=== PATIENT | male | born 1955 | race Caucasian/White ===

== ENCOUNTER 2021-11-03 19:48 | Inpatient (IN) | payer MEDICARE, BC, SELFPAY ==
--- NOTE | ~2021-11-03 | CT_ITS ---
EXAMINATION: CT CHEST WITH CONTRAST CLINICAL INFORMATION: Evaluate for mass COMPARISON: Chest radiograph from 11/03/2019 TECHNIQUE: Multidetector volumetric CT imaging of the chest was obtained after the administration of 65 mL of Omnipaque 350 intravenous contrast without immediate adverse reactions. Axial MIP volume rendering provided. Sagittal and coronal reformatted images were obtained. This CT examination was performed using dose optimization techniques as appropriate, variously including the following: *Automated exposure control *Adjustment of mA and/or kV according to patient size (this includes techniques or standardized protocols for targeted exams where dose is matched to indication/reason for exam; i.e. 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 LUNGS: There are diffuse groundglass opacities seen bilaterally without nodules or masses or consolidation. Limited evaluation of central airways reveals no obstruction. MEDIASTINUM: There is cardiomegaly. There is no pericardial effusion. PLEURA: There is small pleural effusion on the right. AXILLA: No lymphadenopathy. UPPER ABDOMEN: Unremarkable OSSEOUS STRUCTURES: There is moderate gynecomastia seen on the left. The right breast is not visualized. There is subcutaneous opacity along the left lower chest most likely bruising measured 4.[address]/CT chest w con IMPRESSION: Examination is limited due to patients large body habitus right-sided pleural effusion. Cardiomegaly. Diffuse groundglass opacities most likely due to underperfusion. Unclear origin opacity in the subcutaneous tissues along the lower chest on the left most likely bruising Fleischner guidelines were followed.
--- NOTE | ~2021-11-03 | XR_ITS ---
EXAMINATION: XR CHEST CLINICAL INFORMATION: Hypoxia COMPARISON: Previous chest x-ray most recent 11/03/[address] October 2020 2 TECHNIQUE: Frontal view of the chest was obtained. FINDINGS: The cardiac silhouette is enlarged but stable. There is volume loss to the right hemithorax with shift of the central mediastinal structures to the right. There is increasing airspace disease in the right mid and lower lung. There is a small right pleural effusion. Left lung is clear. There is no left pleural effusion. There is no pneumothorax. No acute bone abnormality is seen. XR/XR chest 1V IMPRESSION: Stable enlargement of the cardiac silhouette. Increasing volume loss to the right hemithorax. Increasing airspace disease at the right lung base and right pleural effusion.
--- NOTE | ~2021-11-03 | NM_ITS ---
EXAMINATION: NM LUNG IMAGE PERFUSION CLINICAL INFORMATION: Elevated d-dimer COMPARISON: None TECHNIQUE: Following intravenous administration of 4 mCi of 90 9M technetium MAA, imaging of both lungs were obtained in multiple projections. FINDINGS: There is a large nonsegmental defect in the right hilum likely enlarged pulmonary artery or underlying hilar mass. No additional nonsegmental or subsegmental defects seen. Ventilation study was not performed. NM/NM pul perfusion IMPRESSION: Large nonsegmental defect right hilum. No segmental or subsegmental defect. Findings are most suspicion for PE. Right hilar muscle defect may represent enlarged right hilum or hilar mass aneurysm. Correlate with CT chest exam with or without contrast.
--- NOTE | ~2021-11-03 | XR_ITS ---
EXAMINATION: XR CHEST CLINICAL INFORMATION: Shortness of breath COMPARISON: 12/14/2021 TECHNIQUE: Frontal view of the chest was obtained. FINDINGS: Limited evaluation due to patient rotation and body habitus. Lung volumes are symmetric. There is prominence of the central vasculature suggesting a degree of congestion. Possibility of patchy right basilar opacity and small right pleural effusion cannot be excluded. No appreciable pneumothorax. Cardiac silhouette remains enlarged. No acute osseous findings are seen. XR/XR chest 1V IMPRESSION: Limited assessment due to patient rotation and body habitus. Prominent central vasculature suggesting a degree of congestion. Patchy right basilar opacity and small pleural effusion cannot be excluded.
--- NOTE | ~2021-11-03 | US_ITS ---
EXAMINATION: US VENOUS ULTRASOUND WITH DOPPLER LOWER EXTREMITY, BILATERAL CLINICAL INFORMATION: Bilateral leg swelling COMPARISON: None TECHNIQUE: Ultrasound of the deep veins is performed from the hip to the calf with compression sonography and color and pulse Doppler assessment. Spectral analysis with color-flow imaging is performed. Exam is limited due to patient body habitus. FINDINGS: RIGHT: There is normal venous compression and respiratory variation and augmented flow. The visualized common femoral vein, superficial femoral vein, profunda femoral vein, popliteal vein, and the trifurcation region shows no evidence of deep venous thrombosis. There is a 6.6 x 1.3 x 4.6 LEFT: There is normal venous compression and respiratory variation and augmented flow. The visualized common femoral vein, superficial femoral vein, profunda femoral vein, popliteal vein, and the trifurcation region shows no evidence of deep venous thrombosis. There is no significant popliteal fossa cyst. US/US venous duplex LE BI IMPRESSION: Very limited exam. No DVT seen.
--- NOTE | ~2021-11-03 | XR_ITS ---
EXAMINATION: XR CHEST CLINICAL INFORMATION: Chest pain COMPARISON: 11/09/2021 TECHNIQUE: Frontal view of the chest was obtained. FINDINGS: Again seen is marked cardiomegaly, unchanged from prior. There may be some mild pulmonary vascular congestion present with dilatation of central vasculature. At the time of the prior study, a small right effusion was present which appears to have cleared in the interim. No gross consolidation is seen. XR/XR chest 1V IMPRESSION: Cardiomegaly. Clearing of previously seen right pleural effusion. Central pulmonary vascular congestion without edema.
--- NOTE | ~2021-11-03 | XR_ITS ---
EXAMINATION: XR CHEST CLINICAL INFORMATION: Cough and SOB. COMPARISON: None TECHNIQUE: Frontal view of the chest was obtained. FINDINGS: Patient is rotated to the right. Hypoexpanded lungs with diffuse opacity seen throughout the right lung. Cannot exclude underlying infiltrate or atelectasis. No gross bony abnormality seen. XR/XR chest 1V IMPRESSION: Patient is very right with diffuse opacity right lung question congestion versus underlying effusion. Similar findings were seen on previous study 12/24/2021.
--- NOTE | ~2021-11-03 | CT_ITS ---
EXAMINATION: CT HEAD WITHOUT CONTRAST CLINICAL INFORMATION: Headache COMPARISON: None TECHNIQUE: Contiguous axial imaging was performed from the skull base to vertex without intravenous administration of contrast. This CT examination was performed using dose optimization techniques as appropriate, variously including the following: *Automated exposure control *Adjustment of mA and/or kV according to patient size (this includes techniques or standardized protocols for targeted exams where dose is matched to indication/reason for exam; i.e. extremities or head) *Use of iterative reconstruction technique DLP: 1856 mGy-cm FINDINGS: Partially limited assessment due to motion artifact. There is no evidence of acute intracranial hemorrhage or territorial infarction. No abnormal mass effect or midline shift is seen. Villanueva to white matter differentiation is well preserved. No extra-axial fluid collections are identified. The ventricles are normal in size. There is no abnormal attenuation within the brain parenchyma. The osseous structures and soft tissues are normal. The mastoid air cells and visualized portions of the paranasal sinuses are well aerated. CT/CT head/brain wo con IMPRESSION: No acute intracranial pathology identified.
--- NOTE | ~2021-11-03 | XR_ITS ---
EXAMINATION: XR CHEST CLINICAL INFORMATION: shortness of breath and leg swelling COMPARISON: None TECHNIQUE: Frontal view of the chest was obtained. FINDINGS: Patient is rotated to the right. Lung volumes are low. There is prominence of the central pulmonary vasculature, most consistent with pulmonary venous congestion. Mild interstitial edema is also suspected. Probable small right pleural effusion with associated bibasilar atelectasis. No pneumothorax. Silhouette appears enlarged, though the rightward rotation of the chest somewhat limits the assessment. No acute osseous findings are identified. XR/XR chest 1V IMPRESSION: Cardiomegaly with pulmonary venous congestion, mild interstitial edema, and a small right pleural effusion, most consistent with CHF
--- NOTE | ~2021-11-03 | XR_ITS ---
EXAMINATION: XR CHEST CLINICAL INFORMATION: Follow-up Right-sided chest abnormality. COMPARISON: 11/08/2021 TECHNIQUE: 2 views of the chest were obtained. FINDINGS: Examination limited due to patient body habitus and portable technique. Cardiomediastinal silhouette remains the same, enlarged. Partially visualized lungs are clear but there are prominent interstitial markings. There is blunting right costophrenic angle most likely due to small effusion. XR/XR chest 2V IMPRESSION: Technically limited study revealed cardiomegaly and small right-sided pleural effusion.
[2021-11-03 19:51] VITALS: BP 152/100; PULSE 84; O2SAT 84
[2021-11-03 20:02] VITALS: BP 176/87; PULSE 92; RESP 24; TEMP 36.8; O2SAT 88; BMI 62.6
--- NOTE | 2021-11-03 20:08 | ECG_ITS ---
Test Reason : Dyspnea Blood Pressure : / mmHG Vent. Rate : 078 BPM Atrial Rate : 000 BPM P-R Int : 000 ms QRS Dur : 074 ms QT Int : 362 ms P-R-T Axes : 000 025 061 degrees QTc Int : 412 ms Atrial fibrillation with a competing junctional pacemaker Nonspecific T wave abnormality Abnormal ECG When compared with ECG of 03-MAY-2015 16:09, Atrial fibrillation has replaced Sinus rhythm Nonspecific T wave abnormality, worse in Anterolateral leads Referred By: Esther Bryson Electronically Signed By:Tyrell Corey
--- NOTE | 2021-11-03 20:19 | ED_ITS ---
HPI - SOB/Dyspnea General Chief Complaint: Dyspnea Stated Complaint: sob Time Seen by Provider: 11/03/21 20:02 Source: patient and EMS Mode of arrival: EMS Limitations: no limitations History of Present Illness HPI Narrative: 66-year-old male who reports he has a past medical history of atrial fibrillation although decided to stop taking his medication over a year ago for atrial fibrillation is not sure what actual medication he was on and has not seen a PCP in over a year presenting to the ED via EMS with complaints of shortness of breath/ dyspnea on exertion / orthopnea with lower extremity edema and abdominal fullness for the past 4 days worse today. he also reports decreased urination. patient reports he possibly gain weight over the past few days due to the swelling in his abdomen and his lower extremities. Reports that he is normally not on oxygen at home. Reports he is fully vaccinated to the C OVID vaccine. He is not boosted to the COVID vaccine. He denies any recent travel or sick contacts. Reports that he lives in his [place] and he is never around anyone. He denies any fevers, dizziness, headaches, neck pain/ stiffness, trouble swallowing, cough, sore throat, chest pain, palpitations, paresthesias, abdominal pain, back pain, Dysuria, hematuria, abnormal penile discharge, diarrhea, constipation, black or bloody stools, rashes or any other symptoms complaints or concerns at this time. MD elicited complaint: shortness of breath Pertinent past history: other ( Atrial fibrillation untreated not being followed by primary care provider for over a year) Onset (ago): day(s) (4) Context: occurred during exertion Timing: constant and progressively worsening Severity: moderate Exacerbating factors: lying flat, exertion, movement, inspiration and talking Relieving factors: nothing Known history of: other (atrial fibrillation ) Associated symptoms: orthopnea and other ( abdominal fullness, decreased urine and lower extremity edema and possible weight gain) Treatment prior to arrival: oxygen (2) Related Data Home oxygen amount: none Allergies Allergy/AdvReac Type Severity Reaction Status Date / Time No Known Allergies Allergy Verified 11/03/21 20:05 [No Known Allergies*] Review of Systems Review of Systems: Constitutional : positive weight gain, No Fever, No Chills, No Night Sweats, No Fatigue, No Malaise ENT/Mouth : No Hearing loss, No Ear Pain, No Nasal Congestion, No Sinus Pain, No Hoarseness, No sore throat, No Rhinorrhea, No Swallowing Difficulty Eyes: No Eye Pain, No Swelling, No Redness, No Foreign Body, No Discharge, No Vision Changes Cardiovascular : Positive shortness of breath /dyspnea on exertion / orthopnea/ lower extremity edema, No Chest Pain, No Palpitations Respiratory : No Cough, No Sputum, No Wheezing, No Smoke Exposure, No Dyspnea Gastrointestinal : No Nausea, No Vomiting, No Diarrhea, No Constipation, No abdominal Pain, No Hematochezia, No Melena Genitourinary : positive urinary flow changes, no irregular bleeding, No Dysuria, No Urinary Frequency, No Hematuria, No Urinary Incontinence, No Urgency, No Flank Pain, No Hesitancy Musculoskeletal : No joint pain, No Myalgias, No Joint Swelling Skin : No Skin Lesions, No rash Neuro : No Weakness, No Numbness, No Paresthesias, No Loss of Consciousness, No Dizziness, No Headache Psych : No Anxiety/Panic, No Depression, No SI/HI/AH/VH, No Social Issues, Heme/Lymph: No Bruising, No Bleeding,No Lymphadenopathy Endocrine : No Polyuria, No Polydipsia, No Temperature Intolerance Yes all other systems are reviewed and are negative [facility] Past Medical History Attestation statement: The following information was validated with the patient. Medical History (Updated 11/04/21 @ 01:03 by Donny Velarde MD) Atrial fibrillation Obesity Social History Social History Advance Directives: No Physical Exam Vital Signs: Vital Signs: Last Vital Signs Temp 98.2 F 11/03/21 20:02 Pulse 84 11/03/21 23:16 Resp 24 H 11/03/21 23:16 BP 148/85 H 11/03/21 23:16 Pulse Ox 92 11/03/21 23:16 BMI result Body Mass Index 71.8 vital signs have been reviewed as normal and appeared to be correct. Blood pressure 176/87. Heart rate normal. Respiration rate 24. Temperature normal. Oxygen saturation at88% at RA on 2L of NC oxygen at 98%. Appearance: Alert. Oriented X3. No acute distress. Head: Normal external exam. Normocephalic. Atraumatic. Eyes: PERRLA. EOMI. Conjunctiva and sclera normal. Eyelids normal. ENT: EAC normal. TM's Normal. Pharynx normal. Uvula midline. Moist mucous membranes. No trismus noted. No drooling noted. No muffled voice noted. Neck: Normal inspection. Neck supple. FROM. No adenopathy. Thyroid Normal. No meningeal signs. No neck mass noted. CVS: Normal heart rate and rhythm. Heart sound normal. Pulses normal throughout. No murmurs/rales/gallops. Respiratory: No respiratory distress. Painless inspiration. Breath sounds normal. No wheezes/rales/rhonchi noted. Chest nontender. No accessory muscle usage noted or decreased air movement noted. Abdomen: Soft and nontender. Bowel sounds normal in all 4 quadrants. positive distention. No organomegaly noted. No visible injury noted. Back: No CVA tenderness. Full range of motion noted. No rashes/lesio n/induration/fluctuance or signs of infection noted. Skin: Skin warm and dry. Normal skin color. Normal skin turgor. No rashes/lesions/lacerations noted. Extremities: Positive lower extremity edema. No calf tenderness is noted. Extremities exhibit normal range of motion. Extremities nontender. Neuro: Oriented X 3. No motor deficit. No sensory deficit. Reflexes normal. Normal steady gait. No focal neuro deficits noted. Vascular: + radial pulses/+ 2 distal pedal pulses/+2 dorsalis pedis b/l. Normal cap refill. No cyanosis noted to upper extremity nails and lower extremity toes nails. Course Course Course Narrative: 20pm - 66-year-old male With a past medical history of atrial fibrillation who is non med compliant for over a year not being followed by primary care provider presenting to the ED with complaints of shortness of breath/ dyspnea on exertion/ orthopnea with lower extremity edema and weight gain for the past 4 days and abdominal fullness. Also reports decreased urination. Vaccinated to COVID. No other symptoms. On arrival patient needed to be placed on 2 L of nasal cannula oxygen due to his oxygen saturations 88% on room air now he is satting at 90 8% on the 2 L of nasal cannula oxygen. Otherwise all other vitals are within normal limits. No signs of other acute distress at this time. Plan: Labs, EKG, chest x-ray, COVID swab Then re-evaluate. Reevaluation(s) Reevaluation #1: - labs reviewed patient has an elevated D-dimer of 623. BUN 21. Troponin 43.3. BNP 233. Otherwise all other labs are within normal limits. - Chest x-ray revealed cardiomegaly with pulmonary venous congestion, mild interstitial edema and right small pleural effusion most consistent with CHF. - Therefore at this time will obtain a CTA of chest for possible PE and venous duplex ultrasound of bilateral lower extremity for possible DVTs - patient chest x-ray reveals CHF although the patient's BNP is only 233. Therefore will give 20 mg of IV Lasix for LE edema, Repeat the patient's troponin and then re-evaluate. Time: 22:57 Reevaluation #2: - patient is above the weight limit for CTA in the main ED department therefore patient will need to have a V/Q scan tomorrow morning. the cath lab radiology technician also reported that the patient will not have accurate venous duplex ultrasound studies due to his weight. - Repeat troponin negative delta went from 43.3-44.2. - We will to admit to Dr. Velarde for cardiomegaly with CHF, pleural effusion requiring 2 L of nasal cannula oxygen. Will start on Eliquis 10 mg b.i.d. for 1 week for prophylactic this for PE/DVT. I confirmed this with the on-call pharmacy they reported that either Lovenox or Eliquis would be acceptable due to patient having history of atrial fibrillation will start on Eliquis. Dr. Velarde to admit at this time. Time: 23:33 MDM - SOB/Dyspnea Medical Records Attestation: I reviewed the patient's medical records. Lab Data Attestation: I reviewed the patient's lab results. Result diagrams: 11/03/21 21:27 11/03/21 21:27 Labs: Lab Results 11/03/21 11/03/21 11/03/21 Range/Units 21:27 21:27 21:27 WBC 8.2 (4.8-10.8) X10*3/uL RBC 5.00 (4.60-5.80) X10*6/uL Hgb 15.2 (14.0-18.0) g/dl Hct 49.8 (42.0-52.0) % MCV 99.6 H (80.0-98.0) fL MCH 30.4 (27.0-33.0) pg MCHC 30.5 L (31.0-36.0) g/dl RDW 15.3 (11.0-16.0) % Plt Count 210 (160-400) X10*3/uL MPV 9.7 (9.4-12.4) fL Immature Gran % (Auto) 0.5 H (0.0-0.4) % Neut % (Auto) 70.5 (45-73) % Lymph % (Auto) 19.3 L (20-40) % [place] % (Auto) 8.0 (2-11) % Eos % (Auto) 1.0 (0-4) % Baso % (Auto) 0.7 (0-2) % Lymph # (Auto) 1.6 (1.2-4.9) X10*3/uL [place] # (Auto) 0.7 (0.1-1.2) X10*3/uL Eos # (Auto) 0.1 (0.0-0.4) X10*3/uL Baso # (Auto) 0.1 (0.0-0.2) X10*3/uL Abs Immat Gran (auto) 0.04 H (0.00-0.03) X10*3/uL Absolute Neuts (auto) 5.8 (2.0-8.3) x10*3/uL Absolute Nucleated RBC 0.000 (0.0-0.012) X10*3/uL Nucleated RBC % (auto) 0.0 (0.0-0.2) /100WBC PT 17.8 H (9.9-13.0) SEC INR 1.6 H (0.9-1.1) D-Dimer High Sensitivty 623 NG/ML Sodium 144 (135-145) mmol/L Potassium 4.7 (3.3-5.1) mmol/L Chloride 108 (96-108) mmol/L Carbon Dioxide 29 (22-29) mmol/L Anion Gap 12 (12-20) BUN 21 H (9-16) mg/dL Creatinine 1.16 (0.5-1.4) mg/dL Estim Creat Clear Calc 102.1 Estimated GFR > 60 Random Glucose 93 (60-115) mg/dL Lactic Acid (0.5-2.0) mmol/L Calcium 8.9 (8.4-10.2) mg/dL Magnesium 2.0 (1.6-2.6) mg/dL Total Bilirubin 0.8 (0.0-1.0) mg/dL AST 14 (5-37) U/L ALT 10 (0-40) U/L Alkaline Phosphatase 58 (39-117) U/L Troponin I High Sens (<3.5-35.0) ng/L B-Natriuretic Peptide (<100) pg/mL Total Protein 5.9 L (6.5-8.0) g/dL Albumin 3.2 L (3.5-5.0) g/dL Urine Color Urine Appearance Urine pH (5.0-8.0) Ur Specific [place] (1.005-1.025) Urine Protein (NEG-TRACE) MG/DL Urine Glucose (UA) (NEG) MG/DL Urine Ketones (NEG) MG/DL Urine Blood (NEG) Urine Nitrite (NEG) Ur Leukocyte Esterase (NEG) Urine RBC (0) /HPF Urine WBC (0-4) /HPF Ur Squamous Epith Cells /LPF Urine Bacteria /LPF Urine Mucus /LPF COVID-19 ([facility]) (Negative) COVID-19 Clin Com 11/03/21 11/03/21 11/03/21 Range/Units 21:27 21:27 21:27 WBC (4.8-10.8) X10*3/uL RBC (4.60-5.80) X10*6/uL Hgb (14.0-18.0) g/dl Hct (42.0-52.0) % MCV (80.0-98.0) fL MCH (27.0-33.0) pg MCHC (31.0-36.0) g/dl RDW (11.0-16.0) % Plt Count (160-400) X10*3/uL MPV (9.4-12.4) fL Immature Gran % (Auto) (0.0-0.4) % Neut % (Auto) (45-73) % Lymph % (Auto) (20-40) % [place] % (Auto) (2-11) % Eos % (Auto) (0-4) % Baso % (Auto) (0-2) % Lymph # (Auto) (1.2-4.9) X10*3/uL [place] # (Auto) (0.1-1.2) X10*3/uL Eos # (Auto) (0.0-0.4) X10*3/uL Baso # (Auto) (0.0-0.2) X10*3/uL Abs Immat Gran (auto) (0.00-0.03) X10*3/uL Absolute Neuts (auto) (2.0-8.3) x10*3/uL Absolute Nucleated RBC (0.0-0.012) X10*3/uL Nucleated RBC % (auto) (0.0-0.2) /100WBC PT (9.9-13.0) SEC INR (0.9-1.1) D-Dimer High Sensitivty NG/ML Sodium (135-145) mmol/L Potassium (3.3-5.1) mmol/L Chloride (96-108) mmol/L Carbon Dioxide (22-29) mmol/L Anion Gap (12-20) BUN (9-16) mg/dL Creatinine (0.5-1.4) mg/dL Estim Creat Clear Calc Estimated GFR Random Glucose (60-115) mg/dL Lactic Acid 1.4 (0.5-2.0) mmol/L Calcium (8.4-10.2) mg/dL Magnesium (1.6-2.6) mg/dL Total Bilirubin (0.0-1.0) mg/dL AST (5-37) U/L ALT (0-40) U/L Alkaline Phosphatase (39-117) U/L Troponin I High Sens 43.3 H (<3.5-35.0) ng/L B-Natriuretic Peptide 233 H (<100) pg/mL Total Protein (6.5-8.0) g/dL Albumin (3.5-5.0) g/dL Urine Color Urine Appearance Urine pH (5.0-8.0) Ur Specific [place] (1.005-1.025) Urine Protein (NEG-TRACE) MG/DL Urine Glucose (UA) (NEG) MG/DL Urine Ketones (NEG) MG/DL Urine Blood (NEG) Urine Nitrite (NEG) Ur Leukocyte Esterase (NEG) Urine RBC (0) /HPF Urine WBC (0-4) /HPF Ur Squamous Epith Cells /LPF Urine Bacteria /LPF Urine Mucus /LPF COVID-19 ([facility]) Negative (Negative) COVID-19 Clin Com See Note 11/04/21 11/04/21 Range/Units 00:26 00:26 WBC (4.8-10.8) X10*3/uL RBC (4.60-5.80) X10*6/uL Hgb (14.0-18.0) g/dl Hct (42.0-52.0) % MCV (80.0-98.0) fL MCH (27.0-33.0) pg MCHC (31.0-36.0) g/dl RDW (11.0-16.0) % Plt Count (160-400) X10*3/uL MPV (9.4-12.4) fL Immature Gran % (Auto) (0.0-0.4) % Neut % (Auto) (45-73) % Lymph % (Auto) (20-40) % [place] % (Auto) (2-11) % Eos % (Auto) (0-4) % Baso % (Auto) (0-2) % Lymph # (Auto) (1.2-4.9) X10*3/uL [place] # (Auto) (0.1-1.2) X10*3/uL Eos # (Auto) (0.0-0.4) X10*3/uL Baso # (Auto) (0.0-0.2) X10*3/uL Abs Immat Gran (auto) (0.00-0.03) X10*3/uL Absolute Neuts (auto) (2.0-8.3) x10*3/uL Absolute Nucleated RBC (0.0-0.012) X10*3/uL Nucleated RBC % (auto) (0.0-0.2) /100WBC PT (9.9-13.0) SEC INR (0.9-1.1) D-Dimer High Sensitivty NG/ML Sodium (135-145) mmol/L Potassium (3.3-5.1) mmol/L Chloride (96-108) mmol/L Carbon Dioxide (22-29) mmol/L Anion Gap (12-20) BUN (9-16) mg/dL Creatinine (0.5-1.4) mg/dL Estim Creat Clear Calc Estimated GFR Random Glucose (60-115) mg/dL Lactic Acid (0.5-2.0) mmol/L Calcium (8.4-10.2) mg/dL Magnesium (1.6-2.6) mg/dL Total Bilirubin (0.0-1.0) mg/dL AST (5-37) U/L ALT (0-40) U/L Alkaline Phosphatase (39-117) U/L Troponin I High Sens 44.2 H (<3.5-35.0) ng/L B-Natriuretic Peptide (<100) pg/mL Total Protein (6.5-8.0) g/dL Albumin (3.5-5.0) g/dL Urine Color STRAW Urine Appearance CLEAR Urine pH 5.5 (5.0-8.0) Ur Specific [place] 1.015 (1.005-1.025) Urine Protein NEG (NEG-TRACE) MG/DL Urine Glucose (UA) NEG (NEG) MG/DL Urine Ketones NEG (NEG) MG/DL Urine Blood 2+ H (NEG) Urine Nitrite NEG (NEG) Ur Leukocyte Esterase NEG (NEG) Urine RBC 5-9 H (0) /HPF Urine WBC 0-2 (0-4) /HPF Ur Squamous Epith Cells 1+ /LPF Urine Bacteria TRACE /LPF Urine Mucus TRACE /LPF COVID-19 ([facility]) (Negative) COVID-19 Clin Com Imaging Data Chest x-ray: Attestation: I personally reviewed and interpreted this imaging study as follows: Radiologist's impression: FINDINGS: Patient is rotated to the right. Lung volumes are low. There is prominence of the central pulmonary vasculature, most consistent with pulmonary venous congestion. Mild interstitial edema is also suspected. Probable small right pleural effusion with associated bibasilar atelectasis. No pneumothorax. Silhouette appears enlarged, though the rightward rotation of the chest somewhat limits the assessment. No acute osseous findings are identified. XR/XR chest 1V IMPRESSION: Cardiomegaly with pulmonary venous congestion, mild interstitial edema, and a small right pleural effusion, most consistent with CHF ECG Data Attestation: I personally reviewed and interpreted this ECG as follows: ECG interpretation date: 11/03/21 ECG interpretation time: 09:29 Prior ECG tracings: available for review Interpretation: atrial fibrillation with a ventricular rate of [address] abnormalities no acute ischemic changes are noted. Similar compared to prior EKG May 03, 2015. Critical Care Time Critical Care Time Critical Care Time: Yes Total Critical Care Time: 60 Attestation: I personally attest to this time spent taking care of the patient Discharge Plan Discharge Clinical Impression: Congestive heart failure, Atrial fibrillation, Pleural effusion on right, Hypoxia, Cardiomegaly Patient Disposition: Still a Patient
[2021-11-03 21:35] LABS: MANUAL DIFF FLAG NO
[2021-11-03 21:37] LABS: Basophils Absolute Auto 0.1 X10*3/uL (0.0-0.2); Basophils Percent Auto 0.7 % (0-2); Eosinophils Absolute Auto 0.1 X10*3/uL (0.0-0.4); Hematocrit 49.8 % (42.0-52.0); Hemoglobin 15.2 g/dl (14.0-18.0); Imm Gran Abs Auto 0.04 X10*3/uL (0.00-0.03); Imm Gran Pct Auto 0.5 % (0.0-0.4); Lymphocytes Absolute Auto 1.6 X10*3/uL (1.2-4.9); Lymphocytes Percent Auto 19.3 % (20-40); Mean Corpuscular HGB Conc 30.5 g/dl (31.0-36.0); Mean Corpuscular Hemoglobin 30.4 pg (27.0-33.0); Mean Corpuscular Volume 99.6 fL (80.0-98.0); Mean Platelet Volume 9.7 fL (9.4-12.4); Monocytes Absolute Auto 0.7 X10*3/uL (0.1-1.2); Neutrophils Absolute Auto 5.8 x10*3/uL (2.0-8.3); Neutrophils Percent Auto 70.5 % (45-73); Platelet Count 210 X10*3/uL (160-400); Red Cell Distribution Width 15.3 % (11.0-16.0); White Blood Count 8.2 X10*3/uL (4.8-10.8)
[2021-11-03 21:47] LABS: INTERNATIONAL NORM RATIO 1.6 (0.9-1.1); Prothrombin Time 17.8 SEC (9.9-13.0)
[2021-11-03 21:49] LABS: D Dimer High Sensitivity 623 NG/ML
[2021-11-03 21:51] LABS: COVID-19 Test Negative (Negative)
[2021-11-03 21:59] LABS: Alanine Aminotransferase 10 U/L (0-40); Albumin Level 3.2 g/dL (3.5-5.0); Alkaline Phosphatase 58 U/L (39-117); Anion Gap 12 (12-20); Aspartate Amino Transferase 14 U/L (5-37); Bilirubin Total 0.8 mg/dL (0.0-1.0); Blood Urea Nitrogen 21 mg/dL (9-16); Calcium 8.9 mg/dL (8.4-10.2); Carbon Dioxide 29 mmol/L (22-29); Chloride 108 mmol/L (96-108); Creatinine Clr Calc Pharmacy 102.1; Estimated Glomerular Filt Rate > 60; Glucose Random 93 mg/dL (60-115); Potassium 4.7 mmol/L (3.3-5.1); Sodium 144 mmol/L (135-145); Total Protein 5.9 g/dL (6.5-8.0)
[2021-11-03 22:05] LABS: B Type Natriuretic Peptide 233 pg/mL (<100); Troponin-I High Sensitivity 43.3 ng/L (<3.5-35.0)
[2021-11-03 22:25] LABS: Lactic Acid 1.4 mmol/L (0.5-2.0)
[2021-11-03 23:16] VITALS: BP 148/85; PULSE 84; RESP 24; O2SAT 92
[2021-11-03] MEDS: Furosemide 20 MG/2 ML VIAL IVPUSH (23:19)
[2021-11-04 00:34] LABS: Appearance Urine CLEAR; Color Urine STRAW; Glucose Urine UA NEG (NEG); Leukocyte Esterase Urine NEG (NEG); Nitrite Urine NEG (NEG); PH 5.5 (5.0-8.0); Specific Gravity - Urine 1.015 (1.005-1.025); UACC Culture Trigger NO; Urine Blood 2+ (NEG); Urine Ketones NEG (NEG); Urine Protein NEG (NEG-TRACE)
[2021-11-04 00:46] VITALS: BMI 71.8
[2021-11-04 00:48] LABS: Bacteria Urine TRACE /LPF; Mucus Urine TRACE /LPF; Squamous Epithelial Cell Urine 1+ /LPF; WBC Urine 0-2 /HPF (0-4)
[2021-11-04 00:51] LABS: Troponin-I High Sensitivity 44.2 ng/L (<3.5-35.0)
--- NOTE | 2021-11-04 01:03 | PM.IMHP ---
History of Present Illness Date of Service: 11/04/21 Chief Complaint: shortness of breath 66-year-old male with a past medical history of obesity, atrial fibrillation -not on any medications; presented to the hospital with a chief complaint of shortness of breath. Patient reports that over the past 3 days she has been having shortness of breath which has been gradually worsening also complains of dyspnea on exertion. Denies any chest pain. Patient reports that he also feels like weight gain, leg swelling. denies any fall or trauma. Denies any fever chills cough. Denies any GI symptoms. Patient does complain of orthopnea. Review of all other systems is negative except mentioned above ER course: Per ER team patient noted to be obese; noted to have pitting edema; chest x-ray showed congestion/ cardiomegaly/small pleural effusion; consult in CHF. Given Lasix. Patient's proBNP was elevated. Unable to do CT scan given overweight. Given empiric anticoagulation. V/Q scan ordered. Admitted to the hospital for further management. EKG was nonischemic -atrial fibrillation -rate controlled. [facility] Medical History (Updated 11/04/21 @ 01:03 by Donny Velarde MD) Atrial fibrillation Obesity Pertinent family history: reviewed Social History Advance Directives: No Meds Allergies Allergy/AdvReac Type Severity Reaction Status Date / Time No Known Allergies Allergy Verified 11/03/21 20:05 [No Known Allergies*] Active Medications: Current Medications Acetaminophen (Acetaminophen 325 Mg Tablet) 650 mg PO Q6H PRN PRN Reason: Pain, Mild (Pain Scale 1-3) Furosemide (Furosemide 40 Mg/4 Ml Vial) 40 mg IVPUSH BIDWM [facility]; Protocol Melatonin (Melatonin 3 Mg Tablet) 6 mg PO BEDTIME PRN PRN Reason: Insomnia Senna (Sennosides 8.6 Mg Tablet) 17.2 mg PO BEDTIME PRN PRN Reason: Constipation Sodium Chloride (0.9 % Sodium Chloride Flush 3 Ml Syringe) 3 ml IVFLUSH QSHIFT [facility] Physical Exam Vital Signs and Narrative: Vital Signs: Last Vital Signs Temp 98.2 F 11/03/21 20:02 Pulse 84 11/03/21 23:16 Resp 24 H 11/03/21 23:16 BP 148/85 H 11/03/21 23:16 Pulse Ox 92 11/03/21 23:16 BMI result Body Mass Index 71.8 Gen: Appears be in no acute distress. Obese. Speaks in full sentences. On supplemental oxygen. HEENT: NCAT, Moist mucosa. Pulmonary: crackles present bilaterally CVS: Normal S1-S2 Abdomen: BS+, Soft, Nontender Extremities: Warm well perfused . 2+ pitting edema Neuro: Alert and awake.. Grossly nonfocal Results Labs CBC and Chem 7: 11/03/21 21:27 11/03/21 21:27 Labs: Laboratory Results - last 24 hr 11/03/21 11/03/21 11/03/21 21:27 21:27 21:27 MCV 99.6 H MCH 30.4 MCHC 30.5 L RDW 15.3 Plt Count 210 MPV 9.7 Immature Gran % (Auto) 0.5 H Neut % (Auto) 70.5 Lymph % (Auto) 19.3 L [place] % (Auto) 8.0 Eos % (Auto) 1.0 Baso % (Auto) 0.7 Lymph # (Auto) 1.6 [place] # (Auto) 0.7 Eos # (Auto) 0.1 Baso # (Auto) 0.1 Abs Immat Gran (auto) 0.04 H Absolute Neuts (auto) 5.8 Absolute Nucleated RBC 0.000 Nucleated RBC % (auto) 0.0 PT 17.8 H INR 1.6 H D-Dimer High Sensitivty 623 Anion Gap 12 Estim Creat Clear Calc 102.1 Estimated GFR > 60 Random Glucose 93 Lactic Acid Calcium 8.9 Magnesium 2.0 Total Bilirubin 0.8 AST 14 ALT 10 Alkaline Phosphatase 58 Troponin I High Sens B-Natriuretic Peptide Total Protein 5.9 L Albumin 3.2 L Urine Color Urine Appearance Urine pH Ur Specific [place] Urine Protein Urine Glucose (UA) Urine Ketones Urine Blood Urine Nitrite Ur Leukocyte Esterase Urine RBC Urine WBC Ur Squamous Epith Cells Urine Bacteria Urine Mucus COVID-19 (AISHA) COVID-19 Clin Com 11/03/21 11/03/21 11/03/21 21:27 21:27 21:27 MCV MCH MCHC RDW Plt Count MPV Immature Gran % (Auto) Neut % (Auto) Lymph % (Auto) [place] % (Auto) Eos % (Auto) Baso % (Auto) Lymph # (Auto) [place] # (Auto) Eos # (Auto) Baso # (Auto) Abs Immat Gran (auto) Absolute Neuts (auto) Absolute Nucleated RBC Nucleated RBC % (auto) PT INR D-Dimer High Sensitivty Anion Gap Estim Creat Clear Calc Estimated GFR Random Glucose Lactic Acid 1.4 Calcium Magnesium Total Bilirubin AST ALT Alkaline Phosphatase Troponin I High Sens 43.3 H B-Natriuretic Peptide 233 H Total Protein Albumin Urine Color Urine Appearance Urine pH Ur Specific [place] Urine Protein Urine Glucose (UA) Urine Ketones Urine Blood Urine Nitrite Ur Leukocyte Esterase Urine RBC Urine WBC Ur Squamous Epith Cells Urine Bacteria Urine Mucus COVID-19 (AISHA) Negative COVID-19 Clin Com See Note 11/04/21 11/04/21 00:26 00:26 MCV MCH MCHC RDW Plt Count MPV Immature Gran % (Auto) Neut % (Auto) Lymph % (Auto) [place] % (Auto) Eos % (Auto) Baso % (Auto) Lymph # (Auto) [place] # (Auto) Eos # (Auto) Baso # (Auto) Abs Immat Gran (auto) Absolute Neuts (auto) Absolute Nucleated RBC Nucleated RBC % (auto) PT INR D-Dimer High Sensitivty Anion Gap Estim Creat Clear Calc Estimated GFR Random Glucose Lactic Acid Calcium Magnesium Total Bilirubin AST ALT Alkaline Phosphatase Troponin I High Sens 44.2 H B-Natriuretic Peptide Total Protein Albumin Urine Color STRAW Urine Appearance CLEAR Urine pH 5.5 Ur Specific [place] 1.015 Urine Protein NEG Urine Glucose (UA) NEG Urine Ketones NEG Urine Blood 2+ H Urine Nitrite NEG Ur Leukocyte Esterase NEG Urine RBC 5-9 H Urine WBC 0-2 Ur Squamous Epith Cells 1+ Urine Bacteria TRACE Urine Mucus TRACE COVID-19 (AISHA) COVID-19 Clin Com Imaging Radiologist's Impressions: Impressions Chest X-Ray 11/03/21 20:25 IMPRESSION: Cardiomegaly with pulmonary venous congestion, mild interstitial edema, and a small right pleural effusion, most consistent with CHF Assessment and Plan (1) Congestive heart failure: Status: Acute (2) Atrial fibrillation: Status: Acute (3) Pleural effusion on right: Status: Acute (4) Hypoxia: Status: Acute (5) Obesity: Status: Acute 66-year-old male with a past medical history of obesity, atrial fibrillation -not on any medications; presented to the hospital with a chief complaint of shortness of breath. Noted to have new onset CHF. Admitted for further management. hypoxia: Patient was desaturating to 88% on room air. On supplemental oxygen. In the setting of new onset CHF. COVID-19 negative. A New onset CHF: Continue Lasix 40 mg IV b.i.d daily weights and I's and O's Narayan catheter for fluid management Echocardiogram cardiology consult troponins indeterminate- likely demand. Atrial fibrillation: Rate controlled. Patient has high started a score given concerns for new onset CHF. Started on Eliquis 10 mg b.i.d. for 7 days followed by 5 mg b.i.d.. Elevated D-dimer: Will obtain a V/Q scan and venous duplex. Code status: Full code Quality Stroke Does the patient have a stroke diagnosis?: No VTE Prior VTE?: No VTE Risk Level:: Medical - moderate - high VTE Device Contraindication: Treatment Not Indicated VTE Drug Contraindication: N/A - Med Ordered
[2021-11-04 01:07] VITALS: BP 135/90; PULSE 89; RESP 24; O2SAT 96
[2021-11-04 01:20] LABS: Hemoglobin 15.7 g/dl (14.0-18.0); Mean Corpuscular HGB Conc 30.2 g/dl (31.0-36.0); Mean Corpuscular Volume 99.4 fL (80.0-98.0); Mean Platelet Volume 9.5 fL (9.4-12.4); Platelet Count 196 X10*3/uL (160-400); Red Blood Count 5.23 X10*6/uL (4.60-5.80); Red Cell Distribution Width 15.5 % (11.0-16.0); White Blood Count 9.3 X10*3/uL (4.8-10.8)
[2021-11-04 01:26] LABS: INTERNATIONAL NORM RATIO 1.5 (0.9-1.1); Prothrombin Time 17.4 SEC (9.9-13.0)
[2021-11-04 01:29] LABS: Partial Thromboplastin Time 32.9 SEC (24.1-38.0)
[2021-11-04] MEDS: Furosemide 20 MG/2 ML VIAL IVPUSH (01:29)
[2021-11-04] MEDS: Apixaban 5 MG TABLET 10 MG PO ×3 (01:31→19:50)
--- NOTE | 2021-11-04 02:43 | PC.NURSE ---
Report given to Sergio HURST.
[2021-11-04 04:01] VITALS: BP 144/75; PULSE 90; RESP 20; TEMP 36.6
[2021-11-04 04:53] LABS: MANUAL DIFF FLAG NO
[2021-11-04 04:59] LABS: Basophils Absolute Auto 0.1 X10*3/uL (0.0-0.2); Basophils Percent Auto 0.6 % (0-2); Eosinophils Absolute Auto 0.1 X10*3/uL (0.0-0.4); Eosinophils Percent Auto 1.3 % (0-4); Hematocrit 49.4 % (42.0-52.0); Hemoglobin 15.1 g/dl (14.0-18.0); Imm Gran Abs Auto 0.03 X10*3/uL (0.00-0.03); Imm Gran Pct Auto 0.3 % (0.0-0.4); Lymphocytes Absolute Auto 2.2 X10*3/uL (1.2-4.9); Lymphocytes Percent Auto 22.9 % (20-40); Mean Corpuscular HGB Conc 30.6 g/dl (31.0-36.0); Mean Corpuscular Hemoglobin 30.3 pg (27.0-33.0); Mean Corpuscular Volume 99.2 fL (80.0-98.0); Monocytes Absolute Auto 0.9 X10*3/uL (0.1-1.2); Monocytes Percent Auto 9.6 % (2-11); Neutrophils Absolute Auto 6.2 x10*3/uL (2.0-8.3); Neutrophils Percent Auto 65.3 % (45-73); Platelet Count 218 X10*3/uL (160-400); Red Blood Count 4.98 X10*6/uL (4.60-5.80); Red Cell Distribution Width 15.4 % (11.0-16.0); White Blood Count 9.5 X10*3/uL (4.8-10.8)
[2021-11-04 05:25] LABS: Anion Gap 15 (12-20); Blood Urea Nitrogen 20 mg/dL (9-16); Calcium 9.1 mg/dL (8.4-10.2); Carbon Dioxide 29 mmol/L (22-29); Chloride 105 mmol/L (96-108); Cholesterol 121 mg/dL; Creatinine Clr Calc Pharmacy 118.9; Estimated Glomerular Filt Rate > 60; Glucose Random 86 mg/dL (60-115); HDL Cholesterol 27 mg/dL; LDL Cholesterol Calculated 74 mg/dl; Magnesium 1.8 mg/dL (1.6-2.6); Potassium 4.2 mmol/L (3.3-5.1); Sodium 145 mmol/L (135-145); Triglycerides 101 mg/dL
[2021-11-04 07:11] VITALS: BP 139/78; PULSE 96; RESP 18; TEMP 36.4; O2SAT 92
--- NOTE | 2021-11-04 07:28 | P.PNIM_ITS ---
Subjective Subjective Date of Service: 11/04/21 Interval History: CHF , Morbid obesity Review of Systems sob seems slightly better ,still has leg edema Physical Exam Vital Signs: Vital Signs: Last Vital Signs Temp 97.5 F 11/04/21 07:11 Pulse 96 11/04/21 07:11 Resp 18 11/04/21 07:11 BP 139/78 11/04/21 07:11 Pulse Ox 92 11/04/21 07:11 BMI result Body Mass Index 71.8 Appearance: Alert.? Oriented X3.? not in distress.? Eyes: Pupils equal, round and reactive to light.? Sclera nonicteric.? ENT: Pharynx normal.? Moist mucous membranes. cvs: rrr, [id number] res: clear to auscultation ,no rhonchii or wheezing abd: no rebound or guarding ,nt, bs present. ext pulses present , no cyanosis , has leg edema . neuro: axo3 , nonfocal. Objective Data Active Medications Acetaminophen (Acetaminophen 325 Mg Tablet) 650 mg PO Q6H PRN PRN Reason: Pain, Mild (Pain Scale 1-3) Apixaban (Apixaban 5 Mg Tablet) 10 mg PO BID [facility] Stop: 11/11/21 01:14 Last Admin: 11/04/21 01:31 Dose: 10 mg Documented by: KELSI Furosemide (Furosemide 40 Mg/4 Ml Vial) 40 mg IVPUSH BIDWM [facility]; Protocol Melatonin (Melatonin 3 Mg Tablet) 6 mg PO BEDTIME PRN PRN Reason: Insomnia Pharmacy Consult (Consult Rx Perform Med Rec) 1 each MISCELLANE ONCE PRN PRN Reason: Consult order Senna (Sennosides 8.6 Mg Tablet) 17.2 mg PO BEDTIME PRN PRN Reason: Constipation Sodium Chloride (0.9 % Sodium Chloride Flush 3 Ml Syringe) 3 ml IVFLUSH QSHIFT [facility] Labs CBC & Chem 7: 11/04/21 04:01 11/04/21 04:01 Labs: Laboratory Results - last 24 hr 11/03/21 11/03/21 11/03/21 21:27 21:27 21:27 MCV 99.6 H MCH 30.4 MCHC 30.5 L RDW 15.3 Plt Count 210 MPV 9.7 Immature Gran % (Auto) 0.5 H Neut % (Auto) 70.5 Lymph % (Auto) 19.3 L [place] % (Auto) 8.0 Eos % (Auto) 1.0 Baso % (Auto) 0.7 Lymph # (Auto) 1.6 [place] # (Auto) 0.7 Eos # (Auto) 0.1 Baso # (Auto) 0.1 Abs Immat Gran (auto) 0.04 H Absolute Neuts (auto) 5.8 Absolute Nucleated RBC 0.000 Nucleated RBC % (auto) 0.0 PT 17.8 H INR 1.6 H APTT D-Dimer High Sensitivty 623 Anion Gap 12 Estim Creat Clear Calc 102.1 Estimated GFR > 60 Random Glucose 93 Lactic Acid Calcium 8.9 Magnesium 2.0 Total Bilirubin 0.8 AST 14 ALT 10 Alkaline Phosphatase 58 Troponin I High Sens B-Natriuretic Peptide Total Protein 5.9 L Albumin 3.2 L Triglycerides Cholesterol LDL Cholesterol, Calc HDL Cholesterol Urine Color Urine Appearance Urine pH Ur Specific [place] Urine Protein Urine Glucose (UA) Urine Ketones Urine Blood Urine Nitrite Ur Leukocyte Esterase Urine RBC Urine WBC Ur Squamous Epith Cells Urine Bacteria Urine Mucus COVID-19 (AISHA) COVID-19 [employer] 11/03/21 11/03/21 11/03/21 21:27 21:27 21:27 MCV MCH MCHC RDW Plt Count MPV Immature Gran % (Auto) Neut % (Auto) Lymph % (Auto) [place] % (Auto) Eos % (Auto) Baso % (Auto) Lymph # (Auto) [place] # (Auto) Eos # (Auto) Baso # (Auto) Abs Immat Gran (auto) Absolute Neuts (auto) Absolute Nucleated RBC Nucleated RBC % (auto) PT INR APTT D-Dimer High Sensitivty Anion Gap Estim Creat Clear Calc Estimated GFR Random Glucose Lactic Acid 1.4 Calcium Magnesium Total Bilirubin AST ALT Alkaline Phosphatase Troponin I High Sens 43.3 H B-Natriuretic Peptide 233 H Total Protein Albumin Triglycerides Cholesterol LDL Cholesterol, Calc HDL Cholesterol Urine Color Urine Appearance Urine pH Ur Specific [place] Urine Protein Urine Glucose (UA) Urine Ketones Urine Blood Urine Nitrite Ur Leukocyte Esterase Urine RBC Urine WBC Ur Squamous Epith Cells Urine Bacteria Urine Mucus COVID-19 (AISHA) Negative COVID-19 [employer] Com See Note 11/04/21 11/04/21 11/04/21 00:26 00:26 01:15 MCV 99.4 H MCH 30.0 MCHC 30.2 L RDW 15.5 Plt Count 196 MPV 9.5 Immature Gran % (Auto) Neut % (Auto) Lymph % (Auto) [place] % (Auto) Eos % (Auto) Baso % (Auto) Lymph # (Auto) [place] # (Auto) Eos # (Auto) Baso # (Auto) Abs Immat Gran (auto) Absolute Neuts (auto) Absolute Nucleated RBC 0.000 Nucleated RBC % (auto) 0.0 PT INR APTT D-Dimer High Sensitivty Anion Gap Estim Creat Clear Calc Estimated GFR Random Glucose Lactic Acid Calcium Magnesium Total Bilirubin AST ALT Alkaline Phosphatase Troponin I High Sens 44.2 H B-Natriuretic Peptide Total Protein Albumin Triglycerides Cholesterol LDL Cholesterol, Calc HDL Cholesterol Urine Color STRAW Urine Appearance CLEAR Urine pH 5.5 Ur Specific [place] 1.015 Urine Protein NEG Urine Glucose (UA) NEG Urine Ketones NEG Urine Blood 2+ H Urine Nitrite NEG Ur Leukocyte Esterase NEG Urine RBC 5-9 H Urine WBC 0-2 Ur Squamous Epith Cells 1+ Urine Bacteria TRACE Urine Mucus TRACE COVID-19 ([facility]ISHA) COVID-19 Clin Com 11/04/21 11/04/21 11/04/21 01:15 04:01 04:01 MCV 99.2 H MCH 30.3 MCHC 30.6 L RDW 15.4 Plt Count 218 MPV 10.0 Immature Gran % (Auto) 0.3 Neut % (Auto) 65.3 Lymph % (Auto) 22.9 [place] % (Auto) 9.6 Eos % (Auto) 1.3 Baso % (Auto) 0.6 Lymph # (Auto) 2.2 [place] # (Auto) 0.9 Eos # (Auto) 0.1 Baso # (Auto) 0.1 Abs Immat Gran (auto) 0.03 Absolute Neuts (auto) 6.2 Absolute Nucleated RBC 0.000 Nucleated RBC % (auto) 0.0 PT 17.4 H INR 1.5 H APTT 32.9 D-Dimer High Sensitivty Anion Gap 15 Estim Creat Clear Calc 118.9 Estimated GFR > 60 Random Glucose 86 Lactic Acid Calcium 9.1 Magnesium 1.8 Total Bilirubin AST ALT Alkaline Phosphatase Troponin I High Sens B-Natriuretic Peptide Total Protein Albumin Triglycerides 101 Cholesterol 121 LDL Cholesterol, Calc 74 HDL Cholesterol 27 Urine Color Urine Appearance Urine pH Ur Specific [place] Urine Protein Urine Glucose (UA) Urine Ketones Urine Blood Urine Nitrite Ur Leukocyte Esterase Urine RBC Urine WBC Ur Squamous Epith Cells Urine Bacteria Urine Mucus COVID-19 ([facility]ISHA) COVID-19 Clin Com Assessment and Plan (1) Obesity: Status: Acute (2) Congestive heart failure: Status: Acute (3) Atrial fibrillation: Status: Acute Assessment and Plan: 1. chf unclear etiology echo pending continue IV Lasix I/o daily weights. echo cardio eval 2. morbid obesity: encouraged to weight loss, nutritional eval 3. afib: seems started on eliquis added small dose bb dvt prophylax: continue eliquis Quality Stroke Does the patient have a stroke diagnosis?: No VTE Prior VTE?: No VTE Risk Level:: Medical - moderate - high VTE Device Contraindication: Treatment Not Indicated VTE Drug Contraindication: N/A - Med Ordered
[2021-11-04] MEDS: Furosemide 40 MG/4 ML VIAL IVPUSH ×2 (09:08→16:01)
[2021-11-04] MEDS: 0.9 % Sodium Chloride Flush 3 ML SYRINGE IVFLUSH ×3 (09:09→19:50)
--- NOTE | 2021-11-04 09:12 | MHC.CM.PN ---
CM met with Patient at bedside.Patient lives in a 2 family house on the first floor, with his Brother and Sister-in Law living on the second floor.Patient uses a cane to assist with mobility and his goal is to return home/no services. CM has initiated and will follow for dc planning.PCP is Dr. Kindra Anderson.
--- NOTE | 2021-11-04 09:35 | PHA.MEDREC ---
Pharmacy Consult ? Medication Reconciliation Pharmacy has completed the medication reconciliation. Reports he takes nothing. He reports he is suppose to be taking something for A fib. Betty Chong, PharmD
--- NOTE | 2021-11-04 10:26 | P.CONCA_ITS ---
History of Present Illness History of Present Illness Date of Service: 11/04/21 Requesting physician: Gabriel Costello Chief complaint: new onset CHF Narrative: [age] gentleman with morbid obesity and reported history of atrial fibrillation for which he was supposed to be on anticoagulation the past but was not taking medications was presenting with lower extremity edema and shortness of breath. He is morbidly obese and has gained significant weight. He is saying the edema started few days ago. Clinically was in heart failure started on Lasix. Also had elevated D-dimer. US Dopplers were normal but limited studies He has been on Eliquis since admission. Poor diet and takes a lot of salt in his diet. Echocardiography reviewed which was quite limited but did show RV dilation and dysfunction which goes along with his current presentation of significant volume overload. [facility] Past Medical History Medical History (Updated 11/04/21 @ 01:03 by Donny Velarde MD) Atrial fibrillation Obesity Social History Social History Household Members: Family Housing: House Housing Other:: basement of home. Do you presently have visiting nurse or other home services: No Patient Tobacco Use Status: Never used Tobacco Use of substances other than those prescribed or required for medical reasons: No Currently Displaying Signs/Symptoms of Drug Intoxication Withdrawal: No Have you been hit, kicked, punched, or otherwise hurt by someone within the past year? If so, by whom?: No Do you feel safe in your current relationship?: No Current Relationship Is there a partner from a previous relationship who is making you feel unsafe now?: No Advance Directives: No Do you have thoughts of harming others: None Do you have a plan to hurt others: No Plan Recently lost weight without trying: No Eating poorly because of decreased appetite: No Poor oral hygiene: No service: No Current occupational status: disabled Meds Allergies Allergy/AdvReac Type Severity Reaction Status Date / Time No Known Allergies Allergy Verified 11/03/21 20:05 [No Known Allergies*] Active Medications: Current Medications Acetaminophen (Acetaminophen 325 Mg Tablet) 650 mg PO Q6H PRN PRN Reason: Pain, Mild (Pain Scale 1-3) Albuterol Sulfate (Albuterol Sulfate 90 Mcg 8 Gm Inhaler) 2 puff INHALE RQ4H PRN PRN Reason: sob Apixaban (Apixaban 5 Mg Tablet) 10 mg PO BID [facility] Stop: 11/11/21 01:14 Last Admin: 11/04/21 09:09 Dose: 10 mg Documented by: Furosemide (Furosemide 40 Mg/4 Ml Vial) 40 mg IVPUSH BIDWM [facility]; Protocol Last Admin: 11/04/21 09:08 Dose: 40 mg Documented by: Melatonin (Melatonin 3 Mg Tablet) 6 mg PO BEDTIME PRN PRN Reason: Insomnia Pharmacy Consult (Consult Rx Perform Med Rec) 1 each MISCELLANE ONCE PRN PRN Reason: Consult order Pharmacy Consult (Consult Rx Perform Med Rec) 1 each MISCELLANE ONCE PRN PRN Reason: Consult order Senna (Sennosides 8.6 Mg Tablet) 17.2 mg PO BEDTIME PRN PRN Reason: Constipation Sodium Chloride (0.9 % Sodium Chloride Flush 3 Ml Syringe) 3 ml IVFLUSH QSHIFT [facility] Last Admin: 11/04/21 09:09 Dose: 3 ml Documented by: Home Medications Medication Instructions Recorded Confirmed Last Taken Type albuterol sulfate 90 mcg/actuation 2 puff INHALATION Q4H PRN 11/04/21 11/04/21 Unknown History aerosol inhaler Physical Exam Vital Signs: Vital Signs: Last Vital Signs Temp 97.5 F 11/04/21 07:11 Pulse 96 11/04/21 07:11 Resp 18 11/04/21 07:11 BP 139/78 11/04/21 07:11 Pulse Ox 92 11/04/21 07:11 BMI result Body Mass Index 71.8 GENERAL APPEARANCE: Morbidly obese. Not short of breath. NECK: positive jugular venous distention. SKIN: no suspicious lesions, warm and dry. HEART: no murmurs, irregular rate and rhythm. LUNGS: Few expiratory wheezes. ABDOMEN: soft, nontender. Distended and has abdominal wall edema. EXTREMITIES: 2+ edema. PERIPHERAL PULSES: equal. NEUROLOGIC: No gross deficits, AAO X 3 Objective Labs and Meds Result diagrams: 11/04/21 04:01 11/04/21 04:01 Lab results: Laboratory Results - last 24 hr 11/03/21 11/03/21 11/03/21 21:27 21:27 21:27 WBC 8.2 RBC 5.00 Hgb 15.2 Hct 49.8 MCV 99.6 H MCH 30.4 MCHC 30.5 L RDW 15.3 Plt Count 210 MPV 9.7 Immature Gran % (Auto) 0.5 H Neut % (Auto) 70.5 Lymph % (Auto) 19.3 L [place] % (Auto) 8.0 Eos % (Auto) 1.0 Baso % (Auto) 0.7 Lymph # (Auto) 1.6 [place]ombs # (Auto) 0.7 Eos # (Auto) 0.1 Baso # (Auto) 0.1 Abs Immat Gran (auto) 0.04 H Absolute Neuts (auto) 5.8 Absolute Nucleated RBC 0.000 Nucleated RBC % (auto) 0.0 PT 17.8 H INR 1.6 H APTT D-Dimer High Sensitivty 623 Sodium 144 Potassium 4.7 Chloride 108 Carbon Dioxide 29 Anion Gap 12 BUN 21 H Creatinine 1.16 Estim Creat Clear Calc 102.1 Estimated GFR > 60 Random Glucose 93 Lactic Acid Calcium 8.9 Magnesium 2.0 Total Bilirubin 0.8 AST 14 ALT 10 Alkaline Phosphatase 58 Troponin I High Sens B-Natriuretic Peptide Total Protein 5.9 L Albumin 3.2 L Triglycerides Cholesterol LDL Cholesterol, Calc HDL Cholesterol Urine Color Urine Appearance Urine pH Ur Specific [place] Urine Protein Urine Glucose (UA) Urine Ketones Urine Blood Urine Nitrite Ur Leukocyte Esterase Urine RBC Urine WBC Ur Squamous Epith Cells Urine Bacteria Urine Mucus COVID-19 ([facility]) COVID-19 Clin Com 11/03/21 11/03/21 11/03/21 21:27 21:27 21:27 WBC RBC Hgb Hct MCV MCH MCHC RDW Plt Count MPV Immature Gran % (Auto) Neut % (Auto) Lymph % (Auto) [place]om[place] % (Auto) Eos % (Auto) Baso % (Auto) Lymph # (Auto) [place] # (Auto) Eos # (Auto) Baso # (Auto) Abs Immat Gran (auto) Absolute Neuts (auto) Absolute Nucleated RBC Nucleated RBC % (auto) PT INR APTT D-Dimer High Sensitivty Sodium Potassium Chloride Carbon Dioxide Anion Gap BUN Creatinine Estim Creat Clear Calc Estimated GFR Random Glucose Lactic Acid 1.4 Calcium Magnesium Total Bilirubin AST ALT Alkaline Phosphatase Troponin I High Sens 43.3 H B-Natriuretic Peptide 233 H Total Protein Albumin Triglycerides Cholesterol LDL Cholesterol, Calc HDL Cholesterol Urine Color Urine Appearance Urine pH Ur Specific [place] Urine Protein Urine Glucose (UA) Urine Ketones Urine Blood Urine Nitrite Ur Leukocyte Esterase Urine RBC Urine WBC Ur Squamous Epith Cells Urine Bacteria Urine Mucus COVID-19 ([facility]) Negative COVID-19 Clin Com See Note 11/04/21 11/04/21 11/04/21 00:26 00:26 01:15 WBC 9.3 RBC 5.23 Hgb 15.7 Hct 52.0 MCV 99.4 H MCH 30.0 MCHC 30.2 L RDW 15.5 Plt Count 196 MPV 9.5 Immature Gran % (Auto) Neut % (Auto) Lymph % (Auto) [place] % (Auto) Eos % (Auto) Baso % (Auto) Lymph # (Auto) [place] # (Auto) Eos # (Auto) Baso # (Auto) Abs Immat Gran (auto) Absolute Neuts (auto) Absolute Nucleated RBC 0.000 Nucleated RBC % (auto) 0.0 PT INR APTT D-Dimer High Sensitivty Sodium Potassium Chloride Carbon Dioxide Anion Gap BUN Creatinine Estim Creat Clear Calc Estimated GFR Random Glucose Lactic Acid Calcium Magnesium Total Bilirubin AST ALT Alkaline Phosphatase Troponin I High Sens 44.2 H B-Natriuretic Peptide Total Protein Albumin Triglycerides Cholesterol LDL Cholesterol, Calc HDL Cholesterol Urine Color STRAW Urine Appearance CLEAR Urine pH 5.5 Ur Specific [place] 1.015 Urine Protein NEG Urine Glucose (UA) NEG Urine Ketones NEG Urine Blood 2+ H Urine Nitrite NEG Ur Leukocyte Esterase NEG Urine RBC 5-9 H Urine WBC 0-2 Ur Squamous Epith Cells 1+ Urine Bacteria TRACE Urine Mucus TRACE COVID-19 ([facility]) COVID-19 Clin Com 11/04/21 11/04/21 11/04/21 01:15 04:01 04:01 WBC 9.5 RBC 4.98 Hgb 15.1 Hct 49.4 MCV 99.2 H MCH 30.3 MCHC 30.6 L RDW 15.4 Plt Count 218 MPV 10.0 Immature Gran % (Auto) 0.3 Neut % (Auto) 65.3 Lymph % (Auto) 22.9 [place]ombs % (Auto) 9.6 Eos % (Auto) 1.3 Baso % (Auto) 0.6 Lymph # (Auto) 2.2 [place] # (Auto) 0.9 Eos # (Auto) 0.1 Baso # (Auto) 0.1 Abs Immat Gran (auto) 0.03 Absolute Neuts (auto) 6.2 Absolute Nucleated RBC 0.000 Nucleated RBC % (auto) 0.0 PT 17.4 H INR 1.5 H APTT 32.9 D-Dimer High Sensitivty Sodium 145 Potassium 4.2 Chloride 105 Carbon Dioxide 29 Anion Gap 15 BUN 20 H Creatinine 1.09 Estim Creat Clear Calc 118.9 Estimated GFR > 60 Random Glucose 86 Lactic Acid Calcium 9.1 Magnesium 1.8 Total Bilirubin AST ALT Alkaline Phosphatase Troponin I High Sens B-Natriuretic Peptide Total Protein Albumin Triglycerides 101 Cholesterol 121 LDL Cholesterol, Calc 74 HDL Cholesterol 27 Urine Color Urine Appearance Urine pH Ur Specific [place] Urine Protein Urine Glucose (UA) Urine Ketones Urine Blood Urine Nitrite Ur Leukocyte Esterase Urine RBC Urine WBC Ur Squamous Epith Cells Urine Bacteria Urine Mucus COVID-19 ([facility]) COVID-19 Clin Com Imaging Radiologist's impression: Impressions Chest X-Ray 11/03/21 20:25 IMPRESSION: Cardiomegaly with pulmonary venous congestion, mild interstitial edema, and a small right pleural effusion, most consistent with CHF Assessment and Plan (1) Obesity: Status: Acute (2) Congestive heart failure: Status: Acute 66-year-old gentleman who is presenting with shortness of breath and congestive heart failure. He has right more than left-sided heart failure at this point. Echocardiography is also showing RV dysfunction although imaging was quite limited. He has severe pulmonary hypertension and severely elevated right atrial pressures. He has peripheral edema as well as abdominal distension and abdominal wall edema. I think we continue to diurese him. Agree with anticoagulation. Would not titrate beta-anastacio further. If he has faster heart rates with atrial fibrillation then I will consider digoxin. He needs to get into an exercise and weight loss program because most of his current issues are stemming from morbid obesity. He will follow along with you. Thank you for allowing me to participate in the care of your patient. Please feel free to contact me if you have any questions. Procedures Date of Service Date of Service: 11/04/21
--- NOTE | 2021-11-04 10:30 | CA_ITS ---
Transthoracic Echocardiogram Patient (Last, First, Middle): Eric Duarte N Gender: Male Date of : 1955 Age: 66 Procedure Date: 11/04/2021 Procedure Type: Transthoracic Echocardiogram Location: S3E Height: 170.18 cm Weight: 207.75 kg BSA: 2.88 m2 Heart Rate: bpm BP: 144 / 75 mmHg Grounds Cleaner: Referring MD: Donny Velarde MD Symptoms: new onset chf Study Quality: Technically Difficult due to 458 LB ECG Rhythm: Atrial Fibrillation Conclusions: - Technically difficult study due to body habitus. - Normal left ventricular size and systolic function. - Moderately increased right ventricular cavity size. There is moderately decreased right ventricular systolic function. - Significantly elevated right atrial pressure. Severe pulmonary hypertension is present. Findings Procedure Information Contrast agent, definity, is being given per protocol without apparent complications. Left Ventricle Normal left ventricular size and systolic function. The visually estimated ejection fraction is between 60-65%. There is no evidence of regional wall motion abnormalities. Diastolic function is indeterminate on the basis of available data. Right Ventricle Moderately increased right ventricular cavity size. There is moderately decreased right ventricular systolic function. Atria The left atrium was not well visualized. The right atrium was not well visualized. Aortic Valve The aortic valve was not well visualized. There is no aortic valve stenosis. There is no aortic valve regurgitation. Mitral Valve The mitral valve was not well visualized. Pulmonic Valve The pulmonic valve was not well visualized. Tricuspid Valve The tricuspid valve was not well visualized. Significantly elevated right atrial pressure. Severe pulmonary hypertension is present. Venous The inferior vena cava is dilated and collapses less than 50% with inspiration. Pericardium/Pleural There is no evidence of pericardial effusion. Prior Study Comparison No prior study available for comparison. Measurements 2D Linear Measurements LVOT Diam: 2.40 3.0+(-)1.3 cm 2D Systolic Function EF 4C: 67.60 >55% EF 2C: 66.20 >55% EF BiP: 66.50 >55% Mitral Valve MV Pk E: 0.84 MV Decel Time: 135.00 E'Lateral: 14.00 E'Medial: 9.90 E/E' Med: 8.50 E/E' Lat: 6.00 PHT: 40.00 MVA PHT: 5.50 Decel [place]: 6.21 Aortic Valve AoV Pk Ishan: 1.36 AoV Mn Ishan: 0.96 AoV VTI: 0.23 AoV Pk Grad: 7.00 Aov Mn Grad: 4.00 JOSE ENRIQUE Cont.VTI: 2.89 LVOT LVOT Pk Ishan: 0.73 LVOT Mn Ishan: 0.47 LVOT VTI: 0.15 LVOT Pk Grad: 2.00 LVOT Mn Grad: 1.00 LVOT Diam: 2.40 LVOT Area: 4.52 Diastolic Function MV Pk E: 0.84 E'Medial: 9.90 E/E' Med: 8.50 E' Laterial: 14.00 E/E' Lat: 6.00 Tricuspid Valve TR Pk Ishan: 4.11 TR Pk Grad: 68.00 RA Press: 15.00 RVSP: 83.00 Pulmonary Valve PV Pk Ishan: 0.95 Peak PV Grad: 4.00 Updated in Other Vendor System with Status of Final Tyrell Corey MD electronically signed on 11/04/2021 12:24:03 PM with status of Final
[2021-11-04] MEDS: Metoprolol Tartrate 12.5 MG HALFTAB PO ×2 (13:43→19:50)
[2021-11-04 15:11] VITALS: BP 125/75; PULSE 76; RESP 18; TEMP 36; O2SAT 93
[2021-11-04 19:29] VITALS: BP 144/85; PULSE 80; RESP 18; TEMP 35.8; O2SAT 94
[2021-11-04 23:26] VITALS: BP 108/68; PULSE 89; RESP 16; TEMP 36.3; O2SAT 90
[2021-11-05 01:00] LABS: INTERNATIONAL NORM RATIO 2.5 (0.9-1.1); Prothrombin Time 28.8 SEC (9.9-13.0)
[2021-11-05 03:40] VITALS: BP 135/75; PULSE 92; RESP 18; TEMP 36.4; O2SAT 94
[2021-11-05 05:33] LABS: Hematocrit 49.5 % (42.0-52.0); Hemoglobin 14.7 g/dl (14.0-18.0); Mean Corpuscular HGB Conc 29.7 g/dl (31.0-36.0); Mean Corpuscular Hemoglobin 29.6 pg (27.0-33.0); Mean Corpuscular Volume 99.8 fL (80.0-98.0); Platelet Count 205 X10*3/uL (160-400); Red Blood Count 4.96 X10*6/uL (4.60-5.80); Red Cell Distribution Width 15.4 % (11.0-16.0); White Blood Count 8.8 X10*3/uL (4.8-10.8)
[2021-11-05 07:05] VITALS: BP 115/67; PULSE 87; RESP 19; TEMP 36.8; O2SAT 94
[2021-11-05] MEDS: Furosemide 40 MG/4 ML VIAL IVPUSH ×2 (07:21→16:20)
[2021-11-05] MEDS: Apixaban 5 MG TABLET 10 MG PO ×2 (07:21→20:25)
[2021-11-05] MEDS: Metoprolol Tartrate 12.5 MG HALFTAB PO ×2 (07:21→20:25)
[2021-11-05] MEDS: 0.9 % Sodium Chloride Flush 3 ML SYRINGE IVFLUSH ×3 (07:22→20:26)
--- NOTE | 2021-11-05 11:10 | PM.PNCARD ---
Subjective Subjective Date of Service: 11/05/21 <SONAM Peters - Last Filed: 11/05/21 11:26> 11/05/21 <Tyrell Corey MD - Last Filed: 11/05/21 11:46> Principal diagnosis: Right HF, PE, afib <SONAM Peters - Last Filed: 11/05/21 11:26> Interval history: Cardiology follow up for the above. Seen at 0815. Today he reports that he has been urinating large amounts and that his leg edema has gone down. Breathing comfortable at rest. Has been taking O2 supplement off. Slept fair. No PND, orthopnea. Denies chest pains, palpitations, dizziness. <SONAM Peters - Last Filed: 11/05/21 11:26> Review of Systems Review of Systems as above <SONAM Peters - Last Filed: 11/05/21 11:26> Yes all other systems are reviewed and are negative <SONAM Peters - Last Filed: 11/05/21 11:26> Physical Exam Vital Signs: Last Vital Signs Temp 98.2 F 11/05/21 07:05 Pulse 87 11/05/21 07:05 Resp 19 11/05/21 07:05 BP 115/67 11/05/21 07:05 Pulse Ox 94 11/05/21 07:05 BMI result Body Mass Index 71.8 <SONAM Peters - Last Filed: 11/05/21 11:26> Const Other: super morbidly obese - BMI 71 <SONAM Peters - Last Filed: 11/05/21 11:26> General: cooperative, no acute distress, alert and awake <SONAM Peters - Last Filed: 11/05/21 11:26> Orientation/consciousness: patient oriented x3 <SONAM Peters Last Filed: 11/05/21 11:26> Neck Other: obese, no noted JVD <SONAM Peters - Last Filed: 11/05/21 11:26> Neck: Yes normal visual inspection <SONAM Peters - Last Filed: 11/05/21 11:26> Resp Other: Lung sounds are diminished throughout <Stephani Pedersen [facility] [[email or web address]C - Last Filed: 11/05/21 11:26> Effort & Inspection: normal respiratory effort, able to speak in complete sentences and not labored <Stephani Pedersen [facility] [[email or web address]C - Last Filed: 11/05/21 11:26> Auscultation: clear to auscultation bilaterally (upper anterior), no rales, no rhonchi and no wheezes <Stephani Nuvia [facility] [[email or web address]C - Last Filed: 11/05/21 11:26> Cardio Rate: regular rate [facility] - Last Filed: 11/05/21 11:26> Rhythm: abnormal rhythm irregularly irregular [facility] - Last Filed: 11/05/21 11:26> Heart sounds: S1 normal heart sound present and S2 normal heart sound present <[facility] - Last Filed: 11/05/21 11:26> Peripheral pulses: Peripheral pulses 2+ throughout <Stephani Nuvia [email or web address] - Last Filed: 11/05/21 11:26> GI Inspection: Yes normal to inspection <[facility] - Last Filed: 11/05/21 11:26> Neuro General: patient oriented x3 <Stephani Nuvia [facility] - Last Filed: 11/05/21 11:26> Extrem General: No edema <[facility] - Last Filed: 11/05/21 11:26> Objective Labs and Meds Result diagrams: : 11/05/21 04:49 11/04/21 04:01 <Stephani Nuvia [facility] - Last Filed: 11/05/21 11:26> Lab results: Laboratory Results - last 24 hr 11/05/21 11/05/21 00:48 04:49 WBC 8.8 RBC 4.96 Hgb 14.7 Hct 49.5 MCV 99.8 H MCH 29.6 MCHC 29.7 L RDW 15.4 Plt Count 205 MPV 10.0 Absolute Nucleated RBC 0.000 Nucleated RBC % (auto) 0.0 PT 28.8 H INR 2.5 H <Stephani Sonia SONAM Pedersen - Last Filed: 11/05/21 11:26> Imaging Radiologist's impression: Impressions Venous Duplex 11/04/21 11:43 IMPRESSION: Very limited exam. No DVT seen. Pulmonary Perfusion Imaging 11/04/21 12:45 IMPRESSION: Large nonsegmental defect right hilum. No segmental or subsegmental defect. Findings are most suspicion for PE. Right hilar muscle defect may represent enlarged right hilum or hilar mass aneurysm. Correlate with CT chest exam with or without contrast. <Stephani Sonia SONAM Pedersen - Last Filed: 11/05/21 11:26> Progress Note: A&P Assessment and plan (1) Congestive heart failure: Status: Acute <Stephani Sonia SONAM Pedersen - Last Filed: 11/05/21 11:26> Assessment and Plan: Admit with sob, edema. No reported hx of CHF. Has hx of afib and follows with Dr Mason, [facility] with last visit over 1.5 yrs ago. Had not been taking any meds at home. Echo shows TDS, EF 60-65%, mod increase in RV size and decrease in RV systolic function, severe Pulm HTN. CXR shows mild interstitial edema and small right pleural effusion. BNP elevated at 233. He is being treated for acute right heart failure. Diuresing with Lasix 40mg IV BID, with neg fluid balance 3 liters since admit. He does report improved breathing and edema. Sat 94% on 3 liters, taking O2 off at times. Continue to diurese. Strict I+O monitoring, close monitoring of electrolyte and kidney function. We will follow. <SONAM Peters - Last Filed: 11/05/21 11:26> (2) Pleural effusion on right: Status: Acute <SONAM Peters - Last Filed: 11/05/21 11:26> (3) Pulmonary embolism: Status: Acute <SONAM Peters - Last Filed: 11/05/21 11:26> Assessment and Plan: Echo as above. D Dimer elevated at 623. US of legs show no DVT. Pulm perfusion scan suspicious of PE on right. He has already been started on Eliquis 10mg bid. Management of PE directed by hospitalist. PE likely contributing to his Right HF. Also his morbid obesity contributes. <SONAM Peters - Last Filed: 11/05/21 11:26> (4) Atrial fibrillation: Status: Acute <SONAM Peters - Last Filed: 11/05/21 11:26> Assessment and Plan: Hs Afib. 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 Was not on anticoagulation, as he states he did not need it until age 67 . This admit he has been started on Metoprolol for heart rate control. Tele shows Afib, rates 80-90s. Do not further titrate Metoprolol. Can add Digoxin if needed for rate control. Ongoing tele monitoring. <SONAM Peters - Last Filed: 11/05/21 11:26> (5) Morbidly obese: Status: Acute <SONAM Peters - Last Filed: 11/05/21 11:26> Assessment and Plan: Patient seen and examined at bedside. Clinically volume overloaded. Continue diuretics. RV dysfunction on echocardiography likely to pulmonary embolism. Also has severe pulmonary hypertension. Agree with anticoagulation. We will reassess right ventricle and pulmonary pressures as outpatient. Thank you for allowing me to participate in the care of your patient. Please feel free to contact me if you have any questions. <Tyrell Corey MD - Last Filed: 11/05/21 11:46> Fall Risk Details Current Medications: Current Medications Acetaminophen (Acetaminophen 325 Mg Tablet) 650 mg PO Q6H PRN PRN Reason: Pain, Mild (Pain Scale 1-3) Albuterol Sulfate (Albuterol Sulfate 90 Mcg 8 Gm Inhaler) 2 puff INHALE RQ4H PRN PRN Reason: sob Apixaban (Apixaban 5 Mg Tablet) 10 mg PO BID [facility] Stop: 11/11/21 01:14 Last Admin: 11/05/21 07:21 Dose: 10 mg Documented by: Furosemide (Furosemide 40 Mg/4 Ml Vial) 40 mg IVPUSH BIDWM [facility]; Protocol Last Admin: 11/05/21 07:21 Dose: 40 mg Documented by: Melatonin (Melatonin 3 Mg Tablet) 6 mg PO BEDTIME PRN PRN Reason: Insomnia Metoprolol Tartrate (Metoprolol Tartrate 12.5 Mg Halftab) 12.5 mg PO BID [facility]; Protocol Last Admin: 11/05/21 07:21 Dose: 12.5 mg Documented by: Pharmacy Consult (Consult Rx Perform Med Rec) 1 each MISCELLANE ONCE PRN PRN Reason: Consult order Pharmacy Consult (Consult Rx Perform Med Rec) 1 each MISCELLANE ONCE PRN PRN Reason: Consult order Senna (Sennosides 8.6 Mg Tablet) 17.2 mg PO BEDTIME PRN PRN Reason: Constipation Sodium Chloride (0.9 % Sodium Chloride Flush 3 Ml Syringe) 3 ml IVFLUSH QSHIFT [facility] Last Admin: 11/05/21 07:22 Dose: 3 ml Documented by: <SONAM Peters - Last Filed: 11/05/21 11:26> Time Spent With Patient Time: Total time spent is greater than 50% in coordination of care (as documented) at patient's floor/unit and/or counseling patient: 24 <SONAM Peters - Last Filed: 11/05/21 11:26> Time with patient: 15 - 24 minutes <SONAM Peters - Last Filed: 11/05/21 11:26> Progress Note: Quality Stroke Does the patient have a stroke diagnosis?: No <SONAM Peters - Last Filed: 11/05/21 11:26> Procedures Date of Service Date of Service: 11/05/21 <SONAM Peters - Last Filed: 11/05/21 11:26>
[2021-11-05 11:13] VITALS: BP 122/63; PULSE 83; RESP 20; TEMP 36.7; O2SAT 91
--- NOTE | 2021-11-05 11:49 | MHC.CM.PN ---
CM MET W/PT THIS MORNING WHO REPORTS HE DOES NOT FEEL STRONG ENOUGH TO GO DIRECTLY HOME AND WOULD LIKE STR, PT REPORTS HE HAS NO PREFERENCES AND WILL GO ANYWHERE, PT'S DTR ALSO CALLED TO REPORT HER AUNT &UNCLE DO NOT WANT PT BACK HOWEVER HE HAS LIVED THERE FOR SEVERAL YEARS, PT'S DTR EMAILED INFO ON [facility] AND THE NUMBER FOR [employer] SHE WILL BE WORKING ON FINDING PT A NEW PLACE TO LIVE.
[2021-11-05] MEDS: iohexoL 350 MG/ML 100 ML INFUS..BTL IV (12:53)
--- NOTE | 2021-11-05 12:59 | P.PNIM_ITS ---
Subjective Subjective Date of Service: 11/05/21 Interval History: Being followed for acute congestive heart failure, feeling better complaining of persistent mild shortness of breath and bilateral lower extremity edema, also complaining of dry cough, denies fever chills no other acute issues overnight. Review of Systems Review of Systems: Yes all other systems are reviewed and are negative Physical Exam Vital Signs: Vital Signs: Last Vital Signs Temp 98.1 F 11/05/21 11:13 Pulse 83 11/05/21 11:13 Resp 20 11/05/21 11:13 BP 122/63 11/05/21 11:13 Pulse Ox 91 L 11/05/21 11:13 BMI result Body Mass Index 71.8 General awake aler t in no acute dist ress , morbidly ob gui.? Neck is supp le no increased JV D cvs: rrr, s1s2he ford res: clear to auscultation ,no r honchii or wheezin g, no crackles abd : Obese soft nont chris no rebound o r guarding ,nt, bs present. ext bila teral pitting mitchel a . neuro: axo3 , nonfocal. Psych ap propriate affect Objective Data Active Medications Acetaminophen (Acetaminophen 325 Mg Tablet) 650 mg PO Q6H PRN PRN Reason: Pain, Mild (Pain Scale 1-3) Albuterol Sulfate (Albuterol Sulfate 90 Mcg 8 Gm Inhaler) 2 puff INHALE RQ4H PRN PRN Reason: sob Apixaban (Apixaban 5 Mg Tablet) 10 mg PO BID [facility] Stop: 11/11/21 01:14 Last Admin: 11/05/21 07:21 Dose: 10 mg Documented by: DEO Furosemide (Furosemide 40 Mg/4 Ml Vial) 40 mg IVPUSH BIDWM [facility]; Protocol Last Admin: 11/05/21 07:21 Dose: 40 mg Documented by: DEO Melatonin (Melatonin 3 Mg Tablet) 6 mg PO BEDTIME PRN PRN Reason: Insomnia Metoprolol Tartrate (Metoprolol Tartrate 12.5 Mg Halftab) 12.5 mg PO BID [facility]; Protocol Last Admin: 11/05/21 07:21 Dose: 12.5 mg Documented by: DEO Pharmacy Consult (Consult Rx Perform Med Rec) 1 each MISCELLANE ONCE PRN PRN Reason: Consult order Pharmacy Consult (Consult Rx Perform Med Rec) 1 each MISCELLANE ONCE PRN PRN Reason: Consult order Senna (Sennosides 8.6 Mg Tablet) 17.2 mg PO BEDTIME PRN PRN Reason: Constipation Sodium Chloride (0.9 % Sodium Chloride Flush 3 Ml Syringe) 3 ml IVFLUSH QSHIFT [facility] Last Admin: 11/05/21 07:22 Dose: 3 ml Documented by: DEO Labs CBC & Chem 7: 11/05/21 04:49 11/04/21 04:01 Labs: Laboratory Results - last 24 hr 11/05/21 11/05/21 00:48 04:49 MCV 99.8 H MCH 29.6 MCHC 29.7 L RDW 15.4 Plt Count 205 MPV 10.0 Absolute Nucleated RBC 0.000 Nucleated RBC % (auto) 0.0 PT 28.8 H INR 2.5 H Microbiology Microbiology Results: Microbiology 11/03/21 21:27 Blood Culture - Preliminary Blood - Venous No growth after 24 hours. 11/03/21 21:27 Blood Culture - Preliminary Blood - Venous No growth after 24 hours. Assessment and Plan (1) Morbidly obese: Status: Acute (2) Congestive heart failure: Status: Acute (3) Atrial fibrillation: Status: Acute Assessment and Plan: 66-year-old gentleman with past medical history of atrial fibrillation, morbid obesity not on home medication presented to [facility] due to shortness of breath , weight gain, leg swelling and dyspnea on exertion of 3 days duration without associated chest pain 1. Acute CHF with preserved EF /right-sided heart failure Echocardiogram showed EF 60-65% with indeterminate diastolic function, decreased right ventricular function, severe pulmonary hypertension, BNP 233 on admission shortness of breath and leg edema improving ?continue IV Lasix, follow BMP and BNP V/Q scan not suggestive of pulmonary embolism V/Q scan reviewed with Radiology (see addendum note) however showed abnormality consistent with ? hilar mass therefore will obtain CT chest with contrast ?Check daily weight,i/ o and follow clinical course Being followed closely by Cardiology ? 2. morbid obesity:? encouraged to weight loss, nutritional eval 3. afib: stable ventricular rate continue low-dose beta-blockers and Eliquis dvt prophylax: continue eliquis Quality Stroke Does the patient have a stroke diagnosis?: No VTE Prior VTE?: No VTE Risk Level:: Medical - moderate - high VTE Device Contraindication: Treatment Not Indicated VTE Drug Contraindication: N/A - Med Ordered
[2021-11-05 15:07] VITALS: BP 116/73; PULSE 88; RESP 19; TEMP 36.8; O2SAT 93
[2021-11-05 19:30] VITALS: BP 131/60; PULSE 85; RESP 17; TEMP 36; O2SAT 92
[2021-11-05 23:40] VITALS: BP 129/77; PULSE 70; RESP 16; TEMP 36.4; O2SAT 96
[2021-11-06] VITALS (8 sets, daily range): BP systolic 114–146; BP diastolic 56–79; PULSE 67–90; RESP 16–20; TEMP 36.2–37; O2SAT 91–95
[2021-11-06 06:15] LABS: Anion Gap 12 (12-20); Blood Urea Nitrogen 18 mg/dL (9-16); Calcium 8.7 mg/dL (8.4-10.2); Carbon Dioxide 35 mmol/L (22-29); Chloride 99 mmol/L (96-108); Creatinine Clr Calc Pharmacy 139.4; Estimated Glomerular Filt Rate > 60; Glucose Random 88 mg/dL (60-115); Potassium 4.2 mmol/L (3.3-5.1); Sodium 142 mmol/L (135-145)
[2021-11-06 06:16] LABS: B Type Natriuretic Peptide 238 pg/mL (<100)
[2021-11-06] MEDS: Apixaban 5 MG TABLET 10 MG PO (07:52)
[2021-11-06] MEDS: Metoprolol Tartrate 12.5 MG HALFTAB PO ×2 (07:53→20:48)
[2021-11-06] MEDS: Furosemide 40 MG/4 ML VIAL IVPUSH (07:53)
[2021-11-06] MEDS: 0.9 % Sodium Chloride Flush 3 ML SYRINGE IVFLUSH ×3 (07:53→22:52)
--- NOTE | 2021-11-06 10:20 | P.PNCA_ITS ---
Subjective Subjective Date of Service: 11/06/21 <SONAM Peters - Last Filed: 11/06/21 11:21> 11/06/21 <Tyrell Corey MD - Last Filed: 11/06/21 15:24> Principal diagnosis: Right HF, afib <SONAM Peters - Last Filed: 11/06/21 11:21> Interval history: Cardiology follow up for Right HF, afib. Seen at 1010. Today he reports feeling some better than admit. He denies feeling sob at rest, PND. Has been sleeping with HOB elevated partially. Does get sob with activity which is not new. No chest pains, palpitation, dizziness. He feels leg edema has improved. Today has some swelling in left lower leg. Sitting up in recliner. States he needs to use walking to ambulate short distances. <SONAM Peters - Last Filed: 11/06/21 11:21> Review of Systems Review of Systems as above <SONAM Peters - Last Filed: 11/06/21 11:21> Yes all other systems are reviewed and are negative <SONAM Peters - Last Filed: 11/06/21 11:21> Physical Exam Vital Signs: Last Vital Signs Temp 97.2 F 11/06/21 07:09 Pulse 89 11/06/21 09:37 Resp 20 11/06/21 07:09 BP 120/77 11/06/21 09:37 Pulse Ox 94 11/06/21 09:37 BMI result Body Mass Index 71.8 <SONAM Peters - Last Filed: 11/06/21 11:21> Const Other: super morbidly obese, BMI 71.8 <SONAM Peters - Last Filed: 11/06/21 11:21> General: cooperative, no acute distress, alert and awake <SONAM Peters Last Filed: 11/06/21 11:21> Orientation/consciousness: patient oriented x3 <SONAM Peters - Last Filed: 11/06/21 11:21> Neck Other: no apparent JVD <SONAM Peters - Last Filed: 11/06/21 11:21> Neck: Yes no JVD <Stephani Nuvia SENIOR IT ARCHITECT-C - Last Filed: 11/06/21 11:21> Resp Effort & Inspection: normal respiratory effort, able to speak in complete sentences and not labored <Stephani Pedersen SENIOR IT ARCHITECT-C - Last Filed: 11/06/21 11:21> Auscultation: clear to auscultation bilaterally, no rales, no rhonchi and no wheezes <Stephani Nuvia SENIOR IT ARCHITECT-C - Last Filed: 11/06/21 11:21> Cardio Rate: regular rate <[facility] - Last Filed: 11/06/21 11:21> Rhythm: abnormal rhythm irregularly irregular <[facility] - Last Filed: 11/06/21 11:21> Heart sounds: S1 normal heart sound present and S2 normal heart sound present <Stephani Nuvia SENIOR IT ARCHITECT-C - Last Filed: 11/06/21 11:21> Peripheral pulses: Peripheral pulses 2+ throughout <Stephani Nuvia SENIOR IT ARCHITECT-C - Last Filed: 11/06/21 11:21> GI Inspection: Yes normal to inspection <Stephani Nuvia, SENIOR IT ARCHITECT-C - Last Filed: 11/06/21 11:21> Neuro General: patient oriented x3 <Stephani Nuvia SENIOR IT ARCHITECT-C - Last Filed: 11/06/21 11:21> Extrem Other: +1 edema in left lower leg <Stephani Nuvia SENIOR IT ARCHITECT-C - Last Filed: 11/06/21 11:21> Objective Labs and Meds Result diagrams: : 11/05/21 04:49 11/06/21 04:59 <Stephani Nuvia, SENIOR IT ARCHITECT-C - Last Filed: 11/06/21 11:21> Lab results: Laboratory Results - last 24 hr 11/06/21 11/06/21 04:59 04:59 Sodium 142 Potassium 4.2 Chloride 99 Carbon Dioxide 35 H Anion Gap 12 BUN 18 H Creatinine 0.93 Estim Creat Clear Calc 139.4 Estimated GFR > 60 Random Glucose 88 Calcium 8.7 B-Natriuretic Peptide 238 H <Stephani Pedersen SENIOR IT ARCHITECT-C - Last Filed: 11/06/21 11:21> Imaging Radiologist's impression: Impressions Pulmonary Perfusion Imaging 11/04/21 12:45 IMPRESSION: Large nonsegmental defect right hilum. No segmental or subsegmental defect. Findings are most suspicion for PE. Right hilar muscle defect may represent enlarged right hilum or hilar mass aneurysm. Correlate with CT chest exam with or without contrast. Chest CT 11/05/21 12:20 IMPRESSION: Examination is limited due to patients large body habitus right-sided pleural effusion. Cardiomegaly. Diffuse groundglass opacities most likely due to underperfusion. Unclear origin opacity in the subcutaneous tissues along the lower chest on the left most likely bruising Fleischner guidelines were followed. <SONAM Peters - Last Filed: 11/06/21 11:21> Progress Note: A&P Assessment and plan (1) Congestive heart failure: Status: Acute <SONAM Peters - Last Filed: 11/06/21 11:21> Assessment and Plan: Admit with sob, edema. No reported hx of CHF. Has hx of afib and follows with Dr Mason, [facility] with last visit over 1.5 yrs ago. Had not been taking any meds at home. Echo shows TDS, EF 60-65%, mod increase in RV size and decrease in RV systolic function, severe Pulm HTN.? CXR shows mild interstitial edema and small right pleural effusion. BNP elevated at 233. He is being treated for acute on Chronic right HF: His echo findings are likely chronic in the setting of his morbid obesity, hypoventilation. Diuresing with Lasix 40mg IV BID, with neg fluid balance 7.6 liters since admit. He does report improved breathing and edema. Sat 94% on 3 liters, taking O2 off at times. Cr 0.93, BNP 238. He had not been taking any meds at home. At this time, will change his Lasix to po and reduce dose to 40mg once daily, to avoid overdiuresis. Wean O2 as able, for sat > 90%. Recommend Outpt sleep study to eval for YANN. Once discharged he will follow with his own pharmacovigilance scientist Dr Mason, [facility]. Spoke with him about making an office visit in next few weeks. We will follow as needed. <JULIANNA PetersC - Last Filed: 11/06/21 11:21> (2) Pleural effusion on right: Status: Acute <Stephani Scott SONAM Pedersen - Last Filed: 11/06/21 11:21> Assessment and Plan: CXR on admit with small right pleural effusion. CT scan yesterday shows small right pleural effusion. Continue diuretics as above <SONAM Peters - Last Filed: 11/06/21 11:21> (3) Atrial fibrillation: Status: Acute <Stephani Scott SONAM Pedersen - Last Filed: 11/06/21 11:21> Assessment and Plan: Hx Afib. Had not seen his pharmacovigilance scientist in over a year and had not been taking meds at home. Was not on anticoagulation, as he states he did not need it until age 67 .? CHADSVASc score of 1, soon to be 2 ( one he turns 67). This admit he has been started on low dose Metoprolol for heart rate control. Tele shows Afib, rates 80-90s. Continue on current Metoprolol dose. He has been started on Eliquis for anticoagulation, initially due to concern for PE - now will continue for stroke risk reduction for AF. Pt is agreeable to this plan. <Stephani Sonia SONAM Pedersen - Last Filed: 11/06/21 11:21> (4) Pulmonary embolism: Status: Acute <Stephani Scott SONAM Pedersen - Last Filed: 11/06/21 11:21> Assessment and Plan: Crrection/ addendum made to his pulmonary perfusion scan result - now states findings are not suspecious for PE . Discussed with hospitalist and pt informed. Will adjust Eliquis dose accordingly. <SONAM Peters - Last Filed: 11/06/21 11:21> (5) Morbidly obese: Status: Acute <Stephani Scott SONAM Pedersen - Last Filed: 11/06/21 11:21> Assessment and Plan: Need for weight loss, increased activity discussed with him. He plans to go to rehab after discharge. He tells me that he will start taking better care of self physically and pursue weight loss options. <SOANM Peters - Last Filed: 11/06/21 11:21> Fall Risk Details Current Medications: Current Medications Acetaminophen (Acetaminophen 325 Mg Tablet) 650 mg PO Q6H PRN PRN Reason: Pain, Mild (Pain Scale 1-3) Albuterol Sulfate (Albuterol Sulfate 90 Mcg 8 Gm Inhaler) 2 puff INHALE RQ4H PRN PRN Reason: sob Apixaban (Apixaban 5 Mg Tablet) 10 mg PO BID [facility] Stop: 11/11/21 01:14 Last Admin: 11/06/21 07:52 Dose: 10 mg Documented by: Furosemide (Furosemide 40 Mg/4 Ml Vial) 40 mg IVPUSH BIDWM [facility]; Protocol Last Admin: 11/06/21 07:53 Dose: 40 mg Documented by: Melatonin (Melatonin 3 Mg Tablet) 6 mg PO BEDTIME PRN PRN Reason: Insomnia Metoprolol Tartrate (Metoprolol Tartrate 12.5 Mg Halftab) 12.5 mg PO BID [facility]; Protocol Last Admin: 11/06/21 07:53 Dose: 12.5 mg Documented by: Pharmacy Consult (Consult Rx Perform Med Rec) 1 each MISCELLANE ONCE PRN PRN Reason: Consult order Pharmacy Consult (Consult Rx Perform Med Rec) 1 each MISCELLANE ONCE PRN PRN Reason: Consult order Senna (Sennosides 8.6 Mg Tablet) 17.2 mg PO BEDTIME PRN PRN Reason: Constipation Sodium Chloride (0.9 % Sodium Chloride Flush 3 Ml Syringe) 3 ml IVFLUSH [facility] Last Admin: 11/06/21 07:53 Dose: 3 ml Documented by: <SONAM Peters - Last Filed: 11/06/21 11:21> Time Spent With Patient Time: Total time spent is greater than 50% in coordination of care (as documented) at patient's floor/unit and/or counseling patient: <SONAM Peters - Last Filed: 11/06/21 11:21> Time with patient: 15 - 24 minutes <SONAM Peters - Last Filed: 11/06/21 11:21> Progress Note: Quality Stroke Does the patient have a stroke diagnosis?: No <SONAM Peters - Last Filed: 11/06/21 11:21> Procedures Date of Service Date of Service: 11/06/21 <SONAM Peters - Last Filed: 11/06/21 11:21>
--- NOTE | 2021-11-06 13:05 | MHC.CM.PN ---
PT recommending rehab. MD requested acute rehab referral. Met with patient. He is agreeable with referrals to SNF and acute rehabs in area, except does not want to go to [facility]. Assisted patient in completing HCP. He chose his daughter, Stephanie as HCP. Gave patient original and copies and placed a copy in the chart. Referrals send to [place] and SNFs for bed search
--- NOTE | 2021-11-06 15:16 | HO.PM.IMPN ---
Subjective Subjective Date of Service: 11/06/21 Physical Exam Vital Signs: Vital Signs: Last Vital Signs Temp 97.6 F 11/06/21 11:21 Pulse 67 11/06/21 11:21 Resp 20 11/06/21 11:21 BP 122/63 11/06/21 11:21 Pulse Ox 94 11/06/21 11:21 BMI result Body Mass Index 71.8 Const: Other: General patient resting comfortably in no acute distress. Neck is supple no JVD. CVS regular rate rhythm, Respiratory lungs clear to auscultation, no respiratory distress, no wheeze, no rhonchi. Gastrointestinal abdomen soft, nontender, bowel sounds audible, no no guarding , no rigidity. Extremities no clubbing cyanosis or edema. Neuro nonfocal patient moving all 4 extremity speech clear. Skin no rash Objective Data Active Medications Acetaminophen (Acetaminophen 325 Mg Tablet) 650 mg PO Q6H PRN PRN Reason: Pain, Mild (Pain Scale 1-3) Albuterol Sulfate (Albuterol Sulfate 90 Mcg 8 Gm Inhaler) 2 puff INHALE RQ4H PRN PRN Reason: sob Apixaban (Apixaban 5 Mg Tablet) 5 mg PO BID [facility] Furosemide (Furosemide 40 Mg Tablet) 40 mg PO DAILY [facility]; Protocol Melatonin (Melatonin 3 Mg Tablet) 6 mg PO BEDTIME PRN PRN Reason: Insomnia Metoprolol Tartrate (Metoprolol Tartrate 12.5 Mg Halftab) 12.5 mg PO BID [facility]; Protocol Last Admin: 11/06/21 07:53 Dose: 12.5 mg Documented by: CHRISTINE Pharmacy Consult (Consult Rx Perform Med Rec) 1 each MISCELLANE ONCE PRN PRN Reason: Consult order Pharmacy Consult (Consult Rx Perform Med Rec) 1 each MISCELLANE ONCE PRN PRN Reason: Consult order Senna (Sennosides 8.6 Mg Tablet) 17.2 mg PO BEDTIME PRN PRN Reason: Constipation Sodium Chloride (0.9 % Sodium Chloride Flush 3 Ml Syringe) 3 ml IVFLUSH QSHIFT [facility] Last Admin: 11/06/21 07:53 Dose: 3 ml Documented by: CHRISTINE Labs CBC & Chem 7: 11/05/21 04:49 11/06/21 04:59 Labs: Laboratory Results - last 24 hr 11/06/21 11/06/21 04:59 04:59 Anion Gap 12 Estim Creat Clear Calc 139.4 Estimated GFR > 60 Random Glucose 88 Calcium 8.7 B-Natriuretic Peptide 238 H Microbiology Microbiology Results: Microbiology 11/03/21 21:27 Blood Culture - Preliminary Blood - Venous No growth after 48 hours. 11/03/21 21:27 Blood Culture - Preliminary Blood - Venous No growth after 48 hours. Assessment and Plan (1) Morbidly obese: Status: Acute (2) Congestive heart failure: Status: Acute (3) Atrial fibrillation: Status: Acute Assessment and Plan: 66-year-old gentleman with past medical history of atrial fibrillation, morbid obesity not on home medication presented to [facility] due to shortness of breath , weight gain, leg swelling and dyspnea on exertion of 3 days duration without associated chest pain 1. Acute CHF with preserved EF /right-sided heart failure Complaining of mild shortness of breath with ambulation complaining of weakness, feels he will need rehab for discharge Echocardiogram showed EF 60-65% with indeterminate diastolic function, decreased right ventricular function, severe pulmonary hypertension, BNP 233 on admission shortness of breath and leg edema significantly improved ?Case discussed with Cardiology will DC IV Lasix and switch to by mouth Lasix 40 mg Repeat electrolytes stable/7 L negative since admit V/Q scan not suggestive of pulmonary embolism V/Q scan reviewed with Radiology (see addendum note) however showed abnormality consistent with ? hilar mass therefore CT chest obtained that showed ground-glass opacities likely due to under perfusion and bruising left lower chest ?Recommend out of bed to chair wean oxygen as tolerated not on home O2 ? 2. morbid obesity:? encouraged to weight loss, nutritional eval 3. afib: stable ventricular rate continue low-dose beta-blockers and Eliquis dose changed to 5 mg b.i.d. since no PE. 4. Disposition seen by Physical therapy and they are recommending rehab since noted to have hypoxia desaturating to 79% with prolonged recovery period. dvt prophylax: continue eliquis Quality Stroke Does the patient have a stroke diagnosis?: No VTE Prior VTE?: No VTE Risk Level:: Medical - moderate - high VTE Device Contraindication: Treatment Not Indicated VTE Drug Contraindication: N/A - Med Ordered
[2021-11-06] MEDS: Apixaban 5 MG TABLET PO (20:49)
[2021-11-06] MEDS: Melatonin 3 MG TABLET 6 MG PO (22:51)
[2021-11-07 04:00] VITALS: BP 118/60; PULSE 70; RESP 18; TEMP 36.3; O2SAT 93
[2021-11-07 07:40] VITALS: BP 118/72; PULSE 59; RESP 18; TEMP 36.4; O2SAT 94
[2021-11-07] MEDS: Metoprolol Tartrate 12.5 MG HALFTAB PO ×2 (08:01→20:47)
[2021-11-07] MEDS: Acetaminophen 325 MG TABLET 650 MG PO (08:01)
[2021-11-07] MEDS: Apixaban 5 MG TABLET PO ×2 (08:02→20:48)
[2021-11-07] MEDS: 0.9 % Sodium Chloride Flush 3 ML SYRINGE IVFLUSH ×2 (08:02→16:00)
[2021-11-07] MEDS: Furosemide 40 MG TABLET PO (08:02)
--- NOTE | 2021-11-07 11:18 | MHC.CM.PN ---
Addendum entered by Gloria Castillo 11/07/21 11:20: [place] [facility] REFERRALS ADDED Original Note: SNF REFERRALS NOW INCLUDES [facility]
--- NOTE | 2021-11-07 11:43 | PM.PNCARD ---
Subjective Subjective Date of Service: 11/07/21 Principal diagnosis: Right HF, afib Interval history: Feeling ok. No CP, on Eliquis for Afib. Physical Exam Vital Signs: Last Vital Signs Temp 97.5 F 11/07/21 07:40 Pulse 59 11/07/21 07:40 Resp 18 11/07/21 07:40 BP 118/72 11/07/21 07:40 Pulse Ox 94 11/07/21 07:40 BMI result Body Mass Index 71.8 GENERAL APPEARANCE:? Morbidly obese.? Not short of breath. SKIN: no suspicious lesions, warm and dry. HEART: no murmurs, irregular rate and rhythm. LUNGS:? Clear to auscultation. ABDOMEN: soft, nontender.? Distended and has abdominal wall edema. EXTREMITIES:? 1-2+ edema. PERIPHERAL PULSES: equal. NEUROLOGIC: No gross deficits, AAO X 3 Objective Labs and Meds Result diagrams: 11/05/21 04:49 11/06/21 04:59 Progress Note: A&P Assessment and plan (1) Morbidly obese: Status: Acute (2) Atrial fibrillation: Status: Acute (3) Pleural effusion on right: Status: Acute Assessment and Plan: 66-year-old gentleman presenting for shortness of breath. Clinically she was in right heart failure. Echocardiography has shown RV dysfunction and pulmonary hypertension. On Eliquis for atrial fibrillation. continue diuretics. Would avoid beta-anastacio and Cardizem for now. Follow-up with Dr. Tye Mason at [facility]. Fall Risk Details Current Medications: Current Medications Acetaminophen (Acetaminophen 325 Mg Tablet) 650 mg PO Q6H PRN PRN Reason: Pain, Mild (Pain Scale 1-3) Last Admin: 11/07/21 08:01 Dose: 650 mg Documented by: Albuterol Sulfate (Albuterol Sulfate 90 Mcg 8 Gm Inhaler) 2 puff INHALE RQ4H PRN PRN Reason: sob Apixaban (Apixaban 5 Mg Tablet) 5 mg PO BID [facility] Last Admin: 11/07/21 08:02 Dose: 5 mg Documented by: Furosemide (Furosemide 40 Mg Tablet) 40 mg PO DAILY [facility]; Protocol Last Admin: 11/07/21 08:02 Dose: 40 mg Documented by: Melatonin (Melatonin 3 Mg Tablet) 6 mg PO BEDTIME PRN PRN Reason: Insomnia Last Admin: 11/06/21 22:51 Dose: 6 mg Documented by: Metoprolol Tartrate (Metoprolol Tartrate 12.5 Mg Halftab) 12.5 mg PO BID [facility]; Protocol Last Admin: 11/07/21 08:01 Dose: 12.5 mg Documented by: Pharmacy Consult (Consult Rx Perform Med Rec) 1 each MISCELLANE ONCE PRN PRN Reason: Consult order Pharmacy Consult (Consult Rx Perform Med Rec) 1 each MISCELLANE ONCE PRN PRN Reason: Consult order Senna (Sennosides 8.6 Mg Tablet) 17.2 mg PO BEDTIME PRN PRN Reason: Constipation Sodium Chloride (0.9 % Sodium Chloride Flush 3 Ml Syringe) 3 ml IVFLUSH QSHIFT [facility] Last Admin: 11/07/21 08:02 Dose: 3 ml Documented by: Time Spent With Patient Time: Total time spent is greater than 50% in coordination of care (as documented) at patient's floor/unit and/or counseling patient: Time with patient: 15 - 24 minutes Progress Note: Quality Stroke Does the patient have a stroke diagnosis?: No Procedures Date of Service Date of Service: 11/07/21
[2021-11-07 11:50] VITALS: BP 106/63; PULSE 63; RESP 18; TEMP 36.6; O2SAT 93
--- NOTE | 2021-11-07 11:51 | MHC.CM.PN ---
[facility] IS CONSIDERING PATIENT FACILITY IS PROVIDED WITH REQUESTED INFORMATION. CASE MANAGEMENT AWAITING BED OFFER
--- NOTE | 2021-11-07 12:20 | HO.PM.IMPN ---
Subjective Subjective Date of Service: 11/07/21 Interval History: Negative 9L cumulatively this admission No dyspnea; edema improved No chest pain Anxious Awaiting STR placement Review of Systems Review of Systems: Yes all other systems are reviewed and are negative Physical Exam Vital Signs: Vital Signs: Last Vital Signs Temp 97.8 F 11/07/21 11:50 Pulse 63 11/07/21 11:50 Resp 18 11/07/21 11:50 BP 106/63 11/07/21 11:50 Pulse Ox 93 11/07/21 11:50 BMI result Body Mass Index 71.8 Gen: in no acute distress HEENT: sclera anicteric, moist mucus membranes Neck: supple Lungs: clear to auscultation bilaterally Heart: irregularly irregular, no murmurs Abd: soft, non-tender, non-distended, morbidly obese Ext: 1+ BLE edema Skin: warm/well-perfused Neuro: alert and oriented x3, no focal findings Psych: appropriate affect Objective Data Active Medications Acetaminophen (Acetaminophen 325 Mg Tablet) 650 mg PO Q6H PRN PRN Reason: Pain, Mild (Pain Scale 1-3) Last Admin: 11/07/21 08:01 Dose: 650 mg Documented by: LEEANN Albuterol Sulfate (Albuterol Sulfate 90 Mcg 8 Gm Inhaler) 2 puff INHALE RQ4H PRN PRN Reason: sob Apixaban (Apixaban 5 Mg Tablet) 5 mg PO BID [facility], [facility] Last Admin: 11/07/21 08:02 Dose: 5 mg Documented by: LEEANN Furosemide (Furosemide 40 Mg Tablet) 40 mg PO DAILY [facility]; Protocol Last Admin: 11/07/21 08:02 Dose: 40 mg Documented by: LEEANN Hydroxyzine HCl (Hydroxyzine Hcl 50 Mg/Ml Vial) 50 mg IM Q6H PRN PRN Reason: anxiety Melatonin (Melatonin 3 Mg Tablet) 6 mg PO BEDTIME PRN PRN Reason: Insomnia Last Admin: 11/06/21 22:51 Dose: 6 mg Documented by: CHRISTI Metoprolol Tartrate (Metoprolol Tartrate 12.5 Mg Halftab) 12.5 mg PO BID [facility], [facility]; Protocol Last Admin: 11/07/21 08:01 Dose: 12.5 mg Documented by: LEEANN Pharmacy Consult (Consult Rx Perform Med Rec) 1 each MISCELLANE ONCE PRN PRN Reason: Consult order Pharmacy Consult (Consult Rx Perform Med Rec) 1 each MISCELLANE ONCE PRN PRN Reason: Consult order Senna (Sennosides 8.6 Mg Tablet) 17.2 mg PO BEDTIME PRN PRN Reason: Constipation Sodium Chloride (0.9 % Sodium Chloride Flush 3 Ml Syringe) 3 ml IVFLUSH QSHIFT [facility] Last Admin: 11/07/21 08:02 Dose: 3 ml Documented by: LEEANN Labs CBC & Chem 7: 11/05/21 04:49 11/06/21 04:59 Assessment and Plan (1) Morbidly obese: Status: Acute (2) Congestive heart failure: Status: Acute (3) Atrial fibrillation: Status: Acute Assessment and Plan: hospital d#4 66yo M with AF, morbid obesity presenting with dyspnea, weight gain, leg mitchel admitted for CHF exacerbation # acute R-sided HF exacerbation - diuresed with IV furosemide, net negative 9L - now on maintenance PO furosemide - outpt PSG # AF - continue metoprolol for rate control, apixaban for anticoagulation # acute hypoxic resp failure - wean O2 as tolerated - per CT chest and V/Q, no PE # VTE ppx - apixaban # dispo - STR, CM working on this Quality Stroke Does the patient have a stroke diagnosis?: No VTE Prior VTE?: No VTE Risk Level:: Medical - moderate - high VTE Device Contraindication: Treatment Not Indicated VTE Drug Contraindication: N/A - Med Ordered
[2021-11-07] MEDS: hydrOXYzine HCL 50 MG/ML VIAL IM (12:37)
[2021-11-07 15:47] VITALS: BP 125/58; PULSE 64; RESP 16; TEMP 36.2; O2SAT 92
[2021-11-07 20:00] VITALS: BP 135/78; PULSE 78; RESP 18; TEMP 36.7
[2021-11-08] VITALS (7 sets, daily range): BP systolic 116–136; BP diastolic 56–95; PULSE 63–95; RESP 16–29; TEMP 36–36.9; O2SAT 91–95
[2021-11-08] MEDS: hydrOXYzine HCL 50 MG/ML VIAL IM (01:10)
[2021-11-08] MEDS: 0.9 % Sodium Chloride Flush 3 ML SYRINGE IVFLUSH ×3 (01:10→20:11)
--- NOTE | 2021-11-08 05:04 | PM.EVENT ---
Event Note Date of Service: 11/08/21 Event Note: Bradycardia: Patient had returns in 30s. Patient was sleeping. Asymptomatic. Also noted to have 5 sec pause. Held metoprolol. Cardiology consult. Bedside pacers
[2021-11-08] MEDS: Furosemide 40 MG TABLET PO (07:14)
[2021-11-08] MEDS: Apixaban 5 MG TABLET PO ×2 (07:15→20:10)
--- NOTE | 2021-11-08 11:08 | P.PNIM_ITS ---
Subjective Subjective Date of Service: 11/08/21 Interval History: Edema improved Overnight, in sinus bradycardia down to 30s with pauses up to 6 sec while sleeping. No chest pain No lightheadedness Review of Systems Review of Systems: Yes all other systems are reviewed and are negative Physical Exam Vital Signs: Vital Signs: Last Vital Signs Temp 97.5 F 11/08/21 08:00 Pulse 82 11/08/21 08:00 Resp 18 11/08/21 08:00 BP 133/89 11/08/21 08:00 Pulse Ox 93 11/08/21 08:00 BMI result Body Mass Index 71.8 Gen: in no acute distress HEENT: sclera anicteric, moist mucus membranes Neck: supple Lungs: clear to auscultation bilaterally Heart: irregularly irregular, no murmurs Abd: soft, non-tender, non-distended, morbidly obese Ext: 1+ BLE edema Skin: warm/well-perfused Neuro: alert and oriented x3, no focal findings Psych: appropriate affect Objective Data Active Medications Acetaminophen (Acetaminophen 325 Mg Tablet) 650 mg PO Q6H PRN PRN Reason: Pain, Mild (Pain Scale 1-3) Last Admin: 11/07/21 08:01 Dose: 650 mg Documented by: LEEANN Albuterol Sulfate (Albuterol Sulfate 90 Mcg 8 Gm Inhaler) 2 puff INHALE RQ4H PRN PRN Reason: sob Apixaban (Apixaban 5 Mg Tablet) 5 mg PO BID [facility] Last Admin: 11/08/21 07:15 Dose: 5 mg Documented by: LEEANN Furosemide (Furosemide 40 Mg Tablet) 40 mg PO DAILY [facility]; Protocol Last Admin: 11/08/21 07:14 Dose: 40 mg Documented by: LEEANN Hydroxyzine HCl (Hydroxyzine Hcl 50 Mg/Ml Vial) 50 mg IM Q6H PRN PRN Reason: anxiety Last Admin: 11/08/21 01:10 Dose: 50 mg Documented by: CHRISTI Melatonin (Melatonin 3 Mg Tablet) 6 mg PO BEDTIME PRN PRN Reason: Insomnia Last Admin: 11/06/21 22:51 Dose: 6 mg Documented by: CHRISTI Pharmacy Consult (Consult Rx Perform Med Rec) 1 each MISCELLANE ONCE PRN PRN Reason: Consult order Pharmacy Consult (Consult Rx Perform Med Rec) 1 each MISCELLANE ONCE PRN PRN Reason: Consult order Senna (Sennosides 8.6 Mg Tablet) 17.2 mg PO BEDTIME PRN PRN Reason: Constipation Sodium Chloride (0.9 % Sodium Chloride Flush 3 Ml Syringe) 3 ml IVFLUSH QSHIFT [facility] Last Admin: 11/08/21 07:16 Dose: 3 ml Documented by: LEEANN Labs CBC & Chem 7: 11/05/21 04:49 11/06/21 04:59 Assessment and Plan (1) Morbidly obese: Status: Acute (2) Congestive heart failure: Status: Acute (3) Atrial fibrillation: Status: Acute Assessment and Plan: hospital d#5 66yo M with AF, morbid obesity presenting with dyspnea, weight gain, leg edema admitted for CHF exacerbation # sinus pauses # sinus bradycardia - discussed with Cardiology; likely due to undiagnosed YANN with b-anastacio effect - d/c metoprolol - outpt PSG - will place on CPAP empirically while admitted to hospital # acute R-sided HF exacerbation - diuresed with IV furosemide, net negative 11L cumulatively this admission - now on maintenance PO furosemide - outpt PSG as above - pt will f/u with his load tester, Dr [facility] at [facility] # AF - rate-controlled. d/c metoprolol due to sinus pauses. apixaban for anticoagulation # acute hypoxic resp failure - wean O2 as tolerated - per CT chest and V/Q, no PE # VTE ppx - apixaban # dispo - STR, CM working on this Quality Stroke Does the patient have a stroke diagnosis?: No VTE Prior VTE?: No VTE Risk Level:: Medical - moderate - high VTE Device Contraindication: Treatment Not Indicated VTE Drug Contraindication: N/A - Med Ordered
--- NOTE | 2021-11-08 11:16 | PM.PNCARD ---
Subjective Subjective Date of Service: 11/08/21 Principal diagnosis: Right HF, afib Interval history: Pauses in sleep overnight >5 sec. Chronic Afib. Physical Exam Vital Signs: Last Vital Signs Temp 97.5 F 11/08/21 08:00 Pulse 82 11/08/21 08:00 Resp 18 11/08/21 08:00 BP 133/89 11/08/21 08:00 Pulse Ox 93 11/08/21 08:00 BMI result Body Mass Index 71.8 GENERAL APPEARANCE:? Morbidly obese.? Not short of breath. SKIN: no suspicious lesions, warm and dry. HEART: no murmurs, irregular rate and rhythm. LUNGS:? Clear to auscultation. ABDOMEN: soft, nontender.? Distended and has abdominal wall edema. EXTREMITIES:? 1-2+ edema. PERIPHERAL PULSES: equal. NEUROLOGIC: No gross deficits, AAO X 3 Objective Labs and Meds Result diagrams: 11/05/21 04:49 11/06/21 04:59 Imaging Radiologist's impression: Impressions Chest X-Ray 11/08/21 09:35 IMPRESSION: Stable enlargement of the cardiac silhouette. Increasing volume loss to the right hemithorax. Increasing airspace disease at the right lung base and right pleural effusion. Progress Note: A&P Assessment and plan (1) Congestive heart failure: Status: Acute (2) Atrial fibrillation: Status: Acute Assessment and Plan: 66-year-old gentleman presenting for shortness of breath.? Clinically he was in right heart failure.? Echocardiography has shown RV dysfunction and pulmonary hypertension.? On Eliquis for atrial fibrillation. continue diuretics.? Bradycardia in sleep is due to high vagal tone due to YANN. Sleep study as OP. No BB or diltiazem/Verapamil. Follow-up with Dr. Tye Mason at [facility].? Fall Risk Details Current Medications: Current Medications Acetaminophen (Acetaminophen 325 Mg Tablet) 650 mg PO Q6H PRN PRN Reason: Pain, Mild (Pain Scale 1-3) Last Admin: 11/07/21 08:01 Dose: 650 mg Documented by: Albuterol Sulfate (Albuterol Sulfate 90 Mcg 8 Gm Inhaler) 2 puff INHALE RQ4H PRN PRN Reason: sob Apixaban (Apixaban 5 Mg Tablet) 5 mg PO BID [facility] Last Admin: 11/08/21 07:15 Dose: 5 mg Documented by: Furosemide (Furosemide 40 Mg Tablet) 40 mg PO DAILY [facility]; Protocol Last Admin: 11/08/21 07:14 Dose: 40 mg Documented by: Hydroxyzine HCl (Hydroxyzine Hcl 50 Mg/Ml Vial) 50 mg IM Q6H PRN PRN Reason: anxiety Last Admin: 11/08/21 01:10 Dose: 50 mg Documented by: Melatonin (Melatonin 3 Mg Tablet) 6 mg PO BEDTIME PRN PRN Reason: Insomnia Last Admin: 11/06/21 22:51 Dose: 6 mg Documented by: Pharmacy Consult (Consult Rx Perform Med Rec) 1 each MISCELLANE ONCE PRN PRN Reason: Consult order Pharmacy Consult (Consult Rx Perform Med Rec) 1 each MISCELLANE ONCE PRN PRN Reason: Consult order Senna (Sennosides 8.6 Mg Tablet) 17.2 mg PO BEDTIME PRN PRN Reason: Constipation Sodium Chloride (0.9 % Sodium Chloride Flush 3 Ml Syringe) 3 ml IVFLUSH QSHIFT [facility] Last Admin: 11/08/21 07:16 Dose: 3 ml Documented by: Time Spent With Patient Time: Total time spent is greater than 50% in coordination of care (as documented) at patient's floor/unit and/or counseling patient: Time with patient: 15 - 24 minutes Progress Note: Quality Stroke Does the patient have a stroke diagnosis?: No Procedures Date of Service Date of Service: 11/08/21
[2021-11-08] MEDS: Acetaminophen 325 MG TABLET 650 MG PO (16:07)
[2021-11-09] VITALS (7 sets, daily range): BP systolic 121–131; BP diastolic 67–76; PULSE 76–98; RESP 16–20; TEMP 36.1–36.7; O2SAT 90–92
--- NOTE | 2021-11-09 04:42 | PC.NURSE ---
Addendum entered by Bing Jessica RN 11/09/21 04:44: Patient tolerated Cpap for about 2 hours of the night Original Note: At 1124pm 11/08/21 patient had a 2.3 second pause. Hr down to 33. Patient in bed sleeping and asymptomatic. Dr. Velarde notified. Patient had similar episode night prior. Pacer pads on. Possible undiagnosed YANN. RT called to place patient on Cpap.
[2021-11-09 06:40] LABS: Hematocrit 50.7 % (42.0-52.0); Hemoglobin 15.4 g/dl (14.0-18.0); Mean Corpuscular HGB Conc 30.4 g/dl (31.0-36.0); Mean Corpuscular Hemoglobin 30.8 pg (27.0-33.0); Mean Corpuscular Volume 101.4 fL (80.0-98.0); Platelet Count 185 X10*3/uL (160-400); Red Cell Distribution Width 14.9 % (11.0-16.0); White Blood Count 7.4 X10*3/uL (4.8-10.8)
[2021-11-09] MEDS: Apixaban 5 MG TABLET PO ×2 (09:59→20:10)
[2021-11-09] MEDS: Acetaminophen 325 MG TABLET 650 MG PO (09:59)
[2021-11-09] MEDS: 0.9 % Sodium Chloride Flush 3 ML SYRINGE IVFLUSH ×3 (09:59→20:12)
[2021-11-09] MEDS: Furosemide 40 MG TABLET PO (09:59)
--- NOTE | 2021-11-09 15:07 | HO.PM.IMPN ---
Subjective Subjective Date of Service: 11/09/21 Interval History: No acute complaints, no events overnight Review of Systems Review of Systems: Yes all other systems are reviewed and are negative Physical Exam Vital Signs: Vital Signs: Last Vital Signs Temp 97.8 F 11/09/21 10:52 Pulse 98 11/09/21 10:52 Resp 19 11/09/21 10:52 BP 131/72 11/09/21 10:52 Pulse Ox 92 11/09/21 10:52 BMI result Body Mass Index 71.8 Const: Other: Gen: Awake alert, in no acute distress HEENT: sclera anicteric, moist mucus membranes Neck: supple, no JVD Lungs: clear to auscultation bilaterally Heart: irregularly irregular, no murmurs Abd: soft, non-tender, non-distended, morbidly obese Ext: 1+ BLE edema Skin: warm/well-perfused Neuro: alert and oriented x3, no focal findings Psych: appropriate affect Objective Data Active Medications Acetaminophen (Acetaminophen 325 Mg Tablet) 650 mg PO Q6H PRN PRN Reason: Pain, Mild (Pain Scale 1-3) Last Admin: 11/09/21 09:59 Dose: 650 mg Documented by: NINOSKA Albuterol Sulfate (Albuterol Sulfate 90 Mcg 8 Gm Inhaler) 2 puff INHALE RQ4H PRN PRN Reason: sob Apixaban (Apixaban 5 Mg Tablet) 5 mg PO BID [facility] Last Admin: 11/09/21 09:59 Dose: 5 mg Documented by: NINOSKA Furosemide (Furosemide 40 Mg Tablet) 40 mg PO DAILY [facility]; Protocol Last Admin: 11/09/21 09:59 Dose: 40 mg Documented by: NINOSKA Hydroxyzine HCl (Hydroxyzine Hcl 50 Mg/Ml Vial) 50 mg IM Q6H PRN PRN Reason: anxiety Last Admin: 11/08/21 01:10 Dose: 50 mg Documented by: CHRISTI Melatonin (Melatonin 3 Mg Tablet) 6 mg PO BEDTIME PRN PRN Reason: Insomnia Last Admin: 11/06/21 22:51 Dose: 6 mg Documented by: CHRISTI Pharmacy Consult (Consult Rx Perform Med Rec) 1 each MISCELLANE ONCE PRN PRN Reason: Consult order Pharmacy Consult (Consult Rx Perform Med Rec) 1 each MISCELLANE ONCE PRN PRN Reason: Consult order Senna (Sennosides 8.6 Mg Tablet) 17.2 mg PO BEDTIME PRN PRN Reason: Constipation Sodium Chloride (0.9 % Sodium Chloride Flush 3 Ml Syringe) 3 ml IVFLUSH QSHIFT [facility] Last Admin: 11/09/21 09:59 Dose: 3 ml Documented by: NINOSKA Labs CBC & Chem 7: 11/09/21 05:48 11/06/21 04:59 Labs: Laboratory Results - last 24 hr 11/09/21 05:48 MCV 101.4 H MCH 30.8 MCHC 30.4 L RDW 14.9 Plt Count 185 MPV 10.0 Absolute Nucleated RBC 0.000 Nucleated RBC % (auto) 0.0 Microbiology Microbiology Results: Microbiology 11/03/21 21:27 Blood Culture - Final Blood - Venous No growth after 5 days. 11/03/21 21:27 Blood Culture - Final Blood - Venous No growth after 5 days. Assessment and Plan (1) Morbidly obese: Status: Acute (2) Congestive heart failure: Status: Acute (3) Atrial fibrillation: Status: Acute Assessment and Plan: 66yo M with AF, morbid obesity presenting with dyspnea, weight gain, leg edema admitted for CHF exacerbation # sinus pauses/ sinus bradycardia - no recurrent episodes since yesterday, seen by cardiology bradycardia likely due to undiagnosed YANN with b-anastacio effect Metoprolol discontinue, continue CPAP empirically while in house - outpt PSG # acute R-sided HF exacerbation - resolved, diuresed with IV furosemide, net negative 11L cumulatively this admission - now on maintenance PO furosemide - outpt PSG as above - pt will f/u with his asset protection associate, Dr Mason at [facility] # AF - rate-controlled. d/c metoprolol due to sinus pauses. Continue apixaban for anticoagulation # acute hypoxic resp failure - wean O2 as tolerated, not on home O2 - per CT chest and V/Q, no PE # VTE ppx - apixaban # dispo - STR CM working on this Quality Stroke Does the patient have a stroke diagnosis?: No VTE Prior VTE?: No VTE Risk Level:: Medical - moderate - high VTE Device Contraindication: Treatment Not Indicated VTE Drug Contraindication: N/A - Med Ordered
[2021-11-10] VITALS (8 sets, daily range): BP systolic 126–145; BP diastolic 55–81; PULSE 66–103; RESP 18–22; TEMP 36.2–37; O2SAT 90–99
--- NOTE | 2021-11-10 07:29 | PC.RT ---
pt did not wear cpap last night as he did not like it. He said he would try 1 more time tonight. pt does not have a machine at home. He said he had a sleep study but did not sleep during this test long enough. So if he does not wear it tonight and refuses, then we will pull it out of his room.
[2021-11-10] MEDS: Furosemide 40 MG TABLET PO (08:42)
[2021-11-10] MEDS: Apixaban 5 MG TABLET PO ×2 (08:42→19:12)
[2021-11-10] MEDS: 0.9 % Sodium Chloride Flush 3 ML SYRINGE IVFLUSH ×3 (08:43→19:13)
[2021-11-10] MEDS: Acetaminophen 325 MG TABLET 650 MG PO ×2 (12:51→22:27)
--- NOTE | 2021-11-10 15:09 | P.PNIM_ITS ---
Subjective Subjective Date of Service: 11/10/21 Interval History: Offers no acute complaints, mostly in bed, no acute issues overnight Review of Systems Review of Systems: Yes all other systems are reviewed and are negative Physical Exam Vital Signs: Vital Signs: Last Vital Signs Temp 98.0 F 11/10/21 14:58 Pulse 86 11/10/21 14:58 Resp 20 11/10/21 14:58 BP 131/55 L 11/10/21 14:58 Pulse Ox 90 L 11/10/21 14:58 BMI result Body Mass Index 71.8 Const: Other: Gen:? Awake alert, in no acute distr ess HEENT: sclera anicteric, moist m ucus membranes Nec k: supple, no JVD Lungs: clear to au scultation bilater ally Heart: irregu larly irregular, n o murmurs Abd: sof t, non-tender, non -distended, morbid ly obese Ext: 1+ B LE edema Skin: war m/well-perfused Ne uro: alert and ligia ented x3, no focal findings Psych: a ppropriate affect ? Objective Data Active Medications Acetaminophen (Acetaminophen 325 Mg Tablet) 650 mg PO Q6H PRN PRN Reason: Pain, Mild (Pain Scale 1-3) Last Admin: 11/10/21 12:51 Dose: 650 mg Documented by: ZIGGY Albuterol Sulfate (Albuterol Sulfate 90 Mcg 8 Gm Inhaler) 2 puff INHALE RQ4H PRN PRN Reason: sob Apixaban (Apixaban 5 Mg Tablet) 5 mg PO BID [facility] Last Admin: 11/10/21 08:42 Dose: 5 mg Documented by: ZIGGY Furosemide (Furosemide 40 Mg Tablet) 40 mg PO DAILY [facility]; Protocol Last Admin: 11/10/21 08:42 Dose: 40 mg Documented by: ZIGGY Hydroxyzine HCl (Hydroxyzine Hcl 50 Mg/Ml Vial) 50 mg IM Q6H PRN PRN Reason: anxiety Last Admin: 11/08/21 01:10 Dose: 50 mg Documented by: CHRISTI Melatonin (Melatonin 3 Mg Tablet) 6 mg PO BEDTIME PRN PRN Reason: Insomnia Last Admin: 11/06/21 22:51 Dose: 6 mg Documented by: CHRISTI Pharmacy Consult (Consult Rx Perform Med Rec) 1 each MISCELLANE ONCE PRN PRN Reason: Consult order Pharmacy Consult (Consult Rx Perform Med Rec) 1 each MISCELLANE ONCE PRN PRN Reason: Consult order Senna (Sennosides 8.6 Mg Tablet) 17.2 mg PO BEDTIME PRN PRN Reason: Constipation Sodium Chloride (0.9 % Sodium Chloride Flush 3 Ml Syringe) 3 ml IVFLUSH QSHIFT [facility] Last Admin: 11/10/21 08:43 Dose: 3 ml Documented by: ZIGGY Labs CBC & Chem 7: 11/09/21 05:48 11/06/21 04:59 Assessment and Plan (1) Morbidly obese: Status: Acute (2) Congestive heart failure: Status: Acute (3) Atrial fibrillation: Status: Acute Assessment and Plan: 66yo M with AF, morbid obesity presenting with dyspnea, weight gain, leg edema admitted for CHF exacerbation # sinus pauses/ sinus bradycardia - no recurrent episodes since yesterday, seen by cardiology bradycardia likely due to undiagnosed YANN with b-anastacio effect continue CPAP empirically while in house - outpt polysomnography # acute R-sided HF exacerbation - resolved, diuresed with IV furosemide, net negative 11L cumulatively this admission - now on maintenance PO furosemide - outpt PSG as above - pt will f/u with his fixture builder, Dr Mason at [facility] # AF - rate-controlled. d/c metoprolol due to sinus pauses. Continue apixaban for anticoagulation # acute hypoxic resp failure - wean O2 as tolerated, not on home O2 - per CT chest and V/Q, no PE # VTE ppx - apixaban # dispo - STR, CM working on this Quality Stroke Does the patient have a stroke diagnosis?: No VTE Prior VTE?: No VTE Risk Level:: Medical - moderate - high VTE Device Contraindication: Treatment Not Indicated VTE Drug Contraindication: N/A - Med Ordered
[2021-11-11] VITALS (7 sets, daily range): BP systolic 100–135; BP diastolic 64–75; PULSE 77–93; RESP 15–20; TEMP 36.1–37.3; O2SAT 90–93
[2021-11-11] MEDS: Apixaban 5 MG TABLET PO ×2 (10:58→22:15)
[2021-11-11] MEDS: Furosemide 40 MG TABLET PO (10:58)
[2021-11-11] MEDS: 0.9 % Sodium Chloride Flush 3 ML SYRINGE IVFLUSH ×3 (10:58→22:16)
[2021-11-11] MEDS: Acetaminophen 325 MG TABLET 650 MG PO (11:02)
--- NOTE | 2021-11-11 11:23 | PC.RT ---
pt refusing to wear bipap/cpap for the past few nights. pt being non compliant. machine being pulled for other patient use.
--- NOTE | 2021-11-11 11:42 | P.PNIM_ITS ---
Subjective Subjective Date of Service: 11/11/21 Interval History: resting in bed, denies shortness of breath no lightheadedness no dizziness no acute events overnight. Review of Systems Review of Systems: Yes all other systems are reviewed and are negative Physical Exam Verdana 4l Vital Signs: Verdana 4d Verdana 4d Vital Signs: Verdana 4d Verdana 4Bd Last Vital Signs Verdana 4d Mixer Lever Operator New 4d Mixer Lever Operator New 4d Temp 99.1 F 11/11/21 11:02 Mixer Lever Operator New 4d Pulse 86 11/11/21 11:02 Mixer Lever Operator New 4d Resp 15 11/11/21 11:02 BP 124/66 11/11/21 11:02 Pulse Ox 93 11/11/21 11:02 BMI result Body Mass Index 71.8 Const: Other: Gen:? Awake alert,?in no acute distress HEENT: scleraanicteric, moist mucus membranes Neck: supple, no JVD Lungs: clear to auscultation bilaterally Heart: irregularly irregular, no murmurs Abd: soft, non-tender, non-distended, morbidly obese Ext: 1+ BLE edema Skin: warm/well-perfused Neuro: alert and oriented x3, no focal?findings Psych: appropriate affect Objective Data Active Medications Acetaminophen (Acetaminophen 325 Mg Tablet) 650 mg PO Q6H PRN PRN Reason: Pain, Mild (Pain Scale 1-3) Last Admin: 11/11/21 11:02 Dose: 650 mg Documented by: NINOSKA Albuterol Sulfate (Albuterol Sulfate 90 Mcg 8 Gm Inhaler) 2 puff INHALE RQ4H PRN PRN Reason: sob Apixaban (Apixaban 5 Mg Tablet) 5 mg PO BID [facility] Last Admin: 11/11/21 10:58 Dose: 5 mg Documented by: NINOSKA Furosemide (Furosemide 40 Mg Tablet) 40 mg PO DAILY [facility]; Protocol Last Admin: 11/11/21 10:58 Dose: 40 mg Documented by: NINOSKA Hydroxyzine HCl (Hydroxyzine Hcl 50 Mg/Ml Vial) 50 mg IM Q6H PRN PRN Reason: anxiety Last Admin: 11/08/21 01:10 Dose: 50 mg Documented by: CHRISTI Melatonin (Melatonin 3 Mg Tablet) 6 mg PO BEDTIME PRN PRN Reason: Insomnia Last Admin: 11/06/21 22:51 Dose: 6 mg Documented by: CHRISTI Pharmacy Consult (Consult Rx Perform Med Rec) 1 each MISCELLANE ONCE PRN PRN Reason: Consult order Pharmacy Consult (Consult Rx Perform Med Rec) 1 each MISCELLANE ONCE PRN PRN Reason: Consult order Senna (Sennosides 8.6 Mg Tablet) 17.2 mg PO BEDTIME PRN PRN Reason: Constipation Sodium Chloride (0.9 % Sodium Chloride Flush 3 Ml Syringe) 3 ml IVFLUSH QSHIFT [facility] Last Admin: 11/11/21 10:58 Dose: 3 ml Documented by: NINOSKA Labs CBC & Chem 7: 11/09/21 05:48 11/06/21 04:59 Assessment and Plan (1) Morbidly obese: Status: Acute (2) Congestive heart failure: Status: Acute (3) Atrial fibrillation: Status: Acute Plan 66yo M with AF, morbid obesity presenting with dyspnea, weight gain, leg edema admitted for CHF exacerbation # sinus pauses/ sinus bradycardia - no recurrent episodes since beta-anastacio discontinued seen by cardiology bradycardia likely due to undiagnosed YANN with b-anastacio effect continue CPAP empirically while in house, outpt polysomnography # acute R-sided HF exacerbation - resolved, diuresed with IV furosemide, net negative 11L cumulatively this admission - now on PO furosemide maintenance dose - outpt PSG as above - pt will f/u with his steam roller operator, Dr Mason at [facility] # AF - rate-controlled. d/c metoprolol due to sinus pauses. Continue apixaban for anticoagulation # acute hypoxic resp failure - wean O2 as tolerated, not on home O2 - per CT chest and V/Q, no PE # VTE ppx - apixaban # dispo - STR, CM working on this Quality Stroke Does the patient have a stroke diagnosis?: No VTE Prior VTE?: No VTE Risk Level:: Medical - moderate - high VTE Device Contraindication: Treatment Not Indicated VTE Drug Contraindication: N/A - Med Ordered
--- NOTE | 2021-11-11 15:21 | MHC.CM.PN ---
Male 66 DX new CHF He is ready for discharge. Updated info was added to referral. No bed offers have been made. DP STR via BLS.
[2021-11-12] VITALS (7 sets, daily range): BP systolic 99–140; BP diastolic 44–77; PULSE 79–90; RESP 18–20; TEMP 36.1–36.9; O2SAT 90–95
[2021-11-12] MEDS: Acetaminophen 325 MG TABLET 650 MG PO ×2 (07:52→20:30)
[2021-11-12] MEDS: 0.9 % Sodium Chloride Flush 3 ML SYRINGE IVFLUSH ×3 (07:53→20:30)
[2021-11-12] MEDS: Furosemide 40 MG TABLET PO (07:53)
[2021-11-12] MEDS: Apixaban 5 MG TABLET PO ×2 (07:53→20:30)
--- NOTE | 2021-11-12 10:07 | P.PNCA_ITS ---
Subjective Subjective Date of Service: 11/12/21 Principal diagnosis: Right HF, afib, bradycardia Interval history: I was requested to see Eric in urgent follow-up visit today because he was noted to have bradycardia with pauses up to 4.4 seconds. Patient does not report any symptoms. Patient said he was sleeping all morning, however this is not confirmed by the staff whether he was sleeping at that point in time. He has prior history of bradycardia he says when he sleeping and probably has high likelihood of underlying obstructive sleep apnea that could explain this process. He has had no prior history of syncope. He has chronic atrial fibrillation, never cardioverted. He also has significant obesity as well as prior history of pulmonary embolism and currently has heart failure syndrome with predominantly right-sided heart failure secondary pulmonary hypertension. Review of Systems Review of Systems Yes all other systems are reviewed and are negative Physical Exam Vital Signs: Last Vital Signs Temp 97.0 F 11/12/21 07:20 Pulse 79 11/12/21 07:20 Resp 20 11/12/21 07:20 BP 127/64 11/12/21 07:20 Pulse Ox 94 11/12/21 07:20 BMI result Verdana 4 Body Mass Index Verdana 4 71.8 Verdana 4 Verdana 4 Const General: cooperative, comfortable, alert, awake and in distress mild and respiratory Nutritional Appearance: obese morbidly obese Orientation/consciousness: patient oriented x3 Neck Neck: Yes trachea midline, Yes supple and Yes other (JVD is difficult to evaluate) Resp Effort & Inspection: normal respiratory effort Auscultation: clear to auscultation bilaterally Cardio Rhythm: abnormal rhythm irregularly irregular Heart sounds: S1 normal heart sound present, S2 normal heart sound present, no click and no gallops GI Inspection: Yes Abdominal panniculus present Auscultation: normal bowel sounds Neuro General: patient oriented x3 and no focal motor deficits Extrem General: No clubbing, No cyanosis and Yes edema Objective Labs and Meds Result diagrams: 11/09/21 05:48 11/06/21 04:59 Progress Note: A&P Assessment and plan (1) Bradycardia: Status: Acute Assessment and Plan: Bradycardia with pauses up to 4.4 seconds. However these appear to be while patient is sleeping. There is high likelihood of underlying obstructive sleep apnea causing his bradycardia. In this case this is reversible cause and would not commit him to a pacemaker. Currently not on any rate lowering medication would avoid rate lowering medications the future. Please correlate his bradycardia at the time with if he sleeping and has obstructive sleep apnea pattern. Would benefit from empiric obstructive sleep apnea treatment (2) Atrial fibrillation: Status: Acute Assessment and Plan: Chronic atrial fibrillation for 2 years. Never cardioverted. Currently on full oral anticoagulation with Eliquis. Rate is adequately controlled. No need for rate lowering medications. (3) Congestive heart failure: Status: Acute Assessment and Plan: Congestive heart failure syndrome in this morbidly obese patient is most likely due to obesity hypoventilation syndrome as well as untreated sleep apnea and underlying diastolic dysfunction and atrial fibrillation and predominant right ventricular dysfunction due to above. Clinically appears to be probably euvolemic. Difficult to assess. He is short of breath but could be related to his weight. Monitor for signs and symptoms of heart failure. Continue current diuretic regimen. Heart failure management should be discussed with patient. He is at high risk for redevelopment of heart failure syndrome. Will sign of the case unless there further bradycardia which is not associated with sleeping and may require pacing therapy at that point in time. Case discussed with Dr. Brandee Kimble Risk Details Current Medications: Current Medications Acetaminophen (Acetaminophen 325 Mg Tablet) 650 mg PO Q6H PRN PRN Reason: Pain, Mild (Pain Scale 1-3) Last Admin: 11/12/21 07:52 Dose: 650 mg Documented by: Albuterol Sulfate (Albuterol Sulfate 90 Mcg 8 Gm Inhaler) 2 puff INHALE RQ4H PRN PRN Reason: sob Apixaban (Apixaban 5 Mg Tablet) 5 mg PO BID [facility] Last Admin: 11/12/21 07:53 Dose: 5 mg Documented by: Furosemide (Furosemide 40 Mg Tablet) 40 mg PO DAILY [facility]; Protocol Last Admin: 11/12/21 07:53 Dose: 40 mg Documented by: Hydroxyzine HCl (Hydroxyzine Hcl 50 Mg/Ml Vial) 50 mg IM Q6H PRN PRN Reason: anxiety Last Admin: 11/08/21 01:10 Dose: 50 mg Documented by: Melatonin (Melatonin 3 Mg Tablet) 6 mg PO BEDTIME PRN PRN Reason: Insomnia Last Admin: 11/06/21 22:51 Dose: 6 mg Documented by: Pharmacy Consult (Consult Rx Perform Med Rec) 1 each MISCELLANE ONCE PRN PRN Reason: Consult order Pharmacy Consult (Consult Rx Perform Med Rec) 1 each MISCELLANE ONCE PRN PRN Reason: Consult order Senna (Sennosides 8.6 Mg Tablet) 17.2 mg PO BEDTIME PRN PRN Reason: Constipation Sodium Chloride (0.9 % Sodium Chloride Flush 3 Ml Syringe) 3 ml IVFLUSH QSHIFT [facility] Last Admin: 11/12/21 07:53 Dose: 3 ml Documented by: Time Spent With Patient Time: Total time spent is greater than 50% in coordination of care (as documented) at patient's floor/unit and/or counseling patient: Time with patient: 15 - 24 minutes Progress Note: Quality Stroke Does the patient have a stroke diagnosis?: No Procedures Date of Service Date of Service: 11/12/21
--- NOTE | 2021-11-12 13:18 | P.PNIM_ITS ---
Subjective Subjective Date of Service: 11/12/21 Physical Exam Verdana 4l Vital Signs: Verdana 4d Verdana 4d Vital Signs: Verdana 4d Verdana 4Bd Last Vital Signs Verdana 4d Safety Instructor New 4d Safety Instructor New 4d Temp 97.8 F 11/12/21 11:45 Safety Instructor New 4d Pulse 83 11/12/21 11:45 Safety Instructor New 4d Resp 20 11/12/21 11:45 BP 123/61 11/12/21 11:45 Pulse Ox 95 11/12/21 11:45 BMI result Body Mass Index 71.8 Objective Data Active Medications Acetaminophen (Acetaminophen 325 Mg Tablet) 650 mg PO Q6H PRN PRN Reason: Pain, Mild (Pain Scale 1-3) Last Admin: 11/12/21 07:52 Dose: 650 mg Documented by: DO Albuterol Sulfate (Albuterol Sulfate 90 Mcg 8 Gm Inhaler) 2 puff INHALE RQ4H PRN PRN Reason: sob Apixaban (Apixaban 5 Mg Tablet) 5 mg PO BID [facility] Last Admin: 11/12/21 07:53 Dose: 5 mg Documented by: DO Furosemide (Furosemide 40 Mg Tablet) 40 mg PO DAILY [facility]; Protocol Last Admin: 11/12/21 07:53 Dose: 40 mg Documented by: DO Hydroxyzine HCl (Hydroxyzine Hcl 50 Mg/Ml Vial) 50 mg IM Q6H PRN PRN Reason: anxiety Last Admin: 11/08/21 01:10 Dose: 50 mg Documented by: CHRISTI Melatonin (Melatonin 3 Mg Tablet) 6 mg PO BEDTIME PRN PRN Reason: Insomnia Last Admin: 11/06/21 22:51 Dose: 6 mg Documented by: CHRISTI Pharmacy Consult (Consult Rx Perform Med Rec) 1 each MISCELLANE ONCE PRN PRN Reason: Consult order Pharmacy Consult (Consult Rx Perform Med Rec) 1 each MISCELLANE ONCE PRN PRN Reason: Consult order Senna (Sennosides 8.6 Mg Tablet) 17.2 mg PO BEDTIME PRN PRN Reason: Constipation Sodium Chloride (0.9 % Sodium Chloride Flush 3 Ml Syringe) 3 ml IVFLUSH QSHIFT [facility] Last Admin: 11/12/21 07:53 Dose: 3 ml Documented by: HO.DONADI Labs CBC & Chem 7: 11/09/21 05:48 11/06/21 04:59 Assessment and Plan (1) Morbidly obese: Status: Acute (2) Congestive heart failure: Status: Acute (3) Atrial fibrillation: Status: Acute Plan 66yo M with AF, morbid obesity presenting with dyspnea, weight gain, leg edema admitted for CHF exacerbation # sinus pauses/ sinus bradycardia - patient noted to have another episode of sinus pause up to 4.4 seconds this a.m. patient remained asymptomatic, was likely sleeping at the time of event seen by cardiology bradycardia likely due to undiagnosed YANN , since this is irreversible not committed to pacemaker by cardio, is off beta-blockers for last several days Patient refusing to use CPAP, will talk to him about compliance outpt polysomnography # acute R-sided HF exacerbation - resolved, diuresed with IV furosemide, net negative 11L cumulatively this admission - now on PO furosemide maintenance dose outpt PSG as above - pt will f/u with his mainframe analyst, Dr Mason at [facility] # AF - rate-controlled. not on metoprolol due to sinus pauses. Continue apixaban for anticoagulation # acute hypoxic resp failure - wean O2 as tolerated, not on home O2 - per CT chest and V/Q, no PE # morbid obesity strongly recommend to follow low-calorie diet outpatient bariatric surgery referral # VTE ppx - apixaban # dispo - being followed by Physical therapy, patient continued to have low tolerance to functional mobility dyspnea with minimal exertion with poor gait mechanics and increased risk of fall therefore PT continue to recommend STR, CM working on this Quality Stroke Does the patient have a stroke diagnosis?: No VTE Prior VTE?: No VTE Risk Level:: Medical - moderate - high VTE Device Contraindication: Treatment Not Indicated VTE Drug Contraindication: N/A - Med Ordered
--- NOTE | 2021-11-12 23:17 | PC.RT ---
Pt Refusing CPAP at this time
[2021-11-13] VITALS (7 sets, daily range): BP systolic 127–146; BP diastolic 58–75; PULSE 74–92; RESP 16–18; TEMP 36.1–36.9; O2SAT 90–96
[2021-11-13] MEDS: Furosemide 40 MG TABLET PO (08:36)
[2021-11-13] MEDS: Apixaban 5 MG TABLET PO ×2 (08:36→19:47)
[2021-11-13] MEDS: 0.9 % Sodium Chloride Flush 3 ML SYRINGE IVFLUSH ×3 (08:37→19:51)
[2021-11-13 09:58] LABS: B Type Natriuretic Peptide 94 pg/mL (<100)
[2021-11-13 10:18] LABS: Anion Gap 11 (12-20); Blood Urea Nitrogen 21 mg/dL (9-16); Calcium 8.9 mg/dL (8.4-10.2); Carbon Dioxide 35 mmol/L (22-29); Chloride 101 mmol/L (96-108); Creatinine Clr Calc Pharmacy 142.5; Estimated Glomerular Filt Rate > 60; Glucose Random 74 mg/dL (60-115); Magnesium 2.4 mg/dL (1.6-2.6); Sodium 142 mmol/L (135-145)
--- NOTE | 2021-11-13 12:08 | PM.PNCARD ---
Subjective Subjective Date of Service: 11/13/21 Principal diagnosis: Right HF, afib, bradycardia Interval history: No cardiac symptoms to report. No pauses overnight. Review of Systems Review of Systems Yes all other systems are reviewed and are negative Physical Exam Vital Signs: Last Vital Signs Temp 98.2 F 11/13/21 07:51 Pulse 74 11/13/21 11:23 Resp 16 11/13/21 07:51 BP 131/75 11/13/21 11:23 Pulse Ox 96 11/13/21 11:23 BMI result Body Mass Index 71.8 Const General: no acute distress, alert and awake Orientation/consciousness: patient oriented x3 Neck Neck: Yes trachea midline and Yes supple Resp Effort & Inspection: normal respiratory effort Auscultation: clear to auscultation bilaterally Cardio Rhythm: abnormal rhythm irregularly irregular Heart sounds: S1 normal heart sound present and S2 normal heart sound present Neuro General: patient oriented x3 Extrem General: Yes no clubbing, cyanosis or edema Objective Labs and Meds Result diagrams: 11/09/21 05:48 11/13/21 08:30 Lab results: Laboratory Results - last 24 hr 11/13/21 11/13/21 08:30 08:30 Sodium 142 Potassium 5.0 Chloride 101 Carbon Dioxide 35 H Anion Gap 11 L BUN 21 H Creatinine 0.91 Estim Creat Clear Calc 142.5 Estimated GFR > 60 Random Glucose 74 Calcium 8.9 Magnesium 2.4 B-Natriuretic Peptide 94 Progress Note: A&P Assessment and plan (1) Bradycardia: Status: Acute Assessment and Plan: No overnight bradycardia or significant pauses. This is most likely due to no significant obstructive sleep apnea. No need for pacing therapy. Continue to monitor for sleep apnea and workup as outpatient and correct sleep apnea. If despite that continues to have significant pauses may require pacing therapy. Avoid rate lowering medication. Outpatient Holter monitor with his own reproduction production manager. (2) Atrial fibrillation: Status: Acute Assessment and Plan: Chronic atrial fibrillation, never cardioverted. Overall heart rate is on the slower side. Avoid rate lowering medication. Continue full oral anticoagulation (3) Congestive heart failure: Status: Acute Assessment and Plan: Heart failure syndrome clinically appears to be euvolemic. Continue oral diuretic therapy. Heart failure management was discussed with the patient. Workup for sleep apnea is absolutely needed. Blood pressure is well optimized. Will sign of the case at this point in time. Follow up with his own reproduction production manager as outpatient. Fall Risk Details Current Medications: Current Medications Acetaminophen (Acetaminophen 325 Mg Tablet) 650 mg PO Q6H PRN PRN Reason: Pain, Mild (Pain Scale 1-3) Last Admin: 11/12/21 20:30 Dose: 650 mg Documented by: Albuterol Sulfate (Albuterol Sulfate 90 Mcg 8 Gm Inhaler) 2 puff INHALE RQ4H PRN PRN Reason: sob Apixaban (Apixaban 5 Mg Tablet) 5 mg PO BID [facility] Last Admin: 11/13/21 08:36 Dose: 5 mg Documented by: Furosemide (Furosemide 40 Mg Tablet) 40 mg PO DAILY [facility]; Protocol Last Admin: 11/13/21 08:36 Dose: 40 mg Documented by: Hydroxyzine HCl (Hydroxyzine Hcl 50 Mg/Ml Vial) 50 mg IM Q6H PRN PRN Reason: anxiety Last Admin: 11/08/21 01:10 Dose: 50 mg Documented by: Melatonin (Melatonin 3 Mg Tablet) 6 mg PO BEDTIME PRN PRN Reason: Insomnia Last Admin: 11/06/21 22:51 Dose: 6 mg Documented by: Pharmacy Consult (Consult Rx Perform Med Rec) 1 each MISCELLANE ONCE PRN PRN Reason: Consult order Pharmacy Consult (Consult Rx Perform Med Rec) 1 each MISCELLANE ONCE PRN PRN Reason: Consult order Senna (Sennosides 8.6 Mg Tablet) 17.2 mg PO BEDTIME PRN PRN Reason: Constipation Sodium Chloride (0.9 % Sodium Chloride Flush 3 Ml Syringe) 3 ml IVFLUSH QSHIFT [facility] Last Admin: 11/13/21 08:37 Dose: 3 ml Documented by: Time Spent With Patient Time: Total time spent is greater than 50% in coordination of care (as documented) at patient's floor/unit and/or counseling patient: Time with patient: 15 - 24 minutes Progress Note: Quality Stroke Does the patient have a stroke diagnosis?: No Procedures Date of Service Date of Service: 11/13/21
--- NOTE | 2021-11-13 13:40 | P.PNIM_ITS ---
Subjective Subjective Date of Service: 11/13/21 Interval History: Offers no acute complaints, tele monitor showed no further episodes of sinus pause, patient willing to use CPAP was not using it due to poorly fitted mask, denies shortness of breath, no chest pain, no lightheadedness or dizziness tolerating diet, participating with PT. Review of Systems Review of Systems: Yes all other systems are reviewed and are negative Physical Exam Verdana 4l Vital Signs: Verdana 4d Verdana 4d Vital Signs: Verdana 4d Verdana 4Bd Last Vital Signs Verdana 4d Shoe Puller New 4d Shoe Puller New 4d Temp 97.6 F 11/13/21 12:33 Shoe Puller New 4d Pulse 90 11/13/21 12:33 Shoe Puller New 4d Resp 16 11/13/21 12:33 BP 146/63 H 11/13/21 12:33 Pulse Ox 93 11/13/21 12:33 BMI result Body Mass Index 71.8 Const: Other: Gen:? Awake alert,?in no acute distress HEENT: sclera anicteric, moist mucus membranes Neck: supple, no JVD Lungs: clear to auscultation bilaterally Heart: irregularly irregular, no murmurs Abd: soft, non-tender, non-distended, morbidly obese Ext: 1+ BLE edema Skin: warm/well-perfused Neuro: alert and oriented x3, no focal?findings Psych: appropriate affect Objective Data Active Medications Acetaminophen (Acetaminophen 325 Mg Tablet) 650 mg PO Q6H PRN PRN Reason: Pain, Mild (Pain Scale 1-3) Last Admin: 11/12/21 20:30 Dose: 650 mg Documented by: CEDRICK Albuterol Sulfate (Albuterol Sulfate 90 Mcg 8 Gm Inhaler) 2 puff INHALE RQ4H PRN PRN Reason: sob Apixaban (Apixaban 5 Mg Tablet) 5 mg PO BID [facility] Last Admin: 11/13/21 08:36 Dose: 5 mg Documented by: DOBROB Furosemide (Furosemide 40 Mg Tablet) 40 mg PO DAILY [facility]; Protocol Last Admin: 11/13/21 08:36 Dose: 40 mg Documented by: DOBROB Hydroxyzine HCl (Hydroxyzine Hcl 50 Mg/Ml Vial) 50 mg IM Q6H PRN PRN Reason: anxiety Last Admin: 01/23/22 01:10 Dose: 50 mg Documented by: CHRISTI Melatonin (Melatonin 3 Mg Tablet) 6 mg PO BEDTIME PRN PRN Reason: Insomnia Last Admin: 11/06/21 22:51 Dose: 6 mg Documented by: CHRISTI Pharmacy Consult (Consult Rx Perform Med Rec) 1 each MISCELLANE ONCE PRN PRN Reason: Consult order Pharmacy Consult (Consult Rx Perform Med Rec) 1 each MISCELLANE ONCE PRN PRN Reason: Consult order Senna (Sennosides 8.6 Mg Tablet) 17.2 mg PO BEDTIME PRN PRN Reason: Constipation Sodium Chloride (0.9 % Sodium Chloride Flush 3 Ml Syringe) 3 ml IVFLUSH QSHIFT [facility] Last Admin: 11/13/21 08:37 Dose: 3 ml Documented by: MICHELLE Labs CBC & Chem 7: 11/09/21 05:48 11/13/21 08:30 Labs: Laboratory Results - last 24 hr 11/13/21 11/13/21 08:30 08:30 Anion Gap 11 L Estim Creat Clear Calc 142.5 Estimated GFR > 60 Random Glucose 74 Calcium 8.9 Magnesium 2.4 B-Natriuretic Peptide 94 Assessment and Plan (1) Morbidly obese: Status: Acute (2) Congestive heart failure: Status: Acute (3) Atrial fibrillation: Status: Acute Plan 66yo M with AF, morbid obesity presenting with dyspnea, weight gain, leg edema admitted for CHF exacerbation # sinus pauses/ sinus bradycardia No further episode of sinus pause or bradycardia in last 24 hours, patient asymptomatic during episodes seen by cardiology bradycardia likely due to undiagnosed YANN , since this is irreversible not committed to pacemaker by cardio, is off beta-blockers for last several days after 1st episode of sinus pause patient willing to wear CPAP discussed importance of compliance, will obtain overnight sleep study outpt polysomnography will obtain pulmonary eval to review sleep study after it is done # acute R-sided HF exacerbation - resolved, diuresed with IV furosemide, net negative 11L cumulatively this admission - now on PO furosemide maintenance dose, BNP normalized to 94, stable electrolytes pt will f/u with his coal getter, Dr Mason at [facility] # AF - rate-controlled. not on metoprolol due to sinus pauses. Continue apixaban for anticoagulation # acute hypoxic resp failure - wean O2 as tolerated, not on home O2 - per CT chest and V/Q, no PE # morbid obesity strongly recommend to follow low-calorie diet outpatient bariatric surgery referral # VTE ppx - apixaban # dispo - being followed by Physical therapy, patient continued to have low tolerance to functional mobility , dyspnea with minimal exertion with poor gait mechanics and increased risk of fall therefore PT continue to recommend STR CM working on this. Quality Stroke Does the patient have a stroke diagnosis?: No VTE Prior VTE?: No VTE Risk Level:: Medical - moderate - high VTE Device Contraindication: Treatment Not Indicated VTE Drug Contraindication: N/A - Med Ordered
[2021-11-13] MEDS: Acetaminophen 325 MG TABLET 650 MG PO (19:51)
[2021-11-14 00:25] VITALS: PULSE 83; O2SAT 96
[2021-11-14 04:00] VITALS: BP 119/76; PULSE 85; RESP 18; TEMP 36.4; O2SAT 98
[2021-11-14 08:00] VITALS: BP 138/81; PULSE 84; RESP 20; TEMP 37.2; O2SAT 92
[2021-11-14] MEDS: Furosemide 40 MG TABLET PO (09:02)
[2021-11-14] MEDS: Apixaban 5 MG TABLET PO ×2 (09:02→20:28)
[2021-11-14] MEDS: 0.9 % Sodium Chloride Flush 3 ML SYRINGE IVFLUSH ×3 (09:02→23:49)
--- NOTE | 2021-11-14 11:57 | P.PNIM_ITS ---
Subjective Subjective Date of Service: 11/14/21 Interval History: the patient was seen and evaluated this morning Laying in bed, feels comfortable tele monitor showed no further episodes of sinus pause Was able to use CPAP but did not feel comfortable with the mask Denies any fever, chills or shortness of breath No reported other overnight events. Review of Systems No fever, chills or weakness No chest pain, palpitation , still having edema No shortness of breath improving No abdominal pain, nausea or vomiting No urinary symptoms No any rash or wounds Physical Exam Verdana 4l Vital Signs: Verdana 4d Verdana 4d Vital Signs: Verdana 4d Verdana 4Bd Last Vital Signs Verdana 4d Lean Manufacturing Engineer New 4d Lean Manufacturing Engineer New 4d Temp 98.9 F 11/14/21 08:00 Lean Manufacturing Engineer New 4d Pulse 84 11/14/21 08:00 Lean Manufacturing Engineer New 4d Resp 20 11/14/21 08:00 BP 138/81 11/14/21 08:00 Pulse Ox 92 11/14/21 08:00 BMI result Body Mass Index 71.8 Const: Other: Gen:? Awake alert, no distress HEENT: sclera anicteric, moist mucus membranes Neck: supple, no JVD Lungs: clear to auscultation bilaterally Heart: irregularly irregular, no murmurs Abd: soft, non-tender, non-distended, morbidly obese Ext: 1+ BLE edema Skin: warm/well-perfused Neuro: alert and oriented x3, no focal?findings Psych: appropriate affect Objective Data Active Medications Acetaminophen (Acetaminophen 325 Mg Tablet) 650 mg PO Q6H PRN PRN Reason: Pain, Mild (Pain Scale 1-3) Last Admin: 11/13/21 19:51 Dose: 650 mg Documented by: HERMELINDA Albuterol Sulfate (Albuterol Sulfate 90 Mcg 8 Gm Inhaler) 2 puff INHALE RQ4H PRN PRN Reason: sob Apixaban (Apixaban 5 Mg Tablet) 5 mg PO BID [facility] Last Admin: 11/14/21 09:02 Dose: 5 mg Documented by: JAMES Furosemide (Furosemide 40 Mg Tablet) 40 mg PO DAILY [facility]; Protocol Last Admin: 11/14/21 09:02 Dose: 40 mg Documented by: JAMES Hydroxyzine HCl (Hydroxyzine Hcl 50 Mg/Ml Vial) 50 mg IM Q6H PRN PRN Reason: anxiety Last Admin: 11/08/21 01:10 Dose: 50 mg Documented by: CHRISTI Melatonin (Melatonin 3 Mg Tablet) 6 mg PO BEDTIME PRN PRN Reason: Insomnia Last Admin: 11/06/21 22:51 Dose: 6 mg Documented by: CHRISTI Pharmacy Consult (Consult Rx Perform Med Rec) 1 each MISCELLANE ONCE PRN PRN Reason: Consult order Pharmacy Consult (Consult Rx Perform Med Rec) 1 each MISCELLANE ONCE PRN PRN Reason: Consult order Senna (Sennosides 8.6 Mg Tablet) 17.2 mg PO BEDTIME PRN PRN Reason: Constipation Sodium Chloride (0.9 % Sodium Chloride Flush 3 Ml Syringe) 3 ml IVFLUSH QSHIFT [facility] Last Admin: 11/14/21 09:02 Dose: 3 ml Documented by: JAMES Labs CBC & Chem 7: 11/09/21 05:48 11/13/21 08:30 Assessment and Plan (1) Bradycardia: Status: Acute (2) Morbidly obese: Status: Acute (3) Congestive heart failure: Status: Acute Plan 66yo M with AF, morbid obesity presenting with dyspnea, weight gain, leg edema admitted for CHF exacerbation # sinus pauses/ sinus bradycardia No further episode of sinus pause or bradycardia in last 48 hours, patient asymptomatic during episodes seen by cardiology bradycardia likely due to undiagnosed YANN , since this is irreversible not committed to pacemaker by cardio, is off beta-blockers for last several days after 1st episode of sinus pause patient willing to wear CPAP discussed importance of compliance, will obtain overnight sleep study outpt polysomnography will obtain pulmonary eval to review sleep study after it is done # acute R-sided HF exacerbation resolved, diuresed with IV furosemide, net negative 11L cumulatively this admission PO furosemide maintenance dose, BNP normalized to 94, stable electrolytes pt will f/u with his c application developer, Dr Mason at [facility] # AF rate-controlled. not on metoprolol due to sinus pauses. Continue apixaban for anticoagulation # acute hypoxic resp failure wean O2 as tolerated, not on home O2 per CT chest and V/Q, no PE # morbid obesity strongly recommend to follow low-calorie diet outpatient bariatric surgery referral # VTE ppx apixaban # dispo - being followed by Physical therapy, patient continued to have low tolerance to functional mobility , dyspnea with minimal exertion with poor gait mechanics and increased risk of fall therefore PT continue to recommend STR, CM working on this. Quality Stroke Does the patient have a stroke diagnosis?: No VTE Prior VTE?: No VTE Risk Level:: Medical - moderate - high VTE Device Contraindication: Treatment Not Indicated VTE Drug Contraindication: N/A - Med Ordered
[2021-11-14 11:58] VITALS: BP 100/67; PULSE 85; RESP 20; TEMP 36.7; O2SAT 92
[2021-11-14 15:04] VITALS: BP 109/72; PULSE 92; RESP 20; TEMP 36.7; O2SAT 90
[2021-11-14] MEDS: Acetaminophen 325 MG TABLET 650 MG PO (16:43)
[2021-11-14 19:01] VITALS: BP 107/58; PULSE 82; RESP 20; TEMP 36.7; O2SAT 90
[2021-11-14] MEDS: Melatonin 3 MG TABLET 6 MG PO (23:52)
[2021-11-15] VITALS (7 sets, daily range): BP systolic 112–131; BP diastolic 63–75; PULSE 74–99; RESP 16–20; TEMP 36.1–37.1; O2SAT 90–95
[2021-11-15 06:56] LABS: B Type Natriuretic Peptide 92 pg/mL (<100)
[2021-11-15 07:14] LABS: Anion Gap 13 (12-20); Blood Urea Nitrogen 23 mg/dL (9-16); Carbon Dioxide 34 mmol/L (22-29); Chloride 103 mmol/L (96-108); Creatinine Clr Calc Pharmacy 158.1; Estimated Glomerular Filt Rate > 60; Glucose Random 84 mg/dL (60-115); Potassium 4.6 mmol/L (3.3-5.1); Sodium 145 mmol/L (135-145)
[2021-11-15] MEDS: Apixaban 5 MG TABLET PO ×2 (08:41→20:59)
[2021-11-15] MEDS: Furosemide 40 MG TABLET PO (08:41)
[2021-11-15] MEDS: 0.9 % Sodium Chloride Flush 3 ML SYRINGE IVFLUSH ×2 (08:41→17:40)
--- NOTE | 2021-11-15 10:51 | P.PNCA_ITS ---
Subjective Subjective Date of Service: 11/15/21 Principal diagnosis: Right HF, afib, bradycardia Interval history: No further bradycardia Review of Systems Review of Systems Yes all other systems are reviewed and are negative Physical Exam Vital Signs: Last Vital Signs Temp 98.2 F 11/15/21 08:00 Pulse 87 11/15/21 08:00 Resp 20 11/15/21 08:00 BP 131/74 11/15/21 08:00 Pulse Ox 95 11/15/21 08:00 BMI result Verdana 4 Body Mass Index Verdana 4 71.8 Verdana 4 Verdana 4 Resp Effort & Inspection: normal respiratory effort Auscultation: diminished lung sounds Cardio Rhythm: abnormal rhythm irregularly irregular Heart sounds: S1 normal heart sound present Objective Labs and Meds Result diagrams: 11/09/21 05:48 11/15/21 05:19 Lab results: Laboratory Results - last 24 hr 11/15/21 11/15/21 05:19 05:19 Sodium 145 Potassium 4.6 Chloride 103 Carbon Dioxide 34 H Anion Gap 13 BUN 23 H Creatinine 0.82 Estim Creat Clear Calc 158.1 Estimated GFR > 60 Random Glucose 84 Calcium 9.0 B-Natriuretic Peptide 92 Progress Note: A&P Assessment and plan (1) Bradycardia: Status: Acute Assessment and Plan: Bradycardia which has not recurred. This probably is related to underlying untreated sleep apnea. No need for pacing therapy. Avoid rate slowing medica tions. (2) Atrial fibrillation: Status: Acute Assessment and Plan: Atrial fibrillation, chronic. Has never been cardioverted in the past. Significant atrial pathology, unlikely to pursue rhythm control at this point in time. Continue full oral anticoagulation. (3) Congestive heart failure: Status: Acute Assessment and Plan: Heart failure predominant right heart failure syndrome secondary to morbid obesity and probably obesity hypoventilation syndrome untreated sleep apnea. Needs continue diuretic regimen. Heart failure management was discussed. Also probably contributed by underlying atrial fibrillation. Outpatient workup for with sleep apnea and possible treatment for sleep apnea should be pursued. Will sign of the case. Thank you for allowing us to partake in his care patient to follow-up with his own telecommunications sales representative as outpatient Fall Risk Details Current Medications: Current Medications Acetaminophen (Acetaminophen 325 Mg Tablet) 650 mg PO Q6H PRN PRN Reason: Pain, Mild (Pain Scale 1-3) Last Admin: 11/14/21 16:43 Dose: 650 mg Documented by: Albuterol Sulfate (Albuterol Sulfate 90 Mcg 8 Gm Inhaler) 2 puff INHALE RQ4H PRN PRN Reason: sob Apixaban (Apixaban 5 Mg Tablet) 5 mg PO BID [facility] Last Admin: 11/15/21 08:41 Dose: 5 mg Documented by: Furosemide (Furosemide 40 Mg Tablet) 40 mg PO DAILY [facility]; Protocol Last Admin: 11/15/21 08:41 Dose: 40 mg Documented by: Hydroxyzine HCl (Hydroxyzine Hcl 50 Mg/Ml Vial) 50 mg IM Q6H PRN PRN Reason: anxiety Last Admin: 11/08/21 01:10 Dose: 50 mg Documented by: Melatonin (Melatonin 3 Mg Tablet) 6 mg PO BEDTIME PRN PRN Reason: Insomnia Last Admin: 11/14/21 23:52 Dose: 6 mg Documented by: Pharmacy Consult (Consult Rx Perform Med Rec) 1 each MISCELLANE ONCE PRN PRN Reason: Consult order Pharmacy Consult (Consult Rx Perform Med Rec) 1 each MISCELLANE ONCE PRN PRN Reason: Consult order Senna (Sennosides 8.6 Mg Tablet) 17.2 mg PO BEDTIME PRN PRN Reason: Constipation Sodium Chloride (0.9 % Sodium Chloride Flush 3 Ml Syringe) 3 ml IVFLUSH QSHIFT [facility] Last Admin: 11/15/21 08:41 Dose: 3 ml Documented by: Time Spent With Patient Time: Total time spent is greater than 50% in coordination of care (as documented) at patient's floor/unit and/or counseling patient: Time with patient: 15 - 24 minutes Progress Note: Quality Stroke Does the patient have a stroke diagnosis?: No Procedures Date of Service Date of Service: 11/15/21
[2021-11-15] MEDS: guaiFENesin LA 600 MG TAB.ER.12H PO ×2 (12:04→20:59)
[2021-11-15] MEDS: Acetaminophen 325 MG TABLET 650 MG PO (12:04)
--- NOTE | 2021-11-15 13:40 | P.PNIM_ITS ---
Subjective Subjective Date of Service: 11/15/21 Interval History: Laying in bed, feels comfortable no further episodes of sinus pause Could not sleep overnight as overnight oximetry was done Denies any fever, chills or shortness of breath No reported other overnight events. Review of Systems No fever, chills or weakness No chest pain, palpitation , still having edema No shortness of breath improving No abdominal pain, nausea or vomiting No urinary symptoms No any rash or wounds Physical Exam Verdana 4l Vital Signs: Verdana 4d Verdana 4d Vital Signs: Verdana 4d Verdana 4Bd Last Vital Signs Verdana 4d Template Reproduction Technician New 4d Template Reproduction Technician New 4d Temp 98.0 F 11/15/21 11:26 Template Reproduction Technician New 4d Pulse 86 11/15/21 11:26 Template Reproduction Technician New 4d Resp 20 11/15/21 11:26 BP 123/63 11/15/21 11:26 Pulse Ox 93 11/15/21 11:26 BMI result Body Mass Index 71.8 Const: Other: Gen:? Awake alert, no distress HEENT: sclera anicteric, moist mucus membranes Neck: supple, no JVD Lungs: clear to auscultation bilaterally Heart: irregularly irregular, no murmurs Abd: soft, non-tender, non-distended, morbidly obese Ext: 1+ BLE edema Skin: warm/well-perfused Neuro: alert and oriented x3, no focal?findings Psych: appropriate affect Objective Data Active Medications Acetaminophen (Acetaminophen 325 Mg Tablet) 650 mg PO Q6H PRN PRN Reason: Pain, Mild (Pain Scale 1-3) Last Admin: 11/15/21 12:04 Dose: 650 mg Documented by: JAMES Albuterol Sulfate (Albuterol Sulfate 90 Mcg 8 Gm Inhaler) 2 puff INHALE RQ4H PRN PRN Reason: sob Apixaban (Apixaban 5 Mg Tablet) [address] [facility] Last Admin: 11/15/21 08:41 Dose: 5 mg Documented by: JAMES Furosemide (Furosemide 40 Mg Tablet) [address] [facility]; Protocol Last Admin: 11/15/21 08:41 Dose: 40 mg Documented by: JAMES Guaifenesin (Guaifenesin La 600 Mg Tab.Er.12h) [address] [facility] Last Admin: 11/15/21 12:04 Dose: 600 mg Documented by: JAMES Hydroxyzine HCl (Hydroxyzine Hcl 50 Mg/Ml Vial) 50 mg IM Q6H PRN PRN Reason: anxiety Last Admin: 11/08/21 01:10 Dose: 50 mg Documented by: CHRISTI Melatonin (Melatonin 3 Mg Tablet) 6 mg PO BEDTIME PRN PRN Reason: Insomnia Last Admin: 11/14/21 23:52 Dose: 6 mg Documented by: HERMELINDA Pharmacy Consult (Consult Rx Perform Med Rec) 1 each MISCELLANE ONCE PRN PRN Reason: Consult order Pharmacy Consult (Consult Rx Perform Med Rec) 1 each MISCELLANE ONCE PRN PRN Reason: Consult order Senna (Sennosides 8.6 Mg Tablet) 17.2 mg PO BEDTIME PRN PRN Reason: Constipation Sodium Chloride (0.9 % Sodium Chloride Flush 3 Ml Syringe) 3 ml IVFLUSH QSHIFT [facility] Last Admin: 11/15/21 08:41 Dose: 3 ml Documented by: JAMES Labs CBC & Chem 7: 11/09/21 05:48 11/15/21 05:19 Labs: Laboratory Results - last 24 hr 11/15/21 11/15/21 05:19 05:19 Anion Gap 13 Estim Creat Clear Calc 158.1 Estimated GFR > 60 Random Glucose 84 Calcium 9.0 B-Natriuretic Peptide 92 Assessment and Plan (1) Morbidly obese: Status: Acute (2) Obesity: Status: Acute (3) Congestive heart failure: Status: Acute (4) Physical deconditioning: Status: Acute Plan 66yo M with AF, morbid obesity presenting with dyspnea, weight gain, leg edema admitted for CHF exacerbation # sinus pauses/ sinus bradycardia No further episode of sinus pause or bradycardia in last 48 hours, patient asymptomatic during episodes seen by cardiology bradycardia likely due to undiagnosed YANN , since this is irreversible not committed to pacemaker by cardio, is off beta-blockers for last several days after 1st episode of sinus pause patient willing to wear CPAP discussed importance of compliance, will obtain overnight sleep study outpt polysomnography pulmonary eval for overnight oximetry # acute R-sided HF exacerbation resolved, diuresed with IV furosemide, net negative 11L cumulatively this admission PO furosemide maintenance dose, BNP normalized to 94, stable electrolytes pt will f/u with his sheet rock applicator, Dr Mason at [facility] # physical deconditioning Evaluated by physical therapy team who recommended short-term rehab Pending placement # AF rate-controlled. not on metoprolol due to sinus pauses. Continue apixaban for anticoagulation # acute hypoxic resp failure wean O2 as tolerated, not on home O2 per CT chest and V/Q, no PE # morbid obesity strongly recommend to follow low-calorie diet outpatient bariatric surgery referral # VTE ppx apixaban # dispo - being followed by Physical therapy, patient continued to have low tolerance to functional mobility , dyspnea with minimal exertion with poor gait mechanics and increased risk of fall therefore PT continue to recommend STR, CM working on this. Quality Stroke Does the patient have a stroke diagnosis?: No VTE Prior VTE?: No VTE Risk Level:: Medical - moderate - high VTE Device Contraindication: Treatment Not Indicated VTE Drug Contraindication: N/A - Med Ordered
[2021-11-16] VITALS (7 sets, daily range): BP systolic 121–131; BP diastolic 65–80; PULSE 74–88; RESP 18–20; TEMP 35.8–36.7; O2SAT 90–94
[2021-11-16] MEDS: 0.9 % Sodium Chloride Flush 3 ML SYRINGE IVFLUSH ×3 (00:21→15:46)
[2021-11-16] MEDS: Acetaminophen 325 MG TABLET 650 MG PO ×3 (00:25→20:03)
[2021-11-16] MEDS: Apixaban 5 MG TABLET PO ×2 (08:15→20:01)
[2021-11-16] MEDS: guaiFENesin LA 600 MG TAB.ER.12H PO ×2 (08:15→20:01)
[2021-11-16] MEDS: Furosemide 40 MG TABLET PO (08:15)
--- NOTE | 2021-11-16 11:21 | P.PNIM_ITS ---
Subjective Subjective Date of Service: 11/16/21 Interval History: Laying in bed, feels comfortable One episode of short post overnight Refusing to wear the CPAP at night Denies any fever, chills or shortness of breath No reported other overnight events. Review of Systems No fever, chills or weakness No chest pain, palpitation , still having edema No shortness of breath improving No abdominal pain, nausea or vomiting No urinary symptoms No any rash or wounds Physical Exam Verdana 4l Vital Signs: Verdana 4d Verdana 4d Vital Signs: Verdana 4d Verdana 4Bd Last Vital Signs Verdana 4d Digital Media Representative New 4d Digital Media Representative New 4d Temp 98 F 11/16/21 10:54 Digital Media Representative New 4d Pulse 82 11/16/21 10:54 Digital Media Representative New 4d Resp 19 11/16/21 10:54 BP 121/65 11/16/21 10:54 Pulse Ox 91 L 11/16/21 10:54 BMI result Body Mass Index 71.8 Const: Other: Gen:? Awake alert, no distress HEENT: sclera anicteric, moist mucus membranes Neck: supple, no JVD Lungs: clear to auscultation bilaterally Heart: irregularly irregular, no murmurs Abd: soft, non-tender, non-distended, morbidly obese Ext: 1+ BLE edema Skin: warm/well-perfused Neuro: alert and oriented x3, no focal?findings Psych: appropriate affect Objective Data Active Medications Acetaminophen (Acetaminophen 325 Mg Tablet) 650 mg PO Q6H PRN PRN Reason: Pain, Mild (Pain Scale 1-3) Last Admin: 11/16/21 00:25 Dose: 650 mg Documented by: JERARDO Albuterol Sulfate (Albuterol Sulfate 90 Mcg 8 Gm Inhaler) 2 puff INHALE RQ4H PRN PRN Reason: sob Apixaban (Apixaban 5 Mg Tablet) 5 mg PO BID [facility] Last Admin: 11/16/21 08:15 Dose: 5 mg Documented by: BRONahomi Furosemide (Furosemide 40 Mg Tablet) 40 mg PO DAILY [facility]; Protocol Last Admin: 11/16/21 08:15 Dose: 40 mg Documented by: MICHELLE Guaifenesin (Guaifenesin La 600 Mg Tab.Er.12h) 600 mg PO BID [facility] Last Admin: 11/16/21 08:15 Dose: 600 mg Documented by: MICHELLE Hydroxyzine HCl (Hydroxyzine Hcl 50 Mg/Ml Vial) 50 mg IM Q6H PRN PRN Reason: anxiety Last Admin: 11/08/21 01:10 Dose: 50 mg Documented by: CHRISTI Melatonin (Melatonin 3 Mg Tablet) 6 mg PO BEDTIME PRN PRN Reason: Insomnia Last Admin: 11/14/21 23:52 Dose: 6 mg Documented by: HERMELINDA Pharmacy Consult (Consult Rx Perform Med Rec) 1 each MISCELLANE ONCE PRN PRN Reason: Consult order Pharmacy Consult (Consult Rx Perform Med Rec) 1 each MISCELLANE ONCE PRN PRN Reason: Consult order Senna (Sennosides 8.6 Mg Tablet) 17.2 mg PO BEDTIME PRN PRN Reason: Constipation Sodium Chloride (0.9 % Sodium Chloride Flush 3 Ml Syringe) 3 ml IVFLUSH QSHIFT [facility] Last Admin: 11/16/21 08:15 Dose: 3 ml Documented by: MICHELLE Labs CBC & Chem 7: 11/09/21 05:48 11/15/21 05:19 Assessment and Plan (1) Physical deconditioning: Status: Acute (2) Bradycardia: Status: Acute (3) Morbidly obese: Status: Acute (4) Congestive heart failure: Status: Acute Plan 66yo M with AF, morbid obesity presenting with dyspnea, weight gain, leg edema admitted for CHF exacerbation # sinus pauses/ sinus bradycardia No further episode of sinus pause or bradycardia in last 48 hours, patient asymptomatic during episodes seen by cardiology bradycardia likely due to undiagnosed YANN , since this is irreversible not committed to pacemaker by cardio patient unwilling to wear CPAP discussed importance of compliance, but he could not tolerate the mask on his face outpt polysomnography Qualifies for BiPAP by overnight oximetry but the patient refusing to wear the CPAP. # acute R-sided HF exacerbation resolved, diuresed with IV furosemide, net negative 11L cumulatively this admission PO furosemide maintenance dose, BNP normalized to 94, stable electrolytes pt will f/u with his vibration technician, Dr Mason at [facility] # physical deconditioning Evaluated by physical therapy team who recommended short-term rehab Pending placement # AF rate-controlled. not on metoprolol due to sinus pauses. Continue apixaban for anticoagulation # acute hypoxic resp failure wean O2 as tolerated, not on home O2 per CT chest and V/Q, no PE # morbid obesity strongly recommend to follow low-calorie diet outpatient bariatric surgery referral # VTE ppx apixaban # dispo - being followed by Physical therapy, patient continued to have low tolerance to functional mobility , dyspnea with minimal exertion with poor gait mechanics and increased risk of fall therefore PT continue to recommend STR, CM working on this. Quality Stroke Does the patient have a stroke diagnosis?: No VTE Prior VTE?: No VTE Risk Level:: Medical - moderate - high VTE Device Contraindication: Treatment Not Indicated VTE Drug Contraindication: N/A - Med Ordered
[2021-11-17] VITALS (7 sets, daily range): BP systolic 114–138; BP diastolic 56–79; PULSE 78–91; RESP 14–20; TEMP 35–36.9; O2SAT 90–94
[2021-11-17] MEDS: 0.9 % Sodium Chloride Flush 3 ML SYRINGE IVFLUSH ×4 (00:25→19:54)
[2021-11-17] MEDS: Acetaminophen 325 MG TABLET 650 MG PO ×3 (02:52→18:22)
[2021-11-17] MEDS: Apixaban 5 MG TABLET PO ×2 (10:11→19:54)
[2021-11-17] MEDS: guaiFENesin LA 600 MG TAB.ER.12H PO ×2 (10:11→19:54)
[2021-11-17] MEDS: Furosemide 40 MG TABLET PO (10:11)
--- NOTE | 2021-11-17 15:53 | P.PNIM_ITS ---
Subjective Subjective Date of Service: 11/17/21 Interval History: Laying in bed, feels comfortable One episode of short post overnight Refusing to wear the CPAP at night Denies any fever, chills or shortness of breath No reported other overnight events. Review of Systems No fever, chills or weakness No chest pain, palpitation , still having edema No shortness of breath improving No abdominal pain, nausea or vomiting No urinary symptoms No any rash or wounds Physical Exam Verdana 4l Vital Signs: Verdana 4d Verdana 4d Vital Signs: Verdana 4d Verdana 4Bd Last Vital Signs Verdana 4d Habitat Biologist New 4d Habitat Biologist New 4d Temp 98.5 F 11/17/21 15:15 Habitat Biologist New 4d Pulse 91 11/17/21 15:15 Habitat Biologist New 4d Resp 16 11/17/21 15:15 BP 115/56 L 11/17/21 15:15 Pulse Ox 90 L 11/17/21 15:15 BMI result Body Mass Index 71.8 Const: Other: Gen:? Awake alert, no distress HEENT: sclera anicteric, moist mucus membranes Neck: supple, no JVD Lungs: clear to auscultation bilaterally Heart: irregularly irregular, no murmurs Abd: soft, non-tender, non-distended, morbidly obese Ext: 1+ BLE edema Skin: warm/well-perfused Neuro: alert and oriented x3, no focal?findings Psych: appropriate affect Objective Data Active Medications Acetaminophen (Acetaminophen 325 Mg Tablet) 650 mg PO Q6H PRN PRN Reason: Pain, Mild (Pain Scale 1-3) Last Admin: 11/17/21 10:11 Dose: 650 mg Documented by: JEANNINE Albuterol Sulfate (Albuterol Sulfate 90 Mcg 8 Gm Inhaler) 2 puff INHALE RQ4H PRN PRN Reason: sob Apixaban (Apixaban 5 Mg Tablet) 5 mg PO BID [facility] Last Admin: 11/17/21 10:11 Dose: 5 mg Documented by: JEANNINE Furosemide (Furosemide 40 Mg Tablet) 40 mg PO DAILY [facility]; Protocol Last Admin: 11/17/21 10:11 Dose: 40 mg Documented by: JEANNINE Guaifenesin (Guaifenesin La 600 Mg Tab.Er.12h) 600 mg PO BID [facility] Last Admin: 11/17/21 10:11 Dose: 600 mg Documented by: JEANNINE Hydroxyzine HCl (Hydroxyzine Hcl 50 Mg/Ml Vial) 50 mg IM Q6H PRN PRN Reason: anxiety Last Admin: 11/08/21 01:10 Dose: 50 mg Documented by: CHRISTI Melatonin (Melatonin 3 Mg Tablet) 6 mg PO BEDTIME PRN PRN Reason: Insomnia Last Admin: 11/14/21 23:52 Dose: 6 mg Documented by: HERMELINDA Pharmacy Consult (Consult Rx Perform Med Rec) 1 each MISCELLANE ONCE PRN PRN Reason: Consult order Pharmacy Consult (Consult Rx Perform Med Rec) 1 each MISCELLANE ONCE PRN PRN Reason: Consult order Senna (Sennosides 8.6 Mg Tablet) 17.2 mg PO BEDTIME PRN PRN Reason: Constipation Sodium Chloride (0.9 % Sodium Chloride Flush 3 Ml Syringe) 3 ml IVFLUSH QSHIFT [facility] Last Admin: 11/17/21 10:12 Dose: 3 ml Documented by: JEANNINE Labs CBC & Chem 7: 11/09/21 05:48 11/15/21 05:19 Assessment and Plan (1) Physical deconditioning: Status: Acute (2) Morbidly obese: Status: Acute (3) Congestive heart failure: Status: Acute Plan 66yo M with AF, morbid obesity presenting with dyspnea, weight gain, leg edema admitted for CHF exacerbation # sinus pauses/ sinus bradycardia No further episode of sinus pause or bradycardia in last 48 hours, patient asymptomatic during episodes seen by cardiology bradycardia likely due to undiagnosed YANN , since this is irreversible not committed to pacemaker by cardio patient unwilling to wear CPAP discussed importance of compliance, but he could not tolerate the mask on his face outpt polysomnography Qualifies for BiPAP by overnight oximetry but the patient refusing to wear the CPAP. # acute R-sided HF exacerbation resolved, diuresed with IV furosemide, net negative 11L cumulatively this admission PO furosemide maintenance dose, BNP normalized to 94, stable electrolytes pt will f/u with his cost control supervisor, Dr Mason at [facility] # physical deconditioning Evaluated by physical therapy team who recommended short-term rehab Pending placement # AF rate-controlled. not on metoprolol due to sinus pauses. Continue apixaban for anticoagulation # acute hypoxic resp failure wean O2 as tolerated, not on home O2 per CT chest and V/Q, no PE # morbid obesity strongly recommend to follow low-calorie diet outpatient bariatric surgery r eferral # VTE ppx apixaban # dispo - being followed by Physical therapy, patient continued to have low tolerance to functional mobility , dyspnea with minimal exertion with poor gait mechanics and increased risk of fall therefore PT continue to recommend STR, CM working placement Quality Stroke Does the patient have a stroke diagnosis?: No VTE Prior VTE?: No VTE Risk Level:: Medical - moderate - high VTE Device Contraindication: Treatment Not Indicated VTE Drug Contraindication: N/A - Med Ordered
[2021-11-18] MEDS: Acetaminophen 325 MG TABLET 650 MG PO ×2 (02:12→10:14)
[2021-11-18 03:36] VITALS: BP 134/70; PULSE 79; RESP 18; TEMP 36.1; O2SAT 93
[2021-11-18 07:21] LABS: Anion Gap 10 (12-20); Blood Urea Nitrogen 20 mg/dL (9-16); Calcium 9.2 mg/dL (8.4-10.2); Carbon Dioxide 39 mmol/L (22-29); Chloride 101 mmol/L (96-108); Creatinine Clr Calc Pharmacy 160.1; Estimated Glomerular Filt Rate > 60; Glucose Random 88 mg/dL (60-115); Potassium 4.7 mmol/L (3.3-5.1); Sodium 145 mmol/L (135-145)
[2021-11-18 07:24] VITALS: BP 120/74; PULSE 76; RESP 25; TEMP 36.7; O2SAT 94
[2021-11-18] MEDS: Apixaban 5 MG TABLET PO ×2 (08:24→21:06)
[2021-11-18] MEDS: guaiFENesin LA 600 MG TAB.ER.12H PO ×2 (08:24→21:06)
[2021-11-18] MEDS: Furosemide 40 MG TABLET PO (08:24)
[2021-11-18] MEDS: 0.9 % Sodium Chloride Flush 3 ML SYRINGE IVFLUSH ×3 (08:25→21:06)
[2021-11-18 11:14] VITALS: BP 137/64; PULSE 84; RESP 25; TEMP 36.9; O2SAT 92
--- NOTE | 2021-11-18 12:22 | P.PNIM_ITS ---
Subjective Subjective Date of Service: 11/18/21 Interval History: cc: sob interval history: feels stable Cardiovascular Cardiovascular: Reports no additional cardiovascular complaints Respiratory Respiratory: Reports no additional respiratory complaints Physical Exam Verdana 4l Vital Signs: Verdana 4d Verdana 4d Vital Signs: Verdana 4d Verdana 4Bd Last Vital Signs Verdana 4d Etcher Photoengraving New 4d Etcher Photoengraving New 4d Temp 98.5 F 11/18/21 11:14 Etcher Photoengraving New 4d Pulse 84 11/18/21 11:14 Etcher Photoengraving New 4d Resp 25 H 11/18/21 11:14 BP 137/64 11/18/21 11:14 Pulse Ox 92 11/18/21 11:14 BMI result Body Mass Index 71.8 Const Other: Gen:? Awake alert, no distress HEENT: sclera anicteric, moist mucus membranes Neck: supple, no JVD Lungs: clear to auscultation bilaterally Heart: irregularly irregular, no murmurs Abd: soft, non-tender, non-distended, morbidly obese Ext: 1+ BLE edema Skin: warm/well-perfused Neuro: alert and oriented x3, no focal?findings Psych: appropriate affect Objective Data Active Medications Acetaminophen (Acetaminophen 325 Mg Tablet) 650 mg PO Q6H PRN PRN Reason: Pain, Mild (Pain Scale 1-3) Last Admin: 11/18/21 10:14 Dose: 650 mg Documented by: EUGENE Albuterol Sulfate (Albuterol Sulfate 90 Mcg 8 Gm Inhaler) 2 puff INHALE RQ4H PRN PRN Reason: sob Apixaban (Apixaban 5 Mg Tablet) 5 mg PO BID [facility] Last Admin: 11/18/21 08:24 Dose: 5 mg Documented by: EUGENE Furosemide (Furosemide 40 Mg Tablet) 40 mg PO DAILY [facility]; Protocol Last Admin: 11/18/21 08:24 Dose: 40 mg Documented by: EUGENE Guaifenesin (Guaifenesin La 600 Mg Tab.Er.12h) 600 mg PO BID [facility] Last Admin: 11/18/21 08:24 Dose: 600 mg Documented by: EUGENE Hydroxyzine HCl (Hydroxyzine Hcl 50 Mg/Ml Vial) 50 mg IM Q6H PRN PRN Reason: anxiety Last Admin: 11/08/21 01:10 Dose: 50 mg Documented by: CHRISTI Melatonin (Melatonin 3 Mg Tablet) 6 mg PO BEDTIME PRN PRN Reason: Insomnia Last Admin: 11/14/21 23:52 Dose: 6 mg Documented by: HERMELINDA Pharmacy Consult (Consult Rx Perform Med Rec) 1 each MISCELLANE ONCE PRN PRN Reason: Consult order Pharmacy Consult (Consult Rx Perform Med Rec) 1 each MISCELLANE ONCE PRN PRN Reason: Consult order Senna (Sennosides 8.6 Mg Tablet) 17.2 mg PO BEDTIME PRN PRN Reason: Constipation Sodium Chloride (0.9 % Sodium Chloride Flush 3 Ml Syringe) 3 ml IVFLUSH QSHIFT [facility] Last Admin: 11/18/21 08:25 Dose: 3 ml Documented by: EUGENE Labs CBC & Chem 7: 11/09/21 05:48 11/18/21 06:08 Labs: Laboratory Results - last 24 hr 11/18/21 06:08 Anion Gap 10 L Estim Creat Clear Calc 160.1 Estimated GFR > 60 Random Glucose 88 Calcium 9.2 Assessment and Plan (1) Physical deconditioning: Status: Acute (2) Morbidly obese: Status: Acute (3) Congestive heart failure: Status: Acute Plan 66yo M with AF, morbid obesity presenting with dyspnea, weight gain, leg edema admitted for CHF exacerbation sinus pauses/ sinus bradycardia patient asymptomatic during episodes seen by cardiology bradycardia likely due to undiagnosed YANN , since this is reversible not committed to pacemaker patient unwilling to wear CPAP, he could not tolerate the mask on his face outpt polysomnography Qualifies for BiPAP by overnight oximetry but the patient refusing to wear the CPAP. acute R-sided HF exacerbation resolved, diuresed with IV furosemide, net negative 11L cumulatively this admission PO furosemide maintenance dose, BNP normalized to 94, stable electrolytes pt will f/u with his grocery caddy, Dr Mason at [facility] physical deconditioning Evaluated by physical therapy team who recommended short-term rehab Pending placement chronic AF rate-controlled. not on metoprolol due to sinus pauses. Continue apixaban for anticoagulation acute hypoxic resp failure wean O2 as tolerated, not on home O2 CT chest and V/Q, no PE morbid obesity strongly recommend to follow low-calorie diet outpatient bariatric surgery referral VTE ppx apixaban dispo - being followed by Physical therapy, patient continued to have low tolerance to functional mobility , dyspnea with minimal exertion with poor gait mechanics and increased risk of fall therefore PT continue to recommend STR, CM working placement Quality Stroke Does the patient have a stroke diagnosis?: No VTE Prior VTE?: No VTE Risk Level:: Medical - moderate - high VTE Device Contraindication: Treatment Not Indicated VTE Drug Contraindication: N/A - Med Ordered
--- NOTE | 2021-11-18 14:32 | MHC.CM.PN ---
bed search continues barriers is his weight
[2021-11-18 15:06] VITALS: BP 126/69; PULSE 72; RESP 18; TEMP 36.6; O2SAT 92
[2021-11-18 19:26] VITALS: BP 104/60; PULSE 80; RESP 18; TEMP 37; O2SAT 92
[2021-11-18 23:27] VITALS: BP 136/65; PULSE 94; RESP 19; TEMP 36.4; O2SAT 92
[2021-11-19] VITALS (8 sets, daily range): BP systolic 118–140; BP diastolic 63–89; PULSE 78–94; RESP 18–20; TEMP 35.9–37.2; O2SAT 90–94
[2021-11-19] MEDS: 0.9 % Sodium Chloride Flush 3 ML SYRINGE IVFLUSH ×2 (08:03→18:06)
--- NOTE | 2021-11-19 09:42 | P.PNIM_ITS ---
Subjective Subjective Date of Service: 11/19/21 Interval History: cc: sob interval history: feels stable Cardiovascular Cardiovascular: Reports no additional cardiovascular complaints Respiratory Respiratory: Reports no additional respiratory complaints Physical Exam Verdana 4l Vital Signs: Verdana 4d Verdana 4d Vital Signs: Verdana 4d Verdana 4Bd Last Vital Signs Verdana 4d Pewter Caster New 4d Pewter Caster New 4d Temp 98.3 F 11/19/21 07:21 Pewter Caster New 4d Pulse 80 11/19/21 07:21 Pewter Caster New 4d Resp 20 11/19/21 07:21 BP 118/64 11/19/21 07:21 Pulse Ox 92 11/19/21 07:21 BMI result Body Mass Index 71.8 Const Other: Gen:? Awake alert, no distress HEENT: sclera anicteric, moist mucus membranes Neck: supple, no JVD Lungs: clear to auscultation bilaterally Heart: irregularly irregular, no murmurs Abd: soft, non-tender, non-distended, morbidly obese Ext: 1+ BLE edema Skin: warm/well-perfused Neuro: alert and oriented x3, no focal?findings Psych: appropriate affect Objective Data Active Medications Acetaminophen (Acetaminophen 325 Mg Tablet) 650 mg PO Q6H PRN PRN Reason: Pain, Mild (Pain Scale 1-3) Last Admin: 11/18/21 10:14 Dose: 650 mg Documented by: EUGENE Albuterol Sulfate (Albuterol Sulfate 90 Mcg 8 Gm Inhaler) 2 puff INHALE RQ4H PRN PRN Reason: sob Apixaban (Apixaban 5 Mg Tablet) 5 mg PO BID [facility] Last Admin: 11/18/21 21:06 Dose: 5 mg Documented by: SIMONE Furosemide (Furosemide 40 Mg Tablet) 40 mg PO DAILY [facility]; Protocol Last Admin: 11/18/21 08:24 Dose: 40 mg Documented by: EUGENE Guaifenesin (Guaifenesin La 600 Mg Tab.Er.12h) 600 mg PO BID [facility] Last Admin: 11/18/21 21:06 Dose: 600 mg Documented by: SIMONE Hydroxyzine HCl (Hydroxyzine Hcl 50 Mg/Ml Vial) 50 mg IM Q6H PRN PRN Reason: anxiety Last Admin: 11/08/21 01:10 Dose: 50 mg Documented by: CHRISTI Melatonin (Melatonin 3 Mg Tablet) 6 mg PO BEDTIME PRN PRN Reason: Insomnia Last Admin: 11/14/21 23:52 Dose: 6 mg Documented by: HERMELINDA Pharmacy Consult (Consult Rx Perform Med Rec) 1 each MISCELLANE ONCE PRN PRN Reason: Consult order Pharmacy Consult (Consult Rx Perform Med Rec) 1 each MISCELLANE ONCE PRN PRN Reason: Consult order Senna (Sennosides 8.6 Mg Tablet) 17.2 mg PO BEDTIME PRN PRN Reason: Constipation Sodium Chloride (0.9 % Sodium Chloride Flush 3 Ml Syringe) 3 ml IVFLUSH QSHIFT ULYSSES Last Admin: 11/19/21 08:03 Dose: 3 ml Documented by: ESTEBAN Labs CBC & Chem 7: 11/09/21 05:48 11/18/21 06:08 Assessment and Plan (1) Physical deconditioning: Status: Acute (2) Morbidly obese: Status: Acute (3) Congestive heart failure: Status: Acute Plan 66yo M with AF, morbid obesity presenting with dyspnea, weight gain, leg edema admitted for CHF exacerbation stable, awaiting placement sinus pauses/ sinus bradycardia patient asymptomatic during episodes seen by cardiology bradycardia likely due to undiagnosed YANN , since this is reversible not committed to pacemaker patient unwilling to wear CPAP, he could not tolerate the mask on his face outpt polysomnography Qualifies for BiPAP by overnight oximetry but the patient refusing to wear the CPAP. acute R-sided HF exacerbation resolved, diuresed with IV furosemide, net negative 11L cumulatively this admission PO furosemide maintenance dose, BNP normalized to 94, stable electrolytes pt will f/u with his net finisher, Dr Mason at [facility] physical deconditioning Evaluated by physical therapy team who recommended short-term rehab Pending placement chronic AF rate-controlled. not on metoprolol due to sinus pauses. Continue apixaban for anticoagulation acute hypoxic resp failure wean O2 as tolerated, not on home O2 CT chest and V/Q, no PE morbid obesity strongly recommend to follow low-calorie diet outpatient bariatric surgery ref erral VTE ppx apixaban dispo - being followed by Physical therapy, patient continued to have low tolerance to functional mobility , dyspnea with minimal exertion with poor gait mechanics and increased risk of fall therefore PT continue to recommend STR, CM working placement Quality Stroke Does the patient have a stroke diagnosis?: No VTE Prior VTE?: No VTE Risk Level:: Medical - moderate - high VTE Device Contraindication: Treatment Not Indicated VTE Drug Contraindication: N/A - Med Ordered
[2021-11-19] MEDS: guaiFENesin LA 600 MG TAB.ER.12H PO ×2 (10:03→20:18)
[2021-11-19] MEDS: Apixaban 5 MG TABLET PO ×2 (10:03→20:18)
[2021-11-19] MEDS: Furosemide 40 MG TABLET PO (10:03)
[2021-11-19] MEDS: Acetaminophen 325 MG TABLET 650 MG PO (18:04)
[2021-11-20] VITALS (7 sets, daily range): BP systolic 100–145; BP diastolic 64–90; PULSE 80–101; RESP 16–19; TEMP 36.2–37.2; O2SAT 90–97
[2021-11-20] MEDS: 0.9 % Sodium Chloride Flush 3 ML SYRINGE IVFLUSH ×3 (08:27→22:05)
[2021-11-20] MEDS: guaiFENesin LA 600 MG TAB.ER.12H PO ×2 (08:27→22:05)
[2021-11-20] MEDS: Furosemide 40 MG TABLET PO (08:27)
[2021-11-20] MEDS: Apixaban 5 MG TABLET PO ×2 (08:27→22:05)
--- NOTE | 2021-11-20 10:00 | P.PNIM_ITS ---
Subjective Subjective Date of Service: 11/20/21 Interval History: cc: sob interval history: feels stable Cardiovascular Cardiovascular: Reports no additional cardiovascular complaints Respiratory Respiratory: Reports no additional respiratory complaints Physical Exam Verdana 4l Vital Signs: Verdana 4d Verdana 4d Vital Signs: Verdana 4d Verdana 4Bd Last Vital Signs Verdana 4d Milk Runner New 4d Milk Runner New 4d Temp 97.2 F 11/20/21 07:32 Milk Runner New 4d Pulse 84 11/20/21 07:32 Milk Runner New 4d Resp 16 11/20/21 07:32 BP 125/76 11/20/21 07:32 Pulse Ox 91 L 11/20/21 07:32 BMI result Body Mass Index 71.8 Const Other: Gen:? Awake alert, no distress HEENT: sclera anicteric, moist mucus membranes Neck: supple, no JVD Lungs: clear to auscultation bilaterally Heart: irregularly irregular, no murmurs Abd: soft, non-tender, non-distended, morbidly obese Ext: 1+ BLE edema Skin: warm/well-perfused Neuro: alert and oriented x3, no focal?findings Psych: appropriate affect Objective Data Active Medications Acetaminophen (Acetaminophen 325 Mg Tablet) 650 mg PO Q6H PRN PRN Reason: Pain, Mild (Pain Scale 1-3) Last Admin: 11/19/21 18:04 Dose: 650 mg Documented by: SERENA Albuterol Sulfate (Albuterol Sulfate 90 Mcg 8 Gm Inhaler) 2 puff INHALE RQ4H PRN PRN Reason: sob Apixaban (Apixaban 5 Mg Tablet) 5 mg PO BID [facility] Last Admin: 11/20/21 08:27 Dose: 5 mg Documented by: MICHELLE Furosemide (Furosemide 40 Mg Tablet) 40 mg PO DAILY [facility]; Protocol Last Admin: 11/20/21 08:27 Dose: 40 mg Documented by: MICHELLE Guaifenesin (Guaifenesin La 600 Mg Tab.Er.12h) 600 mg PO BID [facility] Last Admin: 11/20/21 08:27 Dose: 600 mg Documented by: MICHELLE Hydroxyzine HCl (Hydroxyzine Hcl 50 Mg/Ml Vial) 50 mg IM Q6H PRN PRN Reason: anxiety Last Admin: 11/08/21 01:10 Dose: 50 mg Documented by: CHRISTI Melatonin (Melatonin 3 Mg Tablet) 6 mg PO BEDTIME PRN PRN Reason: Insomnia Last Admin: 11/14/21 23:52 Dose: 6 mg Documented by: HERMELINDA Pharmacy Consult (Consult Rx Perform Med Rec) 1 each MISCELLANE ONCE PRN PRN Reason: Consult order Pharmacy Consult (Consult Rx Perform Med Rec) 1 each MISCELLANE ONCE PRN PRN Reason: Consult order Senna (Sennosides 8.6 Mg Tablet) 17.2 mg PO BEDTIME PRN PRN Reason: Constipation Sodium Chloride (0.9 % Sodium Chloride Flush 3 Ml Syringe) 3 ml IVFLUSH QSHIFT ULYSSES Last Admin: 11/20/21 08:27 Dose: 3 ml Documented by: MICHELLE Labs CBC & Chem 7: 11/09/21 05:48 11/18/21 06:08 Assessment and Plan (1) Physical deconditioning: Status: Acute (2) Morbidly obese: Status: Acute (3) Congestive heart failure: Status: Acute Plan 66yo M with AF, morbid obesity presenting with dyspnea, weight gain, leg edema admitted for CHF exacerbation stable, awaiting placement sinus pauses/ sinus bradycardia patient asymptomatic during episodes seen by cardiology bradycardia likely due to undiagnosed YANN , since this is reversible not committed to pacemaker patient unwilling to wear CPAP, he could not tolerate the mask on his face outpt polysomnography Qualifies for BiPAP by overnight oximetry but the patient refusing to wear the CPAP. acute R-sided HF exacerbation resolved, diuresed with IV furosemide, net negative 11L cumulatively this admission PO furosemide maintenance dose, BNP normalized to 94, stable electrolytes pt will f/u with his antenna engineer, Dr Mason at [facility] physical deconditioning Evaluated by physical therapy team who recommended short-term rehab Pending placement chronic AF rate-controlled. not on metoprolol due to sinus pauses. Continue apixaban for anticoagulation acute hypoxic resp failure wean O2 as tolerated, not on home O2 CT chest and V/Q, no PE morbid obesity strongly recommend to follow low-calorie diet outpatient bariatric surgery refer ral VTE ppx apixaban dispo - being followed by Physical therapy, patient continued to have low tolerance to functional mobility , dyspnea with minimal exertion with poor gait mechanics and increased risk of fall therefore PT continue to recommend STR, CM working placement Quality Stroke Does the patient have a stroke diagnosis?: No VTE Prior VTE?: No VTE Risk Level:: Medical - moderate - high VTE Device Contraindication: Treatment Not Indicated VTE Drug Contraindication: N/A - Med Ordered
[2021-11-20] MEDS: Acetaminophen 325 MG TABLET 650 MG PO (22:04)
[2021-11-21 03:49] VITALS: BP 112/59; PULSE 88; RESP 18; TEMP 37.1; O2SAT 94
[2021-11-21] MEDS: Acetaminophen 325 MG TABLET 650 MG PO ×2 (04:11→20:07)
[2021-11-21 07:55] VITALS: BP 118/62; PULSE 82; RESP 20; TEMP 36.4; O2SAT 95
[2021-11-21] MEDS: 0.9 % Sodium Chloride Flush 3 ML SYRINGE IVFLUSH ×3 (08:51→20:08)
[2021-11-21] MEDS: Furosemide 40 MG TABLET PO (08:51)
[2021-11-21] MEDS: Apixaban 5 MG TABLET PO ×2 (08:51→20:07)
[2021-11-21] MEDS: guaiFENesin LA 600 MG TAB.ER.12H PO ×2 (08:51→20:07)
[2021-11-21] MEDS: Ibuprofen 400 MG TABLET PO (10:20)
--- NOTE | 2021-11-21 10:23 | P.PNIM_ITS ---
Subjective Subjective Date of Service: 11/21/21 Interval History: cc: sob interval history: mild headache Cardiovascular Cardiovascular: Reports no additional cardiovascular complaints Respiratory Respiratory: Reports no additional respiratory complaints Physical Exam Verdana 4l Vital Signs: Verdana 4d Verdana 4d Vital Signs: Verdana 4d Verdana 4Bd Last Vital Signs Verdana 4d Journeyman Power Plant Operator New 4d Journeyman Power Plant Operator New 4d Temp 97.5 F 11/21/21 07:55 Journeyman Power Plant Operator New 4d Pulse 82 11/21/21 07:55 Journeyman Power Plant Operator New 4d Resp 20 11/21/21 07:55 BP 118/62 11/21/21 07:55 Pulse Ox 95 11/21/21 07:55 BMI result Body Mass Index 71.8 Const Other: Gen:? Awake alert, no distress HEENT: sclera anicteric, moist mucus membranes Neck: supple, no JVD Lungs: clear to auscultation bilaterally Heart: irregularly irregular, no murmurs Abd: soft, non-tender, non-distended, morbidly obese Ext: 1+ BLE edema Skin: warm/well-perfused Neuro: alert and oriented x3, no focal?findings Psych: appropriate affect Objective Data Active Medications Acetaminophen (Acetaminophen 325 Mg Tablet) 650 mg PO Q6H PRN PRN Reason: Pain, Mild (Pain Scale 1-3) Last Admin: 11/21/21 04:11 Dose: 650 mg Documented by: AWA Albuterol Sulfate (Albuterol Sulfate 90 Mcg 8 Gm Inhaler) 2 puff INHALE RQ4H PRN PRN Reason: sob Apixaban (Apixaban 5 Mg Tablet) 5 mg PO BID [facility] Last Admin: 11/21/21 08:51 Dose: 5 mg Documented by: MICHELLE Furosemide (Furosemide 40 Mg Tablet) 40 mg PO DAILY [facility]; Protocol Last Admin: 11/21/21 08:51 Dose: 40 mg Documented by: MICHELLE Guaifenesin (Guaifenesin La 600 Mg Tab.Er.12h) 600 mg PO BID [facility] Last Admin: 11/21/21 08:51 Dose: 600 mg Documented by: MICHELLE Hydroxyzine HCl (Hydroxyzine Hcl 50 Mg/Ml Vial) 50 mg IM Q6H PRN PRN Reason: anxiety Last Admin: 11/08/21 01:10 Dose: 50 mg Documented by: CHRISTI Melatonin (Melatonin 3 Mg Tablet) 6 mg PO BEDTIME PRN PRN Reason: Insomnia Last Admin: 11/14/21 23:52 Dose: 6 mg Documented by: HERMELINDA Pharmacy Consult (Consult Rx Perform Med Rec) 1 each MISCELLANE ONCE PRN PRN Reason: Consult order Pharmacy Consult (Consult Rx Perform Med Rec) 1 each MISCELLANE ONCE PRN PRN Reason: Consult order Senna (Sennosides 8.6 Mg Tablet) 17.2 mg PO BEDTIME PRN PRN Reason: Constipation Sodium Chloride (0.9 % Sodium Chloride Flush 3 Ml Syringe) 3 ml IVFLUSH QSHIFT ULYSSES Last Admin: 11/21/21 08:51 Dose: 3 ml Documented by: MICHELLE Labs CBC & Chem 7: 11/09/21 05:48 11/18/21 06:08 Assessment and Plan (1) Physical deconditioning: Status: Acute (2) Morbidly obese: Status: Acute (3) Congestive heart failure: Status: Acute Plan 66yo M with AF, morbid obesity presenting with dyspnea, weight gain, leg edema admitted for CHF exacerbation headache motrin times one sinus pauses/ sinus bradycardia patient asymptomatic during episodes seen by cardiology bradycardia likely due to undiagnosed YANN , since this is reversible not committed to pacemaker patient unwilling to wear CPAP, he could not tolerate the mask on his face outpt polysomnography Qualifies for BiPAP by overnight oximetry but the patient refusing to wear the CPAP. acute R-sided HF exacerbation resolved, diuresed with IV furosemide, net negative 11L cumulatively this admission PO furosemide maintenance dose, BNP normalized to 94, stable electrolytes pt will f/u with his early intervention specialist, Dr Mason at [facility] physical deconditioning Evaluated by physical therapy team who recommended short-term rehab Pending placement chronic AF rate-controlled. not on metoprolol due to sinus pauses. Continue apixaban for anticoagulation acute hypoxic resp failure wean O2 as tolerated, not on home O2 CT chest and V/Q, no PE morbid obesity strongly recommend to follow low-calorie diet outpatient bariatric surgery referral VTE ppx apixaban dispo - being followed by Physical therapy, patient continued to have low tolerance to functional mobility , dyspnea with minimal exertion with poor gait mechanics and increased risk of fall therefore PT continue to recommend STR, CM working placement Quality Stroke Does the patient have a stroke diagnosis?: No VTE Prior VTE?: No VTE Risk Level:: Medical - moderate - high VTE Device Contraindication: Treatment Not Indicated VTE Drug Contraindication: N/A - Med Ordered
[2021-11-21 11:35] VITALS: BP 111/66; PULSE 81; RESP 16; TEMP 36.4; O2SAT 96
[2021-11-21 15:36] VITALS: BP 117/71; PULSE 88; RESP 14; TEMP 36.8; O2SAT 86
[2021-11-21 19:34] VITALS: BP 137/73; PULSE 101; RESP 16; TEMP 36.9; O2SAT 87
[2021-11-21] MEDS: oxyCODONE HCl Immed Release 5 MG TABLET PO (23:12)
[2021-11-21 23:13] LABS: Glucose, Whole Blood 140 mg/dL (60-115)
[2021-11-22] VITALS (8 sets, daily range): BP systolic 105–142; BP diastolic 59–83; PULSE 73–95; RESP 15–20; TEMP 36–37.1; O2SAT 86–94
[2021-11-22 03:44] LABS: Glucose, Whole Blood 104 mg/dL (60-115)
[2021-11-22] MEDS: oxyCODONE HCl Immed Release 5 MG TABLET PO (04:35)
--- NOTE | 2021-11-22 09:12 | P.PNIM_ITS ---
Subjective Subjective Date of Service: 11/22/21 Interval History: cc: sob interval history: headache resolved Cardiovascular Cardiovascular: Reports no additional cardiovascular complaints Respiratory Respiratory: Reports no additional respiratory complaints Physical Exam Verdana 4l Vital Signs: Verdana 4d Verdana 4d Vital Signs: Verdana 4d Verdana 4Bd Last Vital Signs Verdana 4d Rn Wellness New 4d Rn Wellness New 4d Temp 98.3 F 11/22/21 07:28 Rn Wellness New 4d Pulse 87 11/22/21 07:28 Rn Wellness New 4d Resp 15 11/22/21 07:28 BP 121/70 11/22/21 07:28 Pulse Ox 93 11/22/21 07:28 BMI result Body Mass Index 71.8 Const Other: Gen:? Awake alert, no distress HEENT: sclera anicteric, moist mucus membranes Neck: supple, no JVD Lungs: clear to auscultation bilaterally Heart: irregularly irregular, no murmurs Abd: soft, non-tender, non-distended, morbidly obese Ext: 1+ BLE edema Skin: warm/well-perfused Neuro: alert and oriented x3, no focal?findings Psych: appropriate affect Objective Data Active Medications Acetaminophen (Acetaminophen 325 Mg Tablet) 650 mg PO Q6H PRN PRN Reason: Pain, Mild (Pain Scale 1-3) Last Admin: 11/21/21 20:07 Dose: 650 mg Documented by: AWA Albuterol Sulfate (Albuterol Sulfate 90 Mcg 8 Gm Inhaler) 2 puff INHALE RQ4H PRN PRN Reason: sob Apixaban (Apixaban 5 Mg Tablet) 5 mg PO BID [facility] Last Admin: 11/21/21 20:07 Dose: 5 mg Documented by: AWA Furosemide (Furosemide 40 Mg Tablet) 40 mg PO DAILY [facility]; Protocol Last Admin: 11/21/21 08:51 Dose: 40 mg Documented by: DOBRONahomi Guaifenesin (Guaifenesin La 600 Mg Tab.Er.12h) 600 mg PO BID [facility] Last Admin: 11/21/21 20:07 Dose: 600 mg Documented by: AWA Hydroxyzine HCl (Hydroxyzine Hcl 50 Mg/Ml Vial) 50 mg IM Q6H PRN PRN Reason: anxiety Last Admin: 11/08/21 01:10 Dose: 50 mg Documented by: CHRISTI Melatonin (Melatonin 3 Mg Tablet) 6 mg PO BEDTIME PRN PRN Reason: Insomnia Last Admin: 11/14/21 23:52 Dose: 6 mg Documented by: HERMELINDA Pharmacy Consult (Consult Rx Perform Med Rec) 1 each MISCELLANE ONCE PRN PRN Reason: Consult order Pharmacy Consult (Consult Rx Perform Med Rec) 1 each MISCELLANE ONCE PRN PRN Reason: Consult order Senna (Sennosides 8.6 Mg Tablet) 17.2 mg PO BEDTIME PRN PRN Reason: Constipation Sodium Chloride (0.9 % Sodium Chloride Flush 3 Ml Syringe) 3 ml IVFLUSH QSHIFT ULYSSES Last Admin: 11/21/21 20:08 Dose: 3 ml Documented by: AWA Labs CBC & Chem 7: 11/09/21 05:48 11/18/21 06:08 Labs: Laboratory Results - last 24 hr 11/21/21 11/22/21 23:07 03:40 POC Glucose 140 H 104 Assessment and Plan (1) Physical deconditioning: Status: Acute (2) Morbidly obese: Status: Acute (3) Congestive heart failure: Status: Acute Plan 66yo M with AF, morbid obesity presenting with dyspnea, weight gain, leg edema admitted for CHF exacerbation headache resolved sinus pauses/ sinus bradycardia patient asymptomatic during episodes seen by cardiology bradycardia likely due to undiagnosed YANN , since this is reversible not committed to pacemaker patient unwilling to wear CPAP, he could not tolerate the mask on his face outpt polysomnography Qualifies for BiPAP by overnight oximetry but the patient refusing to wear the CPAP. acute R-sided HF exacerbation resolved, diuresed with IV furosemide, net negative 11L cumulatively this admission PO furosemide maintenance dose, BNP normalized to 94, stable electrolytes pt will f/u with his film cutter, Dr Mason at [facility] physical deconditioning Evaluated by physical therapy team who recommended short-term rehab Pending placement chronic AF rate-controlled. not on metoprolol due to sinus pauses. Continue apixaban for anticoagulation acute hypoxic resp failure wean O2 as tolerated, not on home O2 CT chest and V/Q, no PE morbid obesity strongly recommend to follow low-calorie diet outpatient bariatric surgery referral VTE ppx apixaban dispo - being followed by Physical therapy, patient continued to have low tolerance to functional mobility , dyspnea with minimal exertion with poor gait mechanics and increased risk of fall therefore PT continue to recommend STR, CM working placement Quality Stroke Does the patient have a stroke diagnosis?: No VTE Prior VTE?: No VTE Risk Level:: Medical - moderate - high VTE Device Contraindication: Treatment Not Indicated VTE Drug Contraindication: N/A - Med Ordered
[2021-11-22] MEDS: guaiFENesin LA 600 MG TAB.ER.12H PO ×2 (09:17→20:49)
[2021-11-22] MEDS: Apixaban 5 MG TABLET PO ×2 (09:17→20:50)
[2021-11-22] MEDS: 0.9 % Sodium Chloride Flush 3 ML SYRINGE IVFLUSH ×3 (09:17→20:51)
[2021-11-22] MEDS: Furosemide 40 MG TABLET PO (09:17)
[2021-11-22] MEDS: Acetaminophen 325 MG TABLET 650 MG PO ×2 (12:53→20:50)
[2021-11-23] VITALS (7 sets, daily range): BP systolic 115–145; BP diastolic 57–78; PULSE 67–95; RESP 18–20; TEMP 36.3–37.1; O2SAT 90–97
--- NOTE | 2021-11-23 09:04 | P.PNIM_ITS ---
Subjective Subjective Date of Service: 11/23/21 Interval History: cc: sob interval history: headache resolved Cardiovascular Cardiovascular: Reports no additional cardiovascular complaints Respiratory Respiratory: Reports no additional respiratory complaints Physical Exam Verdana 4l Vital Signs: Verdana 4d Verdana 4d Vital Signs: Verdana 4d Verdana 4Bd Last Vital Signs Verdana 4d Marine Equipment Sales Engineer New 4d Marine Equipment Sales Engineer New 4d Temp 98.5 F 11/23/21 07:41 Marine Equipment Sales Engineer New 4d Pulse 81 11/23/21 07:41 Marine Equipment Sales Engineer New 4d Resp 20 11/23/21 07:41 BP 115/74 11/23/21 07:41 Pulse Ox 92 11/23/21 07:41 BMI result Body Mass Index 71.8 Const Other: Gen:? Awake alert, no distress HEENT: sclera anicteric, moist mucus membranes Neck: supple, no JVD Lungs: clear to auscultation bilaterally Heart: irregularly irregular, no murmurs Abd: soft, non-tender, non-distended, morbidly obese Ext: 1+ BLE edema Skin: warm/well-perfused Neuro: alert and oriented x3, no focal?findings Psych: appropriate affect Objective Data Active Medications Acetaminophen (Acetaminophen 325 Mg Tablet) 650 mg PO Q6H PRN PRN Reason: Pain, Mild (Pain Scale 1-3) Last Admin: 11/22/21 20:50 Dose: 650 mg Documented by: MAX Albuterol Sulfate (Albuterol Sulfate 90 Mcg 8 Gm Inhaler) 2 puff INHALE RQ4H PRN PRN Reason: sob Apixaban (Apixaban 5 Mg Tablet) 5 mg PO BID [facility] Last Admin: 11/22/21 20:50 Dose: 5 mg Documented by: MAX Furosemide (Furosemide 40 Mg Tablet) 40 mg PO DAILY [facility]; Protocol Last Admin: 11/22/21 09:17 Dose: 40 mg Documented by: DOBRONahomi Guaifenesin (Guaifenesin La 600 Mg Tab.Er.12h) 600 mg PO BID [facility] Last Admin: 11/22/21 20:49 Dose: 600 mg Documented by: AMX Hydroxyzine HCl (Hydroxyzine Hcl 50 Mg/Ml Vial) 50 mg IM Q6H PRN PRN Reason: anxiety Last Admin: 11/08/21 01:10 Dose: 50 mg Documented by: CHRISTI Melatonin (Melatonin 3 Mg Tablet) 6 mg PO BEDTIME PRN PRN Reason: Insomnia Last Admin: 11/14/21 23:52 Dose: 6 mg Documented by: HERMELINDA Pharmacy Consult (Consult Rx Perform Med Rec) 1 each MISCELLANE ONCE PRN PRN Reason: Consult order Pharmacy Consult (Consult Rx Perform Med Rec) 1 each MISCELLANE ONCE PRN PRN Reason: Consult order Senna (Sennosides 8.6 Mg Tablet) 17.2 mg PO BEDTIME PRN PRN Reason: Constipation Sodium Chloride (0.9 % Sodium Chloride Flush 3 Ml Syringe) 3 ml IVFLUSH QSHIFT ULYSSES Last Admin: 11/22/21 20:51 Dose: 3 ml Documented by: MAX Labs CBC & Chem 7: 11/09/21 05:48 11/18/21 06:08 Assessment and Plan (1) Physical deconditioning: Status: Acute (2) Morbidly obese: Status: Acute (3) Congestive heart failure: Status: Acute Plan 66yo M with AF, morbid obesity presenting with dyspnea, weight gain, leg edema admitted for CHF exacerbation headache resolved sinus pauses/ sinus bradycardia patient asymptomatic during episodes seen by cardiology bradycardia likely due to undiagnosed YANN , since this is reversible not committed to pacemaker patient unwilling to wear CPAP, he could not tolerate the mask on his face outpt polysomnography Qualifies for BiPAP by overnight oximetry but the patient refusing to wear the CPAP. acute R-sided HF exacerbation resolved, diuresed with IV furosemide, net negative 11L cumulatively this admission PO furosemide maintenance dose, BNP normalized to 94, stable electrolytes pt will f/u with his human resource intern, Dr Mason at [facility] physical deconditioning Evaluated by physical therapy team who recommended short-term rehab Pending placement chronic AF rate-controlled. not on metoprolol due to sinus pauses. Continue apixaban for anticoagulation acute hypoxic resp failure wean O2 as tolerated, not on home O2 CT chest and V/Q, no PE morbid obesity strongly recommend to follow low-calorie diet outpatient bariatric surgery refer ral VTE ppx apixaban dispo - being followed by Physical therapy, patient continued to have low tolerance to functional mobility , dyspnea with minimal exertion with poor gait mechanics and increased risk of fall therefore PT continue to recommend STR, CM working placement Quality Stroke Does the patient have a stroke diagnosis?: No VTE Prior VTE?: No VTE Risk Level:: Medical - moderate - high VTE Device Contraindication: Treatment Not Indicated VTE Drug Contraindication: N/A - Med Ordered
[2021-11-23] MEDS: guaiFENesin LA 600 MG TAB.ER.12H PO ×2 (09:23→19:44)
[2021-11-23] MEDS: 0.9 % Sodium Chloride Flush 3 ML SYRINGE IVFLUSH ×3 (09:23→19:46)
[2021-11-23] MEDS: Apixaban 5 MG TABLET PO ×2 (09:23→19:44)
[2021-11-23] MEDS: Furosemide 40 MG TABLET PO (09:24)
--- NOTE | 2021-11-23 13:52 | MHC.CM.PN ---
bed search continues for pt barrier remanins his weight
[2021-11-23] MEDS: Acetaminophen 325 MG TABLET 650 MG PO (19:44)
[2021-11-24] VITALS (7 sets, daily range): BP systolic 123–177; BP diastolic 67–106; PULSE 78–93; RESP 17–21; TEMP 36.2–36.9; O2SAT 90–94
[2021-11-24] MEDS: Acetaminophen 325 MG TABLET 650 MG PO ×2 (02:31→20:03)
[2021-11-24 06:27] LABS: Hematocrit 52.8 % (42.0-52.0); Hemoglobin 15.9 g/dl (14.0-18.0); Mean Corpuscular HGB Conc 30.1 g/dl (31.0-36.0); Mean Corpuscular Hemoglobin 29.6 pg (27.0-33.0); Mean Corpuscular Volume 98.3 fL (80.0-98.0); Mean Platelet Volume 10.3 fL (9.4-12.4); Platelet Count 250 X10*3/uL (160-400); Red Blood Count 5.37 X10*6/uL (4.60-5.80); Red Cell Distribution Width 13.7 % (11.0-16.0); White Blood Count 8.3 X10*3/uL (4.8-10.8)
[2021-11-24 06:44] LABS: Anion Gap 12 (12-20); Blood Urea Nitrogen 20 mg/dL (9-16); Carbon Dioxide 36 mmol/L (22-29); Chloride 100 mmol/L (96-108); Creatinine Clr Calc Pharmacy 158.1; Estimated Glomerular Filt Rate > 60; Glucose Fasting 92 mg/dL (60-99); Potassium 4.6 mmol/L (3.3-5.1); Sodium 143 mmol/L (135-145)
[2021-11-24] MEDS: 0.9 % Sodium Chloride Flush 3 ML SYRINGE IVFLUSH ×3 (07:21→20:04)
[2021-11-24] MEDS: Furosemide 40 MG TABLET PO (07:22)
[2021-11-24] MEDS: guaiFENesin LA 600 MG TAB.ER.12H PO ×2 (07:22→20:03)
[2021-11-24] MEDS: Apixaban 5 MG TABLET PO ×2 (07:24→20:03)
--- NOTE | 2021-11-24 10:11 | HO.PM.IMPN ---
Subjective Subjective Date of Service: 11/24/21 Interval History: cc: sob interval history: sob resolved Cardiovascular Cardiovascular: Reports no additional cardiovascular complaints Respiratory Respiratory: Reports no additional respiratory complaints Physical Exam Vital Signs: Vital Signs: Last Vital Signs Temp 97.6 F 11/24/21 07:28 Pulse 87 11/24/21 09:25 Resp 18 11/24/21 07:28 BP 144/106 H 11/24/21 07:28 Pulse Ox 94 11/24/21 09:25 BMI result Body Mass Index 71.8 Const Other: Gen:? Awake alert, no distress HEENT: sclera anicteric, moist mucus membranes Neck: supple, no JVD Lungs: clear to auscultation bilaterally Heart: irregularly irregular, no murmurs Abd: soft, non-tender, non-distended, morbidly obese Ext: 1+ BLE edema Skin: warm/well-perfused Neuro: alert and oriented x3, no focal?findings Psych: appropriate affect Objective Data Active Medications Acetaminophen (Acetaminophen 325 Mg Tablet) 650 mg PO Q6H PRN PRN Reason: Pain, Mild (Pain Scale 1-3) Last Admin: 11/24/21 02:31 Dose: 650 mg Documented by: MAX Albuterol Sulfate (Albuterol Sulfate 90 Mcg 8 Gm Inhaler) 2 puff INHALE RQ4H PRN PRN Reason: sob Apixaban (Apixaban 5 Mg Tablet) 5 mg PO BID [facility] Last Admin: 11/24/21 07:24 Dose: 5 mg Documented by: BLUE Furosemide (Furosemide 40 Mg Tablet) 40 mg PO DAILY [facility]; Protocol Last Admin: 11/24/21 07:22 Dose: 40 mg Documented by: BLUE Guaifenesin (Guaifenesin La 600 Mg Tab.Er.12h) 600 mg PO BID [facility] Last Admin: 11/24/21 07:22 Dose: 600 mg Documented by: BLUE Hydroxyzine HCl (Hydroxyzine Hcl 50 Mg/Ml Vial) 50 mg IM Q6H PRN PRN Reason: anxiety Last Admin: 11/08/21 01:10 Dose: 50 mg Documented by: CHRISTI Melatonin (Melatonin 3 Mg Tablet) 6 mg PO BEDTIME PRN PRN Reason: Insomnia Last Admin: 11/14/21 23:52 Dose: 6 mg Documented by: HERMELINDA Pharmacy Consult (Consult Rx Perform Med Rec) 1 each MISCELLANE ONCE PRN PRN Reason: Consult order Pharmacy Consult (Consult Rx Perform Med Rec) 1 each MISCELLANE ONCE PRN PRN Reason: Consult order Senna (Sennosides 8.6 Mg Tablet) 17.2 mg PO BEDTIME PRN PRN Reason: Constipation Sodium Chloride (0.9 % Sodium Chloride Flush 3 Ml Syringe) 3 ml IVFLUSH QSHIFT ULYSSES Last Admin: 11/24/21 07:21 Dose: 3 ml Documented by: BLUE Labs CBC & Chem 7: 11/24/21 05:44 11/24/21 05:44 Labs: Laboratory Results - last 24 hr 11/24/21 11/24/21 05:44 05:44 MCV 98.3 H MCH 29.6 MCHC 30.1 L RDW 13.7 Plt Count 250 D MPV 10.3 Absolute Nucleated RBC 0.000 Nucleated RBC % (auto) 0.0 Anion Gap 12 Estim Creat Clear Calc 158.1 Estimated GFR > 60 Fasting Glucose 92 Calcium 9.0 Assessment and Plan (1) Physical deconditioning: Status: Acute (2) Morbidly obese: Status: Acute (3) Congestive heart failure: Status: Acute Plan 66yo M with AF, morbid obesity presenting with dyspnea, weight gain, leg edema admitted for CHF exacerbation sinus pauses/ sinus bradycardia patient asymptomatic during episodes seen by cardiology bradycardia likely due to undiagnosed YANN , since this is reversible not committed to pacemaker patient unwilling to wear CPAP, he could not tolerate the mask on his face outpt polysomnography Qualifies for BiPAP by overnight oximetry but the patient refusing to wear the CPAP. acute R-sided HF exacerbation resolved, diuresed with IV furosemide now on PO furosemide maintenance dose, BNP normalized to 94, stable electrolytes pt will f/u with his underwriting intern, Dr Mason at [facility] physical deconditioning Evaluated by physical therapy team who recommended short-term rehab Pending placement - difficulty finding bariatric placement, patient unable to manage at home chronic AF rate-controlled. not on metoprolol due to sinus pauses. Continue apixaban for anticoagulation acute hypoxic resp failure wean O2 as tolerated, not on home O2 CT chest and V/Q, no PE morbid obesity strongly recommend to follow low-calorie diet outpatient bariatric surgery referral VTE ppx apixaban dispo - being followed by Physical therapy, patient continued to have low tolerance to functional mobility , dyspnea with minimal exertion with poor gait mechanics and increased risk of fall therefore PT continue to recommend STR, CM working placement Quality Stroke Does the patient have a stroke diagnosis?: No VTE Prior VTE?: No VTE Risk Level:: Medical - moderate - high VTE Device Contraindication: Treatment Not Indicated VTE Drug Contraindication: N/A - Med Ordered
[2021-11-24] MEDS: traMADoL HCL 50 MG TABLET PO (22:06)
[2021-11-25] VITALS (7 sets, daily range): BP systolic 108–146; BP diastolic 58–76; PULSE 78–102; RESP 18–20; TEMP 36.4–36.9; O2SAT 90–92; BMI 61.7
[2021-11-25] MEDS: Acetaminophen 325 MG TABLET 650 MG PO ×2 (03:18→16:19)
[2021-11-25] MEDS: hydrOXYzine HCL 50 MG/ML VIAL IM (03:24)
[2021-11-25] MEDS: Furosemide 40 MG TABLET PO (08:33)
[2021-11-25] MEDS: guaiFENesin LA 600 MG TAB.ER.12H PO ×2 (08:33→19:23)
[2021-11-25] MEDS: Apixaban 5 MG TABLET PO ×2 (08:33→19:23)
[2021-11-25] MEDS: 0.9 % Sodium Chloride Flush 3 ML SYRINGE IVFLUSH ×3 (08:34→19:23)
--- NOTE | 2021-11-25 12:01 | HO.PM.IMPN ---
Subjective Subjective Date of Service: 11/25/21 Interval History: Laying in bed, feels comfortable Denies any fever, chills or shortness of breath No reported other overnight events. Review of Systems No fever, chills or weakness No chest pain, palpitation , still having edema No shortness of breath improving No abdominal pain, nausea or vomiting No urinary symptoms No any rash or wounds Physical Exam Vital Signs: Vital Signs: Last Vital Signs Temp 98.5 F 11/25/21 11:21 Pulse 92 11/25/21 11:21 Resp 20 11/25/21 11:21 BP 122/58 L 11/25/21 11:21 Pulse Ox 91 L 11/25/21 11:21 BMI result Body Mass Index 61.7 Const: Other: Gen:? Awake alert, no distress HEENT: sclera anicteric, moist mucus membranes Neck: supple, no JVD Lungs: clear to auscultation bilaterally Heart: irregularly irregular, no murmurs Abd: soft, non-tender, non-distended, morbidly obese Ext: 1+ BLE edema Skin: warm/well-perfused Neuro: alert and oriented x3, no focal?findings Psych: appropriate affect Objective Data Active Medications Acetaminophen (Acetaminophen 325 Mg Tablet) 650 mg PO Q6H PRN PRN Reason: Pain, Mild (Pain Scale 1-3) Last Admin: 11/25/21 03:18 Dose: 650 mg Documented by: SCARLET Albuterol Sulfate (Albuterol Sulfate 90 Mcg 8 Gm Inhaler) 2 puff INHALE RQ4H PRN PRN Reason: sob Apixaban (Apixaban 5 Mg Tablet) 5 mg PO BID [facility] Last Admin: 11/25/21 08:33 Dose: 5 mg Documented by: JACQUI Furosemide (Furosemide 40 Mg Tablet) 40 mg PO DAILY [facility]; Protocol Last Admin: 11/25/21 08:33 Dose: 40 mg Documented by: JACQUI Guaifenesin (Guaifenesin La 600 Mg Tab.Er.12h) 600 mg PO BID [facility] Last Admin: 11/25/21 08:33 Dose: 600 mg Documented by: JACQUI Hydroxyzine HCl (Hydroxyzine Hcl 50 Mg/Ml Vial) 50 mg IM Q6H PRN PRN Reason: anxiety Last Admin: 11/25/21 03:24 Dose: 50 mg Documented by: SCARLET Melatonin (Melatonin 3 Mg Tablet) 6 mg PO BEDTIME PRN PRN Reason: Insomnia Last Admin: 11/14/21 23:52 Dose: 6 mg Documented by: HERMELINDA Pharmacy Consult (Consult Rx Perform Med Rec) 1 each MISCELLANE ONCE PRN PRN Reason: Consult order Pharmacy Consult (Consult Rx Perform Med Rec) 1 each MISCELLANE ONCE PRN PRN Reason: Consult order Senna (Sennosides 8.6 Mg Tablet) 17.2 mg PO BEDTIME PRN PRN Reason: Constipation Sodium Chloride (0.9 % Sodium Chloride Flush 3 Ml Syringe) 3 ml IVFLUSH QSHIFT ULYSSES Last Admin: 11/25/21 08:34 Dose: 3 ml Documented by: JACQUI Labs CBC & Chem 7: 11/24/21 05:44 11/24/21 05:44 Assessment and Plan (1) Physical deconditioning: Status: Acute (2) Bradycardia: Status: Acute (3) Morbidly obese: Status: Acute (4) Pulmonary embolism: Status: Acute (5) Congestive heart failure: Status: Acute Plan 66yo M with AF, morbid obesity presenting with dyspnea, weight gain, leg edema admitted for CHF exacerbation sinus pauses/ sinus bradycardia patient asymptomatic during episodes seen by cardiology bradycardia likely due to undiagnosed YANN , since this is reversible not committed to pacemaker patient unwilling to wear CPAP, he could not tolerate the mask on his face outpt polysomnography Qualifies for BiPAP by overnight oximetry but the patient refusing to wear the CPAP. acute R-sided HF exacerbation resolved, diuresed with IV furosemide now on PO furosemide maintenance dose, BNP normalized to 94, stable electrolytes pt will f/u with his journal box inspector, Dr Mason at [facility] physical deconditioning Evaluated by physical therapy team who recommended short-term rehab Pending placement - difficulty finding bariatric placement, patient unable to manage at home chronic AF rate-controlled. not on metoprolol due to sinus pauses. Continue apixaban for anticoagulation acute hypoxic resp failure wean O2 as tolerated, not on home O2 CT chest and V/Q, no PE morbid obesity strongly recommend to follow low-calorie diet outpatient bariatric surgery referral VTE ppx apixaban dispo being followed by Physical therapy, patient continued to have low tolerance to functional mobility , dyspnea with minimal exertion with poor gait mechanics and increased risk of fall therefore PT continue to recommend STR, CM working placement Quality Stroke Does the patient have a stroke diagnosis?: No VTE Prior VTE?: No VTE Risk Level:: Medical - moderate - high VTE Device Contraindication: Treatment Not Indicated VTE Drug Contraindication: N/A - Med Ordered
[2021-11-26] VITALS (7 sets, daily range): BP systolic 99–152; BP diastolic 59–84; PULSE 72–100; RESP 18–20; TEMP 36.2–36.7; O2SAT 91–95; BMI 64.1
[2021-11-26] MEDS: guaiFENesin LA 600 MG TAB.ER.12H PO ×2 (08:00→19:42)
[2021-11-26] MEDS: Furosemide 40 MG TABLET PO (08:00)
[2021-11-26] MEDS: Acetaminophen 325 MG TABLET 650 MG PO ×2 (08:01→17:32)
[2021-11-26] MEDS: Apixaban 5 MG TABLET PO ×2 (08:01→19:42)
[2021-11-26] MEDS: 0.9 % Sodium Chloride Flush 3 ML SYRINGE IVFLUSH ×3 (08:01→19:42)
--- NOTE | 2021-11-26 10:17 | HO.PM.IMPN ---
Subjective Subjective Date of Service: 11/26/21 Interval History: Laying in bed, feels comfortable Denies any fever, chills or shortness of breath No reported other overnight events. Review of Systems No fever, chills or weakness No chest pain, palpitation , still having edema No shortness of breath improving No abdominal pain, nausea or vomiting No urinary symptoms No any rash or wounds Physical Exam Vital Signs: Vital Signs: Last Vital Signs Temp 97.2 F 11/26/21 07:39 Pulse 72 11/26/21 07:39 Resp 19 11/26/21 07:39 BP 132/84 11/26/21 07:39 Pulse Ox 93 11/26/21 07:39 BMI result Body Mass Index 64.1 Const: Other: Gen:? Awake alert, no distress HEENT: sclera anicteric, moist mucus membranes Neck: supple, no JVD Lungs: clear to auscultation bilaterally Heart: irregularly irregular, no murmurs Abd: soft, non-tender, non-distended, morbidly obese Ext: 1+ BLE edema Skin: warm/well-perfused Neuro: alert and oriented x3, no focal?findings Psych: appropriate affect Objective Data Active Medications Acetaminophen (Acetaminophen 325 Mg Tablet) 650 mg PO Q6H PRN PRN Reason: Pain, Mild (Pain Scale 1-3) Last Admin: 11/26/21 08:01 Dose: 650 mg Documented by: JEANNINE Albuterol Sulfate (Albuterol Sulfate 90 Mcg 8 Gm Inhaler) 2 puff INHALE RQ4H PRN PRN Reason: sob Apixaban (Apixaban 5 Mg Tablet) 5 mg PO BID [facility] Last Admin: 11/26/21 08:01 Dose: 5 mg Documented by: JEANNINE Furosemide (Furosemide 40 Mg Tablet) 40 mg PO DAILY [facility]; Protocol Last Admin: 11/26/21 08:00 Dose: 40 mg Documented by: JEANNINE Guaifenesin (Guaifenesin La 600 Mg Tab.Er.12h) 600 mg PO BID [facility] Last Admin: 11/26/21 08:00 Dose: 600 mg Documented by: JEANNINE Hydroxyzine HCl (Hydroxyzine Hcl 50 Mg/Ml Vial) 50 mg IM Q6H PRN PRN Reason: anxiety Last Admin: 11/25/21 03:24 Dose: 50 mg Documented by: SCARLET Melatonin (Melatonin 3 Mg Tablet) 6 mg PO BEDTIME PRN PRN Reason: Insomnia Last Admin: 11/14/21 23:52 Dose: 6 mg Documented by: HERMELINDA Pharmacy Consult (Consult Rx Perform Med Rec) 1 each MISCELLANE ONCE PRN PRN Reason: Consult order Pharmacy Consult (Consult Rx Perform Med Rec) 1 each MISCELLANE ONCE PRN PRN Reason: Consult order Senna (Sennosides 8.6 Mg Tablet) 17.2 mg PO BEDTIME PRN PRN Reason: Constipation Sodium Chloride (0.9 % Sodium Chloride Flush 3 Ml Syringe) 3 ml IVFLUSH QSHIFT ULYSSES Last Admin: 11/26/21 08:01 Dose: 3 ml Documented by: JEANNINE Labs CBC & Chem 7: 11/24/21 05:44 11/24/21 05:44 Assessment and Plan (1) Physical deconditioning: Status: Acute (2) Morbidly obese: Status: Acute (3) Congestive heart failure: Status: Acute (4) Pulmonary embolism: Status: Acute Plan 66yo M with AF, morbid obesity presenting with dyspnea, weight gain, leg edema admitted for CHF exacerbation acute R-sided HF exacerbation resolved, diuresed with IV furosemide now on PO furosemide maintenance dose, BNP normalized to 94, stable electrolytes pt will f/u with his proj engineer, Dr Mason at [facility] physical deconditioning Evaluated by physical therapy team who recommended short-term rehab Pending placement - difficulty finding bariatric placement, patient unable to manage at home sinus pauses/ sinus bradycardia patient asymptomatic during episodes seen by cardiology bradycardia likely due to undiagnosed YANN , since this is reversible not committed to pacemaker patient unwilling to wear CPAP, he could not tolerate the mask on his face outpt polysomnography Qualifies for BiPAP by overnight oximetry but the patient refusing to wear the CPAP. chronic AF rate-controlled. not on metoprolol due to sinus pauses. Continue apixaban for anticoagulation acute hypoxic resp failure wean O2 as tolerated, not on home O2 CT chest and V/Q, no PE morbid obesity strongly recommend to follow low-calorie diet outpatient bariatric surgery referral VTE ppx apixaban dispo being followed by Physical therapy, patient continued to have low tolerance to functional mobility , dyspnea with minimal exertion with poor gait mechanics and increased risk of fall therefore PT continue to recommend STR, CM working placement Quality Stroke Does the patient have a stroke diagnosis?: No VTE Prior VTE?: No VTE Risk Level:: Medical - moderate - high VTE Device Contraindication: Treatment Not Indicated VTE Drug Contraindication: N/A - Med Ordered
--- NOTE | 2021-11-26 13:06 | MHC.CM.PN ---
PT IS MEDICALLY CLEAR FOR DC HOWEVER STILL REMAINS AWAITING STR PLACEMENT. TWENTY-ONE MORE REFERRALS WERE MADE TODAY SEEKING A FACILITY THAT CAN MANAGE HIS BARIATRIC NEEDS
[2021-11-26] MEDS: Loperamide HCl 2 MG CAPSULE PO (17:32)
[2021-11-27 03:06] VITALS: BP 110/65; PULSE 91; RESP 18; TEMP 36.6; O2SAT 93
[2021-11-27] MEDS: Acetaminophen 325 MG TABLET 650 MG PO ×2 (03:28→13:09)
[2021-11-27] MEDS: Loperamide HCl 2 MG CAPSULE PO ×2 (03:29→13:09)
[2021-11-27 07:43] VITALS: BP 116/67; PULSE 93; RESP 18; TEMP 36.3; O2SAT 91
[2021-11-27] MEDS: guaiFENesin LA 600 MG TAB.ER.12H PO ×2 (08:24→20:03)
[2021-11-27] MEDS: Furosemide 40 MG TABLET PO (08:24)
[2021-11-27] MEDS: 0.9 % Sodium Chloride Flush 3 ML SYRINGE IVFLUSH ×3 (08:24→20:06)
[2021-11-27] MEDS: Apixaban 5 MG TABLET PO ×2 (08:24→20:03)
[2021-11-27 10:27] VITALS: BP 116/67; PULSE 93; O2SAT 91
--- NOTE | 2021-11-27 11:28 | HO.PM.IMPN ---
Subjective Subjective Date of Service: 11/27/21 Interval History: Laying in bed, feels comfortable Denies any fever, chills or shortness of breath No reported other overnight events. Review of Systems No fever, chills or weakness No chest pain, palpitation , still having edema No shortness of breath improving No abdominal pain, nausea or vomiting No urinary symptoms No any rash or wounds Physical Exam Vital Signs: Vital Signs: Last Vital Signs Temp 97.3 F 11/27/21 07:43 Pulse 93 11/27/21 10:27 Resp 18 11/27/21 07:43 BP 116/67 11/27/21 10:27 Pulse Ox 91 L 11/27/21 10:27 BMI result Body Mass Index 64.1 Const: Other: Gen:? Awake alert, no distress HEENT: sclera anicteric, moist mucus membranes Neck: supple, no JVD Lungs: clear to auscultation bilaterally Heart: irregularly irregular, no murmurs Abd: soft, non-tender, non-distended, morbidly obese Ext: 1+ BLE edema Skin: warm/well-perfused Neuro: alert and oriented x3, no focal?findings Psych: appropriate affect Objective Data Active Medications Acetaminophen (Acetaminophen 325 Mg Tablet) 650 mg PO Q6H PRN PRN Reason: Pain, Mild (Pain Scale 1-3) Last Admin: 11/27/21 03:28 Dose: 650 mg Documented by: SIMONE Albuterol Sulfate (Albuterol Sulfate 90 Mcg 8 Gm Inhaler) 2 puff INHALE RQ4H PRN PRN Reason: sob Apixaban (Apixaban 5 Mg Tablet) 5 mg PO BID [facility] Last Admin: 11/27/21 08:24 Dose: 5 mg Documented by: JEANNINE Furosemide (Furosemide 40 Mg Tablet) 40 mg PO DAILY [facility]; Protocol Last Admin: 11/27/21 08:24 Dose: 40 mg Documented by: JEANNINE Guaifenesin (Guaifenesin La 600 Mg Tab.Er.12h) 600 mg PO BID [facility] Last Admin: 11/27/21 08:24 Dose: 600 mg Documented by: JEANNINE Hydroxyzine HCl (Hydroxyzine Hcl 50 Mg/Ml Vial) 50 mg IM Q6H PRN PRN Reason: anxiety Last Admin: 11/25/21 03:24 Dose: 50 mg Documented by: SCARLET Loperamide HCl (Loperamide Hcl 2 Mg Capsule) 2 mg PO Q4H PRN PRN Reason: Diarrhea Last Admin: 11/27/21 03:29 Dose: 2 mg Documented by: SIMONE Melatonin (Melatonin 3 Mg Tablet) 6 mg PO BEDTIME PRN PRN Reason: Insomnia Last Admin: 11/14/21 23:52 Dose: 6 mg Documented by: HERMELINDA Pharmacy Consult (Consult Rx Perform Med Rec) 1 each MISCELLANE ONCE PRN PRN Reason: Consult order Pharmacy Consult (Consult Rx Perform Med Rec) 1 each MISCELLANE ONCE PRN PRN Reason: Consult order Senna (Sennosides 8.6 Mg Tablet) 17.2 mg PO BEDTIME PRN PRN Reason: Constipation Sodium Chloride (0.9 % Sodium Chloride Flush 3 Ml Syringe) 3 ml IVFLUSH QSHIFT ULYSSES Last Admin: 11/27/21 08:24 Dose: 3 ml Documented by: JEANNINE Labs CBC & Chem 7: 11/24/21 05:44 11/24/21 05:44 Assessment and Plan (1) Physical deconditioning: Status: Acute (2) Morbidly obese: Status: Acute (3) Pulmonary embolism: Status: Acute (4) Congestive heart failure: Status: Acute Plan 66yo M with AF, morbid obesity presenting with dyspnea, weight gain, leg edema admitted for CHF exacerbation acute R-sided HF exacerbation resolved PO furosemide maintenance dose pt will f/u with his survey chief, Dr Mason at [facility] physical deconditioning Evaluated by physical therapy team who recommended short-term rehab Pending placement - difficulty finding bariatric placement, patient unable to manage at home sinus pauses/ sinus bradycardia patient asymptomatic during episodes seen by cardiology bradycardia likely due to undiagnosed YANN , since this is reversible not committed to pacemaker patient unwilling to wear CPAP, he could not tolerate the mask on his face outpt polysomnography Qualifies for BiPAP by overnight oximetry but the patient refusing to wear the CPAP. chronic AF rate-controlled. not on metoprolol due to sinus pauses. Continue apixaban for anticoagulation acute hypoxic resp failure wean O2 as tolerated, not on home O2 CT chest and V/Q, no PE morbid obesity strongly recommend to follow low-calorie diet outpatient bariatric surgery referral VTE ppx apixaban dispo being followed by Physical therapy, patient continued to have low tolerance to functional mobility , dyspnea with minimal exertion with poor gait mechanics and increased risk of fall therefore PT continue to recommend STR, CM working placement Quality Stroke Does the patient have a stroke diagnosis?: No VTE Prior VTE?: No VTE Risk Level:: Medical - moderate - high VTE Device Contraindication: Treatment Not Indicated VTE Drug Contraindication: N/A - Med Ordered
[2021-11-27 11:43] VITALS: BP 130/79; PULSE 82; RESP 17; TEMP 36.3; O2SAT 93
--- NOTE | 2021-11-27 15:23 | MHC.CM.PN ---
DP STR via BLS. No bed offers have been made. CM director referred this patient to the state for assistance with finding an accepting facility. They are able to assist with difficult placements. All of the facilities that have been referred have been forwarded.
[2021-11-27 16:00] VITALS: BP 126/61; PULSE 93; RESP 16; TEMP 32.7; O2SAT 94
[2021-11-27 19:32] VITALS: BP 139/60; PULSE 84; RESP 18; TEMP 37.6; O2SAT 93
[2021-11-28] VITALS (7 sets, daily range): BP systolic 106–139; BP diastolic 68–78; PULSE 72–95; RESP 18–20; TEMP 35.8–36.7; O2SAT 91–98; BMI 63.0
[2021-11-28] MEDS: Acetaminophen 325 MG TABLET 650 MG PO ×3 (00:31→20:20)
[2021-11-28] MEDS: Furosemide 40 MG TABLET PO (08:20)
[2021-11-28] MEDS: 0.9 % Sodium Chloride Flush 3 ML SYRINGE IVFLUSH ×2 (08:20→20:20)
[2021-11-28] MEDS: Apixaban 5 MG TABLET PO ×2 (08:20→20:20)
[2021-11-28] MEDS: guaiFENesin LA 600 MG TAB.ER.12H PO ×2 (08:20→20:20)
[2021-11-28] MEDS: Loperamide HCl 2 MG CAPSULE PO ×2 (08:24→20:20)
--- NOTE | 2021-11-28 11:46 | HO.PM.IMPN ---
Subjective Subjective Date of Service: 11/28/21 Interval History: Laying in bed, feels comfortable Denies any fever, chills or shortness of breath Had a run of NSVT of 8, asymptomatic No reported other overnight events. Review of Systems No fever, chills or weakness No chest pain, palpitation , still having edema No shortness of breath improving No abdominal pain, nausea or vomiting No urinary symptoms No any rash or wounds Physical Exam Vital Signs: Vital Signs: Last Vital Signs Temp 98.1 F 11/28/21 11:40 Pulse 72 11/28/21 11:40 Resp 18 11/28/21 11:40 BP 126/74 11/28/21 11:40 Pulse Ox 98 11/28/21 11:40 BMI result Body Mass Index 63.0 Const: Other: Gen:? Awake alert, no distress HEENT: sclera anicteric, moist mucus membranes Neck: supple, no JVD Lungs: clear to auscultation bilaterally Heart: irregularly irregular, no murmurs Abd: soft, non-tender, non-distended, morbidly obese Ext: 1+ BLE edema Skin: warm/well-perfused Neuro: alert and oriented x3, no focal?findings Psych: appropriate affect Objective Data Active Medications Acetaminophen (Acetaminophen 325 Mg Tablet) 650 mg PO Q6H PRN PRN Reason: Pain, Mild (Pain Scale 1-3) Last Admin: 11/28/21 08:24 Dose: 650 mg Documented by: GOLD Albuterol Sulfate (Albuterol Sulfate 90 Mcg 8 Gm Inhaler) 2 puff INHALE RQ4H PRN PRN Reason: sob Apixaban (Apixaban 5 Mg Tablet) 5 mg PO BID [facility] Last Admin: 11/28/21 08:20 Dose: 5 mg Documented by: GOLD Furosemide (Furosemide 40 Mg Tablet) 40 mg PO DAILY [facility]; Protocol Last Admin: 11/28/21 08:20 Dose: 40 mg Documented by: GOLD Guaifenesin (Guaifenesin La 600 Mg Tab.Er.12h) 600 mg PO BID [facility] Last Admin: 11/28/21 08:20 Dose: 600 mg Documented by: GOLD Hydroxyzine HCl (Hydroxyzine Hcl 50 Mg/Ml Vial) 50 mg IM Q6H PRN PRN Reason: anxiety Last Admin: 11/25/21 03:24 Dose: 50 mg Documented by: SCARLET Loperamide HCl (Loperamide Hcl 2 Mg Capsule) 2 mg PO Q4H PRN PRN Reason: Diarrhea Last Admin: 11/28/21 08:24 Dose: 2 mg Documented by: GOLD Melatonin (Melatonin 3 Mg Tablet) 6 mg PO BEDTIME PRN PRN Reason: Insomnia Last Admin: 11/14/21 23:52 Dose: 6 mg Documented by: HERMELINDA Pharmacy Consult (Consult Rx Perform Med Rec) 1 each MISCELLANE ONCE PRN PRN Reason: Consult order Pharmacy Consult (Consult Rx Perform Med Rec) 1 each MISCELLANE ONCE PRN PRN Reason: Consult order Senna (Sennosides 8.6 Mg Tablet) 17.2 mg PO BEDTIME PRN PRN Reason: Constipation Sodium Chloride (0.9 % Sodium Chloride Flush 3 Ml Syringe) 3 ml IVFLUSH QSHIFT ULYSSES Last Admin: 11/28/21 08:20 Dose: 3 ml Documented by: GOLD Labs CBC & Chem 7: 11/24/21 05:44 11/24/21 05:44 Assessment and Plan (1) NSVT (nonsustained ventricular tachycardia): Status: Acute (2) Physical deconditioning: Status: Acute (3) Morbidly obese: Status: Acute (4) Pulmonary embolism: Status: Acute (5) Congestive heart failure: Status: Acute Plan 66yo M with AF, morbid obesity presenting with dyspnea, weight gain, leg edema admitted for CHF exacerbation acute R-sided HF exacerbation resolved PO furosemide maintenance dose pt will f/u with his geophysical manager, Dr Mason at [facility] physical deconditioning Evaluated by physical therapy team who recommended short-term rehab Pending placement - difficulty finding bariatric placement, patient unable to manage at home sinus pauses/ sinus bradycardia patient asymptomatic during episodes seen by cardiology bradycardia likely due to undiagnosed YANN , since this is reversible not committed to pacemaker patient unwilling to wear CPAP, he could not tolerate the mask on his face outpt polysomnography Qualifies for BiPAP by overnight oximetry but the patient refusing to wear the CPAP. NSVTs Related to untreated underlying YANN Check electrolyte, magnesium Cannot use beta-anastacio for recurrent episodes of bradycardia Advised to use the BiPAP again but he refused stating that the mask does not feel comfortable in spite of trying more than 1 continue to monitor chronic AF rate-controlled. not on metoprolol due to sinus pauses. Continue apixaban for anticoagulation acute hypoxic resp failure wean O2 as tolerated, not on home O2 CT chest and V/Q, no PE morbid obesity strongly recommend to follow low-calorie diet outpatient bariatric surgery referral VTE ppx apixaban dispo being followed by Physical therapy, patient continued to have low tolerance to functional mobility , dyspnea with minimal exertion with poor gait mechanics and increased risk of fall therefore PT continue to recommend STR, CM working placement Quality Stroke Does the patient have a stroke diagnosis?: No VTE Prior VTE?: No VTE Risk Level:: Medical - moderate - high VTE Device Contraindication: Treatment Not Indicated VTE Drug Contraindication: N/A - Med Ordered
[2021-11-28 12:33] LABS: Anion Gap 12 (12-20); Blood Urea Nitrogen 19 mg/dL (9-16); Calcium 8.7 mg/dL (8.4-10.2); Carbon Dioxide 37 mmol/L (22-29); Chloride 98 mmol/L (96-108); Creatinine Clr Calc Pharmacy 150.5; Estimated Glomerular Filt Rate > 60; Glucose Random 82 mg/dL (60-115); Magnesium 2.1 mg/dL (1.6-2.6); Potassium 4.3 mmol/L (3.3-5.1); Sodium 143 mmol/L (135-145)
[2021-11-29 03:27] VITALS: BP 139/76; PULSE 90; RESP 18; TEMP 36.6; O2SAT 91
[2021-11-29] MEDS: Acetaminophen 325 MG TABLET 650 MG PO ×2 (06:30→17:19)
[2021-11-29 07:47] VITALS: BP 107/72; PULSE 89; RESP 20; TEMP 36.9; O2SAT 94
[2021-11-29] MEDS: guaiFENesin LA 600 MG TAB.ER.12H PO ×2 (08:32→19:28)
[2021-11-29] MEDS: Apixaban 5 MG TABLET PO ×2 (08:32→19:27)
[2021-11-29] MEDS: 0.9 % Sodium Chloride Flush 3 ML SYRINGE IVFLUSH ×3 (08:32→19:28)
[2021-11-29] MEDS: Furosemide 40 MG TABLET PO (08:32)
--- NOTE | 2021-11-29 10:04 | P.PNIM_ITS ---
Subjective Subjective Date of Service: 11/29/21 Interval History: Laying in bed, feels comfortable Denies any fever, chills or shortness of breath No more episodes of NSVT noticed No reported other overnight events. Review of Systems No fever, chills or weakness No chest pain, palpitation , still having edema No shortness of breath improving No abdominal pain, nausea or vomiting No urinary symptoms No any rash or wounds Physical Exam Vital Signs: Vital Signs: Last Vital Signs Temp 98.4 F 11/29/21 07:47 Pulse 89 11/29/21 07:47 Resp 20 11/29/21 07:47 BP 107/72 11/29/21 07:47 Pulse Ox 94 11/29/21 07:47 BMI result Body Mass Index 63.0 Const: Other: Gen:? Awake alert, no distress HEENT: sclera anicteric, moist mucus membranes Neck: supple, no JVD Lungs: clear to auscultation bilaterally, fair bilateral air entry Heart: irregularly irregular, no murmurs Abd: soft, non-tender, non-distended, morbidly obese Skin: warm/well-perfused Neuro: alert and oriented x3, no focal?findings Psych: appropriate affect Objective Data Active Medications Acetaminophen (Acetaminophen 325 Mg Tablet) 650 mg PO Q6H PRN PRN Reason: Pain, Mild (Pain Scale 1-3) Last Admin: 11/29/21 06:30 Dose: 650 mg Documented by: SCARLET Albuterol Sulfate (Albuterol Sulfate 90 Mcg 8 Gm Inhaler) 2 puff INHALE RQ4H PRN PRN Reason: sob Apixaban (Apixaban 5 Mg Tablet) 5 mg PO BID [facility] Last Admin: 11/29/21 08:32 Dose: 5 mg Documented by: LETITIA Furosemide (Furosemide 40 Mg Tablet) 40 mg PO DAILY [facility]; Protocol Last Admin: 11/29/21 08:32 Dose: 40 mg Documented by: LETITIA Guaifenesin (Guaifenesin La 600 Mg Tab.Er.12h) 600 mg PO BID [facility] Last Admin: 11/29/21 08:32 Dose: 600 mg Documented by: LETITIA Hydroxyzine HCl (Hydroxyzine Hcl 50 Mg/Ml Vial) 50 mg IM Q6H PRN PRN Reason: anxiety Last Admin: 11/25/21 03:24 Dose: 50 mg Documented by: SCARLET Loperamide HCl (Loperamide Hcl 2 Mg Capsule) 2 mg PO Q4H PRN PRN Reason: Diarrhea Last Admin: 11/28/21 20:20 Dose: 2 mg Documented by: SCARLET Melatonin (Melatonin 3 Mg Tablet) 6 mg PO BEDTIME PRN PRN Reason: Insomnia Last Admin: 11/14/21 23:52 Dose: 6 mg Documented by: HERMELINDA Pharmacy Consult (Consult Rx Perform Med Rec) 1 each MISCELLANE ONCE PRN PRN Reason: Consult order Pharmacy Consult (Consult Rx Perform Med Rec) 1 each MISCELLANE ONCE PRN PRN Reason: Consult order Senna (Sennosides 8.6 Mg Tablet) 17.2 mg PO BEDTIME PRN PRN Reason: Constipation Sodium Chloride (0.9 % Sodium Chloride Flush 3 Ml Syringe) 3 ml IVFLUSH QSHIFT ULYSSES Last Admin: 11/29/21 08:32 Dose: 3 ml Documented by: LETITIA Labs CBC & Chem 7: 11/24/21 05:44 11/28/21 11:05 Labs: Laboratory Results - last 24 hr 11/28/21 11:05 Anion Gap 12 Estim Creat Clear Calc 150.5 Estimated GFR > 60 Random Glucose 82 Calcium 8.7 Magnesium 2.1 Assessment and Plan (1) Physical deconditioning: Status: Acute (2) Bradycardia: Status: Acute (3) Pulmonary embolism: Status: Acute (4) Obesity: Status: Acute (5) Congestive heart failure: Status: Acute Plan 66yo M with AF, morbid obesity presenting with dyspnea, weight gain, leg edema admitted for CHF exacerbation acute R-sided HF exacerbation resolved PO furosemide maintenance dose pt will f/u with his role player, Dr Mason at [facility] physical deconditioning Evaluated by physical therapy team who recommended short-term rehab Pending placement - difficulty finding bariatric placement, patient unable to manage at home sinus pauses/ sinus bradycardia patient asymptomatic during episodes seen by cardiology bradycardia likely due to undiagnosed YANN , since this is reversible not committed to pacemaker patient unwilling to wear CPAP, he could not tolerate the mask on his face outpt polysomnography Qualifies for BiPAP by overnight oximetry but the patient refusing to wear the CPAP. NSVTs Related to untreated underlying YANN Check electrolyte, magnesium Cannot use beta-anastacio for recurrent episodes of bradycardia Advised to use the BiPAP again but he refused stating that the mask does not feel comfortable in spite of trying more than 1 continue to monitor chronic AF rate-controlled. not on metoprolol due to sinus pauses. Continue apixaban for anticoagulation acute hypoxic resp failure wean O2 as tolerated, not on home O2 CT chest and V/Q, no PE morbid obesity strongly recommend to follow low-calorie diet outpatient bariatric surgery referral VTE ppx apixaban dispo being followed by Physical therapy, patient continued to have low tolerance to functional mobility , dyspnea with minimal exertion with poor gait mechanics and increased risk of fall therefore PT continue to recommend STR, CM working placement Quality Stroke Does the patient have a stroke diagnosis?: No VTE Prior VTE?: No VTE Risk Level:: Medical - moderate - high VTE Device Contraindication: Treatment Not Indicated VTE Drug Contraindication: N/A - Med Ordered
[2021-11-29 10:51] VITALS: BP 100/59; PULSE 84; RESP 20; TEMP 37.4; O2SAT 94
[2021-11-29 14:52] VITALS: BP 111/60; PULSE 80; RESP 20; TEMP 36.6; O2SAT 90
[2021-11-29] MEDS: hydrOXYzine HCL 50 MG/ML VIAL IM (17:22)
[2021-11-29 19:03] VITALS: BP 118/65; PULSE 111; RESP 20; TEMP 36.7; O2SAT 90
[2021-11-29] MEDS: LORazepam 0.5 MG TABLET PO (19:27)
[2021-11-29] MEDS: Metoprolol Tartrate 12.5 MG HALFTAB PO (19:27)
[2021-11-29 23:54] VITALS: BP 116/82; PULSE 102; RESP 18; TEMP 36.4; O2SAT 91
[2021-11-30 04:00] VITALS: BP 145/91; PULSE 94; RESP 18; TEMP 36.7; O2SAT 91
[2021-11-30 07:28] VITALS: BP 132/84; PULSE 99; RESP 18; TEMP 36.5; O2SAT 93
[2021-11-30 07:45] LABS: B Type Natriuretic Peptide 204 pg/mL (<100)
[2021-11-30] MEDS: Apixaban 5 MG TABLET PO ×2 (08:03→20:14)
[2021-11-30] MEDS: guaiFENesin LA 600 MG TAB.ER.12H PO ×2 (08:04→20:14)
[2021-11-30] MEDS: Loperamide HCl 2 MG CAPSULE PO ×3 (08:07→20:14)
[2021-11-30] MEDS: Furosemide 40 MG TABLET PO (08:08)
[2021-11-30] MEDS: Acetaminophen 325 MG TABLET 650 MG PO ×2 (08:13→14:46)
[2021-11-30] MEDS: 0.9 % Sodium Chloride Flush 3 ML SYRINGE IVFLUSH ×2 (09:27→16:26)
--- NOTE | 2021-11-30 11:02 | P.PNIM_ITS ---
Subjective Subjective Date of Service: 11/30/21 Interval History: Laying in bed, feels comfortable Denies any fever, chills or shortness of breath No more episodes of NSVT noticed Had a run of sinus tachycardia yesterday improved with Ativan No reported other overnight events. Review of Systems No fever, chills or weakness No chest pain, palpitation , still having edema No shortness of breath improving No abdominal pain, nausea or vomiting No urinary symptoms No any rash or wounds Physical Exam Vital Signs: Vital Signs: Last Vital Signs Temp 97.7 F 11/30/21 07:28 Pulse 99 11/30/21 07:28 Resp 18 11/30/21 07:28 BP 132/84 11/30/21 07:28 Pulse Ox 93 11/30/21 07:28 BMI result Body Mass Index 63.0 Const: Other: Gen:? Awake alert, no distress HEENT: sclera anicteric, moist mucus membranes Neck: supple, no JVD Lungs: clear to auscultation bilaterally, fair bilateral air entry Heart: irregularly irregular, no murmurs Abd: soft, non-tender, non-distended, morbidly obese Skin: warm/well-perfused Neuro: alert and oriented x3, no focal?findings Psych: appropriate affect Objective Data Active Medications Acetaminophen (Acetaminophen 325 Mg Tablet) 650 mg PO Q6H PRN PRN Reason: Pain, Mild (Pain Scale 1-3) Last Admin: 11/30/21 08:13 Dose: 650 mg Documented by: SHAHEED Albuterol Sulfate (Albuterol Sulfate 90 Mcg 8 Gm Inhaler) 2 puff INHALE RQ4H PRN PRN Reason: sob Apixaban (Apixaban 5 Mg Tablet) 5 mg PO BID [facility] Last Admin: 11/30/21 08:03 Dose: 5 mg Documented by: SHAHEED Furosemide (Furosemide 40 Mg Tablet) 40 mg PO DAILY [facility]; Protocol Last Admin: 11/30/21 08:08 Dose: 40 mg Documented by: SHAHEED Guaifenesin (Guaifenesin La 600 Mg Tab.Er.12h) 600 mg PO BID [facility] Last Admin: 11/30/21 08:04 Dose: 600 mg Documented by: SHAHEED Hydroxyzine HCl (Hydroxyzine Hcl 50 Mg/Ml Vial) 50 mg IM Q6H PRN PRN Reason: anxiety Last Admin: 11/29/21 17:22 Dose: 50 mg Documented by: IGLESM Loperamide HCl (Loperamide Hcl 2 Mg Capsule) 2 mg PO Q4H PRN PRN Reason: Diarrhea Last Admin: 11/30/21 08:07 Dose: 2 mg Documented by: SHAHEED Melatonin (Melatonin 3 Mg Tablet) 6 mg PO BEDTIME PRN PRN Reason: Insomnia Last Admin: 11/14/21 23:52 Dose: 6 mg Documented by: HERMELINDA Pharmacy Consult (Consult Rx Perform Med Rec) 1 each MISCELLANE ONCE PRN PRN Reason: Consult order Pharmacy Consult (Consult Rx Perform Med Rec) 1 each MISCELLANE ONCE PRN PRN Reason: Consult order Senna (Sennosides 8.6 Mg Tablet) 17.2 mg PO BEDTIME PRN PRN Reason: Constipation Sodium Chloride (0.9 % Sodium Chloride Flush 3 Ml Syringe) 3 ml IVFLUSH QSHIFT ULYSSES Last Admin: 11/30/21 09:27 Dose: 3 ml Documented by: MICHELLE Labs CBC & Chem 7: 11/24/21 05:44 11/28/21 11:05 Labs: Laboratory Results - last 24 hr 11/30/21 06:59 B-Natriuretic Peptide 204 H Assessment and Plan (1) NSVT (nonsustained ventricular tachycardia): Status: Acute (2) Physical deconditioning: Status: Acute (3) Congestive heart failure: Status: Acute Plan 66yo M with AF, morbid obesity presenting with dyspnea, weight gain, leg edema admitted for CHF exacerbation acute R-sided HF exacerbation BNP started to climb up again Increased oxygen supplement, tachycardia Start IV Lasix 40 mg b.i.d. for now and continue to monitor PO furosemide held for now pt will f/u with his courier driver, Dr Mason at [facility] physical deconditioning Evaluated by physical therapy team who recommended short-term rehab Pending placement - difficulty finding bariatric placement, patient unable to manage at home sinus pauses/ sinus bradycardia patient asymptomatic during episodes seen by cardiology bradycardia likely due to undiagnosed YANN , since this is reversible not committed to pacemaker patient unwilling to wear CPAP, he could not tolerate the mask on his face outpt polysomnography Qualifies for BiPAP by overnight oximetry but the patient refusing to wear the CPAP. NSVTs Related to untreated underlying YANN Check electrolyte, magnesium Cannot use beta-anastacio for recurrent episodes of bradycardia Advised to use the BiPAP again but he refused stating that the mask does not feel comfortable in spite of trying more than 1 continue to monitor chronic AF rate-controlled. not on metoprolol due to sinus pauses. Continue apixaban f or anticoagulation acute hypoxic resp failure wean O2 as tolerated, not on home O2 CT chest and V/Q, no PE morbid obesity strongly recommend to follow low-calorie diet outpatient bariatric surgery referral VTE ppx apixaban dispo being followed by Physical therapy, patient continued to have low tolerance to functional mobility , dyspnea with minimal exertion with poor gait mechanics and increased risk of fall therefore PT continue to recommend STR, CM working placement Quality Stroke Does the patient have a stroke diagnosis?: No VTE Prior VTE?: No VTE Risk Level:: Medical - moderate - high VTE Device Contraindication: Treatment Not Indicated VTE Drug Contraindication: N/A - Med Ordered
[2021-11-30 11:16] VITALS: BP 119/74; PULSE 88; RESP 18; TEMP 36.7; O2SAT 91
[2021-11-30] MEDS: Furosemide 40 MG/4 ML VIAL IVPUSH (12:31)
[2021-11-30 15:52] VITALS: BP 118/65; PULSE 97; RESP 16; TEMP 36.7; O2SAT 93
[2021-11-30 19:33] VITALS: BP 144/90; PULSE 81; RESP 18; TEMP 37.1; O2SAT 88
[2021-11-30 23:16] VITALS: BP 151/67; PULSE 86; RESP 18; TEMP 36.7; O2SAT 93
[2021-12-01] VITALS (8 sets, daily range): BP systolic 105–142; BP diastolic 58–79; PULSE 80–98; RESP 16–20; TEMP 36.4–36.9; O2SAT 90–97; BMI 63.2
[2021-12-01] MEDS: 0.9 % Sodium Chloride Flush 3 ML SYRINGE IVFLUSH ×4 (03:32→19:59)
[2021-12-01] MEDS: Acetaminophen 325 MG TABLET 650 MG PO ×2 (05:02→17:32)
[2021-12-01 06:56] LABS: B Type Natriuretic Peptide 230 pg/mL (<100)
[2021-12-01 07:15] LABS: Anion Gap 12 (12-20); Blood Urea Nitrogen 20 mg/dL (9-16); Calcium 9.1 mg/dL (8.4-10.2); Carbon Dioxide 39 mmol/L (22-29); Chloride 97 mmol/L (96-108); Creatinine Clr Calc Pharmacy 141.9; Estimated Glomerular Filt Rate > 60; Glucose Random 137 mg/dL (60-115); Potassium 4.8 mmol/L (3.3-5.1); Sodium 143 mmol/L (135-145)
[2021-12-01] MEDS: Apixaban 5 MG TABLET PO ×2 (08:34→19:59)
[2021-12-01] MEDS: guaiFENesin LA 600 MG TAB.ER.12H PO ×2 (08:34→19:59)
[2021-12-01] MEDS: Furosemide 40 MG/4 ML VIAL IVPUSH ×2 (09:49→17:26)
--- NOTE | 2021-12-01 11:07 | HO.PM.IMPN ---
Subjective Subjective Date of Service: 12/01/21 Interval History: Laying in bed, feels comfortable Denies any fever, chills or shortness of breath No more episodes of NSVT noticed BNP elevated No reported other overnight events. Review of Systems No fever, chills or weakness No chest pain, palpitation No shortness of breath No abdominal pain, nausea or vomiting No urinary symptoms No any rash or wounds Physical Exam Vital Signs: Vital Signs: Last Vital Signs Temp 97.9 F 12/01/21 07:57 Pulse 92 12/01/21 09:03 Resp 16 12/01/21 07:57 BP 115/74 12/01/21 09:03 Pulse Ox 90 L 12/01/21 09:03 BMI result Body Mass Index 63.2 Const: Other: Gen:? Awake alert, no distress HEENT: sclera anicteric, moist mucus membranes Neck: supple, no JVD Lungs: clear to auscultation bilaterally, fair bilateral air entry decreased more on the right side Heart: irregularly irregular, no murmurs Abd: soft, non-tender, non-distended, morbidly obese Skin: warm/well-perfused Neuro: alert and oriented x3, no focal?findings Psych: appropriate affect Objective Data Active Medications Acetaminophen (Acetaminophen 325 Mg Tablet) 650 mg PO Q6H PRN PRN Reason: Pain, Mild (Pain Scale 1-3) Last Admin: 12/01/21 05:02 Dose: 650 mg Documented by: JOURDAN Albuterol Sulfate (Albuterol Sulfate 90 Mcg 8 Gm Inhaler) 2 puff INHALE RQ4H PRN PRN Reason: sob Apixaban (Apixaban 5 Mg Tablet) 5 mg PO BID [facility] Last Admin: 12/01/21 08:34 Dose: 5 mg Documented by: SHAHEED Furosemide (Furosemide 40 Mg Tablet) 40 mg PO DAILY [facility]; Protocol Last Admin: 11/30/21 08:08 Dose: 40 mg Documented by: SHAHEED Furosemide (Furosemide 40 Mg/4 Ml Vial) 40 mg IVPUSH BID@0900,1800 [facility]; Protocol Last Admin: 12/01/21 09:49 Dose: 40 mg Documented by: SHAHEED Guaifenesin (Guaifenesin La 600 Mg Tab.Er.12h) 600 mg PO BID [facility] Last Admin: 12/01/21 08:34 Dose: 600 mg Documented by: SHAHEED Hydroxyzine HCl (Hydroxyzine Hcl 50 Mg/Ml Vial) 50 mg IM Q6H PRN PRN Reason: anxiety Last Admin: 11/29/21 17:22 Dose: 50 mg Documented by: LETITIA Loperamide HCl (Loperamide Hcl 2 Mg Capsule) 2 mg PO Q4H PRN PRN Reason: Diarrhea Last Admin: 11/30/21 20:14 Dose: 2 mg Documented by: JOURDAN Melatonin (Melatonin 3 Mg Tablet) 6 mg PO BEDTIME PRN PRN Reason: Insomnia Last Admin: 11/14/21 23:52 Dose: 6 mg Documented by: HERMELINDA Pharmacy Consult (Consult Rx Perform Med Rec) 1 each MISCELLANE ONCE PRN PRN Reason: Consult order Pharmacy Consult (Consult Rx Perform Med Rec) 1 each MISCELLANE ONCE PRN PRN Reason: Consult order Senna (Sennosides 8.6 Mg Tablet) 17.2 mg PO BEDTIME PRN PRN Reason: Constipation Sodium Chloride (0.9 % Sodium Chloride Flush 3 Ml [facility]) [facility] Last Admin: 12/01/21 08:31 Dose: 3 ml Documented by: SHAHEED Labs CBC & Chem 7: 11/24/21 05:44 12/01/21 06:00 Labs: Laboratory Results - last 24 hr 12/01/21 12/01/21 06:00 06:00 Anion Gap 12 Estim Creat Clear Calc 141.9 Estimated GFR > 60 Random Glucose 137 H D Calcium 9.1 B-Natriuretic Peptide 230 H Assessment and Plan (1) NSVT (nonsustained ventricular tachycardia): Status: Acute (2) Physical deconditioning: Status: Acute (3) Morbidly obese: Status: Acute (4) Congestive heart failure: Status: Acute Plan 66yo M with AF, morbid obesity presenting with dyspnea, weight gain, leg edema admitted for CHF exacerbation acute diastolic R-sided HF exacerbation BNP increased again 350 Increased oxygen supplement, tachycardia Continue IV Lasix 40 mg b.i.d. for 1 more day and continue to monitor PO furosemide held for now pt will f/u with his qa engineer, Dr Mason at [facility] physical deconditioning Evaluated by physical therapy team who recommended short-term rehab Pending placement - difficulty finding bariatric placement, patient unable to manage at home sinus pauses/ sinus bradycardia patient asymptomatic during episodes seen by cardiology bradycardia likely due to undiagnosed YANN , since this is reversible not committed to pacemaker patient unwilling to wear CPAP, he could not tolerate the mask on his face outpt polysomnography Qualifies for BiPAP by overnight oximetry but the patient refusing to wear the CPAP. NSVTs Related to untreated underlying YANN Check electrolyte, magnesium Cannot use beta-anastacio for recurrent episodes of bradycardia Advised to use the BiPAP again but he refused stating that the mask does not feel comfortable in spite of trying more than 1 continue to monitor chronic AF rate-controlled. not on metoprolol due to sinus pauses. Continue apixaban for anticoagulation acute hypoxic resp failure wean O2 as tolerated, not on home O2 CT chest and V/Q, no PE morbid obesity strongly recommend to follow low-calorie diet outpatient bariatric surgery referral VTE ppx apixaban dispo being followed by Physical therapy, patient continued to have low tolerance to functional mobility , dyspnea with minimal exertion with poor gait mechanics and increased risk of fall therefore PT continue to recommend STR, CM working placement Quality Stroke Does the patient have a stroke diagnosis?: No VTE Prior VTE?: No VTE Risk Level:: Medical - moderate - high VTE Device Contraindication: Treatment Not Indicated VTE Drug Contraindication: N/A - Med Ordered
[2021-12-01] MEDS: Loperamide HCl 2 MG CAPSULE PO (17:32)
[2021-12-02] MEDS: Acetaminophen 325 MG TABLET 650 MG PO ×4 (01:30→20:32)
[2021-12-02 03:44] VITALS: BP 109/78; PULSE 88; RESP 20; TEMP 36.5; O2SAT 95
[2021-12-02 06:57] LABS: B Type Natriuretic Peptide 194 pg/mL (<100)
[2021-12-02 07:05] LABS: Blood Urea Nitrogen 18 mg/dL (9-16); Calcium 9.2 mg/dL (8.4-10.2); Creatinine Clr Calc Pharmacy 156.8; Estimated Glomerular Filt Rate > 60; Glucose Random 104 mg/dL (60-115)
[2021-12-02 07:15] VITALS: BP 143/68; PULSE 93; RESP 18; TEMP 36.4; O2SAT 95
[2021-12-02 07:25] LABS: Anion Gap 9 (12-20); Carbon Dioxide 45 mmol/L (22-29); Chloride 94 mmol/L (96-108); Potassium 4.2 mmol/L (3.3-5.1); Sodium 144 mmol/L (135-145)
[2021-12-02] MEDS: guaiFENesin LA 600 MG TAB.ER.12H PO ×2 (08:13→20:33)
[2021-12-02] MEDS: Furosemide 40 MG/4 ML VIAL IVPUSH (08:13)
[2021-12-02] MEDS: Apixaban 5 MG TABLET PO ×2 (08:13→20:33)
[2021-12-02] MEDS: 0.9 % Sodium Chloride Flush 3 ML SYRINGE IVFLUSH ×3 (08:14→20:33)
[2021-12-02 09:11] VITALS: BP 143/68; PULSE 93; O2SAT 95
[2021-12-02] MEDS: acetaZOLAMIDE sodium 500 MG VIAL 250 MG IVPUSH ×2 (10:42→17:28)
[2021-12-02 11:09] VITALS: BP 94/51; PULSE 98; RESP 19; TEMP 37.2; O2SAT 97
--- NOTE | 2021-12-02 13:25 | P.PNIM_ITS ---
Subjective Subjective Date of Service: 12/02/21 Interval History: cc: sob interval history: tremor Cardiovascular Cardiovascular: Reports no additional cardiovascular complaints Respiratory Respiratory: Reports no additional respiratory complaints Physical Exam Vital Signs: Vital Signs: Last Vital Signs Temp 98.9 F 12/02/21 11:09 Pulse 98 12/02/21 11:09 Resp 19 12/02/21 11:09 BP 94/51 L 12/02/21 11:09 Pulse Ox 97 12/02/21 11:09 BMI result Body Mass Index 63.2 General: AO X 3, no acute distress Resp: diminished bilateral, no accessory muscles used CVS: S1,S2,RRR GI: soft, non tender, non distended Neuro: motor grossly intact, alert Psych: appropriate affect, appropriate insight Objective Data Active Medications Acetaminophen (Acetaminophen 325 Mg Tablet) 650 mg PO Q6H PRN PRN Reason: Pain, Mild (Pain Scale 1-3) Last Admin: 12/02/21 08:19 Dose: 650 mg Documented by: LEEANN Acetazolamide (Acetazolamide Sodium 500 Mg Vial) 250 mg IVPUSH Q8H ULYSSES Stop: 12/03/21 02:01 Last Admin: 12/02/21 10:42 Dose: 250 mg Documented by: LEEANN Albuterol Sulfate (Albuterol Sulfate 90 Mcg 8 Gm Inhaler) 2 puff INHALE RQ4H PRN PRN Reason: sob Apixaban (Apixaban 5 Mg Tablet) 5 mg PO BID [facility] Last Admin: 12/02/21 08:13 Dose: 5 mg Documented by: LEEANN Furosemide (Furosemide 40 Mg Tablet) 40 mg PO DAILY [facility]; Protocol Last Admin: 11/30/21 08:08 Dose: 40 mg Documented by: SHAHEED Guaifenesin (Guaifenesin La 600 Mg Tab.Er.12h) 600 mg PO BID [facility] Last Admin: 12/02/21 08:13 Dose: 600 mg Documented by: LEEANN Hydroxyzine HCl (Hydroxyzine Hcl 50 Mg/Ml Vial) 50 mg IM Q6H PRN PRN Reason: anxiety Last Admin: 11/29/21 17:22 Dose: 50 mg Documented by: IGLESM Loperamide HCl (Loperamide Hcl 2 Mg Capsule) 2 mg PO Q4H PRN PRN Reason: Diarrhea Last Admin: 12/01/21 17:32 Dose: 2 mg Documented by: DOBROB Melatonin (Melatonin 3 Mg Tablet) 6 mg PO BEDTIME PRN PRN Reason: Insomnia Last Admin: 11/14/21 23:52 Dose: 6 mg Documented by: HERMELINDA Pharmacy Consult (Consult Rx Perform Med Rec) 1 each MISCELLANE ONCE PRN PRN Reason: Consult order Pharmacy Consult (Consult Rx Perform Med Rec) 1 each MISCELLANE ONCE PRN PRN Reason: Consult order Senna (Sennosides 8.6 Mg Tablet) 17.2 mg PO BEDTIME PRN PRN Reason: Constipation Sodium Chloride (0.9 % Sodium Chloride Flush 3 Ml Syringe) 3 ml IVFLUSH QSHIFT ULYSSES Last Admin: 12/02/21 08:14 Dose: 3 ml Documented by: JEREMIEOSJUD Labs CBC & Chem 7: 11/24/21 05:44 12/02/21 05:56 Labs: Laboratory Results - last 24 hr 12/02/21 12/02/21 05:56 05:56 Anion Gap 9 L Estim Creat Clear Calc 156.8 Estimated GFR > 60 Random Glucose 104 Calcium 9.2 B-Natriuretic Peptide 194 H Assessment and Plan (1) NSVT (nonsustained ventricular tachycardia): Status: Acute (2) Physical deconditioning: Status: Acute (3) Morbidly obese: Status: Acute (4) Congestive heart failure: Status: Acute Plan 66yo M with AF, morbid obesity presenting with dyspnea, weight gain, leg edema admitted for CHF exacerbation acute diastolic R-sided HF exacerbation with acute on chronic hypoxic respiratory failure improved 3 doses diamox switch back to po lasix pt will f/u with 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 NSVTs Related to untreated underlying YANN Check electrolyte, magnesium Cannot use beta-anastacio for recurrent episodes of bradycardia Advised to use the BiPAP again but he refused stating that the mask does not feel comfortable in spite of trying more than 1 continue to monitor chronic AF rate-controlled. not on metoprolol due to sinus pauses. Continue apixaban for anticoagulation acute hypoxic resp failure wean O2 as tolerated, not on home O2 CT chest and V/Q, no PE morbid obesity strongly recommend to follow low-calorie diet outpatient bariatric surgery referral VTE ppx apixaban dispo being followed by Physical therapy, patient continued to have low tolerance to functional mobility , dyspnea with minimal exertion with poor gait mechanics and increased risk of fall therefore PT continue to recommend STR, CM working placement Quality Stroke Does the patient have a stroke diagnosis?: No VTE Prior VTE?: No VTE Risk Level:: Medical - moderate - high VTE Device Contraindication: Treatment Not Indicated VTE Drug Contraindication: N/A - Med Ordered
--- NOTE | 2021-12-02 15:35 | MHC.CM.PN ---
Male 66 DX HF DP STR via BLS. The barrier is Bariatric equipement and staff shortages. The referral was updated. Clinical information has bed sent. No bed offer today.
[2021-12-02 15:40] VITALS: BP 102/50; PULSE 89; RESP 19; TEMP 37.1; O2SAT 96
[2021-12-02 19:14] VITALS: BP 116/57; PULSE 89; RESP 18; TEMP 37.1; O2SAT 90
[2021-12-03] VITALS (7 sets, daily range): BP systolic 98–117; BP diastolic 62–74; PULSE 72–94; RESP 18–20; TEMP 36.3–37.1; O2SAT 90–97
[2021-12-03] MEDS: acetaZOLAMIDE sodium 500 MG VIAL 250 MG IVPUSH ×3 (04:01→15:16)
[2021-12-03 06:54] LABS: Hematocrit 52.3 % (42.0-52.0); Hemoglobin 15.7 g/dl (14.0-18.0); Mean Corpuscular Hemoglobin 29.9 pg (27.0-33.0); Mean Corpuscular Volume 99.6 fL (80.0-98.0); Mean Platelet Volume 9.9 fL (9.4-12.4); Platelet Count 168 X10*3/uL (160-400); Red Blood Count 5.25 X10*6/uL (4.60-5.80); Red Cell Distribution Width 13.4 % (11.0-16.0); White Blood Count 9.3 X10*3/uL (4.8-10.8)
[2021-12-03 07:14] LABS: Anion Gap 10 (12-20); Blood Urea Nitrogen 21 mg/dL (9-16); Calcium 9.1 mg/dL (8.4-10.2); Carbon Dioxide 42 mmol/L (22-29); Chloride 96 mmol/L (96-108); Creatinine Clr Calc Pharmacy 143.6; Estimated Glomerular Filt Rate > 60; Glucose Fasting 100 mg/dL (60-99); Potassium 3.9 mmol/L (3.3-5.1); Sodium 144 mmol/L (135-145)
[2021-12-03] MEDS: Apixaban 5 MG TABLET PO ×2 (08:40→20:19)
[2021-12-03] MEDS: 0.9 % Sodium Chloride Flush 3 ML SYRINGE IVFLUSH ×3 (08:40→20:20)
[2021-12-03] MEDS: guaiFENesin LA 600 MG TAB.ER.12H PO ×2 (08:40→20:19)
--- NOTE | 2021-12-03 10:19 | P.PNIM_ITS ---
Subjective Subjective Date of Service: 12/03/21 Interval History: cc: sob interval history: tremor form yesterday improved Cardiovascular Cardiovascular: Reports no additional cardiovascular complaints Respiratory Respiratory: Reports no additional respiratory complaints Physical Exam Vital Signs: Vital Signs: Last Vital Signs Temp 97.5 F 12/03/21 07:41 Pulse 84 12/03/21 07:41 Resp 20 12/03/21 07:41 BP 115/64 12/03/21 07:41 Pulse Ox 97 12/03/21 07:41 BMI result Body Mass Index 63.2 General: AO X 3, no acute distress Resp:? diminished bilateral, no accessory muscles used CVS: S1,S2,RRR GI: soft, non tender, non distended Neuro:? motor grossly intact, alert Psych: appropriate affect, appropriate insight? Objective Data Active Medications Acetaminophen (Acetaminophen 325 Mg Tablet) 650 mg PO Q6H PRN PRN Reason: Pain, Mild (Pain Scale 1-3) Last Admin: 12/02/21 20:32 Dose: 650 mg Documented by: SCARLET Acetazolamide (Acetazolamide Sodium 500 Mg Vial) 250 mg IVPUSH Q8H ULYSSES Stop: 12/03/21 23:46 Last Admin: 12/03/21 08:39 Dose: 250 mg Documented by: MITCH Albuterol Sulfate (Albuterol Sulfate 90 Mcg 8 Gm Inhaler) 2 puff INHALE RQ4H PRN PRN Reason: sob Apixaban (Apixaban 5 Mg Tablet) 5 mg PO BID [facility] Last Admin: 12/03/21 08:40 Dose: 5 mg Documented by: MITCH Furosemide (Furosemide 40 Mg Tablet) 40 mg PO DAILY [facility]; Protocol Last Admin: 11/30/21 08:08 Dose: 40 mg Documented by: SHAHEED Guaifenesin (Guaifenesin La 600 Mg Tab.Er.12h) 600 mg PO BID [facility] Last Admin: 12/03/21 08:40 Dose: 600 mg Documented by: MITCH Hydroxyzine HCl (Hydroxyzine Hcl 50 Mg/Ml Vial) 50 mg IM Q6H PRN PRN Reason: anxiety Last Admin: 11/29/21 17:22 Dose: 50 mg Documented by: IGLESM Loperamide HCl (Loperamide Hcl 2 Mg Capsule) 2 mg PO Q4H PRN PRN Reason: Diarrhea Last Admin: 12/01/21 17:32 Dose: 2 mg Documented by: DOBROB Melatonin (Melatonin 3 Mg Tablet) 6 mg PO BEDTIME PRN PRN Reason: Insomnia Last Admin: 11/14/21 23:52 Dose: 6 mg Documented by: HERMELINDA Pharmacy Consult (Consult Rx Perform Med Rec) 1 each MISCELLANE ONCE PRN PRN Reason: Consult order Pharmacy Consult (Consult Rx Perform Med Rec) 1 each MISCELLANE ONCE PRN PRN Reason: Consult order Senna (Sennosides 8.6 Mg Tablet) 17.2 mg PO BEDTIME PRN PRN Reason: Constipation Sodium Chloride (0.9 % Sodium Chloride Flush 3 Ml Syringe) 3 ml IVFLUSH QSHIFT ULYSSES Last Admin: 12/03/21 08:40 Dose: 3 ml Documented by: MITCH Labs CBC & Chem 7: 12/03/21 06:08 12/03/21 06:08 Labs: Laboratory Results - last 24 hr 12/03/21 12/03/21 06:08 06:08 MCV 99.6 H MCH 29.9 MCHC 30.0 L RDW 13.4 Plt Count 168 D MPV 9.9 Absolute Nucleated RBC 0.000 Nucleated RBC % (auto) 0.0 Anion Gap 10 L Estim Creat Clear Calc 143.6 Estimated GFR > 60 Fasting Glucose 100 H Calcium 9.1 Assessment and Plan (1) NSVT (nonsustained ventricular tachycardia): Status: Acute (2) Physical deconditioning: Status: Acute (3) Morbidly obese: Status: Acute (4) Congestive heart failure: Status: Acute Plan 66yo M with AF, morbid obesity presenting with dyspnea, weight gain, leg edema admitted for CHF exacerbation acute diastolic R-sided HF exacerbation with acute on chronic hypoxic respiratory failure improved additional 3 doses diamox then switch back to po lasix if hypercarbia improved pt will f/u with his residential care officer, Dr Mason at [facility] physical deconditioning Evaluated by physical therapy team who recommended short-term rehab Pending placement - difficulty finding bariatric placement, patient unable to manage at home sinus pauses/ sinus bradycardia patient asymptomatic during episodes seen by cardiology bradycardia likely due to undiagnosed YANN , since this is reversible not committed to pacemaker patient unwilling to wear CPAP, he could not tolerate the mask on his face outpt polysomnography Qualifies for BiPAP by overnight oximetry but the patient refusing to wear the CPAP. NSVTs Related to untreated underlying YANN Check electrolyte, magnesium Cannot use beta-anastacio for recurrent episodes of bradycardia Advised to use the BiPAP again but he refused stating that the mask does not feel comfortable in spite of trying more than 1 continue to monitor chronic AF rate-controlled. not on metoprolol due to sinus pauses. Continue apixaban for anticoagulation acute hypoxic resp failure wean O2 as tolerated, not on home O2 CT chest and V/Q, no PE morbid obesity strongly recommend to follow low-calorie diet outpatient bariatric surgery referral VTE ppx apixaban dispo being followed by Physical therapy, patient continued to have low tolerance to functional mobility , dyspnea with minimal exertion with poor gait mechanics and increased risk of fall therefore PT continue to recommend STR, CM working placement Quality Stroke Does the patient have a stroke diagnosis?: No VTE Prior VTE?: No VTE Risk Level:: Medical - moderate - high VTE Device Contraindication: Treatment Not Indicated VTE Drug Contraindication: N/A - Med Ordered
[2021-12-03] MEDS: Acetaminophen 325 MG TABLET 650 MG PO (15:16)
[2021-12-04] VITALS (7 sets, daily range): BP systolic 104–124; BP diastolic 57–96; PULSE 80–90; RESP 18–20; TEMP 36.2–37.1; O2SAT 93–97
[2021-12-04] MEDS: acetaZOLAMIDE sodium 500 MG VIAL 250 MG IVPUSH (00:36)
[2021-12-04] MEDS: Acetaminophen 325 MG TABLET 650 MG PO ×2 (00:36→10:18)
[2021-12-04 07:11] LABS: Hematocrit 54.1 % (42.0-52.0); Hemoglobin 16.3 g/dl (14.0-18.0); Mean Corpuscular HGB Conc 30.1 g/dl (31.0-36.0); Mean Corpuscular Volume 99.4 fL (80.0-98.0); Mean Platelet Volume 9.8 fL (9.4-12.4); Platelet Count 173 X10*3/uL (160-400); Red Blood Count 5.44 X10*6/uL (4.60-5.80); Red Cell Distribution Width 13.6 % (11.0-16.0); White Blood Count 9.2 X10*3/uL (4.8-10.8)
[2021-12-04 07:22] LABS: Anion Gap 10 (12-20); Blood Urea Nitrogen 23 mg/dL (9-16); Carbon Dioxide 38 mmol/L (22-29); Chloride 100 mmol/L (96-108); Creatinine Clr Calc Pharmacy 126.8; Estimated Glomerular Filt Rate > 60; Glucose Fasting 104 mg/dL (60-99); Potassium 4.2 mmol/L (3.3-5.1); Sodium 144 mmol/L (135-145)
--- NOTE | 2021-12-04 10:16 | HO.PM.IMPN ---
Subjective Subjective Date of Service: 12/04/21 Interval History: cc: sob interval history: improved Cardiovascular Cardiovascular: Reports no additional cardiovascular complaints Respiratory Respiratory: Reports no additional respiratory complaints Physical Exam Vital Signs: Vital Signs: Last Vital Signs Temp 97.6 F 12/04/21 08:00 Pulse 84 12/04/21 08:23 Resp 20 12/04/21 08:00 BP 111/68 12/04/21 08:23 Pulse Ox 94 12/04/21 08:23 BMI result Body Mass Index 63.2 General: AO X 3, no acute distress Resp:? diminished bilateral, no accessory muscles used CVS: S1,S2,RRR GI: soft, non tender, non distended Neuro:? motor grossly intact, alert Psych: appropriate affect, appropriate insight? Objective Data Active Medications Acetaminophen (Acetaminophen 325 Mg Tablet) 650 mg PO Q6H PRN PRN Reason: Pain, Mild (Pain Scale 1-3) Last Admin: 12/04/21 00:36 Dose: 650 mg Documented by: SCARLET Albuterol Sulfate (Albuterol Sulfate 90 Mcg 8 Gm Inhaler) 2 puff INHALE RQ4H PRN PRN Reason: sob Apixaban (Apixaban 5 Mg Tablet) 5 mg PO BID [facility] Last Admin: 12/03/21 20:19 Dose: 5 mg Documented by: SCARLET Furosemide (Furosemide 40 Mg Tablet) 40 mg PO DAILY [facility]; Protocol Last Admin: 11/30/21 08:08 Dose: 40 mg Documented by: SHAHEED Guaifenesin (Guaifenesin La 600 Mg Tab.Er.12h) 600 mg PO BID [facility] Last Admin: 12/03/21 20:19 Dose: 600 mg Documented by: SCARLET Hydroxyzine HCl (Hydroxyzine Hcl 50 Mg/Ml Vial) 50 mg IM Q6H PRN PRN Reason: anxiety Last Admin: 11/29/21 17:22 Dose: 50 mg Documented by: IGLESM Loperamide HCl (Loperamide Hcl 2 Mg Capsule) 2 mg PO Q4H PRN PRN Reason: Diarrhea Last Admin: 12/01/21 17:32 Dose: 2 mg Documented by: BROB Melatonin (Melatonin 3 Mg Tablet) 6 mg PO BEDTIME PRN PRN Reason: Insomnia Last Admin: 11/14/21 23:52 Dose: 6 mg Documented by: HERMELINDA Pharmacy Consult (Consult Rx Perform Med Rec) 1 each MISCELLANE ONCE PRN PRN Reason: Consult order Pharmacy Consult (Consult Rx Perform Med Rec) 1 each MISCELLANE ONCE PRN PRN Reason: Consult order Senna (Sennosides 8.6 Mg Tablet) 17.2 mg PO BEDTIME PRN PRN Reason: Constipation Sodium Chloride (0.9 % Sodium Chloride Flush 3 Ml Syringe) 3 ml IVFLUSH QSHIFT ULYSSES Last Admin: 12/03/21 20:20 Dose: 3 ml Documented by: SCARLET Labs CBC & Chem 7: 12/04/21 06:54 12/04/21 06:54 Labs: Laboratory Results - last 24 hr 12/04/21 12/04/21 06:54 06:54 MCV 99.4 H MCH 30.0 MCHC 30.1 L RDW 13.6 Plt Count 173 MPV 9.8 Absolute Nucleated RBC 0.000 Nucleated RBC % (auto) 0.0 Anion Gap 10 L Estim Creat Clear Calc 126.8 Estimated GFR > 60 Fasting Glucose 104 H Calcium 9.0 Assessment and Plan (1) NSVT (nonsustained ventricular tachycardia): Status: Acute (2) Physical deconditioning: Status: Acute (3) Morbidly obese: Status: Acute (4) Congestive heart failure: Status: Acute Plan 66yo M with AF, morbid obesity presenting with dyspnea, weight gain, leg edema admitted for CHF exacerbation acute diastolic R-sided HF exacerbation with acute on chronic hypoxic respiratory failure improved continue maintenance lasix 40mg daily po pt will f/u with his baggage inspector, Dr Mason at [facility] physical deconditioning Evaluated by physical therapy team who recommended short-term rehab Pending placement - difficulty finding bariatric placement, patient unable to manage at home sinus pauses/ sinus bradycardia patient asymptomatic during episodes seen by cardiology bradycardia likely due to undiagnosed YANN , since this is reversible not committed to pacemaker patient unwilling to wear CPAP, he could not tolerate the mask on his face outpt polysomnography Qualifies for BiPAP by overnight oximetry but the patient refusing to wear the CPAP. NSVTs Related to untreated underlying YANN Check electrolyte, magnesium Cannot use beta-anastacio for recurrent episodes of bradycardia Advised to use the BiPAP again but he refused stating that the mask does not feel comfortable in spite of trying more than 1 continue to monitor chronic AF rate-controlled. not on metoprolol due to sinus pauses. Continue apixaban for anticoagulation acute hypoxic resp failure wean O2 as tolerated, not on home O2 CT chest and V/Q, no PE morbid obesity strongly recommend to follow low-calorie diet outpatient bariatric surgery referral VTE ppx apixaban dispo being followed by Physical therapy, patient continued to have low tolerance to functional mobility , dyspnea with minimal exertion with poor gait mechanics and increased risk of fall therefore PT continue to recommend STR, CM working placement Quality Stroke Does the patient have a stroke diagnosis?: No VTE Prior VTE?: No VTE Risk Level:: Medical - moderate - high VTE Device Contraindication: Treatment Not Indicated VTE Drug Contraindication: N/A - Med Ordered
[2021-12-04] MEDS: guaiFENesin LA 600 MG TAB.ER.12H PO ×2 (10:18→19:39)
[2021-12-04] MEDS: Apixaban 5 MG TABLET PO ×2 (10:18→19:40)
[2021-12-04] MEDS: Furosemide 40 MG TABLET PO (10:18)
[2021-12-04] MEDS: 0.9 % Sodium Chloride Flush 3 ML SYRINGE IVFLUSH ×3 (10:19→19:40)
--- NOTE | 2021-12-04 14:55 | MHC.CM.PN ---
Male 66 DX HF DP STR via BLS. A bed search for a Bariatric patient has not provided a bed. Emeterio Hurst was asked to take another look at this patient. The did not offer a bed today. They stated that his Oxygen demand was too high. The patient is in the process of weaning from oxygen. He was on 5L yesterday. He is on 3L today. His need for supplemental oxygen varies. A referral was made to [facility] financial councilors. They are meeting the patient to apply for [employer]. The hope is that a secondary payor source will assist with placement.
[2021-12-05 03:23] VITALS: BP 107/82; PULSE 87; RESP 20; TEMP 36.8; O2SAT 93
[2021-12-05 07:53] VITALS: BP 114/54; PULSE 73; RESP 19; TEMP 36.6; O2SAT 93
[2021-12-05] MEDS: Apixaban 5 MG TABLET PO ×2 (09:40→21:12)
[2021-12-05] MEDS: 0.9 % Sodium Chloride Flush 3 ML SYRINGE IVFLUSH ×3 (09:40→21:14)
[2021-12-05] MEDS: guaiFENesin LA 600 MG TAB.ER.12H PO ×2 (09:40→21:12)
[2021-12-05] MEDS: Furosemide 40 MG TABLET PO (09:40)
[2021-12-05] MEDS: Acetaminophen 325 MG TABLET 650 MG PO (09:41)
[2021-12-05 11:27] VITALS: BP 110/56; PULSE 84; RESP 19; TEMP 36.9; O2SAT 93
--- NOTE | 2021-12-05 13:46 | HO.PM.IMPN ---
Subjective Subjective Date of Service: 12/05/21 Interval History: cc: sob interval history: improved Cardiovascular Cardiovascular: Reports no additional cardiovascular complaints Respiratory Respiratory: Reports no additional respiratory complaints Physical Exam Vital Signs: Vital Signs: Last Vital Signs Temp 98.4 F 12/05/21 11:27 Pulse 84 12/05/21 11:27 Resp 19 12/05/21 11:27 BP 110/56 L 12/05/21 11:27 Pulse Ox 93 12/05/21 11:27 BMI result Body Mass Index 63.2 General: AO X 3, no acute distress Resp:? diminished bilateral, no accessory muscles used CVS: S1,S2,RRR GI: soft, non tender, non distended Neuro:? motor grossly intact, alert Psych: appropriate affect, appropriate insight? Objective Data Active Medications Acetaminophen (Acetaminophen 325 Mg Tablet) 650 mg PO Q6H PRN PRN Reason: Pain, Mild (Pain Scale 1-3) Last Admin: 12/05/21 09:41 Dose: 650 mg Documented by: MICHELLE Albuterol Sulfate (Albuterol Sulfate 90 Mcg 8 Gm Inhaler) 2 puff INHALE RQ4H PRN PRN Reason: sob Apixaban (Apixaban 5 Mg Tablet) 5 mg PO BID [facility] Last Admin: 12/05/21 09:40 Dose: 5 mg Documented by: MICHELLE Furosemide (Furosemide 40 Mg Tablet) 40 mg PO DAILY [facility]; Protocol Last Admin: 12/05/21 09:40 Dose: 40 mg Documented by: MICHELLE Guaifenesin (Guaifenesin La 600 Mg Tab.Er.12h) 600 mg PO BID [facility] Last Admin: 12/05/21 09:40 Dose: 600 mg Documented by: MICHELLE Hydroxyzine HCl (Hydroxyzine Hcl 50 Mg/Ml Vial) 50 mg IM Q6H PRN PRN Reason: anxiety Last Admin: 11/29/21 17:22 Dose: 50 mg Documented by: IGLESM Loperamide HCl (Loperamide Hcl 2 Mg Capsule) 2 mg PO Q4H PRN PRN Reason: Diarrhea Last Admin: 12/01/21 17:32 Dose: 2 mg Documented by: MICHELLE Melatonin (Melatonin 3 Mg Tablet) 6 mg PO BEDTIME PRN PRN Reason: Insomnia Last Admin: 11/14/21 23:52 Dose: 6 mg Documented by: HERMELINDA Pharmacy Consult (Consult Rx Perform Med Rec) 1 each MISCELLANE ONCE PRN PRN Reason: Consult order Pharmacy Consult (Consult Rx Perform Med Rec) 1 each MISCELLANE ONCE PRN PRN Reason: Consult order Senna (Sennosides 8.6 Mg Tablet) 17.2 mg PO BEDTIME PRN PRN Reason: Constipation Sodium Chloride (0.9 % Sodium Chloride Flush 3 Ml Syringe) 3 ml IVFLUSH QSHIFT [facility] Last Admin: 12/05/21 09:40 Dose: 3 ml Documented by: MICHELLE Labs CBC & Chem 7: 12/04/21 06:54 12/04/21 06:54 Assessment and Plan (1) NSVT (nonsustained ventricular tachycardia): Status: Acute (2) Physical deconditioning: Status: Acute (3) Morbidly obese: Status: Acute (4) Congestive heart failure: Status: Acute Plan 66yo M with AF, morbid obesity presenting with dyspnea, weight gain, leg edema admitted for CHF exacerbation acute diastolic R-sided HF exacerbation with acute on chronic hypoxic respiratory failure improved continue maintenance lasix 40mg daily po pt will f/u with his veterinary receptionist, Dr Mason at [facility] physical deconditioning Evaluated by physical therapy team who recommended short-term rehab Pending placement - difficulty finding bariatric placement, patient unable to manage at home sinus pauses/ sinus bradycardia patient asymptomatic during episodes seen by cardiology bradycardia likely due to undiagnosed YANN , since this is reversible not committed to pacemaker patient unwilling to wear CPAP, he could not tolerate the mask on his face outpt polysomnography Qualifies for BiPAP by overnight oximetry but the patient refusing to wear the CPAP. NSVTs Related to untreated underlying YANN Check electrolyte, magnesium Cannot use beta-anastacio for recurrent episodes of bradycardia Advised to use the BiPAP again but he refused stating that the mask does not feel comfortable in spite of trying more than 1 continue to monitor chronic AF rate-controlled. not on metoprolol due to sinus pauses. Continue apixaban for anticoagulation acute hypoxic resp failure wean O2 as tolerated, not on home O2 CT chest and V/Q, no PE morbid obesity strongly recommend to follow low-calorie diet outpatient bariatric surgery referral VTE ppx apixaban dispo being followed by Physical therapy, patient continued to have low tolerance to functional mobility , dyspnea with minimal exertion with poor gait mechanics and increased risk of fall therefore PT continue to recommend STR, CM working placement Quality Stroke Does the patient have a stroke diagnosis?: No VTE Prior VTE?: No VTE Risk Level:: Medical - moderate - high VTE Device Contraindication: Treatment Not Indicated VTE Drug Contraindication: N/A - Med Ordered
[2021-12-05 16:00] VITALS: BP 109/65; PULSE 86; TEMP 36.6; O2SAT 96
--- NOTE | 2021-12-05 17:50 | PC.NURSE ---
Patient attempted to get out of bed but was unsuccessful, patient was able to lift him self up to the sitting position but was unable to stand up.
[2021-12-05 19:44] VITALS: BP 114/58; PULSE 94; RESP 18; TEMP 36.2; O2SAT 98
[2021-12-05 23:48] VITALS: BP 118/65; PULSE 90; RESP 18; TEMP 36.1; O2SAT 93
[2021-12-06 03:50] VITALS: BP 118/66; PULSE 78; RESP 18; TEMP 36.4; O2SAT 93
[2021-12-06] MEDS: Acetaminophen 325 MG TABLET 650 MG PO ×3 (05:16→21:35)
[2021-12-06 07:39] VITALS: BP 109/65; PULSE 76; RESP 18; TEMP 36.6; O2SAT 93
[2021-12-06] MEDS: Apixaban 5 MG TABLET PO ×2 (09:21→20:41)
[2021-12-06] MEDS: Furosemide 40 MG TABLET PO (09:21)
[2021-12-06] MEDS: 0.9 % Sodium Chloride Flush 3 ML SYRINGE IVFLUSH ×2 (09:21→15:57)
[2021-12-06] MEDS: guaiFENesin LA 600 MG TAB.ER.12H PO ×2 (09:21→20:41)
--- NOTE | 2021-12-06 10:22 | P.PNIM_ITS ---
Subjective Subjective Date of Service: 12/06/21 Interval History: cc: sob interval history: improved Cardiovascular Cardiovascular: Reports no additional cardiovascular complaints Respiratory Respiratory: Reports no additional respiratory complaints Physical Exam Vital Signs: Vital Signs: Last Vital Signs Temp 97.9 F 12/06/21 07:39 Pulse 76 12/06/21 07:39 Resp 18 12/06/21 07:39 BP 109/65 12/06/21 07:39 Pulse Ox 93 12/06/21 07:39 BMI result Body Mass Index 63.2 General: AO X 3, no acute distress Resp:? diminished bilateral, no accessory muscles used CVS: S1,S2,RRR GI: soft, non tender, non distended Neuro:? motor grossly intact, alert Psych: appropriate affect, appropriate insight? Objective Data Active Medications Acetaminophen (Acetaminophen 325 Mg Tablet) 650 mg PO Q6H PRN PRN Reason: Pain, Mild (Pain Scale 1-3) Last Admin: 12/06/21 05:16 Dose: 650 mg Documented by: AWA Albuterol Sulfate (Albuterol Sulfate 90 Mcg 8 Gm Inhaler) 2 puff INHALE RQ4H PRN PRN Reason: sob Apixaban (Apixaban 5 Mg Tablet) 5 mg PO BID [facility] Last Admin: 12/06/21 09:21 Dose: 5 mg Documented by: MICHELLE Furosemide (Furosemide 40 Mg Tablet) 40 mg PO DAILY [facility]; Protocol Last Admin: 12/06/21 09:21 Dose: 40 mg Documented by: BRONahomi Guaifenesin (Guaifenesin La 600 Mg Tab.Er.12h) 600 mg PO BID [facility] Last Admin: 12/06/21 09:21 Dose: 600 mg Documented by: MICHELLE Hydroxyzine HCl (Hydroxyzine Hcl 50 Mg/Ml Vial) 50 mg IM Q6H PRN PRN Reason: anxiety Last Admin: 11/29/21 17:22 Dose: 50 mg Documented by: IGLESM Loperamide HCl (Loperamide Hcl 2 Mg Capsule) 2 mg PO Q4H PRN PRN Reason: Diarrhea Last Admin: 12/01/21 17:32 Dose: 2 mg Documented by: MICHELLE Melatonin (Melatonin 3 Mg Tablet) 6 mg PO BEDTIME PRN PRN Reason: Insomnia Last Admin: 11/14/21 23:52 Dose: 6 mg Documented by: HERMELINDA Pharmacy Consult (Consult Rx Perform Med Rec) 1 each MISCELLANE ONCE PRN PRN Reason: Consult order Pharmacy Consult (Consult Rx Perform Med Rec) 1 each MISCELLANE ONCE PRN PRN Reason: Consult order Senna (Sennosides 8.6 Mg Tablet) 17.2 mg PO BEDTIME PRN PRN Reason: Constipation Sodium Chloride (0.9 % Sodium Chloride Flush 3 Ml Syringe) 3 ml IVFLUSH QSHIFT [facility] Last Admin: 12/06/21 09:21 Dose: 3 ml Documented by: MICHELLE Labs CBC & Chem 7: 12/04/21 06:54 12/04/21 06:54 Assessment and Plan (1) NSVT (nonsustained ventricular tachycardia): Status: Acute (2) Physical deconditioning: Status: Acute (3) Morbidly obese: Status: Acute (4) Congestive heart failure: Status: Acute Plan 66yo M with AF, morbid obesity presenting with dyspnea, weight gain, leg edema admitted for CHF exacerbation headache today motrin times one monitor acute diastolic R-sided HF exacerbation with acute on chronic hypoxic respiratory failure improved continue maintenance lasix 40mg daily po pt will f/u with his tip stretcher, Dr Mason at [facility] physical deconditioning Evaluated by physical therapy team who recommended short-term rehab Pending placement - difficulty finding bariatric placement, patient unable to manage at home sinus pauses/ sinus bradycardia patient asymptomatic during episodes seen by cardiology bradycardia likely due to undiagnosed YANN , since this is reversible not committed to pacemaker patient unwilling to wear CPAP, he could not tolerate the mask on his face outpt polysomnography Qualifies for BiPAP by overnight oximetry but the patient refusing to wear the CPAP. NSVTs Related to untreated underlying YANN Check electrolyte, magnesium Cannot use beta-anastacio for recurrent episodes of bradycardia Advised to use the BiPAP again but he refused stating that the mask does not feel comfortable in spite of trying more than 1 continue to monitor chronic AF rate-controlled. not on metoprolol due to sinus pauses. Continue apixaban for anticoagulation acute hypoxic resp failure wean O2 as tolerated, not on home O2 CT chest and V/Q, no PE morbid obesity strongly recommend to follow low-calorie diet outpatient bariatric surgery referral VTE ppx apixaban dispo being followed by Physical therapy, patient continued to have low tolerance to functional mobility , dyspnea with minimal exertion with poor gait mechanics and increased risk of fall therefore PT continue to recommend STR, CM working placement Quality Stroke Does the patient have a stroke diagnosis?: No VTE Prior VTE?: No VTE Risk Level:: Medical - moderate - high VTE Device Contraindication: Treatment Not Indicated VTE Drug Contraindication: N/A - Med Ordered
[2021-12-06] MEDS: Ibuprofen 400 MG TABLET PO (10:38)
[2021-12-06 11:45] VITALS: BP 113/63; PULSE 90; RESP 17; TEMP 36.8; O2SAT 92
[2021-12-06 15:46] VITALS: BP 127/59; PULSE 81; RESP 16; TEMP 36.8; O2SAT 94
[2021-12-06 19:28] VITALS: BP 123/58; PULSE 93; RESP 16; TEMP 36.7; O2SAT 93
[2021-12-07] VITALS (7 sets, daily range): BP systolic 106–134; BP diastolic 51–77; PULSE 66–93; RESP 18–20; TEMP 36.1–37.3; O2SAT 92–95
[2021-12-07] MEDS: 0.9 % Sodium Chloride Flush 3 ML SYRINGE IVFLUSH ×4 (00:22→21:08)
[2021-12-07] MEDS: Apixaban 5 MG TABLET PO ×2 (09:24→21:07)
[2021-12-07] MEDS: Furosemide 40 MG TABLET PO (09:24)
[2021-12-07] MEDS: Acetaminophen 325 MG TABLET 650 MG PO ×2 (09:27→21:07)
--- NOTE | 2021-12-07 09:30 | HO.PM.IMPN ---
Subjective Subjective Date of Service: 12/07/21 Interval History: cc: sob interval history: improved Cardiovascular Cardiovascular: Reports no additional cardiovascular complaints Respiratory Respiratory: Reports no additional respiratory complaints Physical Exam Vital Signs: Vital Signs: Last Vital Signs Temp 97.3 F 12/07/21 07:21 Pulse 93 12/07/21 07:21 Resp 19 12/07/21 07:21 BP 134/71 12/07/21 07:21 Pulse Ox 93 12/07/21 07:21 BMI result Body Mass Index 63.2 General: AO X 3, no acute distress Resp:? diminished bilateral, no accessory muscles used CVS: S1,S2,RRR GI: soft, non tender, non distended Neuro:? motor grossly intact, alert Psych: appropriate affect, appropriate insight? Objective Data Active Medications Acetaminophen (Acetaminophen 325 Mg Tablet) 650 mg PO Q6H PRN PRN Reason: Pain, Mild (Pain Scale 1-3) Last Admin: 12/07/21 09:27 Dose: 650 mg Documented by: MICHELLE Albuterol Sulfate (Albuterol Sulfate 90 Mcg 8 Gm Inhaler) 2 puff INHALE RQ4H PRN PRN Reason: sob Apixaban (Apixaban 5 Mg Tablet) 5 mg PO BID [facility] Last Admin: 12/07/21 09:24 Dose: 5 mg Documented by: MICHELLE Furosemide (Furosemide 40 Mg Tablet) 40 mg PO DAILY [facility]; Protocol Last Admin: 12/07/21 09:24 Dose: 40 mg Documented by: MICHELLE Guaifenesin (Guaifenesin La 600 Mg Tab.Er.12h) 600 mg PO BID [facility] Last Admin: 12/06/21 20:41 Dose: 600 mg Documented by: TUMASY Hydroxyzine HCl (Hydroxyzine Hcl 50 Mg/Ml Vial) 50 mg IM Q6H PRN PRN Reason: anxiety Last Admin: 11/29/21 17:22 Dose: 50 mg Documented by: IGLESM Loperamide HCl (Loperamide Hcl 2 Mg Capsule) 2 mg PO Q4H PRN PRN Reason: Diarrhea Last Admin: 12/01/21 17:32 Dose: 2 mg Documented by: MICHELLE Melatonin (Melatonin 3 Mg Tablet) 6 mg PO BEDTIME PRN PRN Reason: Insomnia Last Admin: 11/14/21 23:52 Dose: 6 mg Documented by: HERMELINDA Pharmacy Consult (Consult Rx Perform Med Rec) 1 each MISCELLANE ONCE PRN PRN Reason: Consult order Pharmacy Consult (Consult Rx Perform Med Rec) 1 each MISCELLANE ONCE PRN PRN Reason: Consult order Senna (Sennosides 8.6 Mg Tablet) 17.2 mg PO BEDTIME PRN PRN Reason: Constipation Sodium Chloride (0.9 % Sodium Chloride Flush 3 Ml Syringe) 3 ml IVFLUSH QSHIFT [facility] Last Admin: 12/07/21 09:24 Dose: 3 ml Documented by: BRONahomi Labs CBC & Chem 7: 12/04/21 06:54 12/04/21 06:54 Assessment and Plan (1) NSVT (nonsustained ventricular tachycardia): Status: Acute (2) Physical deconditioning: Status: Acute (3) Morbidly obese: Status: Acute (4) Congestive heart failure: Status: Acute Plan 66yo M with AF, morbid obesity presenting with dyspnea, weight gain, leg edema admitted for CHF exacerbation headache today motrin times one monitor acute diastolic R-sided HF exacerbation with acute on chronic hypoxic respiratory failure improved continue maintenance lasix 40mg daily po pt will f/u with his attending radiologist, Dr Mason at [facility] physical deconditioning Evaluated by physical therapy team who recommended short-term rehab Pending placement - difficulty finding bariatric placement, patient unable to manage at home sinus pauses/ sinus bradycardia patient asymptomatic during episodes seen by cardiology bradycardia likely due to undiagnosed YANN , since this is reversible not committed to pacemaker patient unwilling to wear CPAP, he could not tolerate the mask on his face outpt polysomnography Qualifies for BiPAP by overnight oximetry but the patient refusing to wear the CPAP. NSVTs Related to untreated underlying YANN Check electrolyte, magnesium Cannot use beta-anastacio for recurrent episodes of bradycardia Advised to use the BiPAP again but he refused stating that the mask does not feel comfortable in spite of trying more than 1 continue to monitor chronic AF rate-controlled. not on metoprolol due to sinus pauses. Continue apixaban for anticoagulation acute hypoxic resp failure wean O2 as tolerated, not on home O2 CT chest and V/Q, no PE morbid obesity strongly recommend to follow low-calorie diet outpatient bariatric surgery referral VTE ppx apixaban dispo being followed by Physical therapy, patient continued to have low tolerance to functional mobility , dyspnea with minimal exertion with poor gait mechanics and increased risk of fall therefore PT continue to recommend STR, CM working placement Quality Stroke Does the patient have a stroke diagnosis?: No VTE Prior VTE?: No VTE Risk Level:: Medical - moderate - high VTE Device Contraindication: Treatment Not Indicated VTE Drug Contraindication: N/A - Med Ordered
[2021-12-07] MEDS: guaiFENesin LA 600 MG TAB.ER.12H PO ×2 (09:35→21:07)
[2021-12-07] MEDS: Ibuprofen 400 MG TABLET PO (13:13)
[2021-12-08] VITALS (7 sets, daily range): BP systolic 107–136; BP diastolic 54–87; PULSE 78–87; RESP 18–22; TEMP 36.4–36.9; O2SAT 90–99
[2021-12-08] MEDS: Acetaminophen 325 MG TABLET 650 MG PO ×3 (05:44→21:38)
[2021-12-08] MEDS: Apixaban 5 MG TABLET PO ×2 (08:52→20:37)
[2021-12-08] MEDS: guaiFENesin LA 600 MG TAB.ER.12H PO ×2 (08:52→20:37)
[2021-12-08] MEDS: Furosemide 40 MG TABLET PO (08:52)
[2021-12-08] MEDS: 0.9 % Sodium Chloride Flush 3 ML SYRINGE IVFLUSH ×3 (08:53→20:41)
--- NOTE | 2021-12-08 10:48 | P.PNIM_ITS ---
Subjective Subjective Date of Service: 12/08/21 Interval History: cc: sob interval history: improved Cardiovascular Cardiovascular: Reports no additional cardiovascular complaints Respiratory Respiratory: Reports no additional respiratory complaints Physical Exam Vital Signs: Vital Signs: Last Vital Signs Temp 97.8 F 12/08/21 07:05 Pulse 85 12/08/21 07:52 Resp 22 H 12/08/21 07:05 BP 136/64 12/08/21 07:52 Pulse Ox 90 L 12/08/21 07:52 BMI result Body Mass Index 63.2 General: AO X 3, no acute distress Resp:? diminished bilateral, no accessory muscles used CVS: S1,S2,RRR GI: soft, non tender, non distended Neuro:? motor grossly intact, alert Psych: appropriate affect, appropriate insight? Objective Data Active Medications Acetaminophen (Acetaminophen 325 Mg Tablet) 650 mg PO Q6H PRN PRN Reason: Pain, Mild (Pain Scale 1-3) Last Admin: 12/08/21 05:44 Dose: 650 mg Documented by: SCARLET Albuterol Sulfate (Albuterol Sulfate 90 Mcg 8 Gm Inhaler) 2 puff INHALE RQ4H PRN PRN Reason: sob Apixaban (Apixaban 5 Mg Tablet) 5 mg PO BID [facility] Last Admin: 12/08/21 08:52 Dose: 5 mg Documented by: GOLD Furosemide (Furosemide 40 Mg Tablet) 40 mg PO DAILY [facility]; Protocol Last Admin: 12/08/21 08:52 Dose: 40 mg Documented by: GOLD Guaifenesin (Guaifenesin La 600 Mg Tab.Er.12h) 600 mg PO BID [facility] Last Admin: 12/08/21 08:52 Dose: 600 mg Documented by: GOLD Hydroxyzine HCl (Hydroxyzine Hcl 50 Mg/Ml Vial) 50 mg IM Q6H PRN PRN Reason: anxiety Last Admin: 11/29/21 17:22 Dose: 50 mg Documented by: IGLESM Loperamide HCl (Loperamide Hcl 2 Mg Capsule) 2 mg PO Q4H PRN PRN Reason: Diarrhea Last Admin: 12/01/21 17:32 Dose: 2 mg Documented by: DOBROB Melatonin (Melatonin 3 Mg Tablet) 6 mg PO BEDTIME PRN PRN Reason: Insomnia Last Admin: 11/14/21 23:52 Dose: 6 mg Documented by: HERMELINDA Pharmacy Consult (Consult Rx Perform Med Rec) 1 each MISCELLANE ONCE PRN PRN Reason: Consult order Pharmacy Consult (Consult Rx Perform Med Rec) 1 each MISCELLANE ONCE PRN PRN Reason: Consult order Senna (Sennosides 8.6 Mg Tablet) 17.2 mg PO BEDTIME PRN PRN Reason: Constipation Sodium Chloride (0.9 % Sodium Chloride Flush 3 Ml Syringe) 3 ml IVFLUSH QSHIFT [facility] Last Admin: 12/08/21 08:53 Dose: 3 ml Documented by: GOLD Labs CBC & Chem 7: 12/04/21 06:54 12/04/21 06:54 Assessment and Plan (1) NSVT (nonsustained ventricular tachycardia): Status: Acute (2) Physical deconditioning: Status: Acute (3) Morbidly obese: Status: Acute (4) Congestive heart failure: Status: Acute Plan 66yo M with AF, morbid obesity presenting with dyspnea, weight gain, leg edema admitted for CHF exacerbation headache today motrin times one monitor acute diastolic R-sided HF exacerbation with acute on chronic hypoxic respiratory failure improved continue maintenance lasix 40mg daily po pt will f/u with his label designer, Dr Mason at [facility] physical deconditioning Evaluated by physical therapy team who recommended short-term rehab Pending placement - difficulty finding bariatric placement, patient unable to manage at home sinus pauses/ sinus bradycardia patient asymptomatic during episodes seen by cardiology bradycardia likely due to undiagnosed YANN , since this is reversible not committed to pacemaker patient unwilling to wear CPAP, he could not tolerate the mask on his face outpt polysomnography Qualifies for BiPAP by overnight oximetry but the patient refusing to wear the CPAP. NSVTs Related to untreated underlying YANN Check electrolyte, magnesium Cannot use beta-anastacio for recurrent episodes of bradycardia Advised to use the BiPAP again but he refused stating that the mask does not feel comfortable in spite of trying more than 1 continue to monitor chronic AF rate-controlled. not on metoprolol due to sinus pauses. Continue apixaban for anticoagulation acute hypoxic resp failure wean O2 as tolerated, not on home O2 CT chest and V/Q, no PE morbid obesity strongly recommend to follow low-calorie diet outpatient bariatric surgery referral VTE ppx apixaban dispo being followed by Physical therapy, patient continued to have low tolerance to functional mobility , dyspnea with minimal exertion with poor gait mechanics and increased risk of fall therefore PT continue to recommend STR, CM working placement Quality Stroke Does the patient have a stroke diagnosis?: No VTE Prior VTE?: No VTE Risk Level:: Medical - moderate - high VTE Device Contraindication: Treatment Not Indicated VTE Drug Contraindication: N/A - Med Ordered
[2021-12-08] MEDS: Ibuprofen 400 MG TABLET PO (11:47)
--- NOTE | 2021-12-08 14:49 | MHC.CM.PN ---
DP STR no bed offers have been received. Clinical info was updated and sent. Insurance info was also updated and sent. CM will continue to follow.
[2021-12-09] VITALS (7 sets, daily range): BP systolic 107–135; BP diastolic 60–69; PULSE 80–104; RESP 17–20; TEMP 35.7–36.6; O2SAT 88–92
[2021-12-09] MEDS: hydrOXYzine HCL 50 MG/ML VIAL IM (00:12)
[2021-12-09] MEDS: Apixaban 5 MG TABLET PO ×2 (08:08→20:03)
[2021-12-09] MEDS: guaiFENesin LA 600 MG TAB.ER.12H PO ×2 (08:08→20:03)
[2021-12-09] MEDS: Furosemide 40 MG TABLET PO (08:08)
[2021-12-09] MEDS: 0.9 % Sodium Chloride Flush 3 ML SYRINGE IVFLUSH ×3 (08:10→20:04)
--- NOTE | 2021-12-09 10:23 | MHC.CM.PN ---
Male 66 DX HF DP STR via BLS. Referrals updated daily. No bed offer has been received. CM Director reports that state call yesterday(diff placement Pts), May assist with placement of this pt. CM will continue to update referrals.
--- NOTE | 2021-12-09 12:58 | HO.PM.IMPN ---
Subjective Subjective Date of Service: 12/09/21 Interval History: Laying in bed, feels comfortable Denies any fever, chills or shortness of breath No reported other overnight events. Review of Systems No fever, chills or weakness No chest pain, palpitation No shortness of breath No abdominal pain, nausea or vomiting No urinary symptoms No any rash or wounds Physical Exam Vital Signs: Vital Signs: Last Vital Signs Temp 96.3 F L 12/09/21 11:59 Pulse 92 12/09/21 11:59 Resp 20 12/09/21 11:59 BP 129/69 12/09/21 11:59 Pulse Ox 92 12/09/21 11:59 BMI result Body Mass Index 63.2 Const: Other: Gen:? Awake alert, no distress HEENT: sclera anicteric, moist mucus membranes Neck: supple, no JVD Lungs: clear to auscultation bilaterally, fair bilateral air, no wheezes Heart: irregularly irregular, no murmurs Abd: soft, non-tender, non-distended, morbidly obese Skin: warm/well-perfused Neuro: alert and oriented x3, no focal?findings Psych: appropriate affect Objective Data Active Medications Acetaminophen (Acetaminophen 325 Mg Tablet) 650 mg PO Q6H PRN PRN Reason: Pain, Mild (Pain Scale 1-3) Last Admin: 12/08/21 21:38 Dose: 650 mg Documented by: AWA Albuterol Sulfate (Albuterol Sulfate 90 Mcg 8 Gm Inhaler) 2 puff INHALE RQ4H PRN PRN Reason: sob Apixaban (Apixaban 5 Mg Tablet) 5 mg PO BID [facility] Last Admin: 12/09/21 08:08 Dose: 5 mg Documented by: JEANNINE Furosemide (Furosemide 40 Mg Tablet) 40 mg PO DAILY [facility]; Protocol Last Admin: 12/09/21 08:08 Dose: 40 mg Documented by: JEANNINE Guaifenesin (Guaifenesin La 600 Mg Tab.Er.12h) 600 mg PO BID [facility] Last Admin: 12/09/21 08:08 Dose: 600 mg Documented by: JEANNINE Hydroxyzine HCl (Hydroxyzine Hcl 50 Mg/Ml Vial) 50 mg IM Q6H PRN PRN Reason: anxiety Last Admin: 12/09/21 00:12 Dose: 50 mg Documented by: ASHU Ibuprofen (Ibuprofen 400 Mg Tablet) 400 mg PO Q24H PRN PRN Reason: headache Last Admin: 12/08/21 11:47 Dose: 400 mg Documented by: GOLD Loperamide HCl (Loperamide Hcl 2 Mg Capsule) 2 mg PO Q4H PRN PRN Reason: Diarrhea Last Admin: 12/01/21 17:32 Dose: 2 mg Documented by: DOBRONahomi Melatonin (Melatonin 3 Mg Tablet) 6 mg PO BEDTIME PRN PRN Reason: Insomnia Last Admin: 11/14/21 23:52 Dose: 6 mg Documented by: HERMELINDA Pharmacy Consult (Consult Rx Perform Med Rec) 1 each MISCELLANE ONCE PRN PRN Reason: Consult order Pharmacy Consult (Consult Rx Perform Med Rec) 1 each MISCELLANE ONCE PRN PRN Reason: Consult order Senna (Sennosides 8.6 Mg Tablet) 17.2 mg PO BEDTIME PRN PRN Reason: Constipation Sodium Chloride (0.9 % Sodium Chloride Flush 3 Ml Syringe) 3 ml IVFLUSH QSHIFT [facility] Last Admin: 12/09/21 08:10 Dose: 3 ml Documented by: JEANNINE Labs CBC & Chem 7: 12/04/21 06:54 12/04/21 06:54 Assessment and Plan (1) NSVT (nonsustained ventricular tachycardia): Status: Acute (2) Physical deconditioning: Status: Acute Plan 66yo M with AF, morbid obesity presenting with dyspnea, weight gain, leg edema admitted for CHF exacerbation acute diastolic R-sided HF exacerbation with acute on chronic hypoxic respiratory failure improved continue maintenance lasix 40mg daily po pt will 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 with 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 NSVTs Related to untreated underlying YANN Check electrolyte, magnesium Cannot use beta-anastacio for recurrent episodes of bradycardia Advised to use the BiPAP again but he refused stating that the mask does not feel comfortable in spite of trying more than 1 continue to monitor chronic AF rate-controlled. not on metoprolol due to sinus pauses. Continue apixaban for anticoagulation acute hypoxic resp failure wean O2 as tolerated, not on home O2 CT chest and V/Q, no PE morbid obesity strongly recommend to follow low-calorie diet outpatient bariatric surgery referral VTE ppx apixaban dispo being followed by Physical therapy, patient continued to have low tolerance to functional mobility , dyspnea with minimal exertion with poor gait mechanics and increased risk of fall therefore PT continue to recommend STR, CM working placement Quality Stroke Does the patient have a stroke diagnosis?: No VTE Prior VTE?: No VTE Risk Level:: Medical - moderate - high VTE Device Contraindication: Treatment Not Indicated VTE Drug Contraindication: N/A - Med Ordered
--- NOTE | 2021-12-09 14:08 | MHC.CM.PN ---
Addendum entered by Romana Buck 12/09/21 15:58: [facility] and [facility] were both contacted via phone. Messages were taken by receptionists. Both facilities offer bariatric services. They have not opened the [employer] clinical updates, so an attempt to reach by phone was made. Original Note: Male 66 DX HF DP STR Updated clinical info was sent. No bed offers have been made. Patient will transport via BLS.
[2021-12-09] MEDS: Ibuprofen 400 MG TABLET PO (16:00)
[2021-12-09] MEDS: Acetaminophen 325 MG TABLET 650 MG PO (20:03)
[2021-12-10] VITALS (7 sets, daily range): BP systolic 120–139; BP diastolic 63–77; PULSE 87–95; RESP 16–18; TEMP 36.1–37.2; O2SAT 89–91
[2021-12-10] MEDS: 0.9 % Sodium Chloride Flush 3 ML SYRINGE IVFLUSH ×3 (10:15→20:06)
[2021-12-10] MEDS: Furosemide 40 MG TABLET PO (10:15)
[2021-12-10] MEDS: Apixaban 5 MG TABLET PO ×2 (10:15→20:06)
[2021-12-10] MEDS: guaiFENesin LA 600 MG TAB.ER.12H PO ×2 (10:16→20:06)
--- NOTE | 2021-12-10 10:26 | HO.PM.IMPN ---
Subjective Subjective Date of Service: 12/10/21 Interval History: Laying in bed, feels comfortable Denies any fever, chills or shortness of breath No reported other overnight events. Review of Systems No fever, chills or weakness No chest pain, palpitation No shortness of breath No abdominal pain, nausea or vomiting No urinary symptoms No any rash or wounds Physical Exam Vital Signs: Vital Signs: Last Vital Signs Temp 97.4 F 12/10/21 07:34 Pulse 95 12/10/21 09:30 Resp 18 12/10/21 07:34 BP 132/76 12/10/21 09:30 Pulse Ox 91 L 12/10/21 09:30 BMI result Body Mass Index 63.2 Const: Other: Gen:? Awake alert, no distress HEENT: sclera anicteric, moist mucus membranes Neck: supple, no JVD Lungs: clear to auscultation bilaterally, fair bilateral air, no wheezes Heart: irregularly irregular, no murmurs Abd: soft, non-tender, non-distended, morbidly obese Skin: warm/well-perfused Neuro: alert and oriented x3, no focal?findings Psych: appropriate affect Objective Data Active Medications Acetaminophen (Acetaminophen 325 Mg Tablet) 650 mg PO Q6H PRN PRN Reason: Pain, Mild (Pain Scale 1-3) Last Admin: 12/09/21 20:03 Dose: 650 mg Documented by: SCARLET Albuterol Sulfate (Albuterol Sulfate 90 Mcg 8 Gm Inhaler) 2 puff INHALE RQ4H PRN PRN Reason: sob Apixaban (Apixaban 5 Mg Tablet) 5 mg PO BID [facility] Last Admin: 12/10/21 10:15 Dose: 5 mg Documented by: BLUE Furosemide (Furosemide 40 Mg Tablet) 40 mg PO DAILY [facility]; Protocol Last Admin: 12/10/21 10:15 Dose: 40 mg Documented by: BLUE Guaifenesin (Guaifenesin La 600 Mg Tab.Er.12h) 600 mg PO BID [facility] Last Admin: 12/10/21 10:16 Dose: 600 mg Documented by: BLUE Hydroxyzine HCl (Hydroxyzine Hcl 50 Mg/Ml Vial) 50 mg IM Q6H PRN PRN Reason: anxiety Last Admin: 12/09/21 00:12 Dose: 50 mg Documented by: ASHU Ibuprofen (Ibuprofen 400 Mg Tablet) 400 mg PO Q24H PRN PRN Reason: headache Last Admin: 12/09/21 16:00 Dose: 400 mg Documented by: JEANNINE Loperamide HCl (Loperamide Hcl 2 Mg Capsule) 2 mg PO Q4H PRN PRN Reason: Diarrhea Last Admin: 12/01/21 17:32 Dose: 2 mg Documented by: BRONahomi Melatonin (Melatonin 3 Mg Tablet) 6 mg PO BEDTIME PRN PRN Reason: Insomnia Last Admin: 11/14/21 23:52 Dose: 6 mg Documented by: HERMELINDA Pharmacy Consult (Consult Rx Perform Med Rec) 1 each MISCELLANE ONCE PRN PRN Reason: Consult order Pharmacy Consult (Consult Rx Perform Med Rec) 1 each MISCELLANE ONCE PRN PRN Reason: Consult order Senna (Sennosides 8.6 Mg Tablet) 17.2 mg PO BEDTIME PRN PRN Reason: Constipation Sodium Chloride (0.9 % Sodium Chloride Flush 3 Ml Syringe) 3 ml IVFLUSH QSHIFT [facility] Last Admin: 12/10/21 10:15 Dose: 3 ml Documented by: BLUE Labs CBC & Chem 7: 12/04/21 06:54 12/04/21 06:54 Assessment and Plan (1) NSVT (nonsustained ventricular tachycardia): Status: Acute (2) Physical deconditioning: Status: Acute (3) Bradycardia: Status: Acute (4) Morbidly obese: Status: Acute (5) Pulmonary embolism: Status: Acute (6) Congestive heart failure: Status: Acute Plan 66yo M with AF, morbid obesity presenting with dyspnea, weight gain, leg edema admitted for CHF exacerbation acute diastolic R-sided HF exacerbation with acute on chronic hypoxic respiratory failure improved continue maintenance lasix 40mg daily po pt will f/u with his systems lead, Dr Mason at [facility] physical deconditioning Evaluated by physical therapy team who recommended short-term rehab Pending placement - difficulty finding bariatric placement, patient unable to manage at home sinus pauses/ sinus bradycardia patient asymptomatic during episodes seen by cardiology bradycardia likely due to undiagnosed YANN , since this is reversible not committed to pacemaker patient unwilling to wear CPAP, he could not tolerate the mask on his face outpt polysomnography Qualifies for BiPAP by overnight oximetry but the patient refusing to wear the CPAP. NSVTs Related to untreated underlying YANN Check electrolyte, magnesium Cannot use beta-anastacio for recurrent episodes of bradycardia Advised to use the BiPAP again but he refused stating that the mask does not feel comfortable in spite of trying more than 1 continue to monitor chronic AF rate-controlled. not on metoprolol due to sinus pauses. Continue apixaban for anticoagulation acute hypoxic resp failure wean O2 as tolerated, not on home O2 CT chest and V/Q, no PE morbid obesity strongly recommend to follow low-calorie diet outpatient bariatric surgery referral VTE ppx apixaban dispo being followed by Physical therapy, patient continued to have low tolerance to functional mobility , dyspnea with minimal exertion with poor gait mechanics and increased risk of fall therefore PT continue to recommend STR, CM working placement Quality Stroke Does the patient have a stroke diagnosis?: No VTE Prior VTE?: No VTE Risk Level:: Medical - moderate - high VTE Device Contraindication: Treatment Not Indicated VTE Drug Contraindication: N/A - Med Ordered
[2021-12-10] MEDS: Ibuprofen 400 MG TABLET PO (14:31)
[2021-12-10] MEDS: Loperamide HCl 2 MG CAPSULE PO (14:31)
[2021-12-10] MEDS: Acetaminophen 325 MG TABLET 650 MG PO (20:06)
[2021-12-11 03:22] VITALS: BP 134/64; PULSE 96; RESP 19; TEMP 36.7; O2SAT 91
[2021-12-11 07:27] VITALS: BP 124/57; PULSE 94; RESP 19; TEMP 36.7; O2SAT 92
[2021-12-11] MEDS: 0.9 % Sodium Chloride Flush 3 ML SYRINGE IVFLUSH ×3 (09:18→20:46)
[2021-12-11] MEDS: Apixaban 5 MG TABLET PO ×2 (09:19→20:46)
[2021-12-11] MEDS: Furosemide 40 MG TABLET PO (09:19)
[2021-12-11] MEDS: Loperamide HCl 2 MG CAPSULE PO ×2 (09:19→20:46)
[2021-12-11] MEDS: guaiFENesin LA 600 MG TAB.ER.12H PO ×2 (09:19→20:46)
[2021-12-11 11:15] VITALS: BP 107/56; PULSE 95; RESP 18; TEMP 36.2; O2SAT 91
[2021-12-11] MEDS: Ibuprofen 400 MG TABLET PO (11:29)
[2021-12-11] MEDS: Acetaminophen 325 MG TABLET 650 MG PO (15:44)
[2021-12-11 15:48] VITALS: BP 154/87; PULSE 112; RESP 19; TEMP 37.1; O2SAT 92
[2021-12-11 20:00] VITALS: BP 113/67; PULSE 88; RESP 20; TEMP 36.4; O2SAT 91
[2021-12-11 23:55] VITALS: BP 122/58; PULSE 89; RESP 18; TEMP 36.8; O2SAT 91
[2021-12-12 04:00] VITALS: BP 112/69; PULSE 91; RESP 20; TEMP 36.3; O2SAT 91
[2021-12-12] MEDS: hydrOXYzine HCL 25 MG TABLET PO (04:01)
[2021-12-12 07:34] LABS: Anion Gap 11 (12-20); Blood Urea Nitrogen 18 mg/dL (9-16); Calcium 9.2 mg/dL (8.4-10.2); Carbon Dioxide 39 mmol/L (22-29); Chloride 99 mmol/L (96-108); Creatinine Clr Calc Pharmacy 170.3; Estimated Glomerular Filt Rate > 60; Glucose Random 97 mg/dL (60-115); Potassium 4.5 mmol/L (3.3-5.1); Sodium 144 mmol/L (135-145)
[2021-12-12 07:38] VITALS: BP 115/65; PULSE 95; RESP 20; TEMP 36.7; O2SAT 91
[2021-12-12] MEDS: guaiFENesin LA 600 MG TAB.ER.12H PO ×2 (09:12→20:40)
[2021-12-12] MEDS: Furosemide 40 MG TABLET PO (09:12)
[2021-12-12] MEDS: Apixaban 5 MG TABLET PO ×2 (09:13→20:40)
[2021-12-12] MEDS: 0.9 % Sodium Chloride Flush 3 ML SYRINGE IVFLUSH ×2 (09:15→20:40)
[2021-12-12] MEDS: Acetaminophen 325 MG TABLET 650 MG PO (09:16)
--- NOTE | 2021-12-12 11:42 | P.PNIM_ITS ---
Subjective Subjective Date of Service: 12/12/21 Interval History: Laying in bed, sleeping feels comfortable with no complaints Denies any fever, chills or shortness of breath No reported other overnight events. Review of Systems No fever, chills or weakness No chest pain, palpitation No shortness of breath No abdominal pain, nausea or vomiting No urinary symptoms No reported rash or wounds Physical Exam Vital Signs: Vital Signs: Last Vital Signs Temp 98.0 F 12/12/21 07:38 Pulse 95 12/12/21 07:38 Resp 20 12/12/21 07:38 BP 115/65 12/12/21 07:38 Pulse Ox 91 L 12/12/21 07:38 BMI result Body Mass Index 63.2 Const: Other: Gen:? Awake alert, no distress HEENT: sclera anicteric, moist mucus membranes Neck: supple, no JVD Lungs: clear to auscultation bilaterally, fair bilateral air, no wheezes, oxygen supplement Heart: irregularly irregular, no murmurs Abd: soft, non-tender, non-distended, morbidly obese Skin: warm/well-perfused Neuro: alert and oriented x3, no focal?findings Psych: appropriate affect Objective Data Active Medications Acetaminophen (Acetaminophen 325 Mg Tablet) 650 mg PO Q6H PRN PRN Reason: Pain, Mild (Pain Scale 1-3) Last Admin: 12/12/21 09:16 Dose: 650 mg Documented by: ZIGGY Albuterol Sulfate (Albuterol Sulfate 90 Mcg 8 Gm Inhaler) 2 puff INHALE RQ4H PRN PRN Reason: sob Apixaban (Apixaban 5 Mg Tablet) 5 mg PO BID [facility] Last Admin: 12/12/21 09:13 Dose: 5 mg Documented by: ZIGGY Furosemide (Furosemide 40 Mg Tablet) 40 mg PO DAILY [facility]; Protocol Last Admin: 12/12/21 09:12 Dose: 40 mg Documented by: ZIGGY Guaifenesin (Guaifenesin La 600 Mg Tab.Er.12h) 600 mg PO BID [facility] Last Admin: 12/12/21 09:12 Dose: 600 mg Documented by: ZIGGY Hydroxyzine HCl (Hydroxyzine Hcl 25 Mg Tablet) 25 mg PO Q6H PRN PRN Reason: anxiety/restlessness Last Admin: 12/12/21 04:01 Dose: 25 mg Documented by: SCARLET Ibuprofen (Ibuprofen 400 Mg Tablet) 400 mg PO Q24H PRN PRN Reason: headache Last Admin: 12/11/21 11:29 Dose: 400 mg Documented by: SRAVANI Loperamide HCl (Loperamide Hcl 2 Mg Capsule) 2 mg PO Q4H PRN PRN Reason: Diarrhea Last Admin: 12/11/21 20:46 Dose: 2 mg Documented by: SCARLET Melatonin (Melatonin 3 Mg Tablet) 6 mg PO BEDTIME PRN PRN Reason: Insomnia Last Admin: 11/14/21 23:52 Dose: 6 mg Documented by: HERMELINDA Pharmacy Consult (Consult Rx Perform Med Rec) 1 each MISCELLANE ONCE PRN PRN Reason: Consult order Pharmacy Consult (Consult Rx Perform Med Rec) 1 each MISCELLANE ONCE PRN PRN Reason: Consult order Senna (Sennosides 8.6 Mg Tablet) 17.2 mg PO BEDTIME PRN PRN Reason: Constipation Sodium Chloride (0.9 % Sodium Chloride Flush 3 Ml Syringe) 3 ml IVFLUSH QSHIFT [facility] Last Admin: 12/12/21 09:15 Dose: 3 ml Documented by: ZIGGY Labs CBC & Chem 7: 12/04/21 06:54 12/12/21 06:48 Labs: Laboratory Results - last 24 hr 12/12/21 06:48 Anion Gap 11 L Estim Creat Clear Calc 170.3 Estimated GFR > 60 Random Glucose 97 Calcium 9.2 Assessment and Plan (1) Physical deconditioning: Status: Acute (2) Congestive heart failure: Status: Acute (3) Morbidly obese: Status: Acute Plan 66yo M with AF, morbid obesity presenting with dyspnea, weight gain, leg edema admitted for CHF exacerbation acute diastolic R-sided HF exacerbation with acute on chronic hypoxic respiratory failure improved continue maintenance lasix 40mg daily po pt will f/u with his cpht, Dr Mason at [facility] physical deconditioning Evaluated by physical therapy team who recommended short-term rehab Pending placement - difficulty finding bariatric placement, patient unable to manage at home sinus pauses/ sinus bradycardia patient asymptomatic during episodes seen by cardiology bradycardia likely due to undiagnosed YANN , since this is reversible not committed to pacemaker patient unwilling to wear CPAP, he could not tolerate the mask on his face outpt polysomnography Qualifies for BiPAP by overnight oximetry but the patient refusing to wear the CPAP. NSVTs Related to untreated underlying YANN Check electrolyte, magnesium Cannot use beta-anastacio for recurrent episodes of bradycardia Advised to use the BiPAP again but he refused stating that the mask does not feel comfortable in spite of trying more than 1 continue to monitor chronic AF rate-controlled. not on metoprolol due to sinus pauses. Continue apixaban fo r anticoagulation acute hypoxic resp failure wean O2 as tolerated, not on home O2 CT chest and V/Q, no PE morbid obesity strongly recommend to follow low-calorie diet outpatient bariatric surgery referral VTE ppx apixaban dispo being followed by Physical therapy, patient continued to have low tolerance to functional mobility , dyspnea with minimal exertion with poor gait mechanics and increased risk of fall therefore PT continue to recommend STR, CM working placement Quality Stroke Does the patient have a stroke diagnosis?: No VTE Prior VTE?: No VTE Risk Level:: Medical - moderate - high VTE Device Contraindication: Treatment Not Indicated VTE Drug Contraindication: N/A - Med Ordered
[2021-12-12 11:48] VITALS: BP 124/68; PULSE 98; RESP 20; TEMP 36.4; O2SAT 91
[2021-12-12] MEDS: Loperamide HCl 2 MG CAPSULE PO (13:36)
[2021-12-12] MEDS: Ibuprofen 400 MG TABLET PO (13:36)
[2021-12-12 15:24] VITALS: BP 120/58; PULSE 96; RESP 20; TEMP 36.6; O2SAT 91
[2021-12-12 19:24] VITALS: BP 118/69; PULSE 99; RESP 18; TEMP 36.6; O2SAT 91
[2021-12-12 23:30] VITALS: BP 105/65; PULSE 98; RESP 19; TEMP 36.5; O2SAT 93
[2021-12-13 03:52] VITALS: BP 116/69; PULSE 52; RESP 18; TEMP 36.3; O2SAT 92
[2021-12-13 07:41] VITALS: BP 128/68; PULSE 80; RESP 18; TEMP 36.8; O2SAT 93
[2021-12-13] MEDS: guaiFENesin LA 600 MG TAB.ER.12H PO ×2 (08:30→20:25)
[2021-12-13] MEDS: Furosemide 40 MG TABLET PO (08:30)
[2021-12-13] MEDS: 0.9 % Sodium Chloride Flush 3 ML SYRINGE IVFLUSH ×3 (08:31→20:26)
[2021-12-13] MEDS: Apixaban 5 MG TABLET PO ×2 (08:31→20:25)
[2021-12-13 10:55] VITALS: BP 112/58; PULSE 83; RESP 18; TEMP 36.3; O2SAT 93
[2021-12-13] MEDS: Acetaminophen 325 MG TABLET 650 MG PO ×2 (11:38→17:56)
--- NOTE | 2021-12-13 12:02 | HO.PM.IMPN ---
Subjective Subjective Date of Service: 12/13/21 Interval History: Laying in bed, sleeping feels comfortable , having episodes of diarrhea Denies any fever, chills or shortness of breath No reported other overnight events. Review of Systems No fever, chills or weakness No chest pain, palpitation No shortness of breath No abdominal pain, nausea or vomiting No urinary symptoms No reported rash or wounds Physical Exam Vital Signs: Vital Signs: Last Vital Signs Temp 97.4 F 12/13/21 10:55 Pulse 83 12/13/21 10:55 Resp 18 12/13/21 10:55 BP 112/58 L 12/13/21 10:55 Pulse Ox 93 12/13/21 10:55 BMI result Body Mass Index 63.2 Const: Other: Gen:? Awake alert, no distress HEENT: sclera anicteric, moist mucus membranes Neck: supple, no JVD Lungs: clear to auscultation bilaterally, fair bilateral air, no wheezes, oxygen supplement Heart: irregularly irregular, no murmurs Abd: soft, non-tender, non-distended, morbidly obese Skin: warm/well-perfused Neuro: alert and oriented x3, no focal?findings Psych: appropriate affect Objective Data Active Medications Acetaminophen (Acetaminophen 325 Mg Tablet) 650 mg PO Q6H PRN PRN Reason: Pain, Mild (Pain Scale 1-3) Last Admin: 12/13/21 11:38 Dose: 650 mg Documented by: GLORIA Albuterol Sulfate (Albuterol Sulfate 90 Mcg 8 Gm Inhaler) 2 puff INHALE RQ4H PRN PRN Reason: sob Apixaban (Apixaban 5 Mg Tablet) 5 mg PO BID [facility] Last Admin: 12/13/21 08:31 Dose: 5 mg Documented by: GLORIA Furosemide (Furosemide 40 Mg Tablet) 40 mg PO DAILY [facility]; Protocol Last Admin: 12/13/21 08:30 Dose: 40 mg Documented by: GLORIA Guaifenesin (Guaifenesin La 600 Mg Tab.Er.12h) 600 mg PO BID [facility] Last Admin: 12/13/21 08:30 Dose: 600 mg Documented by: GLORIA Hydroxyzine HCl (Hydroxyzine Hcl 25 Mg Tablet) 25 mg PO Q6H PRN PRN Reason: anxiety/restlessness Last Admin: 12/12/21 04:01 Dose: 25 mg Documented by: SCARLET Ibuprofen (Ibuprofen 400 Mg Tablet) 400 mg PO Q24H PRN PRN Reason: headache Last Admin: 12/12/21 13:36 Dose: 400 mg Documented by: ZIGGY Loperamide HCl (Loperamide Hcl 2 Mg Capsule) 2 mg PO Q4H PRN PRN Reason: Diarrhea Last Admin: 12/12/21 13:36 Dose: 2 mg Documented by: ZIGGY Melatonin (Melatonin 3 Mg Tablet) 6 mg PO BEDTIME PRN PRN Reason: Insomnia Last Admin: 11/14/21 23:52 Dose: 6 mg Documented by: HERMELINDA Pharmacy Consult (Consult Rx Perform Med Rec) 1 each MISCELLANE ONCE PRN PRN Reason: Consult order Pharmacy Consult (Consult Rx Perform Med Rec) 1 each MISCELLANE ONCE PRN PRN Reason: Consult order Senna (Sennosides 8.6 Mg Tablet) 17.2 mg PO BEDTIME PRN PRN Reason: Constipation Sodium Chloride (0.9 % Sodium Chloride Flush 3 Ml Syringe) 3 ml IVFLUSH QSHIFT [facility] Last Admin: 12/13/21 08:31 Dose: 3 ml Documented by: GLORIA Labs CBC & Chem 7: 12/04/21 06:54 12/12/21 06:48 Assessment and Plan (1) NSVT (nonsustained ventricular tachycardia): Status: Acute (2) Physical deconditioning: Status: Acute (3) Congestive heart failure: Status: Acute Plan 66yo M with AF, morbid obesity presenting with dyspnea, weight gain, leg edema admitted for CHF exacerbation Diarrhea No abdominal pain, not antibiotic, no signs of infection Likely secretory To use Imodium as needed acute diastolic R-sided HF exacerbation with acute on chronic hypoxic respiratory failure improved continue maintenance lasix 40mg daily po pt will 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 NSVTs Related to untreated underlying YANN Check electrolyte, magnesium Cannot use beta-anastacio for recurrent episodes of bradycardia Advised to use the BiPAP again but he refused stating that the mask does not feel comfortable in spite of trying more than 1 DC monitor chronic AF rate-controlled. not on metoprolol due to sinus pauses. Continue apixaban for anticoagulation acute hypoxic resp failure wean O2 as tolerated, not on home O2 CT chest and V/Q, no PE morbid obesity strongly recommend to follow low-calorie diet outpatient bariatric surgery referral VTE ppx apixaban dispo being followed by Physical therapy, patient continued to have low tolerance to functional mobility , dyspnea with minimal exertion with poor gait mechanics and increased risk of fall therefore PT continue to recommend STR, CM working placement Quality Stroke Does the patient have a stroke diagnosis?: No VTE Prior VTE?: No VTE Risk Level:: Medical - moderate - high VTE Device Contraindication: Treatment Not Indicated VTE Drug Contraindication: N/A - Med Ordered
[2021-12-13] MEDS: Ibuprofen 400 MG TABLET PO (13:42)
[2021-12-13 15:32] VITALS: BP 93/63; PULSE 86; RESP 16; TEMP 36.6; O2SAT 90
[2021-12-13 20:00] VITALS: BP 126/78; PULSE 93; RESP 18; TEMP 36.6; O2SAT 93
[2021-12-13 23:41] VITALS: BP 122/65; PULSE 89; RESP 18; TEMP 36.6; O2SAT 90
[2021-12-14] VITALS (8 sets, daily range): BP systolic 109–156; BP diastolic 53–95; PULSE 83–114; RESP 16–20; TEMP 36.1–37; O2SAT 90–95
[2021-12-14] MEDS: guaiFENesin LA 600 MG TAB.ER.12H PO ×2 (09:00→20:58)
[2021-12-14] MEDS: Apixaban 5 MG TABLET PO ×2 (09:00→20:58)
[2021-12-14] MEDS: 0.9 % Sodium Chloride Flush 3 ML SYRINGE IVFLUSH ×2 (09:00→17:19)
[2021-12-14] MEDS: Furosemide 40 MG TABLET PO (09:00)
[2021-12-14] MEDS: Acetaminophen 325 MG TABLET 650 MG PO ×2 (09:08→21:01)
--- NOTE | 2021-12-14 11:05 | HO.PM.IMPN ---
Subjective Subjective Date of Service: 12/14/21 Interval History: Laying in bed, having breakfast feels comfortable , diarrhea resolved Denies any fever, chills or shortness of breath No reported other overnight events. Review of Systems No fever, chills or weakness No chest pain, palpitation No shortness of breath No abdominal pain, nausea or vomiting No urinary symptoms No reported rash or wounds Physical Exam Vital Signs: Vital Signs: Last Vital Signs Temp 97.1 F 12/14/21 08:00 Pulse 83 12/14/21 08:53 Resp 16 12/14/21 08:00 BP 125/77 12/14/21 08:53 Pulse Ox 94 12/14/21 08:53 BMI result Body Mass Index 63.2 Const: Other: Gen:? Awake alert, no distress HEENT: sclera anicteric, moist mucus membranes Neck: supple, no JVD Lungs: clear to auscultation bilaterally, fair bilateral air, no wheezes, oxygen supplement Heart: irregularly irregular, no murmurs Abd: soft, non-tender, non-distended, morbidly obese Skin: warm/well-perfused Neuro: alert and oriented x3, no focal?findings Psych: appropriate affect Objective Data Active Medications Acetaminophen (Acetaminophen 325 Mg Tablet) 650 mg PO Q6H PRN PRN Reason: Pain, Mild (Pain Scale 1-3) Last Admin: 12/14/21 09:08 Dose: 650 mg Documented by: LEEANN Albuterol Sulfate (Albuterol Sulfate 90 Mcg 8 Gm Inhaler) 2 puff INHALE RQ4H PRN PRN Reason: sob Apixaban (Apixaban 5 Mg Tablet) 5 mg PO BID [facility] Last Admin: 12/14/21 09:00 Dose: 5 mg Documented by: LEEANN Furosemide (Furosemide 40 Mg Tablet) 40 mg PO DAILY [facility]; Protocol Last Admin: 12/14/21 09:00 Dose: 40 mg Documented by: LEEANN Guaifenesin (Guaifenesin La 600 Mg Tab.Er.12h) 600 mg PO BID [facility] Last Admin: 12/14/21 09:00 Dose: 600 mg Documented by: LEEANN Hydroxyzine HCl (Hydroxyzine Hcl 25 Mg Tablet) 25 mg PO Q6H PRN PRN Reason: anxiety/restlessness Last Admin: 12/12/21 04:01 Dose: 25 mg Documented by: SCARLET Ibuprofen (Ibuprofen 400 Mg Tablet) 400 mg PO Q24H PRN PRN Reason: headache Last Admin: 12/13/21 13:42 Dose: 400 mg Documented by: GLORIA Loperamide HCl (Loperamide Hcl 2 Mg Capsule) 2 mg PO Q4H PRN PRN Reason: Diarrhea Last Admin: 12/12/21 13:36 Dose: 2 mg Documented by: ZIGGY Melatonin (Melatonin 3 Mg Tablet) 6 mg PO BEDTIME PRN PRN Reason: Insomnia Last Admin: 11/14/21 23:52 Dose: 6 mg Documented by: HERMELINDA Pharmacy Consult (Consult Rx Perform Med Rec) 1 each MISCELLANE ONCE PRN PRN Reason: Consult order Pharmacy Consult (Consult Rx Perform Med Rec) 1 each MISCELLANE ONCE PRN PRN Reason: Consult order Senna (Sennosides 8.6 Mg Tablet) 17.2 mg PO BEDTIME PRN PRN Reason: Constipation Sodium Chloride (0.9 % Sodium Chloride Flush 3 Ml Syringe) 3 ml IVFLUSH QSHIFT [facility] Last Admin: 12/14/21 09:00 Dose: 3 ml Documented by: LEEANN Labs CBC & Chem 7: 12/04/21 06:54 12/12/21 06:48 Assessment and Plan (1) Physical deconditioning: Status: Acute (2) Morbidly obese: Status: Acute (3) Congestive heart failure: Status: Acute Plan 66yo M with AF, morbid obesity presenting with dyspnea, weight gain, leg edema admitted for CHF exacerbation Diarrhea No abdominal pain, not antibiotic, no signs of infection Likely secretory To use Imodium as needed acute diastolic R-sided HF exacerbation with acute on chronic hypoxic respiratory failure improved continue maintenance lasix 40mg daily po 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 NSVTs Related to untreated underlying YANN Check electrolyte, magnesium Cannot use beta-anastacio for recurrent episodes of bradycardia Advised to use the BiPAP again but he refused stating that the mask does not feel comfortable in spite of trying more than 1 DC monitor chronic AF rate-controlled. not on metoprolol due to sinus pauses. Continue apixaban for anticoagulation acute hypoxic resp failure wean O2 as tolerated, not on home O2 CT chest and V/Q, no PE morbid obesity strongly recommend to follow low-calorie diet outpatient bariatric surgery referral VTE ppx apixaban dispo being followed by Physical therapy, patient continued to have low tolerance to functional mobility , dyspnea with minimal exertion with poor gait mechanics and increased risk of fall therefore PT continue to recommend STR, CM working placement Quality Stroke Does the patient have a stroke diagnosis?: No VTE Prior VTE?: No VTE Risk Level:: Medical - moderate - high VTE Device Contraindication: Treatment Not Indicated VTE Drug Contraindication: N/A - Med Ordered
[2021-12-14] MEDS: Albuterol Sulfate 90 MCG 8 GM INHALER 2 PUFF INHALE (15:40)
[2021-12-14] MEDS: Ibuprofen 400 MG TABLET PO (17:21)
[2021-12-15] VITALS (9 sets, daily range): BP systolic 96–126; BP diastolic 55–72; PULSE 84–104; RESP 16–20; TEMP 36.6–37.2; O2SAT 90–92
[2021-12-15] MEDS: Acetaminophen 325 MG TABLET 650 MG PO (04:39)
--- NOTE | 2021-12-15 09:24 | P.PNIM_ITS ---
Subjective Subjective Date of Service: 12/15/21 Interval History: Laying in bed, having breakfast Had an episode of chest pain in the afternoon yesterday Normal EKG and troponin Denies having chest pain anymore today No reported other overnight events. Review of Systems No fever, chills or weakness No chest pain, palpitation No shortness of breath No abdominal pain, nausea or vomiting No urinary symptoms No reported rash or wounds Physical Exam Vital Signs: Vital Signs: Last Vital Signs Temp 98.9 F 12/15/21 07:20 Pulse 88 12/15/21 07:20 Resp 20 12/15/21 07:20 BP 126/72 12/15/21 07:20 Pulse Ox 92 12/15/21 07:20 BMI result Body Mass Index 63.2 Const: Other: Gen:? Awake alert, no distress HEENT: sclera anicteric, moist mucus membranes Neck: supple, no JVD Lungs: clear to auscultation bilaterally, fair bilateral air, no wheezes, oxygen supplement Heart: irregularly irregular, no murmurs Abd: soft, non-tender, non-distended, morbidly obese Skin: warm/well-perfused Neuro: alert and oriented x3, no focal?findings Psych: appropriate affect Objective Data Active Medications Acetaminophen (Acetaminophen 325 Mg Tablet) 650 mg PO Q6H PRN PRN Reason: Pain, Mild (Pain Scale 1-3) Last Admin: 12/15/21 04:39 Dose: 650 mg Documented by: JERARDO Albuterol Sulfate (Albuterol Sulfate 90 Mcg 8 Gm Inhaler) 2 puff INHALE RQ4H PRN PRN Reason: sob Last Admin: 12/14/21 15:40 Dose: 2 puff Documented by: ELIDA Apixaban (Apixaban 5 Mg Tablet) 5 mg PO BID [facility] Last Admin: 12/14/21 20:58 Dose: 5 mg Documented by: ANNY Furosemide (Furosemide 40 Mg Tablet) 40 mg PO BID@0900,1800 [facility]; Protocol Guaifenesin (Guaifenesin La 600 Mg Tab.Er.12h) 600 mg PO BID [facility] Last Admin: 12/14/21 20:58 Dose: 600 mg Documented by: ANNY Hydroxyzine HCl (Hydroxyzine Hcl 25 Mg Tablet) 25 mg PO Q6H PRN PRN Reason: anxiety/restlessness Last Admin: 12/12/21 04:01 Dose: 25 mg Documented by: SCARLET Ibuprofen (Ibuprofen 400 Mg Tablet) 400 mg PO Q24H PRN PRN Reason: headache Last Admin: 12/14/21 17:21 Dose: 400 mg Documented by: LEEANN Loperamide HCl (Loperamide Hcl 2 Mg Capsule) 2 mg PO Q4H PRN PRN Reason: Diarrhea Last Admin: 12/12/21 13:36 Dose: 2 mg Documented by: ZIGGY Melatonin (Melatonin 3 Mg Tablet) 6 mg PO BEDTIME PRN PRN Reason: Insomnia Last Admin: 11/14/21 23:52 Dose: 6 mg Documented by: HERMELINDA Pharmacy Consult (Consult Rx Perform Med Rec) 1 each MISCELLANE ONCE PRN PRN Reason: Consult order Pharmacy Consult (Consult Rx Perform Med Rec) 1 each MISCELLANE ONCE PRN PRN Reason: Consult order Senna (Sennosides 8.6 Mg Tablet) 17.2 mg PO BEDTIME PRN PRN Reason: Constipation Sodium Chloride (0.9 % Sodium Chloride Flush 3 Ml Syringe) 3 ml IVFLUSH QSHIFT [facility] Last Admin: 12/15/21 00:15 Dose: 3 ml Documented by: JERARDO Labs CBC & Chem 7: 12/04/21 06:54 12/12/21 06:48 Assessment and Plan (1) Congestive heart failure: Status: Acute (2) Physical deconditioning: Status: Acute (3) NSVT (nonsustained ventricular tachycardia): Status: Acute (4) Morbidly obese: Status: Acute Plan 66yo M with AF, morbid obesity presenting with dyspnea, weight gain, leg edema admitted for CHF exacerbation Chest pain Seems musculoskeletal EKG not showing any ST or T-wave changes Negative troponin Continue to monitor Diarrhea No abdominal pain, not antibiotic, no signs of infection Likely secretory To use Imodium as needed acute diastolic R-sided HF exacerbation with acute on chronic hypoxic respiratory failure improved Repeated CXR showed increase congestion Increase Lasix to 40 mg b.i.d. 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 NSVTs Related to untreated underlying YANN Check electrolyte, magnesium Cannot use beta-anastacio for recurrent episodes of bradycardia Advised to use the BiPAP again but he refused stating that the mask does not feel comfortable in spite of trying more than 1 DC monitor chronic AF rate-controlled. not on metoprolol due to sinus pauses. Continue apixaban for anticoagulation acute hypoxic resp failure wean O2 as tolerated, not on home O2 CT chest and V/Q, no PE morbid obesity strongly recommend to follow low-calorie diet outpatient bariatric surgery referral VTE ppx apixaban dispo being followed by Physical therapy, patient continued to have low tolerance to functional mobility , dyspnea with minimal exertion with poor gait mechanics and increased risk of fall therefore PT continue to recommend STR, CM working placement Quality Stroke Does the patient have a stroke diagnosis?: No VTE Prior VTE?: No VTE Risk Level:: Medical - moderate - high VTE Device Contraindication: Treatment Not Indicated VTE Drug Contraindication: N/A - Med Ordered
[2021-12-15] MEDS: Apixaban 5 MG TABLET PO ×2 (09:34→20:58)
[2021-12-15] MEDS: guaiFENesin LA 600 MG TAB.ER.12H PO ×2 (09:34→20:58)
[2021-12-15] MEDS: Furosemide 40 MG TABLET PO ×2 (09:35→16:41)
[2021-12-15] MEDS: 0.9 % Sodium Chloride Flush 3 ML SYRINGE IVFLUSH ×2 (09:37→21:02)
--- NOTE | 2021-12-15 12:40 | MHC.CM.PN ---
Male 66 DX HF [facility] has been referred. PT 2 PT call arranged by this singer songwriter. Infomation has been sent to the facility for review.
--- NOTE | 2021-12-15 13:37 | PC.NURSE ---
Patient IV hurting while flushing. Insertion date 12/02/21. Dr. Bryant made aware. Per MD gilbert to d/c, no need for replacement IV at this time. Patient aware of potential for new IV, verbalized understanding. IV removed, no issues.
[2021-12-15] MEDS: Ibuprofen 400 MG TABLET PO (21:01)
[2021-12-16] VITALS (8 sets, daily range): BP systolic 101–135; BP diastolic 57–77; PULSE 87–104; RESP 18–20; TEMP 36.1–37.2; O2SAT 90–93; BMI 63.3
[2021-12-16 07:59] LABS: Anion Gap 9 (12-20); Blood Urea Nitrogen 29 mg/dL (9-16); Chloride 95 mmol/L (96-108); Creatinine Clr Calc Pharmacy 112.5; Estimated Glomerular Filt Rate > 60; Glucose Random 99 mg/dL (60-115); Potassium 4.6 mmol/L (3.3-5.1); Sodium 148 mmol/L (135-145)
[2021-12-16] MEDS: Apixaban 5 MG TABLET PO ×2 (08:14→21:26)
[2021-12-16] MEDS: guaiFENesin LA 600 MG TAB.ER.12H PO ×2 (08:15→21:26)
[2021-12-16] MEDS: Furosemide 40 MG TABLET PO (08:15)
[2021-12-16 08:22] LABS: Carbon Dioxide 49 mmol/L (22-29)
[2021-12-16] MEDS: acetaZOLAMIDE 250 MG TABLET PO ×3 (10:13→21:26)
[2021-12-16] MEDS: Acetaminophen 325 MG TABLET 650 MG PO (11:04)
--- NOTE | 2021-12-16 14:39 | P.PNIM_ITS ---
Subjective Subjective Date of Service: 12/16/21 Interval History: cc: sob interval history: shaky Cardiovascular Cardiovascular: Reports no additional cardiovascular complaints Respiratory Respiratory: Reports no additional respiratory complaints Physical Exam Vital Signs: Vital Signs: Last Vital Signs Temp 97.0 F 12/16/21 11:01 Pulse 93 12/16/21 11:19 Resp 20 12/16/21 11:01 BP 110/72 12/16/21 11:19 Pulse Ox 93 12/16/21 11:19 BMI result Body Mass Index 63.3 Gen:? Awake alert, no distress HEENT: sclera anicteric, moist mucus membranes Neck: supple, no JVD Lungs: clear to auscultation bilaterally, fair bilateral air,? no wheezes, oxygen supplement Heart: irregularly irregular, no murmurs Abd: soft, non-tender, non-distended, morbidly obese Skin: warm/well-perfused Neuro: alert and oriented x3, no focal?findings Psych: appropriate affect Objective Data Active Medications Acetaminophen (Acetaminophen 325 Mg Tablet) 650 mg PO Q6H PRN PRN Reason: Pain, Mild (Pain Scale 1-3) Last Admin: 12/16/21 11:04 Dose: 650 mg Documented by: GOLD Acetazolamide (Acetazolamide 250 Mg Tablet) 250 mg PO TID [facility] Last Admin: 12/16/21 10:13 Dose: 250 mg Documented by: GOLD Albuterol Sulfate (Albuterol Sulfate 90 Mcg 8 Gm Inhaler) 2 puff INHALE RQ4H PRN PRN Reason: sob Last Admin: 12/14/21 15:40 Dose: 2 puff Documented by: ELIDA Apixaban (Apixaban 5 Mg Tablet) 5 mg PO BID [facility] Last Admin: 12/16/21 08:14 Dose: 5 mg Documented by: GOLD Furosemide (Furosemide 40 Mg Tablet) 40 mg PO BID@0900,1800 [facility]; Protocol Last Admin: 12/16/21 08:15 Dose: 40 mg Documented by: GOLD Guaifenesin (Guaifenesin La 600 Mg Tab.Er.12h) 600 mg PO BID [facility] Last Admin: 12/16/21 08:15 Dose: 600 mg Documented by: GOLD Hydroxyzine HCl (Hydroxyzine Hcl 25 Mg Tablet) 25 mg PO Q6H PRN PRN Reason: anxiety/restlessness Last Admin: 12/12/21 04:01 Dose: 25 mg Documented by: SCARLET Ibuprofen (Ibuprofen 400 Mg Tablet) 400 mg PO Q24H PRN PRN Reason: headache Last Admin: 12/15/21 21:01 Dose: 400 mg Documented by: MUMTAZ Loperamide HCl (Loperamide Hcl 2 Mg Capsule) 2 mg PO Q4H PRN PRN Reason: Diarrhea Last Admin: 12/12/21 13:36 Dose: 2 mg Documented by: ZIGGY Melatonin (Melatonin 3 Mg Tablet) 6 mg PO BEDTIME PRN PRN Reason: Insomnia Last Admin: 11/14/21 23:52 Dose: 6 mg Documented by: HERMELINDA Pharmacy Consult (Consult Rx Perform Med Rec) 1 each MISCELLANE ONCE PRN PRN Reason: Consult order Pharmacy Consult (Consult Rx Perform Med Rec) 1 each MISCELLANE ONCE PRN PRN Reason: Consult order Senna (Sennosides 8.6 Mg Tablet) 17.2 mg PO BEDTIME PRN PRN Reason: Constipation Sodium Chloride (0.9 % Sodium Chloride Flush 3 Ml Syringe) 3 ml IVFLUSH QSHIFT ULYSSES Last Admin: 12/16/21 08:15 Dose: Not Given Documented by: GOLD Non-Admin Reason: No Access Labs CBC & Chem 7: 12/04/21 06:54 12/16/21 06:54 Labs: Laboratory Results - last 24 hr 12/16/21 06:54 Anion Gap 9 L Estim Creat Clear Calc 112.5 Estimated GFR > 60 Random Glucose 99 Calcium 9.0 Assessment and Plan (1) Congestive heart failure: Status: Acute (2) Physical deconditioning: Status: Acute (3) NSVT (nonsustained ventricular tachycardia): Status: Acute (4) Morbidly obese: Status: Acute Plan 66yo M with AF, morbid obesity presenting with dyspnea, weight gain, leg edema admitted for CHF exacerbation metabolic alkalosis change lasix to diamox, follow up bmp hypernatremia holding lasix, encourage po free fluid monitor Chest pain Seems musculoskeletal EKG not showing any ST or T-wave changes Negative troponin resolved Diarrhea No abdominal pain, not antibiotic, no signs of infection Likely secretory To use Imodium as needed acute diastolic R-sided HF exacerbation with acute on chronic hypoxic respiratory failure improved 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, 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 NSVTs Related to untreated underlying YANN Check electrolyte, magnesium Cannot use beta-anastacio for recurrent episodes of bradycardia Advised to use the BiPAP again but he refused stating that the mask does not feel comfortable in spite of trying more than 1 DC monitor chronic AF rate-controlled. not on metoprolol due to sinus pauses. Continue apixaban for anticoagulation acute hypoxic resp failure now stable, likely chronic at this point wean O2 as tolerated, was not on home O2 CT chest and V/Q, no PE morbid obesity strongly recommend to follow low-calorie diet outpatient bariatric surgery referral VTE ppx apixaban dispo being followed by Physical therapy, patient continued to have low tolerance to functional mobility , dyspnea with minimal exertion with poor gait mechanics and increased risk of fall therefore PT continue to recommend STR, CM working placement Quality Stroke Does the patient have a stroke diagnosis?: No VTE Prior VTE?: No VTE Risk Level:: Medical - moderate - high VTE Device Contraindication: Treatment Not Indicated VTE Drug Contraindication: N/A - Med Ordered
--- NOTE | 2021-12-16 15:43 | MHC.CM.PN ---
Male 66 DX HF Patient is ready to discharge. A broad bed search has not produced any bed offers. [facility] has been asking questions, which is encouraging. CM will continue to follow for placement.
[2021-12-16] MEDS: Ibuprofen 400 MG TABLET PO (21:25)
[2021-12-17] VITALS (7 sets, daily range): BP systolic 108–140; BP diastolic 63–81; PULSE 70–110; RESP 16–20; TEMP 36.3–37.1; O2SAT 90–93
[2021-12-17 07:01] LABS: Hematocrit 51.8 % (42.0-52.0); Hemoglobin 15.5 g/dl (14.0-18.0); Mean Corpuscular HGB Conc 29.9 g/dl (31.0-36.0); Mean Corpuscular Hemoglobin 29.6 pg (27.0-33.0); Mean Platelet Volume 9.7 fL (9.4-12.4); Platelet Count 204 X10*3/uL (160-400); Red Blood Count 5.23 X10*6/uL (4.60-5.80); Red Cell Distribution Width 13.9 % (11.0-16.0); White Blood Count 10.1 X10*3/uL (4.8-10.8)
[2021-12-17 07:34] LABS: Blood Urea Nitrogen 24 mg/dL (9-16); Calcium 9.3 mg/dL (8.4-10.2); Creatinine Clr Calc Pharmacy 140.3; Estimated Glomerular Filt Rate > 60; Glucose Fasting 121 mg/dL (60-99)
[2021-12-17 07:50] LABS: Anion Gap 9 (12-20); Carbon Dioxide 42 mmol/L (22-29); Chloride 99 mmol/L (96-108); Potassium 4.3 mmol/L (3.3-5.1); Sodium 146 mmol/L (135-145)
[2021-12-17] MEDS: guaiFENesin LA 600 MG TAB.ER.12H PO ×2 (08:55→19:55)
[2021-12-17] MEDS: Apixaban 5 MG TABLET PO ×2 (08:55→19:55)
[2021-12-17] MEDS: acetaZOLAMIDE 250 MG TABLET PO ×3 (08:55→19:55)
[2021-12-17] MEDS: Acetaminophen 325 MG TABLET 650 MG PO (09:14)
--- NOTE | 2021-12-17 10:39 | HO.PM.IMPN ---
Subjective Subjective Date of Service: 12/17/21 Interval History: cc: sob interval history: headache resolved, slept well, less shaky Cardiovascular Cardiovascular: Reports no additional cardiovascular complaints Respiratory Respiratory: Reports no additional respiratory complaints Physical Exam Vital Signs: Vital Signs: Last Vital Signs Temp 98.7 F 12/17/21 08:00 Pulse 98 12/17/21 08:00 Resp 20 12/17/21 08:00 BP 108/63 12/17/21 08:00 Pulse Ox 91 L 12/17/21 08:00 BMI result Body Mass Index 63.3 Gen:? Awake alert, no distress HEENT: sclera anicteric, moist mucus membranes Neck: supple, no JVD Lungs: clear to auscultation bilaterally, fair bilateral air,? no wheezes, oxygen supplement Heart: irregularly irregular, no murmurs Abd: soft, non-tender, non-distended, morbidly obese Skin: warm/well-perfused Neuro: alert and oriented x3, no focal?findings Psych: appropriate affect Objective Data Active Medications Acetaminophen (Acetaminophen 325 Mg Tablet) 650 mg PO Q6H PRN PRN Reason: Pain, Mild (Pain Scale 1-3) Last Admin: 12/17/21 09:14 Dose: 650 mg Documented by: GLORIA Acetazolamide (Acetazolamide 250 Mg Tablet) 250 mg PO TID [facility] Last Admin: 12/17/21 08:55 Dose: 250 mg Documented by: GLORIA Albuterol Sulfate (Albuterol Sulfate 90 Mcg 8 Gm Inhaler) 2 puff INHALE RQ4H PRN PRN Reason: sob Last Admin: 12/14/21 15:40 Dose: 2 puff Documented by: ELIDA Apixaban (Apixaban 5 Mg Tablet) 5 mg PO BID [facility] Last Admin: 12/17/21 08:55 Dose: 5 mg Documented by: GLORIA Furosemide (Furosemide 40 Mg Tablet) 40 mg PO BID@0900,1800 [facility]; Protocol Last Admin: 12/16/21 08:15 Dose: 40 mg Documented by: GOLD Guaifenesin (Guaifenesin La 600 Mg Tab.Er.12h) 600 mg PO BID [facility] Last Admin: 12/17/21 08:55 Dose: 600 mg Documented by: GLORIA Hydroxyzine HCl (Hydroxyzine Hcl 25 Mg Tablet) 25 mg PO Q6H PRN PRN Reason: anxiety/restlessness Last Admin: 12/12/21 04:01 Dose: 25 mg Documented by: SCARLET Ibuprofen (Ibuprofen 400 Mg Tablet) 400 mg PO Q24H PRN PRN Reason: headache Last Admin: 12/16/21 21:25 Dose: 400 mg Documented by: CHRISTINE Loperamide HCl (Loperamide Hcl 2 Mg Capsule) 2 mg PO Q4H PRN PRN Reason: Diarrhea Last Admin: 12/12/21 13:36 Dose: 2 mg Documented by: ZIGGY Melatonin (Melatonin 3 Mg Tablet) 6 mg PO BEDTIME PRN PRN Reason: Insomnia Last Admin: 11/14/21 23:52 Dose: 6 mg Documented by: HERMELINDA Pharmacy Consult (Consult Rx Perform Med Rec) 1 each MISCELLANE ONCE PRN PRN Reason: Consult order Pharmacy Consult (Consult Rx Perform Med Rec) 1 each MISCELLANE ONCE PRN PRN Reason: Consult order Senna (Sennosides 8.6 Mg Tablet) 17.2 mg PO BEDTIME PRN PRN Reason: Constipation Sodium Chloride (0.9 % Sodium Chloride Flush 3 Ml Syringe) 3 ml IVFLUSH QSHIFT ULYSSES Last Admin: 12/17/21 08:55 Dose: Not Given Documented by: GLORIA Non-Admin Reason: No Access Labs CBC & Chem 7: 12/17/21 06:43 12/17/21 06:43 Labs: Laboratory Results - last 24 hr 12/17/21 12/17/21 06:43 06:43 MCV 99.0 H MCH 29.6 MCHC 29.9 L RDW 13.9 Plt Count 204 MPV 9.7 Absolute Nucleated RBC 0.000 Nucleated RBC % (auto) 0.0 Anion Gap 9 L Estim Creat Clear Calc 140.3 Estimated GFR > 60 Fasting Glucose 121 H Calcium 9.3 Assessment and Plan (1) Congestive heart failure: Status: Acute (2) Physical deconditioning: Status: Acute (3) NSVT (nonsustained ventricular tachycardia): Status: Acute (4) Morbidly obese: Status: Acute Plan 66yo M with AF, morbid obesity presenting with dyspnea, weight gain, leg edema admitted for CHF exacerbation metabolic alkalosis improving holding lasix continue diamox today, follow up bmp hypernatremia holding lasix, encourage po free fluid improving monitor Chest pain Seems musculoskeletal EKG not showing any ST or T-wave changes Negative troponin resolved Diarrhea No abdominal pain, not antibiotic, no signs of infection Likely secretory To use Imodium as needed acute diastolic R-sided HF exacerbation with acute on chronic hypoxic respiratory failure improved 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 NSVTs Related to untreated underlying YANN Check electrolyte, magnesium Cannot use beta-anastacio for recurrent episodes of bradycardia Advised to use the BiPAP again but he refused stating that the mask does not feel comfortable in spite of trying more than 1 DC monitor chronic AF rate-controlled. not on metoprolol due to sinus pauses. Continue apixaban for anticoagulation acute hypoxic resp failure now stable, likely chronic at this point wean O2 as tolerated, was not on home O2 CT chest and V/Q, no PE morbid obesity strongly recommend to follow low-calorie diet outpatient bariatric surgery referral VTE ppx apixaban dispo being followed by Physical therapy, patient continued to have low tolerance to functional mobility , dyspnea with minimal exertion with poor gait mechanics and increased risk of fall therefore PT continue to recommend STR, CM working placement Quality Stroke Does the patient have a stroke diagnosis?: No VTE Prior VTE?: No VTE Risk Level:: Medical - moderate - high VTE Device Contraindication: Treatment Not Indicated VTE Drug Contraindication: N/A - Med Ordered
--- NOTE | 2021-12-17 19:38 | PC.NURSE ---
SKin Assessment Repositioned and cleaned pt, noticed pt favors R-side. Explained to p0t that we have to repo him frequently to hep prevent breakdown of his skin. Skin appears red-purple in some area but but blanchable. Wound Care Nurse notified and consult put in. Also notified next shift RN
[2021-12-17] MEDS: Ibuprofen 400 MG TABLET PO (19:57)
[2021-12-18] VITALS (9 sets, daily range): BP systolic 93–125; BP diastolic 61–75; PULSE 78–103; RESP 18–20; TEMP 36.1–37.2; O2SAT 87–93
[2021-12-18 06:53] LABS: Hematocrit 51.7 % (42.0-52.0); Hemoglobin 15.4 g/dl (14.0-18.0); Mean Corpuscular HGB Conc 29.8 g/dl (31.0-36.0); Mean Corpuscular Hemoglobin 29.8 pg (27.0-33.0); Mean Corpuscular Volume 100.2 fL (80.0-98.0); Platelet Count 220 X10*3/uL (160-400); Red Blood Count 5.16 X10*6/uL (4.60-5.80); Red Cell Distribution Width 13.8 % (11.0-16.0); White Blood Count 9.4 X10*3/uL (4.8-10.8)
[2021-12-18 07:16] LABS: Anion Gap 10 (12-20); Blood Urea Nitrogen 22 mg/dL (9-16); Calcium 9.2 mg/dL (8.4-10.2); Carbon Dioxide 39 mmol/L (22-29); Chloride 99 mmol/L (96-108); Creatinine Clr Calc Pharmacy 145.4; Estimated Glomerular Filt Rate > 60; Glucose Fasting 97 mg/dL (60-99); Sodium 144 mmol/L (135-145)
[2021-12-18] MEDS: guaiFENesin LA 600 MG TAB.ER.12H PO ×2 (08:22→19:56)
[2021-12-18] MEDS: Apixaban 5 MG TABLET PO ×2 (08:22→19:56)
[2021-12-18] MEDS: Furosemide 40 MG TABLET PO (08:22)
--- NOTE | 2021-12-18 10:17 | P.PNIM_ITS ---
Subjective Subjective Date of Service: 12/18/21 Interval History: cc: sob interval history: not shaky today, no headache Cardiovascular Cardiovascular: Reports no additional cardiovascular complaints Respiratory Respiratory: Reports no additional respiratory complaints Physical Exam Vital Signs: Vital Signs: Last Vital Signs Temp 98.2 F 12/18/21 07:52 Pulse 78 12/18/21 09:42 Resp 20 12/18/21 07:52 BP 107/62 12/18/21 09:42 Pulse Ox 93 12/18/21 09:42 BMI result Body Mass Index 63.3 Gen:? Awake alert, no distress HEENT: sclera anicteric, moist mucus membranes Neck: supple, no JVD Lungs: clear to auscultation bilaterally, fair bilateral air,? no wheezes, oxygen supplement Heart: irregularly irregular, no murmurs Abd: soft, non-tender, non-distended, morbidly obese Skin: warm/well-perfused Neuro: alert and oriented x3, no focal?findings Psych: appropriate affect Objective Data Active Medications Acetaminophen (Acetaminophen 325 Mg Tablet) 650 mg PO Q6H PRN PRN Reason: Pain, Mild (Pain Scale 1-3) Last Admin: 12/17/21 09:14 Dose: 650 mg Documented by: GLORIA Albuterol Sulfate (Albuterol Sulfate 90 Mcg 8 Gm Inhaler) 2 puff INHALE RQ4H PRN PRN Reason: sob Last Admin: 12/14/21 15:40 Dose: 2 puff Documented by: ELIDA Apixaban (Apixaban 5 Mg Tablet) 5 mg PO BID [facility] Last Admin: 12/18/21 08:22 Dose: 5 mg Documented by: TED Furosemide (Furosemide 40 Mg Tablet) 40 mg PO DAILY [facility]; Protocol Last Admin: 12/18/21 08:22 Dose: 40 mg Documented by: TED Guaifenesin (Guaifenesin La 600 Mg Tab.Er.12h) 600 mg PO BID [facility] Last Admin: 12/18/21 08:22 Dose: 600 mg Documented by: TED Hydroxyzine HCl (Hydroxyzine Hcl 25 Mg Tablet) 25 mg PO Q6H PRN PRN Reason: anxiety/restlessness Last Admin: 12/12/21 04:01 Dose: 25 mg Documented by: SCARLET Ibuprofen (Ibuprofen 400 Mg Tablet) 400 mg PO Q24H PRN PRN Reason: headache Last Admin: 12/17/21 19:57 Dose: 400 mg Documented by: JUSTYNA Loperamide HCl (Loperamide Hcl 2 Mg Capsule) 2 mg PO Q4H PRN PRN Reason: Diarrhea Last Admin: 12/12/21 13:36 Dose: 2 mg Documented by: ZIGGY Melatonin (Melatonin 3 Mg Tablet) 6 mg PO BEDTIME PRN PRN Reason: Insomnia Last Admin: 11/14/21 23:52 Dose: 6 mg Documented by: HERMELINDA Pharmacy Consult (Consult Rx Perform Med Rec) 1 each MISCELLANE ONCE PRN PRN Reason: Consult order Pharmacy Consult (Consult Rx Perform Med Rec) 1 each MISCELLANE ONCE PRN PRN Reason: Consult order Senna (Sennosides 8.6 Mg Tablet) 17.2 mg PO BEDTIME PRN PRN Reason: Constipation Sodium Chloride (0.9 % Sodium Chloride Flush 3 Ml Syringe) 3 ml IVFLUSH QSHIFT ULYSSES Last Admin: 12/18/21 08:21 Dose: Not Given Documented by: TED Non-Admin Reason: No Access Labs CBC & Chem 7: 12/18/21 06:03 12/18/21 06:03 Labs: Laboratory Results - last 24 hr 12/18/21 12/18/21 06:03 06:03 MCV 100.2 H MCH 29.8 MCHC 29.8 L RDW 13.8 Plt Count 220 MPV 10.0 Absolute Nucleated RBC 0.000 Nucleated RBC % (auto) 0.0 Anion Gap 10 L Estim Creat Clear Calc 145.4 Estimated GFR > 60 Fasting Glucose 97 Calcium 9.2 Assessment and Plan (1) Congestive heart failure: Status: Acute (2) Physical deconditioning: Status: Acute (3) NSVT (nonsustained ventricular tachycardia): Status: Acute (4) Morbidly obese: Status: Acute Plan 66yo M with AF, morbid obesity presenting with dyspnea, weight gain, leg edema admitted for CHF exacerbation metabolic alkalosis resolved change back to lasix hypernatremia resolved Chest pain Seems musculoskeletal EKG not showing any ST or T-wave changes Negative troponin resolved Diarrhea No abdominal pain, not antibiotic, no signs of infection Likely secretory To use Imodium as needed acute diastolic R-sided HF exacerbation with acute on chronic hypoxic respiratory failure improved 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 NSVTs Related to untreated underlying YANN Check electrolyte, magnesium Cannot use beta-anastacio for recurrent episodes of bradycardia Advised to use the BiPAP again but he refused stating that the mask does not feel comfortable in spite of trying more than 1 DCed monitor chronic AF rate-controlled. not on metoprolol due to sinus pauses. Continue apixaban for anticoagulation acute hypoxic resp failure now stable, likely chronic at this point wean O2 as tolerated, was not on home O2 CT chest and V/Q, no PE morbid obesity strongly recommend to follow low-calorie diet outpatient bariatric surgery referral VTE ppx apixaban dispo being followed by Physical therapy, patient continued to have low tolerance to functional mobility , dyspnea with minimal exertion with poor gait mechanics and increased risk of fall therefore PT continue to recommend STR, CM working placement Quality Stroke Does the patient have a stroke diagnosis?: No VTE Prior VTE?: No VTE Risk Level:: Medical - moderate - high VTE Device Contraindication: Treatment Not Indicated VTE Drug Contraindication: N/A - Med Ordered
[2021-12-18] MEDS: Acetaminophen 325 MG TABLET 650 MG PO (10:54)
--- NOTE | 2021-12-18 11:49 | MHC.CM.PN ---
Male 66 DX HF Bariatric bed search continues. [facility] is still reviewing clinical information. No bed offers have been made. Per PT Patient showed improvement today. CM will continue bed search.
--- NOTE | 2021-12-18 12:01 | PC.NURSE ---
Addendum entered by Luanne Parnell RN 12/18/21 14:19: When repositioning patient to left side patient desated to the 70's and stated he was having a hard time breathing. So, we repositioned him back to right side, removed the bridge mechanic pads and replaced with paper pads and placed a wedge under right thigh to take some pressure off thigh. Patient saturation went back up to 92%. 2 hour checks are scheduled to check right thigh/hip for any increased redness or purple. Original Note: Skin assessment completed today. Patient is an obese man who favors laying on right side. On 12/17/21, a nurse noticed some redness and light purple areas on right hip and thigh. This nurse took a picture and placed in chart. The area is blanchable. This nurse spoke to the patient about pressure and what it could do to his right side if he continues to lay on it. A sizewise air bed is in place, turning and repositioning has been implemented and explained to patient of the importance. And wedges have been implemented. No other skin issues have been noted at this time. Also, physical therapy is working with the patient.
--- NOTE | 2021-12-18 17:41 | PC.NURSE ---
attempted to reposition pt onto his left side. Pt sats dropped to the 70'2 on 2L. Pt complained of difficulty breathing when on left side. Pt repositioned back to right side and repositioning wedge placed under right thigh/leg to attempt to relieve some of pressure.
[2021-12-19 03:55] VITALS: BP 141/69; PULSE 94; RESP 19; TEMP 36.8; O2SAT 95
[2021-12-19 08:00] VITALS: BP 134/66; PULSE 81; RESP 18; TEMP 36.2; O2SAT 91
--- NOTE | 2021-12-19 09:11 | HO.PM.IMPN ---
Subjective Subjective Date of Service: 12/19/21 Interval History: cc: sob interval history: more shaky today Cardiovascular Cardiovascular: Reports no additional cardiovascular complaints Respiratory Respiratory: Reports no additional respiratory complaints Physical Exam Vital Signs: Vital Signs: Last Vital Signs Temp 97.1 F 12/19/21 08:00 Pulse 81 12/19/21 08:00 Resp 18 12/19/21 08:00 BP 134/66 12/19/21 08:00 Pulse Ox 91 L 12/19/21 08:00 BMI result Body Mass Index 63.3 Gen:? Awake alert, no distress HEENT: sclera anicteric, moist mucus membranes Neck: supple, no JVD Lungs: clear to auscultation bilaterally, fair bilateral air,? no wheezes, oxygen supplement Heart: irregularly irregular, no murmurs Abd: soft, non-tender, non-distended, morbidly obese Skin: warm/well-perfused Neuro: alert and oriented x3, no focal?findings Psych: appropriate affect Objective Data Active Medications Acetaminophen (Acetaminophen 325 Mg Tablet) 650 mg PO Q6H PRN PRN Reason: Pain, Mild (Pain Scale 1-3) Last Admin: 12/18/21 10:54 Dose: 650 mg Documented by: TED Albuterol Sulfate (Albuterol Sulfate 90 Mcg 8 Gm Inhaler) 2 puff INHALE RQ4H PRN PRN Reason: sob Last Admin: 12/14/21 15:40 Dose: 2 puff Documented by: ELIDA Apixaban (Apixaban 5 Mg Tablet) 5 mg PO BID [facility] Last Admin: 12/18/21 19:56 Dose: 5 mg Documented by: AWA Furosemide (Furosemide 40 Mg Tablet) 40 mg PO DAILY [facility]; Protocol Last Admin: 12/18/21 08:22 Dose: 40 mg Documented by: TED Guaifenesin (Guaifenesin La 600 Mg Tab.Er.12h) 600 mg PO BID [facility] Last Admin: 12/18/21 19:56 Dose: 600 mg Documented by: AWA Hydroxyzine HCl (Hydroxyzine Hcl 25 Mg Tablet) 25 mg PO Q6H PRN PRN Reason: anxiety/restlessness Last Admin: 12/12/21 04:01 Dose: 25 mg Documented by: SCARLET Ibuprofen (Ibuprofen 400 Mg Tablet) 400 mg PO Q24H PRN PRN Reason: headache Last Admin: 12/17/21 19:57 Dose: 400 mg Documented by: JUSTYNA Loperamide HCl (Loperamide Hcl 2 Mg Capsule) 2 mg PO Q4H PRN PRN Reason: Diarrhea Last Admin: 12/12/21 13:36 Dose: 2 mg Documented by: ZIGGY Melatonin (Melatonin 3 Mg Tablet) 6 mg PO BEDTIME PRN PRN Reason: Insomnia Last Admin: 11/14/21 23:52 Dose: 6 mg Documented by: HERMELINDA Pharmacy Consult (Consult Rx Perform Med Rec) 1 each MISCELLANE ONCE PRN PRN Reason: Consult order Pharmacy Consult (Consult Rx Perform Med Rec) 1 each MISCELLANE ONCE PRN PRN Reason: Consult order Senna (Sennosides 8.6 Mg Tablet) 17.2 mg PO BEDTIME PRN PRN Reason: Constipation Sodium Chloride (0.9 % Sodium Chloride Flush 3 Ml Syringe) 3 ml IVFLUSH QSHIFT ULYSSES Last Admin: 12/18/21 20:01 Dose: Not Given Documented by: AWA Non-Admin Reason: No Access Labs CBC & Chem 7: 12/18/21 06:03 12/18/21 06:03 Assessment and Plan (1) Congestive heart failure: Status: Acute (2) Physical deconditioning: Status: Acute (3) NSVT (nonsustained ventricular tachycardia): Status: Acute (4) Morbidly obese: Status: Acute Plan 66yo M with AF, morbid obesity presenting with dyspnea, weight gain, leg edema admitted for CHF exacerbation metabolic alkalosis resolved hypernatremia resolved Chest pain Seems musculoskeletal EKG not showing any ST or T-wave changes Negative troponin resolved Diarrhea No abdominal pain, not antibiotic, no signs of infection Likely secretory To use Imodium as needed acute diastolic R-sided HF exacerbation with acute on chronic hypoxic respiratory failure improved 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 NSVTs Related to untreated underlying YANN Check electrolyte, magnesium Cannot use beta-anastacio for recurrent episodes of bradycardia Advised to use the BiPAP again but he refused stating that the mask does not feel comfortable in spite of trying more than 1 DCed monitor chronic AF rate-controlled. not on metoprolol due to sinus pauses. Continue apixaban for anticoagulation acute hypoxic resp failure now stable, likely chronic at this point wean O2 as tolerated, was not on home O2 CT chest and V/Q, no PE morbid obesity strongly recommend to follow low-calorie diet outpatient bariatric surgery referral VTE ppx apixaban dispo being followed by Physical therapy, patient continued to have low tolerance to functional mobility , dyspnea with minimal exertion with poor gait mechanics and increased risk of fall therefore PT continue to recommend STR, CM working placement Quality Stroke Does the patient have a stroke diagnosis?: No VTE Prior VTE?: No VTE Risk Level:: Medical - moderate - high VTE Device Contraindication: Treatment Not Indicated VTE Drug Contraindication: N/A - Med Ordered
[2021-12-19] MEDS: Acetaminophen 325 MG TABLET 650 MG PO (09:30)
[2021-12-19] MEDS: Furosemide 40 MG TABLET PO (09:30)
[2021-12-19] MEDS: Apixaban 5 MG TABLET PO ×2 (09:30→19:40)
[2021-12-19] MEDS: guaiFENesin LA 600 MG TAB.ER.12H PO ×2 (09:31→19:40)
[2021-12-19 11:27] VITALS: BP 130/69; PULSE 98; RESP 18; TEMP 36.6; O2SAT 95
--- NOTE | 2021-12-19 12:35 | PC.NURSE ---
pt refusing to come off right side, as he said he can't breath properly. Educated on the importance of repositioning to prevent skin break. Will revisit in 1 hour to repo supine; if patient is agreeable.
--- NOTE | 2021-12-19 13:19 | PC.NURSE ---
Repositioning pt agrees to go supine for at least 1 hour
[2021-12-19 15:48] VITALS: BP 96/60; PULSE 95; RESP 18; TEMP 36.6; O2SAT 90
[2021-12-19 19:57] VITALS: BP 120/63; PULSE 98; RESP 16; TEMP 37.6; O2SAT 89
[2021-12-19 23:28] VITALS: BP 133/66; PULSE 81; RESP 18; TEMP 36.7; O2SAT 91
[2021-12-20] VITALS (7 sets, daily range): BP systolic 105–153; BP diastolic 62–75; PULSE 84–98; RESP 16–28; TEMP 35.9–37.2; O2SAT 90–96
[2021-12-20] MEDS: Ibuprofen 400 MG TABLET PO (02:41)
--- NOTE | 2021-12-20 09:22 | P.PNIM_ITS ---
Subjective Subjective Date of Service: 12/20/21 Interval History: cc: sob interval history:diarrhea Cardiovascular Cardiovascular: Reports no additional cardiovascular complaints Respiratory Respiratory: Reports no additional respiratory complaints Physical Exam Vital Signs: Vital Signs: Last Vital Signs Temp 96.6 F L 12/20/21 07:36 Pulse 95 12/20/21 07:36 Resp 16 12/20/21 07:36 BP 141/66 H 12/20/21 07:36 Pulse Ox 92 12/20/21 07:36 BMI result Body Mass Index 63.3 Gen:? Awake alert, no distress HEENT: sclera anicteric, moist mucus membranes Neck: supple, no JVD Lungs: clear to auscultation bilaterally, fair bilateral air,? no wheezes, oxygen supplement Heart: irregularly irregular, no murmurs Abd: soft, non-tender, non-distended, morbidly obese Skin: warm/well-perfused Neuro: alert and oriented x3, no focal?findings Psych: appropriate affect Objective Data Active Medications Acetaminophen (Acetaminophen 325 Mg Tablet) 650 mg PO Q6H PRN PRN Reason: Pain, Mild (Pain Scale 1-3) Last Admin: 12/19/21 09:30 Dose: 650 mg Documented by: YOAN Albuterol Sulfate (Albuterol Sulfate 90 Mcg 8 Gm Inhaler) 2 puff INHALE RQ4H PRN PRN Reason: sob Last Admin: 12/14/21 15:40 Dose: 2 puff Documented by: ELIDA Apixaban (Apixaban 5 Mg Tablet) 5 mg PO BID [facility] Last Admin: 12/19/21 19:40 Dose: 5 mg Documented by: AWA Furosemide (Furosemide 40 Mg Tablet) 40 mg PO DAILY [facility]; Protocol Last Admin: 12/19/21 09:30 Dose: 40 mg Documented by: YAON Guaifenesin (Guaifenesin La 600 Mg Tab.Er.12h) 600 mg PO BID [facility] Last Admin: 12/19/21 19:40 Dose: 600 mg Documented by: AWA Hydroxyzine HCl (Hydroxyzine Hcl 25 Mg Tablet) 25 mg PO Q6H PRN PRN Reason: anxiety/restlessness Last Admin: 12/12/21 04:01 Dose: 25 mg Documented by: SCARLET Ibuprofen (Ibuprofen 400 Mg Tablet) 400 mg PO Q24H PRN PRN Reason: headache Last Admin: 12/20/21 02:41 Dose: 400 mg Documented by: AWA Loperamide HCl (Loperamide Hcl 2 Mg Capsule) 2 mg PO Q4H PRN PRN Reason: Diarrhea Last Admin: 12/12/21 13:36 Dose: 2 mg Documented by: ZIGGY Melatonin (Melatonin 3 Mg Tablet) 6 mg PO BEDTIME PRN PRN Reason: Insomnia Last Admin: 11/14/21 23:52 Dose: 6 mg Documented by: HERMELINDA Pharmacy Consult (Consult Rx Perform Med Rec) 1 each MISCELLANE ONCE PRN PRN Reason: Consult order Pharmacy Consult (Consult Rx Perform Med Rec) 1 each MISCELLANE ONCE PRN PRN Reason: Consult order Senna (Sennosides 8.6 Mg Tablet) 17.2 mg PO BEDTIME PRN PRN Reason: Constipation Sodium Chloride (0.9 % Sodium Chloride Flush 3 Ml Syringe) 3 ml IVFLUSH QSHIFT ULYSSES Last Admin: 12/20/21 00:00 Dose: Not Given Documented by: AWA Non-Admin Reason: No Access Labs CBC & Chem 7: 12/18/21 06:03 12/18/21 06:03 Assessment and Plan (1) Congestive heart failure: Status: Acute (2) Physical deconditioning: Status: Acute (3) NSVT (nonsustained ventricular tachycardia): Status: Acute (4) Morbidly obese: Status: Acute Plan 66yo M with AF, morbid obesity presenting with dyspnea, weight gain, leg edema admitted for CHF exacerbation metabolic alkalosis resolved hypernatremia resolved Chest pain Seems musculoskeletal EKG not showing any ST or T-wave changes Negative troponin resolved Diarrhea No abdominal pain, not antibiotic, no signs of infection Likely secretory To use Imodium as needed will check cdif acute diastolic R-sided HF exacerbation with acute on chronic hypoxic respiratory failure improved 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 with 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 NSVTs Related to untreated underlying YANN Check electrolyte, magnesium Cannot use beta-anastacio for recurrent episodes of bradycardia Advised to use the BiPAP again but he refused stating that the mask does not feel comfortable in spite of trying more than 1 DCed monitor chronic AF rate-controlled. not on metoprolol due to sinus pauses. Continue apixaban for anticoagulation acute hypoxic resp failure now stable, likely chronic at this point wean O2 as tolerated, was not on home O2 CT chest and V/Q, no PE morbid obesity strongly recommend to follow low-calorie diet outpatient bariatric surgery referral VTE ppx apixaban dispo being followed by Physical therapy, patient continued to have low tolerance to functional mobility , dyspnea with minimal exertion with poor gait mechanics and increased risk of fall therefore PT continue to recommend STR, CM working placement Quality Stroke Does the patient have a stroke diagnosis?: No VTE Prior VTE?: No VTE Risk Level:: Medical - moderate - high VTE Device Contraindication: Treatment Not Indicated VTE Drug Contraindication: N/A - Med Ordered
[2021-12-20] MEDS: Furosemide 40 MG TABLET PO (09:54)
[2021-12-20] MEDS: guaiFENesin LA 600 MG TAB.ER.12H PO ×2 (09:54→20:13)
[2021-12-20] MEDS: Apixaban 5 MG TABLET PO ×2 (09:54→20:13)
[2021-12-20 10:23] LABS: Glucose, Whole Blood 135 mg/dL (60-115)
[2021-12-20] MEDS: Acetaminophen 325 MG TABLET 650 MG PO (12:34)
[2021-12-20 16:07] LABS: ABG Base Excess 16.1 mmol/L; ABG HCO3 48 mmol/L (22-26); ABG pCO2 98 mmHg (32-45); ABG pO2 65 mmHg (83-108)
--- NOTE | 2021-12-20 16:33 | PM.EVENT ---
Event Note Date of Service: 12/20/21 Event Note: Respiratory acidosis/metabolic alkalosis, acute hx YANN, has been refusing bipap, does not use cpap at home VBG 7.///[address] bipap and manage on IMC for now Patient alert and oriented Repeat ABG at 1830 If his condition worsens may need tx to higher level of care
[2021-12-20 18:24] LABS: ABG Base Excess 15.2 mmol/L; ABG HCO3 46 mmol/L (22-26); ABG pCO2 89 mmHg (32-45); ABG pH 7.32 (7.35-7.45); ABG pO2 126 mmHg (83-108)
[2021-12-20] MEDS: 0.9 % Sodium Chloride Flush 3 ML SYRINGE IVFLUSH (20:13)
[2021-12-20 23:09] LABS: ABG Refer to POC result
[2021-12-20 23:10] LABS: ABG Refer to POC result
[2021-12-21] VITALS (9 sets, daily range): BP systolic 112–129; BP diastolic 52–71; PULSE 76–102; RESP 18–28; TEMP 36.6–37.6; O2SAT 91–97
[2021-12-21 06:44] LABS: Hematocrit 49.6 % (42.0-52.0); Hemoglobin 14.7 g/dl (14.0-18.0); Mean Corpuscular HGB Conc 29.6 g/dl (31.0-36.0); Mean Corpuscular Hemoglobin 29.7 pg (27.0-33.0); Mean Corpuscular Volume 100.2 fL (80.0-98.0); Mean Platelet Volume 9.6 fL (9.4-12.4); Platelet Count 191 X10*3/uL (160-400); Red Blood Count 4.95 X10*6/uL (4.60-5.80); White Blood Count 11.3 X10*3/uL (4.8-10.8)
[2021-12-21 07:01] LABS: Anion Gap 10 (12-20); Blood Urea Nitrogen 20 mg/dL (9-16); Calcium 9.3 mg/dL (8.4-10.2); Carbon Dioxide 39 mmol/L (22-29); Chloride 100 mmol/L (96-108); Creatinine Clr Calc Pharmacy 170.3; Estimated Glomerular Filt Rate > 60; Glucose Fasting 99 mg/dL (60-99); Potassium 4.7 mmol/L (3.3-5.1); Sodium 144 mmol/L (135-145)
--- NOTE | 2021-12-21 09:01 | P.PNIM_ITS ---
Subjective Subjective Date of Service: 12/21/21 Interval History: cc: sob interval history:became sleepy and shaky yesterday, abg with hypercapnea, improved with bipap, took off bipap at 3am as could not tolerate Cardiovascular Cardiovascular: Reports no additional cardiovascular complaints Respiratory Respiratory: Reports no additional respiratory complaints Physical Exam Vital Signs: Vital Signs: Last Vital Signs Temp 99.7 F 12/21/21 07:41 Pulse 85 12/21/21 07:41 Resp 22 H 12/21/21 07:41 BP 114/63 12/21/21 07:41 Pulse Ox 93 12/21/21 07:41 BMI result Body Mass Index 63.3 Gen:? Awake alert, no distress HEENT: sclera anicteric, moist mucus membranes Neck: supple, no JVD Lungs: clear to auscultation bilaterally, fair bilateral air,? no wheezes, oxygen supplement Heart: irregularly irregular, no murmurs Abd: soft, non-tender, non-distended, morbidly obese Skin: warm/well-perfused Neuro: alert and oriented x3, no focal?findings Psych: appropriate affect Objective Data Active Medications Acetaminophen (Acetaminophen 325 Mg Tablet) 650 mg PO Q6H PRN PRN Reason: Pain, Mild (Pain Scale 1-3) Last Admin: 12/20/21 12:34 Dose: 650 mg Documented by: SRAVANI Albuterol Sulfate (Albuterol Sulfate 90 Mcg 8 Gm Inhaler) 2 puff INHALE RQ4H PRN PRN Reason: sob Last Admin: 12/14/21 15:40 Dose: 2 puff Documented by: ELIDA Apixaban (Apixaban 5 Mg Tablet) 5 mg PO BID [facility] Last Admin: 12/20/21 20:13 Dose: 5 mg Documented by: JUSTYNA Furosemide (Furosemide 40 Mg Tablet) 40 mg PO DAILY [facility]; Protocol Last Admin: 12/20/21 09:54 Dose: 40 mg Documented by: SRAVANI Guaifenesin (Guaifenesin La 600 Mg Tab.Er.12h) 600 mg PO BID [facility] Last Admin: 12/20/21 20:13 Dose: 600 mg Documented by: JUSTYNA Hydroxyzine HCl (Hydroxyzine Hcl 25 Mg Tablet) 25 mg PO Q6H PRN PRN Reason: anxiety/restlessness Last Admin: 12/12/21 04:01 Dose: 25 mg Documented by: SCARLET Ibuprofen (Ibuprofen 400 Mg Tablet) 400 mg PO Q24H PRN PRN Reason: headache Last Admin: 12/20/21 02:41 Dose: 400 mg Documented by: AWA Loperamide HCl (Loperamide Hcl 2 Mg Capsule) 2 mg PO Q4H PRN PRN Reason: Diarrhea Last Admin: 12/12/21 13:36 Dose: 2 mg Documented by: ZIGGY Melatonin (Melatonin 3 Mg Tablet) 6 mg PO BEDTIME PRN PRN Reason: Insomnia Last Admin: 11/14/21 23:52 Dose: 6 mg Documented by: HERMELINDA Pharmacy Consult (Consult Rx Perform Med Rec) 1 each MISCELLANE ONCE PRN PRN Reason: Consult order Pharmacy Consult (Consult Rx Perform Med Rec) 1 each MISCELLANE ONCE PRN PRN Reason: Consult order Senna (Sennosides 8.6 Mg Tablet) 17.2 mg PO BEDTIME PRN PRN Reason: Constipation Sodium Chloride (0.9 % Sodium Chloride Flush 3 Ml Syringe) 3 ml IVFLUSH QSHIFT [facility] Last Admin: 12/20/21 20:13 Dose: 3 ml Documented by: ANTOIC Labs CBC & Chem 7: 12/21/21 06:16 12/21/21 06:16 Labs: Laboratory Results - last 24 hr 12/20/21 12/20/21 12/20/21 10:04 15:59 18:16 MCV MCH MCHC RDW Plt Count MPV Absolute Nucleated RBC Nucleated RBC % (auto) O2 Saturation 90.0 99.0 ABG pH at Pt Temp 7.30 L 7.32 L ABG pCO2 at Pt Temp 98 H* 89 H* ABG pO2 at Pt Temp 65 L 126 H ABG HCO3 48 H 46 H ABG Base Excess (Actual) 16.1 15.2 Anion Gap Estim Creat Clear Calc Estimated GFR POC Glucose 135 H Fasting Glucose Calcium 12/21/21 12/21/21 06:16 06:16 MCV 100.2 H MCH 29.7 MCHC 29.6 L RDW 14.0 Plt Count 191 MPV 9.6 Absolute Nucleated RBC 0.000 Nucleated RBC % (auto) 0.0 O2 Saturation ABG pH at Pt Temp ABG pCO2 at Pt Temp ABG pO2 at Pt Temp ABG HCO3 ABG Base Excess (Actual) Anion Gap 10 L Estim Creat Clear Calc 170.3 Estimated GFR > 60 POC Glucose Fasting Glucose 99 Calcium 9.3 Assessment and Plan (1) Congestive heart failure: Status: Acute (2) Physical deconditioning: Status: Acute (3) NSVT (nonsustained ventricular tachycardia): Status: Acute (4) Morbidly obese: Status: Acute Plan 66yo M with AF, morbid obesity presenting with dyspnea, weight gain, leg edema admitted for CHF exacerbation Toxic metabolic encephalopathy due to acute on chronic hypercapnic respiratory failure improved with BiPAP now back to baseline unfortunately patient continues to poorly tolerate BiPAP, he is encouraged to wear it as much as tolerated while sleeping. Chest pain Seems musculoskeletal EKG not showing any ST or T-wave changes Negative troponin resolved Diarrhea No abdominal pain, not antibiotic, no signs of infection Likely secretory To use Imodium as needed pending cdif acute diastolic R-sided HF exacerbation with acute on chronic hypoxic respiratory failure improved pt will f/u with his monotypist, Dr Maosn at [facility] physical deconditioning Evaluated by physical therapy team who recommended short-term rehab Pending placement - difficulty finding bariatric placement, patient unable to manage at home sinus pauses/ sinus bradycardia patient asymptomatic during episodes seen by cardiology bradycardia likely due to undiagnosed YANN , since this is reversible not committed to pacemaker patient unwilling to wear CPAP, he could not tolerate the mask on his face outpt polysomnography Qualifies for BiPAP by overnight oximetry but the patient refusing to wear the CPAP. NSVTs Related to untreated underlying YANN Cannot use beta-anastacio for recurrent episodes of bradycardia Advised to use the BiPAP again but he refused stating that the mask does not f eel comfortable in spite of trying more than 1 chronic AF rate-controlled. not on metoprolol due to sinus pauses. Continue apixaban for anticoagulation acute hypoxic resp failure now stable, likely chronic at this point wean O2 as tolerated, was not on home O2 CT chest and V/Q, no PE morbid obesity strongly recommend to follow low-calorie diet outpatient bariatric surgery referral VTE ppx apixaban dispo being followed by Physical therapy, patient continued to have low tolerance to functional mobility , dyspnea with minimal exertion with poor gait mechanics and increased risk of fall therefore PT continue to recommend STR, CM working placement Quality Stroke Does the patient have a stroke diagnosis?: No VTE Prior VTE?: No VTE Risk Level:: Medical - moderate - high VTE Device Contraindication: Treatment Not Indicated VTE Drug Contraindication: N/A - Med Ordered
[2021-12-21] MEDS: Furosemide 40 MG TABLET PO (10:10)
[2021-12-21] MEDS: guaiFENesin LA 600 MG TAB.ER.12H PO ×2 (10:11→19:58)
[2021-12-21] MEDS: Apixaban 5 MG TABLET PO ×2 (10:11→19:58)
[2021-12-21] MEDS: 0.9 % Sodium Chloride Flush 3 ML SYRINGE IVFLUSH ×3 (10:14→20:00)
[2021-12-21] MEDS: Ibuprofen 400 MG TABLET PO (10:18)
--- NOTE | 2021-12-21 11:54 | MHC.CM.PN ---
Broad SNF search and Acute Rehab search is in progress and CM will continue to follow.
[2021-12-21 17:43] LABS: CDiff Gene PCR NEGATIVE (Negative)
[2021-12-22] VITALS (9 sets, daily range): BP systolic 100–142; BP diastolic 54–87; PULSE 85–98; RESP 18–22; TEMP 36.6–37.2; O2SAT 91–95
[2021-12-22] MEDS: 0.9 % Sodium Chloride Flush 3 ML SYRINGE IVFLUSH ×3 (08:23→19:38)
[2021-12-22] MEDS: acetaZOLAMIDE 250 MG TABLET PO ×2 (08:23→19:38)
[2021-12-22] MEDS: guaiFENesin LA 600 MG TAB.ER.12H PO ×2 (08:23→19:38)
[2021-12-22] MEDS: Apixaban 5 MG TABLET PO ×2 (08:23→19:38)
[2021-12-22] MEDS: Furosemide 40 MG TABLET PO (08:23)
--- NOTE | 2021-12-22 09:49 | P.PNIM_ITS ---
Subjective Subjective Date of Service: 12/22/21 Interval History: cc: sob interval history: much improved from last 2 days, back to baseline sob on exertion. Cardiovascular Cardiovascular: Reports no additional cardiovascular complaints Gastrointestinal Gastrointestinal: Reports no additional gastrointestinal complaints Physical Exam Vital Signs: Vital Signs: Last Vital Signs Temp 98.9 F 12/22/21 07:42 Pulse 91 12/22/21 09:12 Resp 20 12/22/21 07:42 BP 100/58 L 12/22/21 09:12 Pulse Ox 95 12/22/21 09:12 BMI result Body Mass Index 63.3 Gen:? Awake alert, no distress HEENT: sclera anicteric, moist mucus membranes Neck: supple, no JVD Lungs: clear to auscultation bilaterally, fair bilateral air,? no wheezes, oxygen supplement Heart: irregularly irregular, no murmurs Abd: soft, non-tender, non-distended, morbidly obese Skin: warm/well-perfused Neuro: alert and oriented x3, no focal?findings Psych: appropriate affect Objective Data Active Medications Acetaminophen (Acetaminophen 325 Mg Tablet) 650 mg PO Q6H PRN PRN Reason: Pain, Mild (Pain Scale 1-3) Last Admin: 12/20/21 12:34 Dose: 650 mg Documented by: SRAVANI Acetazolamide (Acetazolamide 250 Mg Tablet) 250 mg PO BID [facility] Last Admin: 12/22/21 08:23 Dose: 250 mg Documented by: EUGENE Albuterol Sulfate (Albuterol Sulfate 90 Mcg 8 Gm Inhaler) 2 puff INHALE RQ4H PRN PRN Reason: sob Last Admin: 12/14/21 15:40 Dose: 2 puff Documented by: BLASCL Apixaban (Apixaban 5 Mg Tablet) 5 mg PO BID [facility] Last Admin: 12/22/21 08:23 Dose: 5 mg Documented by: COTEMA Furosemide (Furosemide 40 Mg Tablet) 40 mg PO DAILY [facility]; Protocol Last Admin: 12/22/21 08:23 Dose: 40 mg Documented by: DOMENICOEMA Guaifenesin (Guaifenesin La 600 Mg Tab.Er.12h) 600 mg PO BID [facility] Last Admin: 12/22/21 08:23 Dose: 600 mg Documented by: DOMENICOEMA Hydroxyzine HCl (Hydroxyzine Hcl 25 Mg Tablet) 25 mg PO Q6H PRN PRN Reason: anxiety/restlessness Last Admin: 12/12/21 04:01 Dose: 25 mg Documented by: SCARLET Ibuprofen (Ibuprofen 400 Mg Tablet) 400 mg PO Q24H PRN PRN Reason: headache Last Admin: 12/21/21 10:18 Dose: 400 mg Documented by: JUAN CARLOS-JENNIFER Loperamide HCl (Loperamide Hcl 2 Mg Capsule) 2 mg PO Q4H PRN PRN Reason: Diarrhea Last Admin: 12/12/21 13:36 Dose: 2 mg Documented by: ZIGGY Melatonin (Melatonin 3 Mg Tablet) 6 mg PO BEDTIME PRN PRN Reason: Insomnia Last Admin: 11/14/21 23:52 Dose: 6 mg Documented by: HERMELINDA Pharmacy Consult (Consult Rx Perform Med Rec) 1 each MISCELLANE ONCE PRN PRN Reason: Consult order Pharmacy Consult (Consult Rx Perform Med Rec) 1 each MISCELLANE ONCE PRN PRN Reason: Consult order Senna (Sennosides 8.6 Mg Tablet) 17.2 mg PO BEDTIME PRN PRN Reason: Constipation Sodium Chloride (0.9 % Sodium Chloride Flush 3 Ml Syringe) 3 ml IVFLUSH QSHIFT ULYSSES Last Admin: 12/22/21 08:23 Dose: 3 ml Documented by: COTEMA Labs CBC & Chem 7: 12/21/21 06:16 12/21/21 06:16 Labs: Laboratory Results - last 24 hr 12/21/21 14:35 C. difficile Tox B Gene NEGATIVE Assessment and Plan (1) Congestive heart failure: Status: Acute (2) Physical deconditioning: Status: Acute (3) NSVT (nonsustained ventricular tachycardia): Status: Acute (4) Morbidly obese: Status: Acute Plan 66yo M with AF, morbid obesity presenting with dyspnea, weight gain, leg edema admitted for CHF exacerbation Toxic metabolic encephalopathy due to acute on chronic hypercapnic respiratory failure improved with BiPAP now back to baseline unfortunately patient continues to poorly tolerate BiPAP, he is encouraged to wear it as much as tolerated while sleeping. Chest pain Seems musculoskeletal EKG not showing any ST or T-wave changes Negative troponin resolved Diarrhea No abdominal pain, not antibiotic, no signs of infection cdif negative Likely secretory To use Imodium as needed acute diastolic R-sided HF exacerbation with acute on chronic hypoxic respiratory failure improved pt will f/u with his cash reconciliation specialist, Dr Mason at [facility] continue lasix, added diamox for metabolic alkalosis physical deconditioning Evaluated by physical therapy team who recommended short-term rehab Pending placement - difficulty finding bariatric placement, patient unable to manage at home sinus pauses/ sinus bradycardia patient asymptomatic during episodes seen by cardiology bradycardia likely due to undiagnosed YANN , since this is reversible not committed to pacemaker patient unwilling to wear CPAP, he could not tolerate the mask on his face outpt polysomnography Qualifies for BiPAP by overnight oximetry but the patient refusing to wear the CPAP. NSVTs Related to untreated underlying YANN Cannot use beta-anastacio for recurrent episodes of bradycardia Advised to use the BiPAP again but he refused stating that the mask does not feel comfortable in spite of trying more than 1 chronic AF rate-controlled. not on metoprolol due to sinus pauses. Continue apixaban for anticoagulation acute hypoxic resp failure now stable, likely chronic at this point wean O2 as tolerated, was not on home O2 CT chest and V/Q, no PE morbid obesity strongly recommend to follow low-calorie diet outpatient bariatric surgery referral VTE ppx apixaban dispo being followed by Physical therapy, patient continued to have low tolerance to functional mobility , dyspnea with minimal exertion with poor gait mechanics and increased risk of fall therefore PT continue to recommend STR, CM working placement Quality Stroke Does the patient have a stroke diagnosis?: No VTE Prior VTE?: No VTE Risk Level:: Medical - moderate - high VTE Device Contraindication: Treatment Not Indicated VTE Drug Contraindication: N/A - Med Ordered
[2021-12-23] VITALS (11 sets, daily range): BP systolic 93–135; BP diastolic 52–68; PULSE 76–107; RESP 17–26; TEMP 36.1–37.2; O2SAT 83–96
--- NOTE | 2021-12-23 01:53 | PC.NURSE ---
Pt refusing q2h repositioning overnight ([id number]). Agreeable to turn on left side at 0130. Unable to tolerate left side after 30 minutes. Patient transitioned to supine positioning at this time. Wedges and pillows utilized. Red/purple areas noted to right flank and r thigh area. Updated pictures taken on 12/23/21.
[2021-12-23] MEDS: acetaZOLAMIDE 250 MG TABLET PO ×2 (08:10→20:42)
[2021-12-23] MEDS: Apixaban 5 MG TABLET PO ×2 (08:11→20:42)
[2021-12-23] MEDS: Furosemide 40 MG TABLET PO (08:11)
[2021-12-23] MEDS: 0.9 % Sodium Chloride Flush 3 ML SYRINGE IVFLUSH ×3 (08:11→20:42)
[2021-12-23] MEDS: guaiFENesin LA 600 MG TAB.ER.12H PO ×2 (08:11→20:42)
--- NOTE | 2021-12-23 10:12 | P.PNIM_ITS ---
Subjective Subjective Date of Service: 12/23/21 Interval History: cc: sob interval history:feeling stable now, no more headache, no diarrhea Cardiovascular Cardiovascular: Reports no additional cardiovascular complaints Respiratory Respiratory: Reports no additional respiratory complaints Physical Exam Vital Signs: Vital Signs: Last Vital Signs Temp 98.9 F 12/23/21 08:00 Pulse 86 12/23/21 09:28 Resp 20 12/23/21 08:00 BP 108/66 12/23/21 09:28 Pulse Ox 95 12/23/21 09:28 BMI result Body Mass Index 63.3 Gen:? Awake alert, no distress HEENT: sclera anicteric, moist mucus membranes Neck: supple, no JVD Lungs: clear to auscultation bilaterally, fair bilateral air,? no wheezes, oxygen supplement Heart: irregularly irregular, no murmurs Abd: soft, non-tender, non-distended, morbidly obese Skin: warm/well-perfused Neuro: alert and oriented x3, no focal?findings Psych: appropriate affect Objective Data Active Medications Acetaminophen (Acetaminophen 325 Mg Tablet) 650 mg PO Q6H PRN PRN Reason: Pain, Mild (Pain Scale 1-3) Last Admin: 12/20/21 12:34 Dose: 650 mg Documented by: SRAVANI Acetazolamide (Acetazolamide 250 Mg Tablet) 250 mg PO BID [facility] Last Admin: 12/23/21 08:10 Dose: 250 mg Documented by: SRAVANI Albuterol Sulfate (Albuterol Sulfate 90 Mcg 8 Gm Inhaler) 2 puff INHALE RQ4H PRN PRN Reason: sob Last Admin: 12/14/21 15:40 Dose: 2 puff Documented by: ELIDA Apixaban (Apixaban 5 Mg Tablet) 5 mg PO BID [facility] Last Admin: 12/23/21 08:11 Dose: 5 mg Documented by: SRAVANI Furosemide (Furosemide 40 Mg Tablet) 40 mg PO DAILY [facility]; Protocol Last Admin: 12/23/21 08:11 Dose: 40 mg Documented by: SRAVANI Guaifenesin (Guaifenesin La 600 Mg Tab.Er.12h) 600 mg PO BID [facility] Last Admin: 12/23/21 08:11 Dose: 600 mg Documented by: SRAVANI Hydroxyzine HCl (Hydroxyzine Hcl 25 Mg Tablet) 25 mg PO Q6H PRN PRN Reason: anxiety/restlessness Last Admin: 12/12/21 04:01 Dose: 25 mg Documented by: SCARLET Ibuprofen (Ibuprofen 400 Mg Tablet) 400 mg PO Q24H PRN PRN Reason: headache Last Admin: 12/21/21 10:18 Dose: 400 mg Documented by: JUAN CARLOS-JENNIFER Loperamide HCl (Loperamide Hcl 2 Mg Capsule) 2 mg PO Q4H PRN PRN Reason: Diarrhea Last Admin: 12/12/21 13:36 Dose: 2 mg Documented by: ZIGGY Melatonin (Melatonin 3 Mg Tablet) 6 mg PO BEDTIME PRN PRN Reason: Insomnia Last Admin: 11/14/21 23:52 Dose: 6 mg Documented by: HERMELINDA Pharmacy Consult (Consult Rx Perform Med Rec) 1 each MISCELLANE ONCE PRN PRN Reason: Consult order Pharmacy Consult (Consult Rx Perform Med Rec) 1 each MISCELLANE ONCE PRN PRN Reason: Consult order Senna (Sennosides 8.6 Mg Tablet) 17.2 mg PO BEDTIME PRN PRN Reason: Constipation Sodium Chloride (0.9 % Sodium Chloride Flush 3 Ml Syringe) 3 ml IVFLUSH QSHIFT [facility] Last Admin: 12/23/21 08:11 Dose: 3 ml Documented by: SRAVANI Labs CBC & Chem 7: 12/21/21 06:16 12/21/21 06:16 Assessment and Plan (1) Congestive heart failure: Status: Acute (2) Physical deconditioning: Status: Acute (3) NSVT (nonsustained ventricular tachycardia): Status: Acute (4) Morbidly obese: Status: Acute Plan 66yo M with AF, morbid obesity presenting with dyspnea, weight gain, leg edema admitted for CHF exacerbation Toxic metabolic encephalopathy due to acute on chronic hypercapnic respiratory failure improved with BiPAP now back to baseline unfortunately patient continues to poorly tolerate BiPAP, though he is using it more than before, he is encouraged to wear it as much as tolerated while sleeping. Chest pain Seems musculoskeletal EKG not showing any ST or T-wave changes Negative troponin resolved Diarrhea No abdominal pain, not antibiotic, no signs of infection cdif negative Likely secretory To use Imodium as needed acute diastolic R-sided HF exacerbation with acute on chronic hypoxic respiratory failure improved pt will f/u with his general dentist, Dr Mason at [facility] continue lasix, added diamox for metabolic alkalosis physical deconditioning Evaluated by physical therapy team who recommended short-term rehab Pending placement - difficulty finding bariatric placement, patient unable to manage at home sinus pauses/ sinus bradycardia patient asymptomatic during episodes seen by cardiology bradycardia likely due to undiagnosed YANN , since this is reversible not committed to pacemaker outpt polysomnography NSVTs Related to untreated underlying YANN Cannot use beta-anastacio for recurrent episodes of bradycardia Advised to use the BiPAP again but he refused stating that the mask does not feel comfortable in spite of trying more than 1 chronic AF rate-controlled. not on metoprolol due to sinus pauses. Continue apixaban for anticoagulation acute hypoxic resp failure now stable, likely chronic at this point wean O2 as tolerated, was not on home O2 CT chest and V/Q, no PE morbid obesity strongly recommend to follow low-calorie diet outpatient bariatric surgery referral VTE ppx apixaban dispo being followed by Physical therapy, patient continued to have low tolerance to functional mobility , dyspnea with minimal exertion with poor gait mechanics and increased risk of fall therefore PT continue to recommend STR, CM working placement Quality Stroke Does the patient have a stroke diagnosis?: No VTE Prior VTE?: No VTE Risk Level:: Medical - moderate - high VTE Device Contraindication: Treatment Not Indicated VTE Drug Contraindication: N/A - Med Ordered
--- NOTE | 2021-12-23 12:27 | PC.NURSE ---
Addendum entered by Concetta Ly RN 12/23/21 13:17: Pt repositioned 13:00 after lunch with wedges and pillow so Pt facing window to the left. 13:17 RN re-rentered room and pt had repositioned himself to the right. Pt desating to 83% 3L NC with napping in afternoon, so placed CPAP on 13:18. will monitor pt tolerance. SaO2 94% with CPAP at 13:19. Original Note: Pt repositioned 08:00, 10:00AM. Pt continues to repo self back to right side. Pt asked for wedges and pillows to be removed to eat lunch 12:00 laying on Right side. Reteaching provided for maintaining skin integrity with Q2H repo. Pt verbalized understanding and said will tolerate repositioning after eating.
[2021-12-23] MEDS: Albuterol Sulfate 90 MCG 8 GM INHALER 2 PUFF INHALE (12:43)
--- NOTE | 2021-12-23 15:22 | MHC.CM.PN ---
Male 66 DX HF [facility] declined Pt r/t [employer] equip cost. [facility] is interested. They do not have a bed available. Updated clinical info has been sent. Yudi Dominguez, financial plodder operator was asked to F/U with the Patient re [employer].
[2021-12-23] MEDS: Ibuprofen 400 MG TABLET PO (23:22)
[2021-12-24] VITALS (8 sets, daily range): BP systolic 102–145; BP diastolic 56–78; PULSE 80–97; RESP 16–28; TEMP 35.7–37.1; O2SAT 90–97
[2021-12-24 06:50] LABS: Hematocrit 50.4 % (42.0-52.0); Hemoglobin 14.7 g/dl (14.0-18.0); Mean Corpuscular HGB Conc 29.2 g/dl (31.0-36.0); Mean Corpuscular Hemoglobin 29.9 pg (27.0-33.0); Mean Corpuscular Volume 102.6 fL (80.0-98.0); Mean Platelet Volume 9.8 fL (9.4-12.4); Platelet Count 176 X10*3/uL (160-400); Red Blood Count 4.91 X10*6/uL (4.60-5.80); Red Cell Distribution Width 14.2 % (11.0-16.0); White Blood Count 8.9 X10*3/uL (4.8-10.8)
[2021-12-24] MEDS: acetaZOLAMIDE 250 MG TABLET PO (07:27)
[2021-12-24] MEDS: Furosemide 40 MG TABLET PO (07:28)
[2021-12-24] MEDS: Apixaban 5 MG TABLET PO ×2 (07:28→20:13)
[2021-12-24] MEDS: guaiFENesin LA 600 MG TAB.ER.12H PO ×2 (07:28→20:13)
[2021-12-24] MEDS: 0.9 % Sodium Chloride Flush 3 ML SYRINGE IVFLUSH ×2 (07:28→20:21)
[2021-12-24 07:29] LABS: Blood Urea Nitrogen 20 mg/dL (9-16); Calcium 9.2 mg/dL (8.4-10.2); Creatinine Clr Calc Pharmacy 165.6; Estimated Glomerular Filt Rate > 60; Glucose Fasting 99 mg/dL (60-99)
[2021-12-24] MEDS: Acetaminophen 325 MG TABLET 650 MG PO (07:37)
[2021-12-24 07:44] LABS: Anion Gap 9 (12-20); Carbon Dioxide 42 mmol/L (22-29); Chloride 98 mmol/L (96-108); Potassium 4.4 mmol/L (3.3-5.1); Sodium 145 mmol/L (135-145)
--- NOTE | 2021-12-24 10:26 | P.PNIM_ITS ---
Subjective Subjective Date of Service: 12/24/21 Interval History: Laying in bed, sleeping at time of interview reported feeling stable Increased oxygen requirement of 5 L Denies having chest pain, palpitation of shortness of breath No reported other overnight events. Review of Systems No fever, chills or weakness No chest pain, palpitation No shortness of breath No abdominal pain, nausea or vomiting No urinary symptoms No reported rash or wounds Physical Exam Vital Signs: Vital Signs: Last Vital Signs Temp 97.3 F 12/24/21 07:21 Pulse 85 12/24/21 07:21 Resp 16 12/24/21 07:21 BP 116/70 12/24/21 07:21 Pulse Ox 96 12/24/21 07:21 BMI result Body Mass Index 63.3 Const: Other: Gen:? Awake alert, no distress HEENT: sclera anicteric, moist mucus membranes Neck: supple, no JVD Lungs: fair bilateral air, no wheezes, no basal crackles,on oxygen supplement Heart: irregularly irregular, no murmurs Abd: soft, non-tender, non-distended, morbidly obese Skin: warm/well-perfused Neuro: alert and oriented x3, no focal?findings Psych: appropriate affect Objective Data Active Medications Acetaminophen (Acetaminophen 325 Mg Tablet) 650 mg PO Q6H PRN PRN Reason: Pain, Mild (Pain Scale 1-3) Last Admin: 12/24/21 07:37 Dose: 650 mg Documented by: SRAVANI Acetazolamide (Acetazolamide 250 Mg Tablet) 500 mg PO BID [facility] Albuterol Sulfate (Albuterol Sulfate 90 Mcg 8 Gm Inhaler) 2 puff INHALE RQ4H PRN PRN Reason: sob Last Admin: 12/23/21 12:43 Dose: 2 puff Documented by: SRAVANI Apixaban (Apixaban 5 Mg Tablet) 5 mg PO BID [facility] Last Admin: 12/24/21 07:28 Dose: 5 mg Documented by: SRAVANI Furosemide (Furosemide 40 Mg Tablet) 40 mg PO DAILY [facility]; Protocol Last Admin: 12/24/21 07:28 Dose: 40 mg Documented by: SRAVANI Guaifenesin (Guaifenesin La 600 Mg Tab.Er.12h) 600 mg PO BID [facility] Last Admin: 12/24/21 07:28 Dose: 600 mg Documented by: SRAVANI Hydroxyzine HCl (Hydroxyzine Hcl 25 Mg Tablet) 25 mg PO Q6H PRN PRN Reason: anxiety/restlessness Last Admin: 12/12/21 04:01 Dose: 25 mg Documented by: SCARLET Ibuprofen (Ibuprofen 400 Mg Tablet) 400 mg PO Q24H PRN PRN Reason: headache Last Admin: 12/23/21 23:22 Dose: 400 mg Documented by: CRISTHIAN Loperamide HCl (Loperamide Hcl 2 Mg Capsule) 2 mg PO Q4H PRN PRN Reason: Diarrhea Last Admin: 12/12/21 13:36 Dose: 2 mg Documented by: ZIGGY Melatonin (Melatonin 3 Mg Tablet) 6 mg PO BEDTIME PRN PRN Reason: Insomnia Last Admin: 11/14/21 23:52 Dose: 6 mg Documented by: HERMELINDA Pharmacy Consult (Consult Rx Perform Med Rec) 1 each MISCELLANE ONCE PRN PRN Reason: Consult order Pharmacy Consult (Consult Rx Perform Med Rec) 1 each MISCELLANE ONCE PRN PRN Reason: Consult order Senna (Sennosides 8.6 Mg Tablet) 17.2 mg PO BEDTIME PRN PRN Reason: Constipation Sodium Chloride (0.9 % Sodium Chloride Flush 3 Ml Syringe) 3 ml IVFLUSH QSHIFT [facility] Last Admin: 12/24/21 07:28 Dose: 3 ml Documented by: SRAVANI Labs CBC & Chem 7: 12/24/21 06:32 12/24/21 06:32 Labs: Laboratory Results - last 24 hr 12/24/21 12/24/21 06:32 06:32 MCV 102.6 H MCH 29.9 MCHC 29.2 L RDW 14.2 Plt Count 176 MPV 9.8 Absolute Nucleated RBC 0.000 Nucleated RBC % (auto) 0.0 Anion Gap 9 L Estim Creat Clear Calc 165.6 Estimated GFR > 60 Fasting Glucose 99 Calcium 9.2 Assessment and Plan (1) Physical deconditioning: Status: Acute (2) Morbidly obese: Status: Acute (3) Congestive heart failure: Status: Acute (4) Acute on chronic respiratory failure with hypoxia and hypercapnia: Status: Acute Plan 66yo M with AF, morbid obesity presenting with dyspnea, weight gain, leg edema admitted for CHF exacerbation Toxic metabolic encephalopathy due to acute on chronic hypoxic hypercapnic respiratory failure improved with BiPAP now back to baseline unfortunately patient continues to poorly tolerate BiPAP, though he is using it more than before, he is encouraged to wear it as much as tolerated while sleeping. 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, Dr Mason at [facility] continue lasix, added diamox for metabolic alkalosis physical deconditioning Evaluated by physical therapy team who recommended short-term rehab Pending placement - difficulty finding bariatric placement, patient unable to manage at home sinus pauses/ sinus bradycardia patient asymptomatic during episodes seen by cardiology bradycardia likely due to undiagnosed YANN , since this is reversible not committed to pacemaker outpt polysomnography NSVTs Related to untreated underlying YANN Cannot use beta-anastacio for recurrent episodes of bradycardia Advised to use the BiPAP again but he refused stating that the mask does not feel comfortable in spite of trying more than 1 chronic AF rate-controlled. not on metoprolol due to sinus pauses. Continue apixaban for anticoagulation acute hypoxic resp failure now stable, likely chronic at this point wean O2 as tolerated, was not on home O2 CT chest and V/Q, no PE morbid obesity strongly recommend to follow low-calorie diet outpatient bariatric surgery referral VTE ppx apixaban dispo being followed by Physical therapy, patient continued to have low tolerance to functional mobility , dyspnea with minimal exertion with poor gait mechanics and increased risk of fall therefore PT continue to recommend STR, CM working placement Quality Stroke Does the patient have a stroke diagnosis?: No VTE Prior VTE?: No VTE Risk Level:: Medical - moderate - high VTE Device Contraindication: Treatment Not Indicated VTE Drug Contraindication: N/A - Med Ordered
[2021-12-24] MEDS: acetaZOLAMIDE 250 MG TABLET 500 MG PO (20:13)
[2021-12-24 23:24] LABS: ABG Base Excess 22.7 mmol/L; ABG HCO3 56 mmol/L (22-26); ABG pCO2 112 mmHg (32-45); ABG pO2 70 mmHg (83-108)
--- NOTE | 2021-12-24 23:33 | PM.EVENT ---
Event Note Date of Service: 12/24/21 Event Note: pt more lethargic and confused. not keeping cpap on. check ABG, shows hypercapnia with resp acidosis ICU informed, pt will be transferred for BiPAP
[2021-12-24 23:44] LABS: MANUAL DIFF FLAG NO
[2021-12-24 23:46] LABS: Basophils Percent Auto 0.4 % (0-2); Eosinophils Absolute Auto 0.1 X10*3/uL (0.0-0.4); Eosinophils Percent Auto 1.2 % (0-4); Hematocrit 50.5 % (42.0-52.0); Hemoglobin 14.7 g/dl (14.0-18.0); Imm Gran Abs Auto 0.07 X10*3/uL (0.00-0.03); Imm Gran Pct Auto 0.7 % (0.0-0.4); Lymphocytes Absolute Auto 1.5 X10*3/uL (1.2-4.9); Lymphocytes Percent Auto 14.1 % (20-40); Mean Corpuscular HGB Conc 29.1 g/dl (31.0-36.0); Mean Corpuscular Hemoglobin 29.8 pg (27.0-33.0); Mean Corpuscular Volume 102.4 fL (80.0-98.0); Mean Platelet Volume 9.7 fL (9.4-12.4); Monocytes Absolute Auto 0.8 X10*3/uL (0.1-1.2); Monocytes Percent Auto 7.5 % (2-11); Neutrophils Absolute Auto 8.1 x10*3/uL (2.0-8.3); Neutrophils Percent Auto 76.1 % (45-73); Platelet Count 185 X10*3/uL (160-400); Red Blood Count 4.93 X10*6/uL (4.60-5.80); Red Cell Distribution Width 14.2 % (11.0-16.0); White Blood Count 10.7 X10*3/uL (4.8-10.8)
[2021-12-25] VITALS (31 sets, daily range): BP systolic 102–157; BP diastolic 54–104; PULSE 73–98; RESP 11–37; TEMP 36.8–37.1; O2SAT 89–97
[2021-12-25 00:06] LABS: ABG Refer to POC result
[2021-12-25 00:17] LABS: B Type Natriuretic Peptide 127 pg/mL (<100)
--- NOTE | 2021-12-25 00:32 | P.CONCC_ITS ---
History of Present Illness Data of Consult Service Date: 12/24/21 Requesting physician: Shakira Jennings Primary Care Provider: Kindra Eller MD HPI Reason for consult: lethargy and hypoxic respiratory failure with hypercapnia HPI: ?66-year-old morbidly obese patient with underlying history of atrial fibrillation and PE, currently on Eliquis, CHF, pickwickian syndrome, obstructive sleep apnea with noncompliance of CPAP, nonsustained V-tach, history of pulmonary embolism, patient had been admitted on 11/04 2021 due to complaints of shortness of breath, the time the patient appeared to pitting edema and the chest x-ray did show pulmonary vascular congestion, cardiomegaly, pleural effusion and diagnosed with CHF, patient was started on Lasix and Diamox, admitted to the hospital. ?Since then, the patient has been and diurese consistently, however over the last couple of days patient had been noted to have slow but steady needs of oxygen via nasal cannula as he only had surgery on 2 L and has gone up to up to 6 L, patient was not tolerating or not willing to use the CPAP machine. Given the length that the patient has been in the hospital, his well-known to nursing personnel reported the patient was more lethargic, normally he would be very interactive, happy, asking for meals and even getting up to the bathroom, however the patient was noted to be less responsive today and ?not being self?.? He was assessed by the hospitalist and an ABG was obtained which showed a pH of 7.3 with a pCO2 of 112, PO2 of 79 HC03 of 56 with a base excess of 22.7. ?BNP is only 127 which is lower than baseline.? He does not have a white count his baseline creatinine is 0.72.? Shows a limited study showing prominent central vasculature suggesting a degree of congestion.? Patchy right basilar opacity and small pleural effusions cannot be excluded. ?Patient however does not reporting sputum production, intractable cough or fever. ?He does report feeling little short of breath.? Denies any chest pain, headache, nausea vomiting. ROS:? Unable to obtain any further is a patient is on BiPAP Past Medical History:? As above Past Surgical History:? None Family history:? Noncontributory Social History:? Lives at? home, in a basement, no history of tobacco or drugs.? Disable CODE STATUS: FULL CODE Allergies: NKDA Home Medications: See Med Rec PHYSICAL EXAM: VS: ?Blood pressure 117/70, heart rate 97, respirations 18, O2 sat 93% on 6 L nasal cannula, temperature 98.5 degrees. General: .? Speaking full sentences.? Speech is well articulated, thought process is coherent, but slow. ?Following all commands. Skin:? Intact, no lesions, erythema, clubbing or cyanosis.? No ulcers. HEENT:? Head is normocephalic, atraumatic, pupils equal round reactive to light accommodation bilaterally.? Extraocular movements appear intact.? Buccal mucosa is moist, Neck is supple without lymphadenopathy. Cardiac:? Clear S1-S2, no murmurs rubs or gallops. Pulmonary:? Expiratory wheezing bilaterally and throughout, minor coarseness at the right lower field without definite rhonchi or crackles. Abdomen: ?Very large, Protuberant, positive bowel sounds in all 4 quadrants.? Soft, nontender Musculoskeletal:? Moving all 4 extremities upon request a major joints, there is no crepitus or tenderness.? The strength is 5/5 bilaterally and throughout all 4 extremities.? There is 1+ pitting edema bilaterally , no calf tenderness , no leg asymmetry.? Gait not assessed at this point. Neurologic:? As above, cranial nerves 2-12 are grossly intact.? No focal deficits noted. Motor strength as above.? Vascular:? 2+ pulses upper and lower extremities distally. SIGNIFICANT LABORATORY DATA:? As above REVIEW OF IMAGES: ?As above ASSESSMENT AND PLAN: 1. Acute hypoxic respiratory failure with hypercapnia 2. Pickwickian syndrome 3. Obstructive sleep apnea and CPAP noncompliance 4. Morbidly obese 5. Acute on chronic CHF with recent echo showing EF of 60-65%, severe pulmonary hypertension, elevated right atrial pressure, moderate decreased right ventricular systolic function. 6. Acute COPD exacerbation 7. Right lung atelectasis, less likely pneumonia Patient will be transferred to the ICU for BiPAP administration he has good tidal volumes of over 500 on settings of 18 over 10 with FiO2 of 30% and a goal O2 sat of 92%; with hopes of him wanting to collaborate and tolerate this, how ever if this is not the case, the patient may need to be intubated to help wash out his carbon dioxide.? I will increase his Diamox to t.i.d., I do believe he has a COPD exacerbation will start him on Solu-Medrol IV, DuoNebs scheduled and albuterol p.r.n..? Labs will be recheck, will add a procalcitonin level, I do not think that he has a pneumonia. ?Continue with ?I and Os; will repeat a blood gas within a couple hours and in the morning. GI PROPHYLAXIS: add IV PPI DVT PROPHYLAXIS: on Eliquis Critical care time used for critical evaluation of this patient, diagnosis, treatment and coordination of care, review her records and documentation TOTAL CRITICAL CARE TIME 90 MIN . Patient's care was discussed in detail with Dr. Kim.? He is aware of all the above as well as the plan of care for this patient. [facility] Past Medical History Medical History (Updated 12/24/21 @ 10:29 by Diana Bryant MD) Atrial fibrillation Chronic respiratory failure with hypoxia Obesity Social History Social History Household Members: Family Housing: House Housing Other:: basement of home. Do you presently have visiting nurse or other home services: No Patient Tobacco Use Status: Never used Tobacco Use of substances other than those prescribed or required for medical reasons: No Currently Displaying Signs/Symptoms of Drug Intoxication Withdrawal: No Have you been hit, kicked, punched, or otherwise hurt by someone within the past year? If so, by whom?: No Do you feel safe in your current relationship?: No Current Relationship Is there a partner from a previous relationship who is making you feel unsafe now?: No Advance Directives: No Do you have thoughts of harming others: None Do you have a plan to hurt others: No Plan Recently lost weight without trying: No Eating poorly because of decreased appetite: No Poor oral hygiene: No service: No Current occupational status: disabled Meds Allergies Allergy/AdvReac Type Severity Reaction Status Date / Time No Known Allergies Allergy Verified 11/03/21 20:05 [No Known Allergies*] Active Medications: Current Medications Acetaminophen (Acetaminophen 325 Mg Tablet) 650 mg PO Q6H PRN PRN Reason: Pain, Mild (Pain Scale 1-3) Last Admin: 12/24/21 07:37 Dose: 650 mg Documented by: Acetazolamide (Acetazolamide 250 Mg Tablet) 500 mg PO BID [facility] Last Admin: 12/24/21 20:13 Dose: 500 mg Documented by: Albuterol Sulfate (Albuterol Sulfate 90 Mcg 8 Gm Inhaler) 2 puff INHALE RQ4H PRN PRN Reason: sob Last Admin: 12/23/21 12:43 Dose: 2 puff Documented by: Apixaban (Apixaban 5 Mg Tablet) 5 mg PO BID [facility] Last Admin: 12/24/21 20:13 Dose: 5 mg Documented by: Furosemide (Furosemide 40 Mg Tablet) 40 mg PO DAILY [facility]; Protocol Last Admin: 12/24/21 07:28 Dose: 40 mg Documented by: Guaifenesin (Guaifenesin La 600 Mg Tab.Er.12h) 600 mg PO BID [facility] Last Admin: 12/24/21 20:13 Dose: 600 mg Documented by: Hydroxyzine HCl (Hydroxyzine Hcl 25 Mg Tablet) 25 mg PO Q6H PRN PRN Reason: anxiety/restlessness Last Admin: 12/12/21 04:01 Dose: 25 mg Documented by: Ibuprofen (Ibuprofen 400 Mg Tablet) 400 mg PO Q24H PRN PRN Reason: headache Last Admin: 12/23/21 23:22 Dose: 400 mg Documented by: Loperamide HCl (Loperamide Hcl 2 Mg Capsule) 2 mg PO Q4H PRN PRN Reason: Diarrhea Last Admin: 12/12/21 13:36 Dose: 2 mg Documented by: Melatonin (Melatonin 3 Mg Tablet) 6 mg PO BEDTIME PRN PRN Reason: Insomnia Last Admin: 11/14/21 23:52 Dose: 6 mg Documented by: Pharmacy Consult (Consult Rx Perform Med Rec) 1 each MISCELLANE ONCE PRN PRN Reason: Consult order Pharmacy Consult (Consult Rx Perform Med Rec) 1 each MISCELLANE ONCE PRN PRN Reason: Consult order Senna (Sennosides 8.6 Mg Tablet) 17.2 mg PO BEDTIME PRN PRN Reason: Constipation Sodium Chloride (0.9 % Sodium Chloride Flush 3 Ml Syringe) 3 ml IVFLUSH QSHIFT [facility] Last Admin: 12/24/21 20:21 Dose: 3 ml Documented by: Home Medications Medication Instructions Recorded Confirmed Last Taken Type albuterol sulfate 90 mcg/actuation 2 puff INHALATION Q4H PRN 11/04/21 11/04/21 Unknown History aerosol inhaler Physical Exam Vital Signs: Vital Signs: Last Vital Signs Temp 98.5 F 12/24/21 23:31 Pulse 97 12/24/21 23:31 Resp 18 12/24/21 23:31 BP 117/78 12/24/21 23:31 Pulse Ox 93 12/24/21 23:31 BMI result Body Mass Index 63.3 Results Labs CBC & Chem 7: 12/25/21 05:12 12/25/21 05:12 Labs: Short CBC 11/03/21 11/04/21 11/06/21 Range/Units 21:27 04:01 04:59 WBC (4.8-10.8) X10*3/uL Hgb (14.0-18.0) g/dl Hct (42.0-52.0) % Plt Count (160-400) X10*3/uL ABG pO2 at Pt Temp (83-108) mmHg Carbon Dioxide 29 29 35 H (22-29) mmol/L 11/13/21 11/15/21 11/18/21 Range/Units 08:30 05:19 06:08 WBC (4.8-10.8) X10*3/uL Hgb (14.0-18.0) g/dl Hct (42.0-52.0) % Plt Count (160-400) X10*3/uL ABG pO2 at Pt Temp (83-108) mmHg Carbon Dioxide 35 H 34 H 39 H (22-29) mmol/L 11/24/21 11/28/21 12/01/21 Range/Units 05:44 11:05 06:00 WBC (4.8-10.8) X10*3/uL Hgb (14.0-18.0) g/dl Hct (42.0-52.0) % Plt Count (160-400) X10*3/uL ABG pO2 at Pt Temp (83-108) mmHg Carbon Dioxide 36 H 37 H 39 H (22-29) mmol/L 12/02/21 12/03/21 12/04/21 Range/Units 05:56 06:08 06:54 WBC (4.8-10.8) X10*3/uL Hgb (14.0-18.0) g/dl Hct (42.0-52.0) % Plt Count (160-400) X10*3/uL ABG pO2 at Pt Temp (83-108) mmHg Carbon Dioxide 45 H* 42 H* 38 H (22-29) mmol/L 12/12/21 12/16/21 12/17/21 Range/Units 06:48 06:54 06:43 WBC (4.8-10.8) X10*3/uL Hgb (14.0-18.0) g/dl Hct (42.0-52.0) % Plt Count (160-400) X10*3/uL ABG pO2 at Pt Temp (83-108) mmHg Carbon Dioxide 39 H 49 H* D 42 H* (22-29) mmol/L 12/18/21 12/20/21 12/20/21 Range/Units 06:03 15:59 18:16 WBC (4.8-10.8) X10*3/uL Hgb (14.0-18.0) g/dl Hct (42.0-52.0) % Plt Count (160-400) X10*3/uL ABG pO2 at Pt Temp 65 L 126 H (83-108) mmHg Carbon Dioxide 39 H (22-29) mmol/L 12/21/21 12/24/21 12/24/21 Range/Units 06:16 06:32 06:32 WBC 8.9 (4.8-10.8) X10*3/uL Hgb 14.7 (14.0-18.0) g/dl Hct 50.4 (42.0-52.0) % Plt Count 176 (160-400) X10*3/uL ABG pO2 at Pt Temp (83-108) mmHg Carbon Dioxide 39 H 42 H* (22-29) mmol/L 12/24/21 12/24/21 Range/Units 23:15 23:39 WBC 10.7 (4.8-10.8) X10*3/uL Hgb 14.7 (14.0-18.0) g/dl Hct 50.5 (42.0-52.0) % Plt Count 185 (160-400) X10*3/uL ABG pO2 at Pt Temp 70 L (83-108) mmHg Carbon Dioxide (22-29) mmol/L BMP 12/24/21 06:32 Sodium 145 Potassium 4.4 Chloride 98 Carbon Dioxide 42 H* BUN 20 H Creatinine 0.72 Calcium 9.2 Microbiology Microbiology Results: Microbiology 11/03/21 21:27 Blood - Venous Blood Culture - Final No growth after 5 days. 11/03/21 21:27 Blood - Venous Blood Culture - Final No growth after 5 days.
[2021-12-25 00:42] LABS: Procalcitonin 0.07 ng/mL
[2021-12-25] MEDS: methylPREDNISolone Sod Succ 40 MG/ML VIAL IVPUSH ×3 (02:04→19:10)
--- NOTE | 2021-12-25 02:36 | PC.NURSE ---
Addendum entered by Oseas Marinelli RN 12/25/21 06:20: patient reports left knee pain, says that his knee has been hurting for two nights since he laid on it uncomfortably that night. He rated pain as 8/10, discussed with PA and new order for 1,000 mg tylenol given per PA, no improvement, follow-up pain 10/10, discussed with PA and gave ibprofen per PA as well as heat applied, and patient repositioned numerous times to try and get the right position to ease the pain, which eventually was achieved per patient. No notable swelling, heat, or redness of the knee noted. Shaved patient, less leaking from the mask Original Note: Assumed care at approximately 00:00, after receiving report from ARIS Deluca. Eric was transferred to ICU from [facility] due to worsening hypercarbic respiratory failure with associated confusion and lethargy in setting of morbid obesity and noncompliance with nocturnal noninvasive ventilator. Patient noted to be alert, but vague, disoriented to place, month, day, but oriented to year and self. Follows simple and complex commands. Moves all extremities. Plan of care reviewed with patient, and patient is being compliant with wearing Bipap at this time: Rate 12, Ipap 18/ Epap 10; had to increase FiO2 from 30% to 40%. SpO2 90-93% with occasional dips to 89%. Patient reports moist loose productive cough of large amount of clear sputum. No sputum visualized. He is heart to have a loose cough intermittently, but non-productive. Lung sounds diminished thoughout to auscultation. Attempting to reduce leak on Bipap; work of breathing unremarkable. Distant heart sounds. BP variablle SBP 103-140. Patient is on Lasix dosed orally 40 mg PO as well as scheduled diamox related to his elevaed base excess. +2 edema to BLE. Patient reports only being able to void when laying with his right side down, which he excessively asks to be positioned on. He has been educated to permit repositioning to his back and his left side, which he is resistant to because he has difficulty urinating in urinal in that position, discussed with PA, but no order for Narayan. Patient is comfortable and trying to rest now. Patient will need to have bed re-zeroed after he has had some rest. Serial VBGs. Skin appears intact, but the right side of his body is pink and blanchable.
[2021-12-25 02:41] LABS: VBG Base Excess 20.4 mmol/L; VBG HCO3 51 mmol/L (22-26); VBG pCO2 89 mmHg; VBG pH 7.36 (7.32-7.43); VBG pO2 62 mmHg
[2021-12-25 02:47] LABS: Venous Blood Gas Refer to POC result
--- NOTE | 2021-12-25 04:22 | PC.NURSE ---
Patient assessed and noted to be A&O X4 but off and not himself - pt not interacting with staff, not interested in television or snack this evening as he typically is. Pt put on CPAP for a few hours, but while on CPAP sats were consistently dipping into the 80's and dropped further when repositioned in bed. Respiratory at bedside and adjusted the oxygen on CPAP from 6L to 10L to maintain sats at 90%. Pt taking off CPAP and refused to wear it. Back on 5L NC. Pt reassessed by this RN and continues to be A&O but a bit confused. Call placed to Dr Jennings and orders placed for ABG's and CXR. Pt CO2 elevated and decision made to transfer him to ICU for BiPAP. Report given to Sai Houston
[2021-12-25] MEDS: Acetaminophen 325 MG TABLET 1000 MG PO (04:30)
[2021-12-25 05:28] LABS: VBG Base Excess 17.6 mmol/L; VBG HCO3 48 mmol/L (22-26); VBG pCO2 82 mmHg; VBG pH 7.37 (7.32-7.43); VBG pO2 71 mmHg
[2021-12-25 05:29] LABS: Venous Blood Gas Refer to POC result
[2021-12-25] MEDS: acetaZOLAMIDE 250 MG TABLET 500 MG PO ×3 (05:44→22:04)
[2021-12-25] MEDS: Ibuprofen 400 MG TABLET PO (05:44)
[2021-12-25] MEDS: Pantoprazole Sodium 40 MG/10 ML VIAL IVPUSH (05:46)
[2021-12-25 05:49] LABS: Hematocrit 49.9 % (42.0-52.0); Hemoglobin 14.6 g/dl (14.0-18.0); Mean Corpuscular HGB Conc 29.3 g/dl (31.0-36.0); Mean Corpuscular Hemoglobin 29.7 pg (27.0-33.0); Mean Corpuscular Volume 101.4 fL (80.0-98.0); Mean Platelet Volume 10.1 fL (9.4-12.4); Platelet Count 192 X10*3/uL (160-400); Red Blood Count 4.92 X10*6/uL (4.60-5.80); Red Cell Distribution Width 14.2 % (11.0-16.0); White Blood Count 10.6 X10*3/uL (4.8-10.8)
[2021-12-25] MEDS: Albuterol/Iprat 2.5/0.5MG 3 ML AMPUL.NEB INHALE ×3 (05:49→20:12)
[2021-12-25 06:23] LABS: Anion Gap 10 (12-20); Blood Urea Nitrogen 24 mg/dL (9-16); Calcium 9.5 mg/dL (8.4-10.2); Carbon Dioxide 40 mmol/L (22-29); Chloride 99 mmol/L (96-108); Estimated Glomerular Filt Rate > 60; Glucose Fasting 131 mg/dL (60-99); Potassium 4.6 mmol/L (3.3-5.1); Sodium 144 mmol/L (135-145)
[2021-12-25 08:08] LABS: Procalcitonin 0.07 ng/mL
[2021-12-25] MEDS: guaiFENesin LA 600 MG TAB.ER.12H PO ×2 (10:35→20:04)
[2021-12-25] MEDS: Furosemide 40 MG TABLET PO (10:36)
[2021-12-25] MEDS: Apixaban 5 MG TABLET PO ×2 (10:36→20:04)
[2021-12-25] MEDS: 0.9 % Sodium Chloride Flush 3 ML SYRINGE IVFLUSH ×2 (13:47→23:35)
--- NOTE | 2021-12-25 15:30 | MHC.CM.PN ---
Pt transferred to ICU for BiPAP needs: Met with pt briefly to discuss plans of care: pt seems disinterested in discussing d/c plans and seems to be exhibiting signs of depression. Discussed with MD - ? CARE team consult for assessment of MH/Depression. Clinical information remitted to LTAC and AR choices given the change in status.
--- NOTE | 2021-12-25 17:22 | P.PNCC_ITS ---
Subjective Subjective Date of Service: 12/25/21 Interval History: Mr. Duarte was transferred to the ICU early this morning with hypercarbic respiratory failure. 66 yo M with supermorbid obesity/Pickwickian syndrome w YANN, poor compliance with CPAP.? Also h/o atrial fibrillation and PE, on Eliquis; CHF; nonsustained VT. Admitted Oct 25 with SOB and prob biventricular failure.? Treated with diuresis and Diamox.? Has had increasing FiO2 req last few days.? He was more lethargic and confused late last night.? ABG showed 7.30/112/+22.? Transferred to ICU for BiPAP.? Diamox increased and started on solumedrol. Doing well during the day today, much more awake and interactive.? Sat running 94% on HFNC 60L/40%.? Asking to go back upstairs.? Chest is CTA w normal exp phase.??? Soft heart tones.? Rhythm is atrial fibrillation on the monitor.? No murmur or gallops.? Trivial edema. IMPRESSION: 1. OHS/Pickwickian syndrome.? CPAP or BiPAP at night. 2. Acute on chronic hypercarbic respiratory failure.? Continue Lasix. 3. Metabolic alkalosis.? Exacerbated by his diuretics.? Needs more diamox. According to Teagan Gao from Case Management, the patient had been living with his brother but reportedly, that living situation was no longer tenable.? Disposition to a facility is problematic b/o unique care needs related to his size. Critical Care Time (minutes): 0 Physical Exam Vital Signs: Vital Signs: Last Vital Signs Temp 98.8 F 12/25/21 03:53 Pulse 83 12/25/21 17:00 Resp 14 12/25/21 17:00 BP 143/78 H 12/25/21 17:00 Pulse Ox 92 12/25/21 17:00 BMI result Body Mass Index 63.3 Objective Data Labs CBC & Chem 7: 12/26/21 05:47 12/26/21 05:47 Labs: Laboratory Results - last 24 hr 12/24/21 12/24/21 12/24/21 23:15 23:39 23:39 WBC 10.7 RBC 4.93 Hgb 14.7 Hct 50.5 MCV 102.4 H MCH 29.8 MCHC 29.1 L RDW 14.2 Plt Count 185 MPV 9.7 Immature Gran % (Auto) 0.7 H Neut % (Auto) 76.1 H Lymph % (Auto) 14.1 L [place] % (Auto) 7.5 Eos % (Auto) 1.2 Baso % (Auto) 0.4 Lymph # (Auto) 1.5 [place] # (Auto) 0.8 Eos # (Auto) 0.1 Baso # (Auto) 0.0 Abs Immat Gran (auto) 0.07 H Absolute Neuts (auto) 8.1 Absolute Nucleated RBC 0.000 Nucleated RBC % (auto) 0.0 O2 Saturation 92.0 ABG pH at Pt Temp 7.30 L ABG pCO2 at Pt Temp 112 H* ABG pO2 at Pt Temp 70 L ABG HCO3 56 H ABG Base Excess (Actual) 22.7 VBG pH VBG pCO2 VBG pO2 VBG HCO3 VBG O2 Saturation VBG Base Excess Sodium Potassium Chloride Carbon Dioxide Anion Gap BUN Creatinine Estim Creat Clear Calc Estimated GFR Fasting Glucose Calcium B-Natriuretic Peptide 127 H Procalcitonin 12/24/21 12/25/21 12/25/21 23:39 02:34 05:12 WBC 10.6 RBC 4.92 Hgb 14.6 Hct 49.9 MCV 101.4 H MCH 29.7 MCHC 29.3 L RDW 14.2 Plt Count 192 MPV 10.1 Immature Gran % (Auto) Neut % (Auto) Lymph % (Auto) [place] % (Auto) Eos % (Auto) Baso % (Auto) Lymph # (Auto) [place] # (Auto) Eos # (Auto) Baso # (Auto) Abs Immat Gran (auto) Absolute Neuts (auto) Absolute Nucleated RBC 0.000 Nucleated RBC % (auto) 0.0 O2 Saturation ABG pH at Pt Temp ABG pCO2 at Pt Temp ABG pO2 at Pt Temp ABG HCO3 ABG Base Excess (Actual) VBG pH 7.36 VBG pCO2 89 VBG pO2 62 VBG HCO3 51 H VBG O2 Saturation 90.0 VBG Base Excess 20.4 Sodium Potassium Chloride Carbon Dioxide Anion Gap BUN Creatinine Estim Creat Clear Calc Estimated GFR Fasting Glucose Calcium B-Natriuretic Peptide Procalcitonin 0.07 12/25/21 12/25/21 12/25/21 05:12 05:12 05:21 WBC RBC Hgb Hct MCV MCH MCHC RDW Plt Count MPV Immature Gran % (Auto) Neut % (Auto) Lymph % (Auto) [place] % (Auto) Eos % (Auto) Baso % (Auto) Lymph # (Auto) [place] # (Auto) Eos # (Auto) Baso # (Auto) Abs Immat Gran (auto) Absolute Neuts (auto) Absolute Nucleated RBC Nucleated RBC % (auto) O2 Saturation ABG pH at Pt Temp ABG pCO2 at Pt Temp ABG pO2 at Pt Temp ABG HCO3 ABG Base Excess (Actual) VBG pH 7.37 VBG pCO2 82 VBG pO2 71 VBG HCO3 48 H VBG O2 Saturation 93.0 VBG Base Excess 17.6 Sodium 144 Potassium 4.6 Chloride 99 Carbon Dioxide 40 H* Anion Gap 10 L BUN 24 H Creatinine 0.80 Estim Creat Clear Calc 149.0 Estimated GFR > 60 Fasting Glucose 131 H Calcium 9.5 B-Natriuretic Peptide Procalcitonin 0.07 Microbiology Microbiology Results: Microbiology 11/03/21 21:27 Blood - Venous Blood Culture - Final No growth after 5 days. 11/03/21 21:27 Blood - Venous Blood Culture - Final No growth after 5 days. Quality Stroke Does the patient have a stroke diagnosis?: No VTE Prior VTE?: No VTE Risk Level:: Medical - moderate - high VTE Device Contraindication: Treatment Not Indicated VTE Drug Contraindication: N/A - Med Ordered
[2021-12-26] VITALS (32 sets, daily range): BP systolic 102–147; BP diastolic 63–96; PULSE 55–95; RESP 11–29; TEMP 36.5–36.8; O2SAT 89–97
[2021-12-26] MEDS: Albuterol/Iprat 2.5/0.5MG 3 ML AMPUL.NEB INHALE ×4 (01:10→18:06)
[2021-12-26] MEDS: methylPREDNISolone Sod Succ 40 MG/ML VIAL IVPUSH ×3 (02:21→21:27)
[2021-12-26 05:55] LABS: VBG Base Excess 11.5 mmol/L; VBG HCO3 38 mmol/L (22-26); VBG pCO2 55 mmHg; VBG pH 7.44 (7.32-7.43); VBG pO2 64 mmHg
[2021-12-26 06:00] LABS: MANUAL DIFF FLAG NO
[2021-12-26 06:02] LABS: Venous Blood Gas Refer to POC result
[2021-12-26 06:04] LABS: Basophils Percent Auto 0.2 % (0-2); Hemoglobin 14.4 g/dl (14.0-18.0); Imm Gran Abs Auto 0.07 X10*3/uL (0.00-0.03); Imm Gran Pct Auto 0.8 % (0.0-0.4); Lymphocytes Absolute Auto 0.6 X10*3/uL (1.2-4.9); Mean Corpuscular HGB Conc 30.6 g/dl (31.0-36.0); Mean Corpuscular Hemoglobin 29.8 pg (27.0-33.0); Mean Corpuscular Volume 97.3 fL (80.0-98.0); Monocytes Absolute Auto 0.4 X10*3/uL (0.1-1.2); Monocytes Percent Auto 4.6 % (2-11); Neutrophils Absolute Auto 7.6 x10*3/uL (2.0-8.3); Neutrophils Percent Auto 87.4 % (45-73); Platelet Count 186 X10*3/uL (160-400); Red Blood Count 4.83 X10*6/uL (4.60-5.80); Red Cell Distribution Width 14.1 % (11.0-16.0); White Blood Count 8.7 X10*3/uL (4.8-10.8)
[2021-12-26 06:24] LABS: Alanine Aminotransferase 10 U/L (0-40); Albumin Level 3.2 g/dL (3.5-5.0); Alkaline Phosphatase 50 U/L (39-117); Anion Gap 13 (12-20); Aspartate Amino Transferase 11 U/L (5-37); Bilirubin Total 0.5 mg/dL (0.0-1.0); Blood Urea Nitrogen 28 mg/dL (9-16); Calcium 9.3 mg/dL (8.4-10.2); Carbon Dioxide 30 mmol/L (22-29); Chloride 104 mmol/L (96-108); Creatinine Clr Calc Pharmacy 156.9; Estimated Glomerular Filt Rate > 60; Glucose Random 141 mg/dL (60-115); Potassium 4.2 mmol/L (3.3-5.1); Sodium 143 mmol/L (135-145); Total Protein 5.6 g/dL (6.5-8.0)
[2021-12-26] MEDS: Pantoprazole Sodium 40 MG/10 ML VIAL IVPUSH (06:42)
[2021-12-26] MEDS: acetaZOLAMIDE 250 MG TABLET 500 MG PO ×3 (06:42→21:27)
[2021-12-26] MEDS: 0.9 % Sodium Chloride Flush 3 ML SYRINGE IVFLUSH ×3 (07:07→23:18)
[2021-12-26] MEDS: guaiFENesin LA 600 MG TAB.ER.12H PO ×2 (07:07→20:30)
[2021-12-26] MEDS: Furosemide 40 MG TABLET PO (07:07)
[2021-12-26] MEDS: Apixaban 5 MG TABLET PO ×2 (07:08→20:26)
--- NOTE | 2021-12-26 12:40 | P.PNCC_ITS ---
Subjective Subjective Date of Service: 12/26/21 Interval History: Mr. Duarte was transferred to the ICU early this morning with hypercarbic respiratory failure. 66 yo M with supermorbid obesity/Pickwickian syndrome w YANN, poor compliance with CPAP.? Also h/o atrial fibrillation and PE, on Eliquis; CHF; nonsustained VT. Admitted Oct 25 with SOB and prob biventricular failure.? Treated with diuresis and Diamox. ECHOCARDIOGRAM November 04: - Technically difficult study - Normal left ventricular size and systolic function.? No RWMA. - Diastolic function indeterminate.? - Moderately increased right ventricular cavity size, moderately decreased RV systolic function. - Tricuspid CWD 4.1 m/sec.? (Gradient 68mm.) - IVC dilated w < 50% insp collapse. - Severe pulmonary hypertension.? RVSP 83mm. According to Teagan Gao from Case Management, the patient had been living with his brother but reportedly, that living situation was no longer tenable.? Disposition to a facility has been problematic b/o unique care needs related to his size, thus accounting for his prolonged hosp stay. The patient had increasing FiO2 req last few days, more lethargic, unable to get OOB.? (He?d been getting OOB and going to the bathroom by himself during his entire hosp stay.)? He was more lethargic and confused late December 24.? ABG showed 7.30/112/+22.? He was transferred to ICU for BiPAP.? Diamox increased and started on solumedrol. Yesterday morning, PvCO2 was down to 82.? We switched him to HFNC.? He did very well during the day, fully awake and interactive.? Ate all his meals with gusto.? Sat running 94% on HFNC 60L/40%.? Asked to go back upstairs. Overnight slept on BiPAP 18/8/30%.? VBG this morning showed 7.44/55/+11.? He?s fully awake and appropriate.? Breathing easy on HFNC 50L/40% with Sat 96%.? No JVD at 20-30?.? Chest CTA with normal expiratory phase.? Irregular rhythm, normal S1 and S2, with no murmur or gallops.? Trivial edema if any. LABORATORY DATA.? Below.? Notably, renal ratio slowly rising. IMPRESSION: 1. OHS/Pickwickian syndrome.? CPAP or BiPAP at night. 2. Acute on chronic hypercarbic respiratory failure.? CHECK VENOUS BLOOD GAS E VERY DAY WHENEVER HE HAS ROUTINE MORNING LABS. 3. Right heart failure.? Needs gentle diuresis. 4. ? COPD exacerbation. Doubtful. I've not heard any coughing or wheezing. Cut steroids to 40 mg bid today and taper rapidly over 2-3 days. 5. CHARLEEN with slowly rising renal ratio 2? diuresis.? I?ll drop his Lasix dose to 20 mg daily. 6. Metabolic alkalosis.? Exacerbated by his diuretics. ?Continue diamox. 7. Deconditioning.? Needs aggressive physical therapy and mobilization.? Needs to be out of bed into the easy chair every day. Stable for transfer back to [facility] [place].? We will sign out to hospitalists. Critical Care Time (minutes): 0 Physical Exam Vital Signs: Vital Signs: Last Vital Signs Temp 98.1 F 12/26/21 12:00 Pulse 78 12/26/21 12:00 Resp 13 12/26/21 12:00 BP 145/77 H 12/26/21 12:00 Pulse Ox 94 12/26/21 12:00 BMI result Body Mass Index 63.3 Objective Data Labs CBC & Chem 7: 12/26/21 05:47 12/26/21 05:47 Labs: Laboratory Results - last 24 hr 12/26/21 12/26/21 12/26/21 05:47 05:47 05:47 WBC 8.7 RBC 4.83 Hgb 14.4 Hct 47.0 MCV 97.3 MCH 29.8 MCHC 30.6 L RDW 14.1 Plt Count 186 MPV 10.0 Immature Gran % (Auto) 0.8 H Neut % (Auto) 87.4 H Lymph % (Auto) 7.0 L [place] % (Auto) 4.6 Eos % (Auto) 0.0 Baso % (Auto) 0.2 Lymph # (Auto) 0.6 L Cotton # (Auto) 0.4 Eos # (Auto) 0.0 Baso # (Auto) 0.0 Abs Immat Gran (auto) 0.07 H Absolute Neuts (auto) 7.6 Absolute Nucleated RBC 0.000 Nucleated RBC % (auto) 0.0 VBG pH 7.44 H VBG pCO2 55 VBG pO2 64 VBG HCO3 38 H VBG O2 Saturation 91.0 VBG Base Excess 11.5 Sodium 143 Potassium 4.2 Chloride 104 Carbon Dioxide 30 H Anion Gap 13 BUN 28 H Creatinine 0.76 Estim Creat Clear Calc 156.9 Estimated GFR > 60 Random Glucose 141 H D Calcium 9.3 Total Bilirubin 0.5 AST 11 ALT 10 Alkaline Phosphatase 50 Total Protein 5.6 L Albumin 3.2 L Microbiology Microbiology Results: Microbiology 11/03/21 21:27 Blood - Venous Blood Culture - Final No growth after 5 days. 11/03/21 21:27 Blood - Venous Blood Culture - Final No growth after 5 days. Quality Stroke Does the patient have a stroke diagnosis?: No VTE Prior VTE?: No VTE Risk Level:: Medical - moderate - high VTE Device Contraindication: Treatment Not Indicated VTE Drug Contraindication: N/A - Med Ordered
[2021-12-26 13:17] LABS: Magnesium 2.3 mg/dL (1.6-2.6); Phosphorus 2.6 mg/dL (2.7-4.5)
[2021-12-26] MEDS: Sodium,Potassium Phosphates POWD.PACK 2 PACKET PO (15:04)
[2021-12-27] VITALS (12 sets, daily range): BP systolic 112–138; BP diastolic 57–74; PULSE 64–103; RESP 14–27; TEMP 36.6–37; O2SAT 90–96
[2021-12-27] MEDS: Ibuprofen 400 MG TABLET PO (00:10)
[2021-12-27] MEDS: Albuterol/Iprat 2.5/0.5MG 3 ML AMPUL.NEB INHALE ×3 (00:36→11:30)
[2021-12-27 05:24] LABS: VBG Base Excess 9.3 mmol/L; VBG HCO3 36 mmol/L (22-26); VBG pCO2 58 mmHg; VBG pO2 77 mmHg
[2021-12-27 06:00] LABS: Venous Blood Gas Refer to POC result
[2021-12-27 06:12] LABS: Anion Gap 10 (12-20); Blood Urea Nitrogen 33 mg/dL (9-16); Calcium 9.3 mg/dL (8.4-10.2); Carbon Dioxide 32 mmol/L (22-29); Chloride 104 mmol/L (96-108); Creatinine Clr Calc Pharmacy 156.9; Estimated Glomerular Filt Rate > 60; Glucose Random 139 mg/dL (60-115); Magnesium 2.3 mg/dL (1.6-2.6); Phosphorus 3.7 mg/dL (2.7-4.5); Potassium 4.4 mmol/L (3.3-5.1); Sodium 142 mmol/L (135-145)
[2021-12-27] MEDS: acetaZOLAMIDE 250 MG TABLET 500 MG PO ×3 (06:29→20:53)
[2021-12-27] MEDS: Pantoprazole Sodium 40 MG/10 ML VIAL IVPUSH (06:29)
[2021-12-27] MEDS: 0.9 % Sodium Chloride Flush 3 ML SYRINGE IVFLUSH ×3 (07:01→20:53)
[2021-12-27] MEDS: guaiFENesin LA 600 MG TAB.ER.12H PO ×2 (07:01→20:15)
[2021-12-27] MEDS: Apixaban 5 MG TABLET PO ×2 (07:01→20:15)
[2021-12-27] MEDS: Furosemide 20 MG TABLET PO (07:01)
[2021-12-27] MEDS: methylPREDNISolone Sod Succ 40 MG/ML VIAL IVPUSH ×2 (09:32→20:53)
--- NOTE | 2021-12-27 09:49 | HO.PM.IMPN ---
Subjective Subjective Date of Service: 12/27/21 Interval History: Seen and evaluated in the ICU this morning Reports feeling much better and refreshed On 3 L of oxygen interested in starting therapy and getting out of bed Denies having chest pain, palpitation of shortness of breath No reported other overnight events. Review of Systems No fever, chills or weakness No chest pain, palpitation No shortness of breath No abdominal pain, nausea or vomiting No urinary symptoms No reported rash or wounds Physical Exam Vital Signs: Vital Signs: Last Vital Signs Temp 98.2 F 12/26/21 23:36 Pulse 81 12/27/21 08:00 Resp 16 12/27/21 08:00 BP 118/64 12/27/21 08:00 Pulse Ox 96 12/27/21 08:00 BMI result Body Mass Index 63.3 Const: Other: Gen:? Awake alert, no distress HEENT: sclera anicteric, moist mucus membranes Neck: supple, no JVD Lungs: fair bilateral air, no wheezes, no basal crackles,on oxygen supplement Heart: irregularly irregular, no murmurs, no edema Abd: soft, non-tender, non-distended, morbidly obese Skin: warm/well-perfused Neuro: alert and oriented x3, no focal?findings Psych: appropriate affect Objective Data Active Medications Acetazolamide (Acetazolamide 250 Mg Tablet) 500 mg PO Q8H [facility] Last Admin: 12/27/21 06:29 Dose: 500 mg Documented by: ASHU Albuterol/Ipratropium (Albuterol/Iprat 2.5/0.5mg 3 Ml Ampul.Neb) 3 ml INHALE RQ6H [facility] Last Admin: 12/27/21 05:45 Dose: 3 ml Documented by: ANNELISE Apixaban (Apixaban 5 Mg Tablet) 5 mg PO BID [facility] Last Admin: 12/27/21 07:01 Dose: 5 mg Documented by: MITCH Furosemide (Furosemide 20 Mg Tablet) 20 mg PO DAILY [facility]; Protocol Last Admin: 12/27/21 07:01 Dose: 20 mg Documented by: MITCH Guaifenesin (Guaifenesin La 600 Mg Tab.Er.12h) 600 mg PO BID [facility] Last Admin: 12/27/21 07:01 Dose: 600 mg Documented by: MITCH Hydroxyzine HCl (Hydroxyzine Hcl 25 Mg Tablet) 25 mg PO Q6H PRN PRN Reason: anxiety/restlessness Last Admin: 12/12/21 04:01 Dose: 25 mg Documented by: SCARLET Ibuprofen (Ibuprofen 400 Mg Tablet) 400 mg PO Q24H PRN PRN Reason: headache Last Admin: 12/27/21 00:10 Dose: 400 mg Documented by: ASHU Loperamide HCl (Loperamide Hcl 2 Mg Capsule) 2 mg PO Q4H PRN PRN Reason: Diarrhea Last Admin: 12/12/21 13:36 Dose: 2 mg Documented by: ZIGGY Melatonin (Melatonin 3 Mg Tablet) 6 mg PO BEDTIME PRN PRN Reason: Insomnia Last Admin: 11/14/21 23:52 Dose: 6 mg Documented by: HERMELINDA Methylprednisolone Sodium Succinate (Methylprednisolone Sod Succ 40 Mg/Ml Vial) 40 mg IVPUSH Q12H [facility] Last Admin: 12/27/21 09:32 Dose: 40 mg Documented by: MITCH Pantoprazole Sodium (Pantoprazole Sodium 40 Mg/10 Ml Vial) 40 mg IVPUSH DAILY@0630 [facility] Last Admin: 12/27/21 06:29 Dose: 40 mg Documented by: ASHU Pharmacy Consult (Consult Rx Perform Med Rec) 1 each MISCELLANE ONCE PRN PRN Reason: Consult order Pharmacy Consult (Consult Rx Perform Med Rec) 1 each MISCELLANE ONCE PRN PRN Reason: Consult order Senna (Sennosides 8.6 Mg Tablet) 17.2 mg PO BEDTIME PRN PRN Reason: Constipation Sodium Chloride (0.9 % Sodium Chloride Flush 3 Ml Syringe) 3 ml IVFLUSH QSHIFT [facility] Last Admin: 12/27/21 07:01 Dose: 3 ml Documented by: MITCH Labs CBC & Chem 7: 12/26/21 05:47 12/27/21 05:18 Labs: Laboratory Results - last 24 hr 12/26/21 12/27/21 12/27/21 05:47 05:16 05:18 VBG pH 7.40 VBG pCO2 58 VBG pO2 77 VBG HCO3 36 H VBG O2 Saturation 94.0 VBG Base Excess 9.3 Anion Gap 10 L Estim Creat Clear Calc 156.9 Estimated GFR > 60 Random Glucose 139 H Calcium 9.3 Phosphorus 2.6 L 3.7 Magnesium 2.3 2.3 Assessment and Plan (1) Acute on chronic respiratory failure with hypoxia and hypercapnia: Status: Acute (2) NSVT (nonsustained ventricular tachycardia): Status: Acute (3) Physical deconditioning: Status: Acute (4) Pulmonary embolism: Status: Acute Plan 66yo M with AF, morbid obesity presenting with dyspnea, weight gain, leg edema admitted for CHF exacerbation Toxic metabolic encephalopathy due to acute on chronic hypoxic hypercapnic respiratory failure went to ICU between December 24- improved with BiPAP now back to baselineOn 2 L of oxygen patient finally agrees to start using BiPAP at night, he is encouraged to wear it as much as tolerated while sleeping. Check VBG frequently COPD exacerbation On IV steroids, changed to p.o. , Wean down Continue nebulizers Diarrhea No abdominal pain, not antibiotic, no signs of infection cdif negative Likely secretory To use Imodium as needed diastolic R-sided heart failure Stable disease now pt will f/u with his senior marketing specialist, Dr Mason at [facility] Lasix decreased to 20 mg daily Continue diamox for metabolic alkalosis physical deconditioning Evaluated by physical therapy team who recommended short-term rehab Pending placement - difficulty finding bariatric placement, patient unable to manage at home sinus pauses/ sinus bradycardia patient asymptomatic during episodes seen by cardiology bradycardia likely due to undiagnosed YANN , since this is reversible not committed to pacemaker outpt polysomnography NSVTs Related to untreated underlying YANN Cannot use beta-anastacio for recurrent episodes of bradycardia Advised to use the BiPAP again but he refused stating that the mask does not feel comfortable in spite of trying more than 1 chronic AF rate-controlled. not on metoprolol due to sinus pauses. Continue apixaban for anticoagulation acute hypoxic resp failure now stable, likely chronic at this point wean O2 as tolerated, was not on home O2 CT chest and V/Q, no PE morbid obesity strongly recommend to follow low-calorie diet outpatient bariatric surgery referral VTE ppx apixaban dispo being followed by Physical therapy, patient continued to have low tolerance to functional mobility , dyspnea with minimal exertion with poor gait mechanics and increased risk of fall therefore PT continue to recommend STR, CM working placement Quality Stroke Does the patient have a stroke diagnosis?: No VTE Prior VTE?: No VTE Risk Level:: Medical - moderate - high VTE Device Contraindication: Treatment Not Indicated VTE Drug Contraindication: N/A - Med Ordered
[2021-12-27] MEDS: Acetaminophen 325 MG TABLET 650 MG PO (20:14)
[2021-12-28] VITALS (12 sets, daily range): BP systolic 106–132; BP diastolic 56–72; PULSE 67–106; RESP 16–20; TEMP 36–36.8; O2SAT 94–97
[2021-12-28] MEDS: Albuterol/Iprat 2.5/0.5MG 3 ML AMPUL.NEB INHALE ×3 (00:21→11:08)
[2021-12-28 06:17] LABS: Hemoglobin 14.8 g/dl (14.0-18.0); Mean Corpuscular HGB Conc 30.8 g/dl (31.0-36.0); Mean Corpuscular Volume 97.4 fL (80.0-98.0); Mean Platelet Volume 9.8 fL (9.4-12.4); Platelet Count 200 X10*3/uL (160-400); Red Blood Count 4.93 X10*6/uL (4.60-5.80); Red Cell Distribution Width 14.6 % (11.0-16.0); White Blood Count 10.8 X10*3/uL (4.8-10.8)
[2021-12-28 06:23] LABS: Venous Blood Gas Refer to POC result
[2021-12-28 06:23] LABS: VBG Base Excess 4.7 mmol/L; VBG HCO3 30 mmol/L (22-26); VBG pCO2 49 mmHg; VBG pH 7.39 (7.32-7.43); VBG pO2 87 mmHg
[2021-12-28] MEDS: acetaZOLAMIDE 250 MG TABLET 500 MG PO ×3 (06:26→21:09)
[2021-12-28] MEDS: Pantoprazole Sodium 40 MG/10 ML VIAL IVPUSH (06:28)
[2021-12-28 06:38] LABS: Anion Gap 11 (12-20); Blood Urea Nitrogen 35 mg/dL (9-16); Calcium 9.3 mg/dL (8.4-10.2); Carbon Dioxide 30 mmol/L (22-29); Chloride 106 mmol/L (96-108); Creatinine Clr Calc Pharmacy 152.8; Estimated Glomerular Filt Rate > 60; Glucose Random 137 mg/dL (60-115); Potassium 4.5 mmol/L (3.3-5.1); Sodium 142 mmol/L (135-145)
[2021-12-28] MEDS: 0.9 % Sodium Chloride Flush 3 ML SYRINGE IVFLUSH ×3 (08:40→21:10)
[2021-12-28] MEDS: guaiFENesin LA 600 MG TAB.ER.12H PO ×2 (08:41→21:09)
[2021-12-28] MEDS: Furosemide 20 MG TABLET PO (08:41)
[2021-12-28] MEDS: Apixaban 5 MG TABLET PO ×2 (08:41→21:09)
[2021-12-28] MEDS: methylPREDNISolone Sod Succ 40 MG/ML VIAL IVPUSH (11:12)
[2021-12-28] MEDS: Ibuprofen 400 MG TABLET PO (13:42)
--- NOTE | 2021-12-28 14:12 | HO.PM.IMPN ---
Subjective Subjective Date of Service: 12/28/21 Interval History: Seen and evaluated Reports feeling much better On 3 L of oxygen Interested in getting out of bed Denies having chest pain, palpitation of shortness of breath No reported other overnight events Review of Systems No fever, chills or weakness No chest pain, palpitation No shortness of breath No abdominal pain, nausea or vomiting No urinary symptoms No reported rash or wounds Physical Exam Vital Signs: Vital Signs: Last Vital Signs Temp 98.3 F 12/28/21 10:58 Pulse 78 12/28/21 11:10 Resp 20 12/28/21 11:10 BP 132/68 12/28/21 10:58 Pulse Ox 97 12/28/21 10:58 BMI result Body Mass Index 63.3 Const: Other: Gen:? Awake alert, no distress HEENT: sclera anicteric, moist mucus membranes Neck: supple, no JVD Lungs: fair bilateral air, no wheezes, no basal crackles,on oxygen supplement Heart: irregularly irregular, no murmurs, no edema Abd: soft, non-tender, non-distended, morbidly obese Skin: warm/well-perfused Neuro: alert and oriented x3, no focal?findings Psych: appropriate affect Objective Data Active Medications Acetaminophen (Acetaminophen 325 Mg Tablet) 650 mg PO Q6H PRN PRN Reason: Pain, Mild (Pain Scale 1-3) Last Admin: 12/27/21 20:14 Dose: 650 mg Documented by: CEDRICK Acetazolamide (Acetazolamide 250 Mg Tablet) 500 mg PO Q8H [facility] Last Admin: 12/28/21 13:43 Dose: 500 mg Documented by: MICHELLE Albuterol/Ipratropium (Albuterol/Iprat 2.5/0.5mg 3 Ml Ampul.Neb) 3 ml INHALE RQ6H [facility] Last Admin: 12/28/21 11:08 Dose: 3 ml Documented by: BLASCAllyssa Apixaban (Apixaban 5 Mg Tablet) 5 mg PO BID [facility] Last Admin: 12/28/21 08:41 Dose: 5 mg Documented by: MICHELLE Furosemide (Furosemide 20 Mg Tablet) 20 mg PO DAILY [facility]; Protocol Last Admin: 12/28/21 08:41 Dose: 20 mg Documented by: MICHELLE Guaifenesin (Guaifenesin La 600 Mg Tab.Er.12h) 600 mg PO BID [facility] Last Admin: 12/28/21 08:41 Dose: 600 mg Documented by: MICHELLE Hydroxyzine HCl (Hydroxyzine Hcl 25 Mg Tablet) 25 mg PO Q6H PRN PRN Reason: anxiety/restlessness Last Admin: 12/12/21 04:01 Dose: 25 mg Documented by: SCARLET Ibuprofen (Ibuprofen 400 Mg Tablet) 400 mg PO Q24H PRN PRN Reason: headache Last Admin: 12/28/21 13:42 Dose: 400 mg Documented by: MICHELLE Loperamide HCl (Loperamide Hcl 2 Mg Capsule) 2 mg PO Q4H PRN PRN Reason: Diarrhea Last Admin: 12/12/21 13:36 Dose: 2 mg Documented by: ZIGGY Melatonin (Melatonin 3 Mg Tablet) 6 mg PO BEDTIME PRN PRN Reason: Insomnia Last Admin: 11/14/21 23:52 Dose: 6 mg Documented by: HERMELINDA Methylprednisolone Sodium Succinate (Methylprednisolone Sod Succ 40 Mg/Ml Vial) 40 mg IVPUSH Q12H [facility] Last Admin: 12/28/21 11:12 Dose: 40 mg Documented by: MICHELLE Pharmacy Consult (Consult Rx Perform Med Rec) 1 each MISCELLANE ONCE PRN PRN Reason: Consult order Pharmacy Consult (Consult Rx Perform Med Rec) 1 each MISCELLANE ONCE PRN PRN Reason: Consult order Senna (Sennosides 8.6 Mg Tablet) 17.2 mg PO BEDTIME PRN PRN Reason: Constipation Sodium Chloride (0.9 % Sodium Chloride Flush 3 Ml Syringe) 3 ml IVFLUSH QSHIFT [facility] Last Admin: 12/28/21 08:40 Dose: 3 ml Documented by: MICHELLE Labs CBC & Chem 7: 12/28/21 06:07 12/28/21 06:07 Labs: Laboratory Results - last 24 hr 12/28/21 12/28/21 12/28/21 06:07 06:07 06:14 MCV 97.4 MCH 30.0 MCHC 30.8 L RDW 14.6 Plt Count 200 MPV 9.8 Absolute Nucleated RBC 0.000 Nucleated RBC % (auto) 0.0 VBG pH 7.39 VBG pCO2 49 VBG pO2 87 VBG HCO3 30 H VBG O2 Saturation 97.0 VBG Base Excess 4.7 Anion Gap 11 L Estim Creat Clear Calc 152.8 Estimated GFR > 60 Random Glucose 137 H Calcium 9.3 Assessment and Plan (1) Acute on chronic respiratory failure with hypoxia and hypercapnia: Status: Acute (2) Physical deconditioning: Status: Acute (3) NSVT (nonsustained ventricular tachycardia): Status: Acute (4) Morbidly obese: Status: Acute Plan 66yo M with AF, morbid obesity presenting with dyspnea, weight gain, leg edema admitted for CHF exacerbation Toxic metabolic encephalopathy due to acute on chronic hypoxic hypercapnic respiratory failure went to ICU between December 24- improved with BiPAP now back to baselineOn 2 L of oxygen VBG showed PCO2 of 46 patient finally agrees to start using BiPAP at night, he is encouraged to wear it as much as tolerated while sleeping. Check VBG frequently COPD exacerbation On IV steroids, changed to p.o. , Wean down Continue nebulizers Diarrhea No abdominal pain, not antibiotic, no signs of infection cdif negative Likely secretory To use Imodium as needed diastolic R-sided heart failure Stable disease now pt will f/u with his resident advisor, Dr Mason at [facility] Lasix decreased to 20 mg daily Continue diamox for metabolic alkalosis physical deconditioning Evaluated by physical therapy team who recommended short-term rehab Pending placement - difficulty finding bariatric placement, patient unable to manage at home sinus pauses/ sinus bradycardia patient asymptomatic during episodes seen by cardiology bradycardia likely due to undiagnosed YANN , since this is reversible not committed to pacemaker outpt polysomnography 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 not on metoprolol due to sinus pauses. Continue apixaban for anticoagulation morbid obesity strongly recommend to follow low-calorie diet outpatient bariatric surgery referral VTE ppx apixaban dispo being followed by Physical therapy, patient continued to have low tolerance to functional mobility , dyspnea with minimal exertion with poor gait mechanics and increased risk of fall therefore PT continue to recommend STR, CM working placement Quality Stroke Does the patient have a stroke diagnosis?: No VTE Prior VTE?: No VTE Risk Level:: Medical - moderate - high VTE Device Contraindication: Treatment Not Indicated VTE Drug Contraindication: N/A - Med Ordered
[2021-12-29] VITALS (14 sets, daily range): BP systolic 105–132; BP diastolic 57–71; PULSE 62–90; RESP 18–24; TEMP 36.2–36.8; O2SAT 93–98
[2021-12-29] MEDS: Albuterol/Iprat 2.5/0.5MG 3 ML AMPUL.NEB INHALE ×4 (00:06→21:11)
[2021-12-29] MEDS: acetaZOLAMIDE 250 MG TABLET 500 MG PO ×3 (06:21→20:17)
[2021-12-29] MEDS: Furosemide 20 MG TABLET PO (08:13)
[2021-12-29] MEDS: predniSONE 20 MG TABLET 40 MG PO (08:13)
[2021-12-29] MEDS: 0.9 % Sodium Chloride Flush 3 ML SYRINGE IVFLUSH ×3 (08:13→20:17)
[2021-12-29] MEDS: guaiFENesin LA 600 MG TAB.ER.12H PO ×2 (08:13→20:17)
[2021-12-29] MEDS: Apixaban 5 MG TABLET PO ×2 (08:13→20:17)
--- NOTE | 2021-12-29 10:31 | HO.PM.IMPN ---
Subjective Subjective Date of Service: 12/29/21 Interval History: Seen and evaluated Reports feeling much better and having more energy On 3 L of oxygen reporting back pain after getting out of the bed yesterda Denies having chest pain, palpitation of shortness of breath No reported other overnight events Review of Systems No fever, chills or weakness No chest pain, palpitation No shortness of breath No abdominal pain, nausea or vomiting No urinary symptoms No reported rash or wounds Physical Exam Vital Signs: Vital Signs: Last Vital Signs Temp 98.3 F 12/29/21 08:12 Pulse 72 12/29/21 08:12 Resp 19 12/29/21 08:12 BP 123/64 12/29/21 08:12 Pulse Ox 97 12/29/21 08:12 BMI result Body Mass Index 63.3 Const: Other: Gen:? Awake alert, no distress HEENT: sclera anicteric, moist mucus membranes Neck: supple, no JVD Lungs: fair bilateral air, no wheezes, no basal crackles,on oxygen supplement Heart: irregularly irregular, no murmurs, no edema Abd: soft, non-tender, non-distended, morbidly obese Skin: warm/well-perfused Neuro: alert and oriented x3, no focal?findings Psych: appropriate affect Objective Data Active Medications Acetaminophen (Acetaminophen 325 Mg Tablet) 650 mg PO Q6H PRN PRN Reason: Pain, Mild (Pain Scale 1-3) Last Admin: 12/27/21 20:14 Dose: 650 mg Documented by: CEDRICK Acetazolamide (Acetazolamide 250 Mg Tablet) 500 mg PO Q8H [facility] Last Admin: 12/29/21 06:21 Dose: 500 mg Documented by: CEDRICK Albuterol/Ipratropium (Albuterol/Iprat 2.5/0.5mg 3 Ml Ampul.Neb) 3 ml INHALE RQ6H [facility] Last Admin: 12/29/21 05:57 Dose: 3 ml Documented by: MONIKASOTono Apixaban (Apixaban 5 Mg Tablet) 5 mg PO BID [facility] Last Admin: 12/29/21 08:13 Dose: 5 mg Documented by: BRONahomi Furosemide (Furosemide 20 Mg Tablet) 20 mg PO DAILY [facility]; Protocol Last Admin: 12/29/21 08:13 Dose: 20 mg Documented by: MICHELLE Guaifenesin (Guaifenesin La 600 Mg Tab.Er.12h) 600 mg PO BID [facility] Last Admin: 12/29/21 08:13 Dose: 600 mg Documented by: MICHELLE Hydroxyzine HCl (Hydroxyzine Hcl 25 Mg Tablet) 25 mg PO Q6H PRN PRN Reason: anxiety/restlessness Last Admin: 12/12/21 04:01 Dose: 25 mg Documented by: SCARLET Ibuprofen (Ibuprofen 400 Mg Tablet) 400 mg PO Q12H PRN PRN Reason: headache Loperamide HCl (Loperamide Hcl 2 Mg Capsule) 2 mg PO Q4H PRN PRN Reason: Diarrhea Last Admin: 12/12/21 13:36 Dose: 2 mg Documented by: ZIGGY Melatonin (Melatonin 3 Mg Tablet) 6 mg PO BEDTIME PRN PRN Reason: Insomnia Last Admin: 11/14/21 23:52 Dose: 6 mg Documented by: HERMELINDA Pharmacy Consult (Consult Rx Perform Med Rec) 1 each MISCELLANE ONCE PRN PRN Reason: Consult order Pharmacy Consult (Consult Rx Perform Med Rec) 1 each MISCELLANE ONCE PRN PRN Reason: Consult order Prednisone (Prednisone 20 Mg Tablet) 40 mg PO DAILY [facility] Stop: 12/31/21 10:00 Last Admin: 12/29/21 08:13 Dose: 40 mg Documented by: MICHELLE Senna (Sennosides 8.6 Mg Tablet) 17.2 mg PO BEDTIME PRN PRN Reason: Constipation Sodium Chloride (0.9 % Sodium Chloride Flush 3 Ml Syringe) 3 ml IVFLUSH QSHIFT [facility] Last Admin: 12/29/21 08:13 Dose: 3 ml Documented by: MICHELLE Labs CBC & Chem 7: 12/28/21 06:07 12/28/21 06:07 Assessment and Plan (1) Acute on chronic respiratory failure with hypoxia and hypercapnia: Status: Acute (2) Physical deconditioning: Status: Acute (3) Pulmonary embolism: Status: Acute Plan 66yo M with AF, morbid obesity presenting with dyspnea, weight gain, leg edema admitted for CHF exacerbation Toxic metabolic encephalopathy due to acute on chronic hypoxic hypercapnic respiratory failure went to ICU between December 24- improved with BiPAP now back to baselineOn 3 L of oxygen VBG showed PCO2 of 46 patient finally agrees to start using BiPAP at night, he is encouraged to wear it as much as tolerated while sleeping. Check VBG frequently COPD exacerbation On IV steroids, changed to p.o. 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 [facility] Lasix decreased to 20 mg daily Continue diamox for metabolic alkalosis physical deconditioning Evaluated by physical therapy team who recommended short-term rehab Pending placement - difficulty finding bariatric placement, patient unable to manage at home sinus pauses/ sinus bradycardia patient asymptomatic during episodes seen by cardiology bradycardia likely due to undiagnosed YANN , since this is reversible not committed to pacemaker outpt polysomnography 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 not on metoprolol due to sinus pauses. Continue apixaban for anticoagulation morbid obesity strongly recommend to follow low-calorie diet outpatient bariatric surgery referral VTE ppx apixaban dispo being followed by Physical therapy, patient continued to have low tolerance to functional mobility , dyspnea with minimal exertion with poor gait mechanics and increased risk of fall therefore PT continue to recommend STR, CM working placement Quality Stroke Does the patient have a stroke diagnosis?: No VTE Prior VTE?: No VTE Risk Level:: Medical - moderate - high VTE Device Contraindication: Treatment Not Indicated VTE Drug Contraindication: N/A - Med Ordered
[2021-12-29] MEDS: Ibuprofen 400 MG TABLET PO (14:48)
[2021-12-30] VITALS (11 sets, daily range): BP systolic 104–146; BP diastolic 50–74; PULSE 66–89; RESP 16–30; TEMP 35.7–37.1; O2SAT 95–98
[2021-12-30] MEDS: acetaZOLAMIDE 250 MG TABLET 500 MG PO ×3 (05:35→21:16)
[2021-12-30] MEDS: Albuterol/Iprat 2.5/0.5MG 3 ML AMPUL.NEB INHALE ×3 (05:40→22:57)
[2021-12-30 06:32] LABS: Venous Blood Gas Refer to POC result
[2021-12-30 06:33] LABS: VBG Base Excess 7.2 mmol/L; VBG HCO3 37 mmol/L (22-26); VBG pCO2 76 mmHg; VBG pH 7.29 (7.32-7.43); VBG pO2 34 mmHg
[2021-12-30 06:44] LABS: Anion Gap 8 (12-20); Blood Urea Nitrogen 30 mg/dL (9-16); Calcium 9.2 mg/dL (8.4-10.2); Carbon Dioxide 34 mmol/L (22-29); Chloride 105 mmol/L (96-108); Creatinine Clr Calc Pharmacy 152.8; Estimated Glomerular Filt Rate > 60; Glucose Random 86 mg/dL (60-115); Potassium 3.9 mmol/L (3.3-5.1); Sodium 143 mmol/L (135-145)
[2021-12-30] MEDS: Apixaban 5 MG TABLET PO ×2 (08:00→21:16)
[2021-12-30] MEDS: guaiFENesin LA 600 MG TAB.ER.12H PO ×2 (08:00→21:16)
[2021-12-30] MEDS: predniSONE 20 MG TABLET 40 MG PO (08:00)
[2021-12-30] MEDS: Furosemide 20 MG TABLET PO (08:00)
[2021-12-30] MEDS: 0.9 % Sodium Chloride Flush 3 ML SYRINGE IVFLUSH ×3 (08:01→23:48)
--- NOTE | 2021-12-30 11:46 | HO.PM.IMPN ---
Subjective Subjective Date of Service: 12/30/21 Interval History: cc: sob interval history: overall improved, optimistic, wants to get ambulatory Cardiovascular Cardiovascular: Reports no additional cardiovascular complaints Gastrointestinal Gastrointestinal: Reports no additional gastrointestinal complaints Physical Exam Vital Signs: Vital Signs: Last Vital Signs Temp 98.8 F 12/30/21 11:06 Pulse 80 12/30/21 11:06 Resp 18 12/30/21 11:20 BP 116/53 L 12/30/21 11:06 Pulse Ox 95 12/30/21 11:06 BMI result Body Mass Index 63.3 Const Other: Gen:? Awake alert, no distress HEENT: sclera anicteric, moist mucus membranes Neck: supple, no JVD Lungs:? fair bilateral air,? no wheezes,? no basal crackles,on oxygen supplement Heart: irregularly irregular, no murmurs, no edema Abd: soft, non-tender, non-distended, morbidly obese Skin: warm/well-perfused Neuro: alert and oriented x3, no focal?findings Psych: appropriate affect Objective Data Active Medications Acetaminophen (Acetaminophen 325 Mg Tablet) 650 mg PO Q6H PRN PRN Reason: Pain, Mild (Pain Scale 1-3) Last Admin: 12/27/21 20:14 Dose: 650 mg Documented by: CEDRICK Acetazolamide (Acetazolamide 250 Mg Tablet) 500 mg PO Q8H [facility] Last Admin: 12/30/21 05:35 Dose: 500 mg Documented by: SCARLET Albuterol/Ipratropium (Albuterol/Iprat 2.5/0.5mg 3 Ml Ampul.Neb) 3 ml INHALE RQ6H [facility] Last Admin: 12/30/21 11:19 Dose: 3 ml Documented by: KENNY Apixaban (Apixaban 5 Mg Tablet) 5 mg PO BID [facility] Last Admin: 12/30/21 08:00 Dose: 5 mg Documented by: DO Furosemide (Furosemide 20 Mg Tablet) 20 mg PO DAILY [facility]; Protocol Last Admin: 12/30/21 08:00 Dose: 20 mg Documented by: DO Guaifenesin (Guaifenesin La 600 Mg Tab.Er.12h) 600 mg PO BID [facility] Last Admin: 12/30/21 08:00 Dose: 600 mg Documented by: DO Hydroxyzine HCl (Hydroxyzine Hcl 25 Mg Tablet) 25 mg PO Q6H PRN PRN Reason: anxiety/restlessness Last Admin: 12/12/21 04:01 Dose: 25 mg Documented by: SCARLET Ibuprofen (Ibuprofen 400 Mg Tablet) 400 mg PO Q12H PRN PRN Reason: headache Last Admin: 12/29/21 14:48 Dose: 400 mg Documented by: DOBRONahomi Loperamide HCl (Loperamide Hcl 2 Mg Capsule) 2 mg PO Q4H PRN PRN Reason: Diarrhea Last Admin: 12/12/21 13:36 Dose: 2 mg Documented by: ZIGGY Melatonin (Melatonin 3 Mg Tablet) 6 mg PO BEDTIME PRN PRN Reason: Insomnia Last Admin: 11/14/21 23:52 Dose: 6 mg Documented by: HERMELINDA Pharmacy Consult (Consult Rx Perform Med Rec) 1 each MISCELLANE ONCE PRN PRN Reason: Consult order Pharmacy Consult (Consult Rx Perform Med Rec) 1 each MISCELLANE ONCE PRN PRN Reason: Consult order Prednisone (Prednisone 20 Mg Tablet) 40 mg PO DAILY [facility] Stop: 12/31/21 10:00 Last Admin: 12/30/21 08:00 Dose: 40 mg Documented by: DO Senna (Sennosides 8.6 Mg Tablet) 17.2 mg PO BEDTIME PRN PRN Reason: Constipation Sodium Chloride (0.9 % Sodium Chloride Flush 3 Ml Syringe) 3 ml IVFLUSH QSHIFT [facility] Last Admin: 12/30/21 08:01 Dose: 3 ml Documented by: DO Labs CBC & Chem 7: 12/28/21 06:07 12/30/21 06:25 Labs: Laboratory Results - last 24 hr 12/30/21 12/30/21 06:25 06:26 VBG pH 7.29 L VBG pCO2 76 VBG pO2 34 VBG HCO3 37 H VBG O2 Saturation 49.0 VBG Base Excess 7.2 Anion Gap 8 L Estim Creat Clear Calc 152.8 Estimated GFR > 60 Random Glucose 86 D Calcium 9.2 Assessment and Plan (1) Acute on chronic respiratory failure with hypoxia and hypercapnia: Status: Acute (2) Physical deconditioning: Status: Acute (3) Pulmonary embolism: Status: Acute Plan 66yo M with AF, morbid obesity presenting with dyspnea, weight gain, leg edema admitted for CHF exacerbation Toxic metabolic encephalopathy due to acute on chronic hypoxic and hypercapnic respiratory failure went to ICU between December 24-2021 improved with BiPAP now back to baselineOn 3 L of oxygen VBG showed PCO2 of 46 patient finally agrees to start using BiPAP at night, he is encouraged to wear it as much as tolerated while sleeping. 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, Dr Mason at [facility] Lasix decreased to 20 mg daily Continue diamox for metabolic alkalosis physical deconditioning Evaluated by physical therapy team who recommended short-term rehab Pending placement - difficulty finding bariatric placement, patient unable to manage at home sinus pauses/ sinus bradycardia patient asymptomatic during episodes seen by cardiology bradycardia likely due to undiagnosed YANN , since this is reversible not committed to pacemaker outpt polysomnography 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 not on metoprolol due to sinus pauses. Continue apixaban for anticoagulation morbid obesity strongly recommend to follow low-calorie diet outpatient bariatric surgery referral VTE ppx apixaban dispo being followed by Physical therapy, patient continued to have low tolerance to functional mobility , dyspnea with minimal exertion with poor gait mechanics and increased risk of fall therefore PT continue to recommend STR, CM working placement Quality Stroke Does the patient have a stroke diagnosis?: No VTE Prior VTE?: No VTE Risk Level:: Medical - moderate - high VTE Device Contraindication: Treatment Not Indicated VTE Drug Contraindication: N/A - Med Ordered
--- NOTE | 2021-12-30 17:21 | PC.NURSE ---
1050 Had 10 beat V Tach. Checking with patient, he just had BM and didk not feel any cardiac changes. Dr Santana made aware. 1400 Had 27 beat V Tack. HR up to 210. Was being repos a the time, in bed. getting pulled up and sheets adjusted. Reported feeling no cardiac symptoms. Dr Santana made aware.
[2021-12-30] MEDS: Ibuprofen 400 MG TABLET PO (21:20)
[2021-12-31] VITALS (11 sets, daily range): BP systolic 95–116; BP diastolic 54–68; PULSE 61–85; RESP 15–20; TEMP 36.2–37; O2SAT 95–99
[2021-12-31] MEDS: Albuterol/Iprat 2.5/0.5MG 3 ML AMPUL.NEB INHALE ×3 (05:59→23:01)
[2021-12-31] MEDS: acetaZOLAMIDE 250 MG TABLET 500 MG PO ×3 (06:08→22:11)
--- NOTE | 2021-12-31 08:14 | P.CDIC_ITS ---
CDI Concurrent Query Documentation Clarification: PHYSICIAN'S DOCUMENTATION REQUEST Date of Query: 12/31/21 08 Patient Name: Eric Duarte JR Admit Date: 11/04/21 Dear Doctor, A review of the medical record indicates additional documentation may be needed. Please review below and update the documentation accordingly. Clinical Indicators: The diagnosis of [Diagnosis] was documented on [date] but is not consistently noted in subsequent documentation. Risk Factors/Clinical Indicators/Treatments PN 11/05 - Assessment/plan: V/Q scan not suggestive of pulmonary embolism, V/Q scan reviewed by Radiology (see addendem) H&P 11/04 - CHF, leg edema, shortness of breath PN 11/24 - Assessment/plan(drop down list) Pulmonary embolism, acute PN 12/10 - Assessment/plan - Pulmonary embolism, acute PN 12/12 - Assessment/plan (drop down list) - no PE noted PN 12/30 - Assessment/plan - Pulmonary embolism, acute Please clarify the following: * [Diagnosis] was present on admission and is now resolved * [Diagnosis] was present on admission and is still being monitored, evaluated, or treated * [Diagnosis] was ruled out * [Diagnosis] is still a likely, suspected, probable diagnosis * Other (please specify) * Unable to determine Use of terms such as suspected, likely, concern for, or probable (associated with a specific diagnosis that is being evaluated, monitored, or treated as if it exists) are acceptable and can be coded in the inpatient setting, when documented at the time of discharge. Thank you, [facility], CDIS Extension: [phone] Please use your independent medical judgment in providing your response. THIS QUERY IS PART OF THE PERMANENT MEDICAL RECORD
[2021-12-31 08:45] LABS: VBG Base Excess 4.7 mmol/L; VBG HCO3 32 mmol/L (22-26); VBG pCO2 57 mmHg; VBG pH 7.35 (7.32-7.43); VBG pO2 75 mmHg
[2021-12-31 08:45] LABS: Venous Blood Gas Refer to POC result
[2021-12-31] MEDS: Apixaban 5 MG TABLET PO ×2 (09:04→22:11)
[2021-12-31] MEDS: guaiFENesin LA 600 MG TAB.ER.12H PO ×2 (09:04→22:11)
[2021-12-31] MEDS: Furosemide 20 MG TABLET PO (09:04)
[2021-12-31] MEDS: 0.9 % Sodium Chloride Flush 3 ML SYRINGE IVFLUSH ×3 (09:04→22:40)
--- NOTE | 2021-12-31 10:57 | HO.PM.IMPN ---
Subjective Subjective Date of Service: 12/31/21 Interval History: Seen and evaluated Reports feeling much better and having more energy On 3 L of oxygen reporting back pain after getting out of the bed yesterda Denies having chest pain, palpitation of shortness of breath No reported other overnight events Review of Systems No fever, chills or weakness No chest pain, palpitation No shortness of breath No abdominal pain, nausea or vomiting No urinary symptoms No reported rash or wounds Physical Exam Vital Signs: Vital Signs: Last Vital Signs Temp 97.7 F 12/31/21 07:56 Pulse 65 12/31/21 09:11 Resp 20 12/31/21 07:56 BP 110/58 L 12/31/21 09:11 Pulse Ox 99 12/31/21 09:11 BMI result Body Mass Index 63.3 Const: Other: Gen:? Awake alert, no distress HEENT: sclera anicteric, moist mucus membranes Neck: supple, no JVD Lungs: fair bilateral air, no wheezes, no basal crackles,on oxygen supplement Heart: irregularly irregular, no murmurs, no edema Abd: soft, non-tender, non-distended, morbidly obese Skin: warm/well-perfused Neuro: alert and oriented x3, no focal?findings Psych: appropriate affect Objective Data Active Medications Acetaminophen (Acetaminophen 325 Mg Tablet) 650 mg PO Q6H PRN PRN Reason: Pain, Mild (Pain Scale 1-3) Last Admin: 12/27/21 20:14 Dose: 650 mg Documented by: CEDRICK Acetazolamide (Acetazolamide 250 Mg Tablet) 500 mg PO Q8H [facility] Last Admin: 12/31/21 06:08 Dose: 500 mg Documented by: TUMJOSHUA Albuterol/Ipratropium (Albuterol/Iprat 2.5/0.5mg 3 Ml Ampul.Neb) 3 ml INHALE RQ6H [facility] Last Admin: 12/31/21 05:59 Dose: 3 ml Documented by: NANCI Apixaban (Apixaban 5 Mg Tablet) 5 mg PO BID [facility] Last Admin: 12/31/21 09:04 Dose: 5 mg Documented by: QIAN Furosemide (Furosemide 20 Mg Tablet) 20 mg PO DAILY [facility]; Protocol Last Admin: 12/31/21 09:04 Dose: 20 mg Documented by: QIAN Guaifenesin (Guaifenesin La 600 Mg Tab.Er.12h) 600 mg PO BID [facility] Last Admin: 12/31/21 09:04 Dose: 600 mg Documented by: QIAN Hydroxyzine HCl (Hydroxyzine Hcl 25 Mg Tablet) 25 mg PO Q6H PRN PRN Reason: anxiety/restlessness Last Admin: 12/12/21 04:01 Dose: 25 mg Documented by: SCARLET Ibuprofen (Ibuprofen 400 Mg Tablet) 400 mg PO Q12H PRN PRN Reason: headache Last Admin: 12/30/21 21:20 Dose: 400 mg Documented by: ANNY Loperamide HCl (Loperamide Hcl 2 Mg Capsule) 2 mg PO Q4H PRN PRN Reason: Diarrhea Last Admin: 12/12/21 13:36 Dose: 2 mg Documented by: ZIGGY Melatonin (Melatonin 3 Mg Tablet) 6 mg PO BEDTIME PRN PRN Reason: Insomnia Last Admin: 11/14/21 23:52 Dose: 6 mg Documented by: HERMELINDA Pharmacy Consult (Consult Rx Perform Med Rec) 1 each MISCELLANE ONCE PRN PRN Reason: Consult order Pharmacy Consult (Consult Rx Perform Med Rec) 1 each MISCELLANE ONCE PRN PRN Reason: Consult order Senna (Sennosides 8.6 Mg Tablet) 17.2 mg PO BEDTIME PRN PRN Reason: Constipation Sodium Chloride (0.9 % Sodium Chloride Flush 3 Ml Syringe) 3 ml IVFLUSH QSHIFT [facility] Last Admin: 12/31/21 09:04 Dose: 3 ml Documented by: QIAN Labs CBC & Chem 7: 12/28/21 06:07 12/30/21 06:25 Labs: Laboratory Results - last 24 hr 12/31/21 08:37 VBG pH 7.35 VBG pCO2 57 VBG pO2 75 VBG HCO3 32 H VBG O2 Saturation 94.0 VBG Base Excess 4.7 Assessment and Plan (1) Acute on chronic respiratory failure with hypoxia and hypercapnia: Status: Acute (2) NSVT (nonsustained ventricular tachycardia): Status: Acute (3) Physical deconditioning: Status: Acute (4) Bradycardia: Status: Acute (5) Morbidly obese: Status: Acute Plan 66yo M with AF, morbid obesity presenting with dyspnea, weight gain, leg edema admitted for CHF exacerbation Toxic metabolic encephalopathy due to acute on chronic hypoxic and hypercapnic respiratory failure went to ICU between December 24-2021 improved with BiPAP now back to baselineOn 3 L of oxygen patient finally agrees to start using BiPAP at night, he is encouraged to wear it as much as tolerated while sleeping. 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 [facility] Lasix decreased to 20 mg daily Continue diamox for metabolic alkalosis physical deconditioning Evaluated by physical therapy team who recommended short-term rehab Pending placement - difficulty finding bariatric placement, patient unable to manage at home sinus pauses/ sinus bradycardia patient asymptomatic during episodes seen by cardiology bradycardia likely due to undiagnosed YANN , since this is reversible not committed to pacemaker outpt polysomnography 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 not on metoprolol due to sinus pauses. Continue apixaban for anticoagulation morbid obesity strongly recommend to follow low-calorie diet outpatient bariatric surgery referral Pulmonary embolism Confirmed by V/Q scan from November 04 continue Eliquis VTE ppx apixaban dispo being followed by Physical therapy, patient continued to have low tolerance to functional mobility , dyspnea with minimal exertion with poor gait mechanics and increased risk of fall therefore PT continue to recommend STR, CM working placement Quality Stroke Does the patient have a stroke diagnosis?: No VTE Prior VTE?: No VTE Risk Level:: Medical - moderate - high VTE Device Contraindication: Treatment Not Indicated VTE Drug Contraindication: N/A - Med Ordered
[2022-01-01] VITALS (13 sets, daily range): BP systolic 93–122; BP diastolic 48–65; PULSE 56–104; RESP 17–22; TEMP 36.3–37.1; O2SAT 94–99
[2022-01-01] MEDS: Albuterol/Iprat 2.5/0.5MG 3 ML AMPUL.NEB INHALE ×4 (05:21→23:38)
[2022-01-01] MEDS: acetaZOLAMIDE 250 MG TABLET 500 MG PO ×2 (06:22→23:04)
[2022-01-01] MEDS: 0.9 % Sodium Chloride Flush 3 ML SYRINGE IVFLUSH ×3 (07:46→23:04)
[2022-01-01] MEDS: guaiFENesin LA 600 MG TAB.ER.12H PO ×2 (07:46→23:04)
[2022-01-01] MEDS: Furosemide 20 MG TABLET PO (07:46)
[2022-01-01] MEDS: Apixaban 5 MG TABLET PO ×2 (07:46→23:04)
--- NOTE | 2022-01-01 08:49 | PC.NURSE ---
Skin assessment completed today. The purple areas on right hip and thigh has resolved, it is more pinkish now. Patient has been very good about moving himself off it after I explained to him what could happen if he continued to lay on his right side only.
--- NOTE | 2022-01-01 11:10 | MHC.CM.PN ---
Broad SNF search continues but no bed offers r/t Bariatric needs/cost.
[2022-01-01] MEDS: Ibuprofen 400 MG TABLET PO (11:55)
--- NOTE | 2022-01-01 11:57 | HO.PM.IMPN ---
Subjective Subjective Date of Service: 01/01/22 Interval History: cc: sob interval history: stable Cardiovascular Cardiovascular: Reports no additional cardiovascular complaints Respiratory Respiratory: Reports no additional respiratory complaints Physical Exam Vital Signs: Vital Signs: Last Vital Signs Temp 97.7 F 01/01/22 11:12 Pulse 77 01/01/22 11:26 Resp 20 01/01/22 11:26 BP 93/56 L 01/01/22 11:12 Pulse Ox 96 01/01/22 11:12 BMI result Body Mass Index 63.3 Const Other: Gen:? Awake alert, no distress HEENT: sclera anicteric, moist mucus membranes Neck: supple, no JVD Lungs:? fair bilateral air,? no wheezes,? no basal crackles,on oxygen supplement Heart: irregularly irregular, no murmurs, no edema Abd: soft, non-tender, non-distended, morbidly obese Skin: warm/well-perfused Neuro: alert and oriented x3, no focal?findings Psych: appropriate affect Objective Data Active Medications Acetaminophen (Acetaminophen 325 Mg Tablet) 650 mg PO Q6H PRN PRN Reason: Pain, Mild (Pain Scale 1-3) Last Admin: 12/27/21 20:14 Dose: 650 mg Documented by: CEDRICK Acetazolamide (Acetazolamide 250 Mg Tablet) 500 mg PO Q8H [facility] Last Admin: 01/01/22 06:22 Dose: 500 mg Documented by: SCARLET Albuterol/Ipratropium (Albuterol/Iprat 2.5/0.5mg 3 Ml Ampul.Neb) 3 ml INHALE RQ6H [facility] Last Admin: 01/01/22 11:25 Dose: 3 ml Documented by: KENNY Apixaban (Apixaban 5 Mg Tablet) 5 mg PO BID [facility] Last Admin: 01/01/22 07:46 Dose: 5 mg Documented by: DO Furosemide (Furosemide 20 Mg Tablet) 20 mg PO DAILY [facility]; Protocol Last Admin: 01/01/22 07:46 Dose: 20 mg Documented by: DO Guaifenesin (Guaifenesin La 600 Mg Tab.Er.12h) 600 mg PO BID [facility] Last Admin: 01/01/22 07:46 Dose: 600 mg Documented by: DO Hydroxyzine HCl (Hydroxyzine Hcl 25 Mg Tablet) 25 mg PO Q6H PRN PRN Reason: anxiety/restlessness Last Admin: 12/12/21 04:01 Dose: 25 mg Documented by: SCARLET Ibuprofen (Ibuprofen 400 Mg Tablet) 400 mg PO Q12H PRN PRN Reason: headache Last Admin: 01/01/22 11:55 Dose: 400 mg Documented by: DO Loperamide HCl (Loperamide Hcl 2 Mg Capsule) 2 mg PO Q4H PRN PRN Reason: Diarrhea Last Admin: 12/12/21 13:36 Dose: 2 mg Documented by: ZIGGY Melatonin (Melatonin 3 Mg Tablet) 6 mg PO BEDTIME PRN PRN Reason: Insomnia Last Admin: 11/14/21 23:52 Dose: 6 mg Documented by: HERMELINDA Pharmacy Consult (Consult Rx Perform Med Rec) 1 each MISCELLANE ONCE PRN PRN Reason: Consult order Pharmacy Consult (Consult Rx Perform Med Rec) 1 each MISCELLANE ONCE PRN PRN Reason: Consult order Senna (Sennosides 8.6 Mg Tablet) 17.2 mg PO BEDTIME PRN PRN Reason: Constipation Sodium Chloride (0.9 % Sodium Chloride Flush 3 Ml Syringe) 3 ml IVFLUSH QSHIFT [facility] Last Admin: 01/01/22 07:46 Dose: 3 ml Documented by: DO Labs CBC & Chem 7: 12/28/21 06:07 12/30/21 06:25 Assessment and Plan (1) Acute on chronic respiratory failure with hypoxia and hypercapnia: Status: Acute (2) NSVT (nonsustained ventricular tachycardia): Status: Acute (3) Physical deconditioning: Status: Acute (4) Bradycardia: Status: Acute (5) Morbidly obese: Status: Acute Plan 66yo M with AF, morbid obesity presenting with dyspnea, weight gain, leg edema admitted for CHF exacerbation Toxic metabolic encephalopathy due to acute on chronic hypoxic and hypercapnic respiratory failure went to ICU between December 24-2021 improved with BiPAP now back to baselineOn 3 L of oxygen patient now agreeing to using BiPAP at night, he is encouraged to wear it as much as tolerated while sleeping. 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, Dr Mason at [facility] Lasix decreased to 20 mg daily Continue diamox for metabolic alkalosis physical deconditioning Evaluated by physical therapy team who recommended short-term rehab Pending placement - difficulty finding bariatric placement, patient unable to manage at home sinus pauses/ sinus bradycardia patient asymptomatic during episodes seen by cardiology bradycardia likely due to undiagnosed YANN , since this is reversible not committed to pacemaker outpt polysomnography 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 not on metoprolol due to sinus pauses. Continue apixaban for anticoagulation morbid obesity strongly recommend to follow low-calorie diet outpatient bariatric surgery referral Pulmonary embolism Confirmed by V/Q scan from November 04 continue Eliquis VTE ppx apixaban dispo being followed by Physical therapy, patient continued to have low tolerance to functional mobility , dyspnea with minimal exertion with poor gait mechanics and increased risk of fall therefore PT continue to recommend STR, CM working placement Quality Stroke Does the patient have a stroke diagnosis?: No VTE Prior VTE?: No VTE Risk Level:: Medical - moderate - high VTE Device Contraindication: Treatment Not Indicated VTE Drug Contraindication: N/A - Med Ordered
[2022-01-02] VITALS (9 sets, daily range): BP systolic 113–119; BP diastolic 51–71; PULSE 62–90; RESP 18–23; TEMP 36.7–37.1; O2SAT 94–99
[2022-01-02] MEDS: Albuterol/Iprat 2.5/0.5MG 3 ML AMPUL.NEB INHALE ×2 (05:17→11:22)
[2022-01-02 06:34] LABS: Hematocrit 44.8 % (42.0-52.0); Hemoglobin 13.6 g/dl (14.0-18.0); Mean Corpuscular HGB Conc 30.4 g/dl (31.0-36.0); Mean Corpuscular Hemoglobin 29.8 pg (27.0-33.0); Mean Corpuscular Volume 98.2 fL (80.0-98.0); Platelet Count 180 X10*3/uL (160-400); Red Blood Count 4.56 X10*6/uL (4.60-5.80); White Blood Count 12.6 X10*3/uL (4.8-10.8)
[2022-01-02 06:54] LABS: Anion Gap 10 (12-20); Blood Urea Nitrogen 22 mg/dL (9-16); Calcium 8.3 mg/dL (8.4-10.2); Carbon Dioxide 29 mmol/L (22-29); Chloride 106 mmol/L (96-108); Creatinine Clr Calc Pharmacy 183.4; Estimated Glomerular Filt Rate > 60; Glucose Fasting 99 mg/dL (60-99); Potassium 3.9 mmol/L (3.3-5.1); Sodium 141 mmol/L (135-145)
[2022-01-02] MEDS: Furosemide 20 MG TABLET PO (09:49)
[2022-01-02] MEDS: guaiFENesin LA 600 MG TAB.ER.12H PO ×2 (09:49→21:13)
[2022-01-02] MEDS: 0.9 % Sodium Chloride Flush 3 ML SYRINGE IVFLUSH ×3 (09:49→21:13)
[2022-01-02] MEDS: Apixaban 5 MG TABLET PO ×2 (09:49→21:13)
[2022-01-02] MEDS: acetaZOLAMIDE 250 MG TABLET 500 MG PO ×2 (09:49→21:13)
--- NOTE | 2022-01-02 12:03 | P.PNIM_ITS ---
Subjective Subjective Date of Service: 01/02/22 Interval History: cc: sob interval history: [place]bale Cardiovascular Cardiovascular: Reports no additional cardiovascular complaints Respiratory Respiratory: Reports no additional respiratory complaints Physical Exam Vital Signs: Vital Signs: Last Vital Signs Temp 98.8 F 01/02/22 11:53 Pulse 71 01/02/22 11:53 Resp 18 01/02/22 11:53 BP 113/51 L 01/02/22 11:53 Pulse Ox 94 01/02/22 11:53 BMI result Body Mass Index 63.3 Const Other: Gen:? Awake alert, no distress HEENT: sclera anicteric, moist mucus membranes Neck: supple, no JVD Lungs:? fair bilateral air,? no wheezes,? no basal crackles,on oxygen supplement Heart: irregularly irregular, no murmurs, no edema Abd: soft, non-tender, non-distended, morbidly obese Skin: warm/well-perfused Neuro: alert and oriented x3, no focal?findings Psych: appropriate affect Objective Data Active Medications Acetaminophen (Acetaminophen 325 Mg Tablet) 650 mg PO Q6H PRN PRN Reason: Pain, Mild (Pain Scale 1-3) Last Admin: 12/27/21 20:14 Dose: 650 mg Documented by: CEDRICK Acetazolamide (Acetazolamide 250 Mg Tablet) 500 mg PO BID [facility] Last Admin: 01/02/22 09:49 Dose: 500 mg Documented by: SRAVANI Albuterol/Ipratropium (Albuterol/Iprat 2.5/0.5mg 3 Ml Ampul.Neb) 3 ml INHALE RQ6H [facility] Last Admin: 01/02/22 11:22 Dose: 3 ml Documented by: BRESSAL Apixaban (Apixaban 5 Mg Tablet) 5 mg PO BID [facility] Last Admin: 01/02/22 09:49 Dose: 5 mg Documented by: SRAVANI Furosemide (Furosemide 20 Mg Tablet) 20 mg PO DAILY [facility]; Protocol Last Admin: 01/02/22 09:49 Dose: 20 mg Documented by: SRAVANI Guaifenesin (Guaifenesin La 600 Mg Tab.Er.12h) 600 mg PO BID [facility] Last Admin: 01/02/22 09:49 Dose: 600 mg Documented by: SRAVANI Hydroxyzine HCl (Hydroxyzine Hcl 25 Mg Tablet) 25 mg PO Q6H PRN PRN Reason: anxiety/restlessness Last Admin: 12/12/21 04:01 Dose: 25 mg Documented by: SCARLET Ibuprofen (Ibuprofen 400 Mg Tablet) 400 mg PO Q12H PRN PRN Reason: headache Last Admin: 01/01/22 11:55 Dose: 400 mg Documented by: DO Loperamide HCl (Loperamide Hcl 2 Mg Capsule) 2 mg PO Q4H PRN PRN Reason: Diarrhea Last Admin: 12/12/21 13:36 Dose: 2 mg Documented by: ZIGGY Melatonin (Melatonin 3 Mg Tablet) 6 mg PO BEDTIME PRN PRN Reason: Insomnia Last Admin: 11/14/21 23:52 Dose: 6 mg Documented by: HERMELINDA Pharmacy Consult (Consult Rx Perform Med Rec) 1 each MISCELLANE ONCE PRN PRN Reason: Consult order Pharmacy Consult (Consult Rx Perform Med Rec) 1 each MISCELLANE ONCE PRN PRN Reason: Consult order Senna (Sennosides 8.6 Mg Tablet) 17.2 mg PO BEDTIME PRN PRN Reason: Constipation Sodium Chloride (0.9 % Sodium Chloride Flush 3 Ml Syringe) 3 ml IVFLUSH QSHIFT [facility] Last Admin: 01/02/22 09:49 Dose: 3 ml Documented by: SRAVANI Labs CBC & Chem 7: 01/02/22 06:10 01/02/22 06:10 Labs: Laboratory Results - last 24 hr 01/02/22 01/02/22 06:10 06:10 MCV 98.2 H MCH 29.8 MCHC 30.4 L RDW 15.0 Plt Count 180 MPV 10.0 Absolute Nucleated RBC 0.000 Nucleated RBC % (auto) 0.0 Anion Gap 10 L Estim Creat Clear Calc 183.4 Estimated GFR > 60 Fasting Glucose 99 Calcium 8.3 L D Assessment and Plan (1) Acute on chronic respiratory failure with hypoxia and hypercapnia: Status: Acute (2) NSVT (nonsustained ventricular tachycardia): Status: Acute (3) Physical deconditioning: Status: Acute (4) Bradycardia: Status: Acute (5) Morbidly obese: Status: Acute Plan 66yo M with AF, morbid obesity presenting with dyspnea, weight gain, leg edema admitted for CHF exacerbation Toxic metabolic encephalopathy due to acute on chronic hypoxic and hypercapnic respiratory failure went to ICU between December 24-2021 improved with BiPAP now back to baselineOn 3 L of oxygen patient now agreeing to using BiPAP at night, he is encouraged to wear it as much as tolerated while sleeping. 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, Dr Mason at [facility] Lasix decreased to 20 mg daily Continue diamox for metabolic alkalosis physical deconditioning Evaluated by physical therapy team who recommended short-term rehab Pending placement - difficulty finding bariatric placement, patient unable to manage at home sinus pauses/ sinus bradycardia patient asymptomatic during episodes seen by cardiology bradycardia likely due to undiagnosed YANN , since this is reversible not committed to pacemaker outpt polysomnography 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 not on metoprolol due to sinus pauses. Continue apixaban for anticoagulation morbid obesity strongly recommend to follow low-calorie diet outpatient bariatric surgery referral Pulmonary embolism Confirmed by V/Q scan from November 04 continue Eliquis VTE ppx apixaban dispo being followed by Physical therapy, patient continued to have low tolerance to functional mobility , dyspnea with minimal exertion with poor gait mechanics and increased risk of fall therefore PT continue to recommend STR, CM working placement Quality Stroke Does the patient have a stroke diagnosis?: No VTE Prior VTE?: No VTE Risk Level:: Medical - moderate - high VTE Device Contraindication: Treatment Not Indicated VTE Drug Contraindication: N/A - Med Ordered
[2022-01-02] MEDS: Ibuprofen 400 MG TABLET PO (16:49)
[2022-01-03] VITALS (15 sets, daily range): BP systolic 108–120; BP diastolic 53–96; PULSE 67–119; RESP 16–28; TEMP 35.7–37.1; O2SAT 94–98
[2022-01-03] MEDS: Albuterol/Iprat 2.5/0.5MG 3 ML AMPUL.NEB INHALE ×5 (00:07→23:46)
[2022-01-03] MEDS: guaiFENesin LA 600 MG TAB.ER.12H PO ×2 (10:10→20:02)
[2022-01-03] MEDS: Furosemide 20 MG TABLET PO (10:10)
[2022-01-03] MEDS: acetaZOLAMIDE 250 MG TABLET 500 MG PO ×2 (10:10→20:02)
[2022-01-03] MEDS: Apixaban 5 MG TABLET PO ×2 (10:10→20:02)
[2022-01-03] MEDS: 0.9 % Sodium Chloride Flush 3 ML SYRINGE IVFLUSH ×3 (10:10→20:03)
--- NOTE | 2022-01-03 10:14 | HO.PM.IMPN ---
Subjective Subjective Date of Service: 01/03/22 Interval History: cc: sob interval history: no new complaints Cardiovascular Cardiovascular: Reports no additional cardiovascular complaints Respiratory Respiratory: Reports no additional respiratory complaints Physical Exam Vital Signs: Vital Signs: Last Vital Signs Temp 98.1 F 01/03/22 08:00 Pulse 82 01/03/22 08:00 Resp 16 01/03/22 08:00 BP 118/53 L 01/03/22 08:00 Pulse Ox 97 01/03/22 08:00 BMI result Body Mass Index 63.3 Const Other: Gen:? Awake alert, no distress HEENT: sclera anicteric, moist mucus membranes Neck: supple, no JVD Lungs:? fair bilateral air,? no wheezes,? no basal crackles,on oxygen supplement Heart: irregularly irregular, no murmurs, no edema Abd: soft, non-tender, non-distended, morbidly obese Skin: warm/well-perfused Neuro: alert and oriented x3, no focal?findings Psych: appropriate affect Objective Data Active Medications Acetaminophen (Acetaminophen 325 Mg Tablet) 650 mg PO Q6H PRN PRN Reason: Pain, Mild (Pain Scale 1-3) Last Admin: 12/27/21 20:14 Dose: 650 mg Documented by: CEDRICK Acetazolamide (Acetazolamide 250 Mg Tablet) 500 mg PO BID [facility] Last Admin: 01/03/22 10:10 Dose: 500 mg Documented by: SRAVANI Albuterol/Ipratropium (Albuterol/Iprat 2.5/0.5mg 3 Ml Ampul.Neb) 3 ml INHALE RQ6H [facility] Last Admin: 01/03/22 05:19 Dose: 3 ml Documented by: GENOVEVA Apixaban (Apixaban 5 Mg Tablet) 5 mg PO BID [facility] Last Admin: 01/03/22 10:10 Dose: 5 mg Documented by: SRAVANI Furosemide (Furosemide 20 Mg Tablet) 20 mg PO DAILY [facility]; Protocol Last Admin: 01/03/22 10:10 Dose: 20 mg Documented by: SRAVANI Guaifenesin (Guaifenesin La 600 Mg Tab.Er.12h) 600 mg PO BID [facility] Last Admin: 01/03/22 10:10 Dose: 600 mg Documented by: SRAVANI Hydroxyzine HCl (Hydroxyzine Hcl 25 Mg Tablet) 25 mg PO Q6H PRN PRN Reason: anxiety/restlessness Last Admin: 12/12/21 04:01 Dose: 25 mg Documented by: SCARLET Ibuprofen (Ibuprofen 400 Mg Tablet) 400 mg PO Q12H PRN PRN Reason: headache Last Admin: 01/02/22 16:49 Dose: 400 mg Documented by: SRAVANI Loperamide HCl (Loperamide Hcl 2 Mg Capsule) 2 mg PO Q4H PRN PRN Reason: Diarrhea Last Admin: 12/12/21 13:36 Dose: 2 mg Documented by: ZIGGY Melatonin (Melatonin 3 Mg Tablet) 6 mg PO BEDTIME PRN PRN Reason: Insomnia Last Admin: 11/14/21 23:52 Dose: 6 mg Documented by: HERMELINDA Pharmacy Consult (Consult Rx Perform Med Rec) 1 each MISCELLANE ONCE PRN PRN Reason: Consult order Pharmacy Consult (Consult Rx Perform Med Rec) 1 each MISCELLANE ONCE PRN PRN Reason: Consult order Senna (Sennosides 8.6 Mg Tablet) 17.2 mg PO BEDTIME PRN PRN Reason: Constipation Sodium Chloride (0.9 % Sodium Chloride Flush 3 Ml Syringe) 3 ml IVFLUSH QSHIFT [facility] Last Admin: 01/03/22 10:10 Dose: 3 ml Documented by: SRAVANI Labs CBC & Chem 7: 01/02/22 06:10 01/02/22 06:10 Assessment and Plan (1) Acute on chronic respiratory failure with hypoxia and hypercapnia: Status: Acute (2) NSVT (nonsustained ventricular tachycardia): Status: Acute (3) Physical deconditioning: Status: Acute (4) Bradycardia: Status: Acute (5) Morbidly obese: Status: Acute Plan 66yo M with AF, morbid obesity presenting with dyspnea, weight gain, leg edema admitted for CHF exacerbation Toxic metabolic encephalopathy due to acute on chronic hypoxic and hypercapnic respiratory failure went to ICU between December 24-2021 improved with BiPAP now back to baselineOn 3 L of oxygen patient now agreeing to using BiPAP at night, he is encouraged to wear it as much as tolerated while sleeping. 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, Dr Mason at [facility] Lasix decreased to 20 mg daily Continue diamox for metabolic alkalosis physical deconditioning Evaluated by physical therapy team who recommended short-term rehab Pending placement - difficulty finding bariatric placement, patient unable to manage at home sinus pauses/ sinus bradycardia patient asymptomatic during episodes seen by cardiology bradycardia likely due to undiagnosed YANN , since this is reversible not committed to pacemaker outpt polysomnography 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 not on metoprolol due to sinus pauses. Continue apixaban for anticoagulation morbid obesity strongly recommend to follow low-calorie diet outpatient bariatric surgery referral Pulmonary embolism Confirmed by V/Q scan from November 04 continue Eliquis VTE ppx apixaban dispo being followed by Physical therapy, patient continued to have low tolerance to functional mobility , dyspnea with minimal exertion with poor gait mechanics and increased risk of fall therefore PT continue to recommend STR, CM working placement Quality Stroke Does the patient have a stroke diagnosis?: No VTE Prior VTE?: No VTE Risk Level:: Medical - moderate - high VTE Device Contraindication: Treatment Not Indicated VTE Drug Contraindication: N/A - Med Ordered
[2022-01-03] MEDS: Ibuprofen 400 MG TABLET PO (17:58)
[2022-01-04] VITALS (15 sets, daily range): BP systolic 115–140; BP diastolic 57–77; PULSE 64–92; RESP 18–28; TEMP 36.3–37.1; O2SAT 93–99
[2022-01-04] MEDS: Albuterol/Iprat 2.5/0.5MG 3 ML AMPUL.NEB INHALE ×4 (05:30→23:01)
[2022-01-04] MEDS: Furosemide 20 MG TABLET PO (08:25)
[2022-01-04] MEDS: guaiFENesin LA 600 MG TAB.ER.12H PO ×2 (08:25→21:01)
[2022-01-04] MEDS: Apixaban 5 MG TABLET PO ×2 (08:26→21:01)
[2022-01-04] MEDS: 0.9 % Sodium Chloride Flush 3 ML SYRINGE IVFLUSH ×3 (08:26→21:02)
[2022-01-04] MEDS: acetaZOLAMIDE 250 MG TABLET 500 MG PO ×2 (08:26→21:01)
--- NOTE | 2022-01-04 10:59 | MHC.CM.PN ---
Broad SNF search and acute rehab referrals have been updated today; CM awaits bed offer. Bariatric needs/cost appears to be the barrier to dc.
--- NOTE | 2022-01-04 11:06 | HO.PM.IMPN ---
Subjective Subjective Date of Service: 01/04/22 Interval History: cc: sob interval history: stable Cardiovascular Cardiovascular: Reports no additional cardiovascular complaints Respiratory Respiratory: Reports no additional respiratory complaints Physical Exam Vital Signs: Vital Signs: Last Vital Signs Temp 97.8 F 01/04/22 07:44 Pulse 80 01/04/22 10:00 Resp 18 01/04/22 07:44 BP 121/62 01/04/22 10:00 Pulse Ox 97 01/04/22 10:00 BMI result Body Mass Index 63.3 Const Other: Gen:? Awake alert, no distress HEENT: sclera anicteric, moist mucus membranes Neck: supple, no JVD Lungs:? fair bilateral air,? no wheezes,? no basal crackles,on oxygen supplement Heart: irregularly irregular, no murmurs, no edema Abd: soft, non-tender, non-distended, morbidly obese Skin: warm/well-perfused Neuro: alert and oriented x3, no focal?findings Psych: appropriate affect Objective Data Active Medications Acetaminophen (Acetaminophen 325 Mg Tablet) 650 mg PO Q6H PRN PRN Reason: Pain, Mild (Pain Scale 1-3) Last Admin: 12/27/21 20:14 Dose: 650 mg Documented by: CEDRICK Acetazolamide (Acetazolamide 250 Mg Tablet) 500 mg PO BID [facility] Last Admin: 01/04/22 08:26 Dose: 500 mg Documented by: DO Albuterol/Ipratropium (Albuterol/Iprat 2.5/0.5mg 3 Ml Ampul.Neb) 3 ml INHALE RQ6H [facility] Last Admin: 01/04/22 05:30 Dose: 3 ml Documented by: IRMA Apixaban (Apixaban 5 Mg Tablet) 5 mg PO BID [facility] Last Admin: 01/04/22 08:26 Dose: 5 mg Documented by: DO Furosemide (Furosemide 20 Mg Tablet) 20 mg PO DAILY [facility]; Protocol Last Admin: 01/04/22 08:25 Dose: 20 mg Documented by: DO Guaifenesin (Guaifenesin La 600 Mg Tab.Er.12h) 600 mg PO BID [facility] Last Admin: 01/04/22 08:25 Dose: 600 mg Documented by: DO Hydroxyzine HCl (Hydroxyzine Hcl 25 Mg Tablet) 25 mg PO Q6H PRN PRN Reason: anxiety/restlessness Last Admin: 12/12/21 04:01 Dose: 25 mg Documented by: SCARLET Ibuprofen (Ibuprofen 400 Mg Tablet) 400 mg PO Q12H PRN PRN Reason: headache Last Admin: 01/03/22 17:58 Dose: 400 mg Documented by: ISAAC Loperamide HCl (Loperamide Hcl 2 Mg Capsule) 2 mg PO Q4H PRN PRN Reason: Diarrhea Last Admin: 12/12/21 13:36 Dose: 2 mg Documented by: ZIGGY Melatonin (Melatonin 3 Mg Tablet) 6 mg PO BEDTIME PRN PRN Reason: Insomnia Last Admin: 11/14/21 23:52 Dose: 6 mg Documented by: HERMELINDA Pharmacy Consult (Consult Rx Perform Med Rec) 1 each MISCELLANE ONCE PRN PRN Reason: Consult order Pharmacy Consult (Consult Rx Perform Med Rec) 1 each MISCELLANE ONCE PRN PRN Reason: Consult order Senna (Sennosides 8.6 Mg Tablet) 17.2 mg PO BEDTIME PRN PRN Reason: Constipation Sodium Chloride (0.9 % Sodium Chloride Flush 3 Ml Syringe) 3 ml IVFLUSH QSHIFT [facility] Last Admin: 01/04/22 08:26 Dose: 3 ml Documented by: DO Labs CBC & Chem 7: 01/02/22 06:10 01/02/22 06:10 Assessment and Plan (1) Acute on chronic respiratory failure with hypoxia and hypercapnia: Status: Acute (2) NSVT (nonsustained ventricular tachycardia): Status: Acute (3) Physical deconditioning: Status: Acute (4) Bradycardia: Status: Acute (5) Morbidly obese: Status: Acute Plan 66yo M with AF, morbid obesity presenting with dyspnea, weight gain, leg edema admitted for CHF exacerbation Toxic metabolic encephalopathy due to acute on chronic hypoxic and hypercapnic respiratory failure went to ICU between December 24-2021 improved with BiPAP now back to baselineOn 3 L of oxygen patient now agreeing to using BiPAP at night, he is encouraged to wear it as much as tolerated while sleeping. 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, Dr Msaon at [facility] Lasix decreased to 20 mg daily Continue diamox for metabolic alkalosis physical deconditioning Evaluated by physical therapy team who recommended short-term rehab Pending placement - difficulty finding bariatric placement, patient unable to manage at home sinus pauses/ sinus bradycardia patient asymptomatic during episodes seen by cardiology bradycardia likely due to undiagnosed YANN , since this is reversible not committed to pacemaker outpt polysomnography 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 not on metoprolol due to sinus pauses. Continue apixaban for anticoagulation morbid obesity strongly recommend to follow low-calorie diet outpatient bariatric surgery referral Pulmonary embolism Confirmed by V/Q scan from November 04 continue Eliquis VTE ppx apixaban dispo being followed by Physical therapy, patient continued to have low tolerance to functional mobility , dyspnea with minimal exertion with poor gait mechanics and increased risk of fall therefore PT continue to recommend STR, CM working placement Quality Stroke Does the patient have a stroke diagnosis?: No VTE Prior VTE?: No VTE Risk Level:: Medical - moderate - high VTE Device Contraindication: Treatment Not Indicated VTE Drug Contraindication: N/A - Med Ordered
[2022-01-04] MEDS: Ibuprofen 400 MG TABLET PO (18:20)
[2022-01-05] VITALS (11 sets, daily range): BP systolic 120–136; BP diastolic 57–72; PULSE 65–88; RESP 18–28; TEMP 36.2–36.7; O2SAT 91–97
[2022-01-05] MEDS: Albuterol/Iprat 2.5/0.5MG 3 ML AMPUL.NEB INHALE ×4 (06:26→23:13)
[2022-01-05] MEDS: Furosemide 20 MG TABLET PO (09:04)
[2022-01-05] MEDS: acetaZOLAMIDE 250 MG TABLET 500 MG PO ×2 (09:04→19:45)
[2022-01-05] MEDS: Apixaban 5 MG TABLET PO ×2 (09:05→19:45)
[2022-01-05] MEDS: guaiFENesin LA 600 MG TAB.ER.12H PO ×2 (09:05→19:45)
[2022-01-05] MEDS: 0.9 % Sodium Chloride Flush 3 ML SYRINGE IVFLUSH ×2 (09:06→19:46)
[2022-01-05] MEDS: Loperamide HCl 2 MG CAPSULE PO (10:43)
--- NOTE | 2022-01-05 10:45 | P.PNIM_ITS ---
Subjective Subjective Date of Service: 01/05/22 Interval History: cc: sob interval history:stable Respiratory Respiratory: Reports no additional respiratory complaints Gastrointestinal Gastrointestinal: Reports no additional gastrointestinal complaints Physical Exam Vital Signs: Vital Signs: Last Vital Signs Temp 97.5 F 01/05/22 07:22 Pulse 88 01/05/22 07:22 Resp 18 01/05/22 07:22 BP 132/60 01/05/22 07:22 Pulse Ox 93 01/05/22 07:22 BMI result Body Mass Index 63.3 Const Other: Gen:? Awake alert, no distress HEENT: sclera anicteric, moist mucus membranes Neck: supple, no JVD Lungs:? fair bilateral air,? no wheezes,? no basal crackles,on oxygen supplement Heart: irregularly irregular, no murmurs, no edema Abd: soft, non-tender, non-distended, morbidly obese Skin: warm/well-perfused Neuro: alert and oriented x3, no focal?findings Psych: appropriate affect Objective Data Active Medications Acetaminophen (Acetaminophen 325 Mg Tablet) 650 mg PO Q6H PRN PRN Reason: Pain, Mild (Pain Scale 1-3) Last Admin: 12/27/21 20:14 Dose: 650 mg Documented by: CEDRICK Acetazolamide (Acetazolamide 250 Mg Tablet) 500 mg PO BID [facility] Last Admin: 01/05/22 09:04 Dose: 500 mg Documented by: LETITIA Albuterol/Ipratropium (Albuterol/Iprat 2.5/0.5mg 3 Ml Ampul.Neb) 3 ml INHALE RQ6H [facility] Last Admin: 01/05/22 06:26 Dose: 3 ml Documented by: ANNELISE Apixaban (Apixaban 5 Mg Tablet) 5 mg PO BID [facility] Last Admin: 01/05/22 09:05 Dose: 5 mg Documented by: LETITIA Furosemide (Furosemide 20 Mg Tablet) 20 mg PO DAILY [facility]; Protocol Last Admin: 01/05/22 09:04 Dose: 20 mg Documented by: LETITIA Guaifenesin (Guaifenesin La 600 Mg Tab.Er.12h) 600 mg PO BID [facility] Last Admin: 01/05/22 09:05 Dose: 600 mg Documented by: LETITIA Hydroxyzine HCl (Hydroxyzine Hcl 25 Mg Tablet) 25 mg PO Q6H PRN PRN Reason: anxiety/restlessness Last Admin: 12/12/21 04:01 Dose: 25 mg Documented by: SCARLET Ibuprofen (Ibuprofen 400 Mg Tablet) 400 mg PO Q12H PRN PRN Reason: headache Last Admin: 01/04/22 18:20 Dose: 400 mg Documented by: ANNY Loperamide HCl (Loperamide Hcl 2 Mg Capsule) 2 mg PO Q4H PRN PRN Reason: Diarrhea Last Admin: 01/05/22 10:43 Dose: 2 mg Documented by: LETITIA Melatonin (Melatonin 3 Mg Tablet) 6 mg PO BEDTIME PRN PRN Reason: Insomnia Last Admin: 11/14/21 23:52 Dose: 6 mg Documented by: HERMELINDA Pharmacy Consult (Consult Rx Perform Med Rec) 1 each MISCELLANE ONCE PRN PRN Reason: Consult order Pharmacy Consult (Consult Rx Perform Med Rec) 1 each MISCELLANE ONCE PRN PRN Reason: Consult order Senna (Sennosides 8.6 Mg Tablet) 17.2 mg PO BEDTIME PRN PRN Reason: Constipation Sodium Chloride (0.9 % Sodium Chloride Flush 3 Ml Syringe) 3 ml IVFLUSH QSHIFT [facility] Last Admin: 01/05/22 09:06 Dose: 3 ml Documented by: LETITIA Labs CBC & Chem 7: 01/02/22 06:10 01/02/22 06:10 Assessment and Plan (1) Acute on chronic respiratory failure with hypoxia and hypercapnia: Status: Acute (2) NSVT (nonsustained ventricular tachycardia): Status: Acute (3) Physical deconditioning: Status: Acute (4) Bradycardia: Status: Acute (5) Morbidly obese: Status: Acute Plan 66yo M with AF, morbid obesity presenting with dyspnea, weight gain, leg edema admitted for CHF exacerbation Toxic metabolic encephalopathy due to acute on chronic hypoxic and hypercapnic respiratory failure went to ICU between December 24-2021 improved with BiPAP now back to baselineOn 3 L of oxygen patient now agreeing to using BiPAP at night, he is encouraged to wear it as much as tolerated while sleeping. COPD exacerbation resolved Continue nebulizers as needed Diarrhea No abdominal pain, not antibiotic, no signs of infection cdif negative To use Imodium as needed diastolic R-sided heart failure Stable disease now pt will f/u with his technical training manager, Dr Mason at [facility] Lasix decreased to 20 mg daily Continue diamox for metabolic alkalosis physical deconditioning Evaluated by physical therapy team who recommended short-term rehab Pending placement - difficulty finding bariatric placement, patient unable to manage at home sinus pauses/ sinus bradycardia patient asymptomatic during episodes seen by cardiology bradycardia likely due to undiagnosed YANN , since this is reversible not committed to pacemaker outpt polysomnography 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 not on metoprolol due to sinus pauses. Continue apixaban for anticoagulation morbid obesity strongly recommend to follow low-calorie diet outpatient bariatric surgery referral Pulmonary embolism Confirmed by V/Q scan from November 04 continue Eliquis VTE ppx apixaban dispo being followed by Physical therapy, patient continued to have low tolerance to functional mobility , dyspnea with minimal exertion with poor gait mechanics and increased risk of fall therefore PT continue to recommend STR, CM working placement Quality Stroke Does the patient have a stroke diagnosis?: No VTE Prior VTE?: No VTE Risk Level:: Medical - moderate - high VTE Device Contraindication: Treatment Not Indicated VTE Drug Contraindication: N/A - Med Ordered
[2022-01-05] MEDS: Ibuprofen 400 MG TABLET PO (17:27)
[2022-01-06] VITALS (13 sets, daily range): BP systolic 115–135; BP diastolic 57–84; PULSE 65–95; RESP 17–27; TEMP 35.6–36.6; O2SAT 93–98
[2022-01-06] MEDS: Albuterol/Iprat 2.5/0.5MG 3 ML AMPUL.NEB INHALE ×4 (05:39→23:46)
[2022-01-06 07:20] LABS: Anion Gap 11 (12-20); Blood Urea Nitrogen 19 mg/dL (9-16); Calcium 8.6 mg/dL (8.4-10.2); Carbon Dioxide 23 mmol/L (22-29); Chloride 111 mmol/L (96-108); Creatinine Clr Calc Pharmacy 177.9; Estimated Glomerular Filt Rate > 60; Glucose Fasting 91 mg/dL (60-99); Potassium 3.9 mmol/L (3.3-5.1); Sodium 141 mmol/L (135-145)
[2022-01-06] MEDS: 0.9 % Sodium Chloride Flush 3 ML SYRINGE IVFLUSH ×3 (09:24→20:40)
[2022-01-06] MEDS: Furosemide 20 MG TABLET PO (09:24)
[2022-01-06] MEDS: guaiFENesin LA 600 MG TAB.ER.12H PO ×2 (09:24→20:40)
[2022-01-06] MEDS: Apixaban 5 MG TABLET PO ×2 (09:24→20:40)
[2022-01-06] MEDS: acetaZOLAMIDE 250 MG TABLET 500 MG PO ×2 (09:24→20:40)
[2022-01-06] MEDS: Loperamide HCl 2 MG CAPSULE PO (09:31)
--- NOTE | 2022-01-06 11:31 | MHC.CM.PN ---
Patient continues to make gains with PT; no SNF/str bed offer as of yet. CM will follow.
--- NOTE | 2022-01-06 14:46 | HO.PM.IMPN ---
Subjective Subjective Date of Service: 01/06/22 Interval History: Seen and evaluated Reports feeling much better and having more energy On 1 L of oxygen working with physical therapy No reported other overnight events Review of Systems No fever, chills or weakness No chest pain, palpitation No shortness of breath No abdominal pain, nausea or vomiting No urinary symptoms No reported rash or wounds Physical Exam Vital Signs: Vital Signs: Last Vital Signs Temp 97.9 F 01/06/22 12:00 Pulse 80 01/06/22 12:00 Resp 20 01/06/22 12:00 BP 122/58 L 01/06/22 12:00 Pulse Ox 95 01/06/22 12:00 BMI result Body Mass Index 63.3 Const: Other: Gen:? Awake alert, no distress HEENT: sclera anicteric, moist mucus membranes Neck: supple, no JVD Lungs: fair bilateral air, no wheezes, no basal crackles,on oxygen supplement Heart: irregularly irregular, no murmurs, no edema Abd: soft, non-tender, non-distended, morbidly obese Skin: warm/well-perfused Neuro: alert and oriented x3, no focal?findings Psych: appropriate affect Objective Data Active Medications Acetaminophen (Acetaminophen 325 Mg Tablet) 650 mg PO Q6H PRN PRN Reason: Pain, Mild (Pain Scale 1-3) Last Admin: 12/27/21 20:14 Dose: 650 mg Documented by: CEDRICK Acetazolamide (Acetazolamide 250 Mg Tablet) 500 mg PO BID [facility] Last Admin: 01/06/22 09:24 Dose: 500 mg Documented by: YOAN Albuterol/Ipratropium (Albuterol/Iprat 2.5/0.5mg 3 Ml Ampul.Neb) 3 ml INHALE RQ6H [facility] Last Admin: 01/06/22 11:05 Dose: 3 ml Documented by: NED Apixaban (Apixaban 5 Mg Tablet) 5 mg PO BID [facility] Last Admin: 01/06/22 09:24 Dose: 5 mg Documented by: YOAN Furosemide (Furosemide 20 Mg Tablet) 20 mg PO DAILY [facility]; Protocol Last Admin: 01/06/22 09:24 Dose: 20 mg Documented by: YOAN Guaifenesin (Guaifenesin La 600 Mg Tab.Er.12h) 600 mg PO BID [facility] Last Admin: 01/06/22 09:24 Dose: 600 mg Documented by: YOAN Hydroxyzine HCl (Hydroxyzine Hcl 25 Mg Tablet) 25 mg PO Q6H PRN PRN Reason: anxiety/restlessness Last Admin: 12/12/21 04:01 Dose: 25 mg Documented by: ALLIEROGo Ibuprofen (Ibuprofen 400 Mg Tablet) 400 mg PO Q12H PRN PRN Reason: headache Last Admin: 01/05/22 17:27 Dose: 400 mg Documented by: IGLKENDALL Loperamide HCl (Loperamide Hcl 2 Mg Capsule) 2 mg PO Q4H PRN PRN Reason: Diarrhea Last Admin: 01/06/22 09:31 Dose: 2 mg Documented by: YOAN Melatonin (Melatonin 3 Mg Tablet) 6 mg PO BEDTIME PRN PRN Reason: Insomnia Last Admin: 11/14/21 23:52 Dose: 6 mg Documented by: HERMELINDA Pharmacy Consult (Consult Rx Perform Med Rec) 1 each MISCELLANE ONCE PRN PRN Reason: Consult order Pharmacy Consult (Consult Rx Perform Med Rec) 1 each MISCELLANE ONCE PRN PRN Reason: Consult order Senna (Sennosides 8.6 Mg Tablet) 17.2 mg PO BEDTIME PRN PRN Reason: Constipation Sodium Chloride (0.9 % Sodium Chloride Flush 3 Ml Syringe) 3 ml IVFLUSH QSHIFT [facility] Last Admin: 01/06/22 09:24 Dose: 3 ml Documented by: YOAN Labs CBC & Chem 7: 01/02/22 06:10 01/06/22 06:21 Labs: Laboratory Results - last 24 hr 01/06/22 06:21 Anion Gap 11 L Estim Creat Clear Calc 177.9 Estimated GFR > 60 Fasting Glucose 91 Calcium 8.6 Assessment and Plan (1) Acute on chronic respiratory failure with hypoxia and hypercapnia: Status: Acute (2) Physical deconditioning: Status: Acute Plan 66yo M with AF, morbid obesity presenting with dyspnea, weight gain, leg edema admitted for CHF exacerbation Toxic metabolic encephalopathy due to acute on chronic hypoxic and hypercapnic respiratory failure went to ICU between December 24-2021 improved with BiPAP now back to baseline 1-3 L of oxygen patient now agreeing to using BiPAP at night, he is encouraged to wear it as much as tolerated while sleeping. COPD exacerbation resolved Continue nebulizers as needed Diarrhea No abdominal pain, not antibiotic, no signs of infection cdif negative To use Imodium as needed diastolic R-sided heart failure Stable disease now pt will f/u with his signals analyst, Dr Mason at [facility] Lasix decreased to 20 mg daily Continue diamox for metabolic alkalosis physical deconditioning Evaluated by physical therapy team who recommended short-term rehab Pending placement - difficulty finding bariatric placement, patient unable to manage at home sinus pauses/ sinus bradycardia patient asymptomatic during episodes seen by cardiology bradycardia likely due to undiagnosed YANN , since this is reversible not committed to pacemaker outpt polysomnography 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 not on metoprolol due to sinus pauses. Continue apixaban for anticoagulation morbid obesity strongly recommend to follow low-calorie diet outpatient bariatric surgery referral Pulmonary embolism Confirmed by V/Q scan from November 04 continue Eliquis VTE ppx apixaban dispo being followed by Physical therapy, patient continued to have low tolerance to functional mobility , dyspnea with minimal exertion with poor gait mechanics and increased risk of fall therefore PT continue to recommend STR, CM working placement Quality Stroke Does the patient have a stroke diagnosis?: No VTE Prior VTE?: No VTE Risk Level:: Medical - moderate - high VTE Device Contraindication: Treatment Not Indicated VTE Drug Contraindication: N/A - Med Ordered
[2022-01-06] MEDS: Ibuprofen 400 MG TABLET PO (15:44)
[2022-01-07] VITALS (11 sets, daily range): BP systolic 114–151; BP diastolic 55–67; PULSE 64–84; RESP 16–18; TEMP 36–37.2; O2SAT 94–96
[2022-01-07] MEDS: Albuterol/Iprat 2.5/0.5MG 3 ML AMPUL.NEB INHALE ×2 (04:32→11:58)
[2022-01-07] MEDS: 0.9 % Sodium Chloride Flush 3 ML SYRINGE IVFLUSH ×3 (08:29→19:52)
[2022-01-07] MEDS: Ibuprofen 400 MG TABLET PO (08:29)
[2022-01-07] MEDS: Furosemide 20 MG TABLET PO (08:30)
[2022-01-07] MEDS: Loperamide HCl 2 MG CAPSULE PO (08:30)
[2022-01-07] MEDS: acetaZOLAMIDE 250 MG TABLET 500 MG PO ×2 (08:30→19:51)
[2022-01-07] MEDS: guaiFENesin LA 600 MG TAB.ER.12H PO ×2 (08:30→19:52)
[2022-01-07] MEDS: Apixaban 5 MG TABLET PO ×2 (08:30→19:52)
--- NOTE | 2022-01-07 13:04 | P.PNIM_ITS ---
Subjective Subjective Date of Service: 01/07/22 Interval History: Seen and evaluated Reports feeling much better and having more energy On 1 L of oxygen working with physical therapy No reported other overnight events Review of Systems No fever, chills or weakness No chest pain, palpitation No shortness of breath No abdominal pain, nausea or vomiting No urinary symptoms No reported rash or wounds Physical Exam Vital Signs: Vital Signs: Last Vital Signs Temp 99.0 F 01/07/22 11:35 Pulse 74 01/07/22 11:59 Resp 18 01/07/22 11:59 BP 121/58 L 01/07/22 11:35 Pulse Ox 95 01/07/22 11:35 BMI result Body Mass Index 63.3 Const: Other: Gen:? Awake alert, no distress HEENT: sclera anicteric, moist mucus membranes Neck: supple, no JVD Lungs: fair bilateral air, no wheezes, no basal crackles,on oxygen supplement Heart: irregularly irregular, no murmurs, no edema Abd: soft, non-tender, non-distended, morbidly obese Skin: warm/well-perfused Neuro: alert and oriented x3, no focal?findings Psych: appropriate affect Objective Data Active Medications Acetaminophen (Acetaminophen 325 Mg Tablet) 650 mg PO Q6H PRN PRN Reason: Pain, Mild (Pain Scale 1-3) Last Admin: 12/27/21 20:14 Dose: 650 mg Documented by: CEDRICK Acetazolamide (Acetazolamide 250 Mg Tablet) 500 mg PO BID [facility] Last Admin: 01/07/22 08:30 Dose: 500 mg Documented by: GLORIA Albuterol/Ipratropium (Albuterol/Iprat 2.5/0.5mg 3 Ml Ampul.Neb) 3 ml INHALE RQ6H [facility] Last Admin: 01/07/22 11:58 Dose: 3 ml Documented by: ELIDA Apixaban (Apixaban 5 Mg Tablet) 5 mg PO BID [facility] Last Admin: 01/07/22 08:30 Dose: 5 mg Documented by: GLORIA Furosemide (Furosemide 20 Mg Tablet) 20 mg PO DAILY [facility]; Protocol Last Admin: 01/07/22 08:30 Dose: 20 mg Documented by: GLORIA Guaifenesin (Guaifenesin La 600 Mg Tab.Er.12h) 600 mg PO BID [facility] Last Admin: 01/07/22 08:30 Dose: 600 mg Documented by: GLORIA Hydroxyzine HCl (Hydroxyzine Hcl 25 Mg Tablet) 25 mg PO Q6H PRN PRN Reason: anxiety/restlessness Last Admin: 12/12/21 04:01 Dose: 25 mg Documented by: SCARLET Ibuprofen (Ibuprofen 400 Mg Tablet) 400 mg PO Q12H PRN PRN Reason: headache Last Admin: 01/07/22 08:29 Dose: 400 mg Documented by: GLORIA Loperamide HCl (Loperamide Hcl 2 Mg Capsule) 2 mg PO Q4H PRN PRN Reason: Diarrhea Last Admin: 01/07/22 08:30 Dose: 2 mg Documented by: GLORIA Melatonin (Melatonin 3 Mg Tablet) 6 mg PO BEDTIME PRN PRN Reason: Insomnia Last Admin: 11/14/21 23:52 Dose: 6 mg Documented by: HERMELINDA Pharmacy Consult (Consult Rx Perform Med Rec) 1 each MISCELLANE ONCE PRN PRN Reason: Consult order Pharmacy Consult (Consult Rx Perform Med Rec) 1 each MISCELLANE ONCE PRN PRN Reason: Consult order Senna (Sennosides 8.6 Mg Tablet) 17.2 mg PO BEDTIME PRN PRN Reason: Constipation Sodium Chloride (0.9 % Sodium Chloride Flush 3 Ml Syringe) 3 ml IVFLUSH QSHIFT [facility] Last Admin: 01/07/22 08:29 Dose: 3 ml Documented by: GLORIA Labs CBC & Chem 7: 01/02/22 06:10 01/06/22 06:21 Assessment and Plan (1) Acute on chronic respiratory failure with hypoxia and hypercapnia: Status: Acute (2) Physical deconditioning: Status: Acute Plan 66yo M with AF, morbid obesity presenting with dyspnea, weight gain, leg edema admitted for CHF exacerbation Toxic metabolic encephalopathy due to acute on chronic hypoxic and hypercapnic respiratory failure went to ICU between December 24-2021 improved with BiPAP now back to baseline 1-3 L of oxygen patient now agreeing to using BiPAP at night, he is encouraged to wear it as much as tolerated while sleeping. COPD exacerbation resolved Continue nebulizers as needed Diarrhea No abdominal pain, not antibiotic, no signs of infection cdif negative To use Imodium as needed diastolic R-sided heart failure Stable disease now pt will f/u with his cooler deliverer, Dr Mason at [facility] Lasix decreased to 20 mg daily Continue diamox for metabolic alkalosis physical deconditioning Evaluated by physical therapy team who recommended short-term rehab Pending placement - difficulty finding bariatric placement, patient unable to manage at home sinus pauses/ sinus bradycardia patient asymptomatic during episodes seen by cardiology bradycardia likely due to undiagnosed YANN , since this is reversible not committed to pacemaker outpt polysomnography 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 not on metoprolol due to sinus pauses. Continue apixaban for anticoagulation morbid obesity strongly recommend to follow low-calorie diet outpatient bariatric surgery referral Pulmonary embolism Confirmed by V/Q scan from November 04 continue Eliquis VTE ppx apixaban dispo being followed by Physical therapy, patient continued to have low tolerance to functional mobility , dyspnea with minimal exertion with poor gait mechanics and increased risk of fall therefore PT continue to recommend STR, CM working placement Quality Stroke Does the patient have a stroke diagnosis?: No VTE Prior VTE?: No VTE Risk Level:: Medical - moderate - high VTE Device Contraindication: Treatment Not Indicated VTE Drug Contraindication: N/A - Med Ordered
[2022-01-07] MEDS: hydrOXYzine HCL 25 MG TABLET PO (19:52)
[2022-01-08] VITALS (8 sets, daily range): BP systolic 117–127; BP diastolic 62–76; PULSE 68–88; RESP 17–20; TEMP 36.4–36.9; O2SAT 92–96
[2022-01-08] MEDS: Apixaban 5 MG TABLET PO ×2 (08:54→20:12)
[2022-01-08] MEDS: acetaZOLAMIDE 250 MG TABLET 500 MG PO ×2 (08:54→20:12)
[2022-01-08] MEDS: 0.9 % Sodium Chloride Flush 3 ML SYRINGE IVFLUSH ×3 (08:54→20:12)
[2022-01-08] MEDS: guaiFENesin LA 600 MG TAB.ER.12H PO ×2 (08:54→20:12)
[2022-01-08] MEDS: Furosemide 20 MG TABLET PO ×2 (08:54→10:41)
[2022-01-08] MEDS: Benzonatate 100 MG CAPSULE PO ×3 (10:41→20:12)
[2022-01-08] MEDS: Albuterol/Iprat 2.5/0.5MG 3 ML AMPUL.NEB INHALE (13:31)
--- NOTE | 2022-01-08 14:34 | P.PNIM_ITS ---
Subjective Subjective Date of Service: 01/08/22 Interval History: Seen and evaluated Reports feeling more congestion coughing with thick mucus No reported other overnight events Review of Systems No fever, chills or weakness No chest pain, palpitation No shortness of breath No abdominal pain, nausea or vomiting No urinary symptoms No reported rash or wounds Physical Exam Vital Signs: Vital Signs: Last Vital Signs Temp 97.7 F 01/08/22 11:21 Pulse 86 01/08/22 13:32 Resp 20 01/08/22 13:32 BP 118/74 01/08/22 11:21 Pulse Ox 94 01/08/22 11:21 BMI result Body Mass Index 63.3 Const: Other: Gen:? Awake alert, no distress HEENT: sclera anicteric, moist mucus membranes Neck: supple, no JVD Lungs: fair bilateral air decreased mainly at the right base, no wheezes, fine basal crackles on the right lung Heart: irregularly irregular, no murmurs, no edema Abd: soft, non-tender, non-distended, morbidly obese Neuro: alert and oriented x3, no focal?findings Psych: appropriate affect Objective Data Active Medications Acetaminophen (Acetaminophen 325 Mg Tablet) 650 mg PO Q6H PRN PRN Reason: Pain, Mild (Pain Scale 1-3) Last Admin: 12/27/21 20:14 Dose: 650 mg Documented by: CEDRICK Acetazolamide (Acetazolamide 250 Mg Tablet) 500 mg PO BID [facility] Last Admin: 01/08/22 08:54 Dose: 500 mg Documented by: JOHN Albuterol/Ipratropium (Albuterol/Iprat 2.5/0.5mg 3 Ml Ampul.Neb) 3 ml INHALE RQ4H PRN PRN Reason: Shortness of Breath/Wheezing Last Admin: 01/08/22 13:31 Dose: 3 ml Documented by: KENNY Apixaban (Apixaban 5 Mg Tablet) 5 mg PO BID [facility] Last Admin: 01/08/22 08:54 Dose: 5 mg Documented by: JOHN Benzonatate (Benzonatate 100 Mg Capsule) 100 mg PO TID [facility] Stop: 01/10/22 21:01 Last Admin: 01/08/22 14:32 Dose: 100 mg Documented by: JACQUI Furosemide (Furosemide 40 Mg Tablet) 40 mg PO DAILY [facility]; Protocol Furosemide (Furosemide 40 Mg/4 Ml Vial) 40 mg IVPUSH ONCE ONE; Protocol Stop: 01/08/22 14:33 Guaifenesin (Guaifenesin La 600 Mg Tab.Er.12h) 600 mg PO BID [facility] Last Admin: 01/08/22 08:54 Dose: 600 mg Documented by: JOHN Hydroxyzine HCl (Hydroxyzine Hcl 25 Mg Tablet) 25 mg PO Q6H PRN PRN Reason: anxiety/restlessness Last Admin: 01/07/22 19:52 Dose: 25 mg Documented by: CRISTHIAN Ibuprofen (Ibuprofen 400 Mg Tablet) 400 mg PO Q12H PRN PRN Reason: headache Last Admin: 01/07/22 08:29 Dose: 400 mg Documented by: GLORIA Loperamide HCl (Loperamide Hcl 2 Mg Capsule) 2 mg PO Q4H PRN PRN Reason: Diarrhea Last Admin: 01/07/22 08:30 Dose: 2 mg Documented by: GLORIA Melatonin (Melatonin 3 Mg Tablet) 6 mg PO BEDTIME PRN PRN Reason: Insomnia Last Admin: 11/14/21 23:52 Dose: 6 mg Documented by: HERMELINDA Pharmacy Consult (Consult Rx Perform Med Rec) 1 each MISCELLANE ONCE PRN PRN Reason: Consult order Pharmacy Consult (Consult Rx Perform Med Rec) 1 each MISCELLANE ONCE PRN PRN Reason: Consult order Senna (Sennosides 8.6 Mg Tablet) 17.2 mg PO BEDTIME PRN PRN Reason: Constipation Sodium Chloride (0.9 % Sodium Chloride Flush 3 Ml Syringe) 3 ml IVFLUSH QSHIFT [facility] Last Admin: 01/08/22 08:54 Dose: 3 ml Documented by: JOHN Labs CBC & Chem 7: 01/02/22 06:10 01/06/22 06:21 Assessment and Plan (1) Acute on chronic respiratory failure with hypoxia and hypercapnia: Status: Acute (2) Physical deconditioning: Status: Acute (3) Pleural effusion on right: Status: Acute Plan 66yo M with AF, morbid obesity presenting with dyspnea, weight gain, leg edema admitted for CHF exacerbation Acute on chronic hypoxic and hypercapnic respiratory failure went to ICU between December 24-2021 improved with BiPAP, to continue CX on showing right-sided effusion with possible atelectasis To give extra dose of Lasix IV Encourage incentive spirometry Advise patient to reposition COPD exacerbation resolved Continue nebulizers as needed Toxic metabolic encephalopathy resolved Diarrhea Likely secretory cdif negative To use Imodium as needed diastolic R-sided heart failure Stable disease pt will f/u with his video game producer, Dr Mason at [facility] Lasix increased to 40 mg daily Continue diamox for metabolic alkalosis physical deconditioning Evaluated by physical therapy team who recommended short-term rehab Pending placement - difficulty finding bariatric placement, patient unable to manage at home sinus pauses/ sinus bradycardia patient asymptomatic during episodes seen by cardiology bradycardia likely due to undiagnosed YANN , since this is reversible not committed to pacemaker outpt polysomnography 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 not on metoprolol due to sinus pauses. Continue apixaban for anticoagulation morbid obesity strongly recommend to follow low-calorie diet outpatient bariatric surgery referral Pulmonary embolism Confirmed by V/Q scan from November 04 continue Eliquis VTE ppx apixaban Dispo Being followed by Physical therapy, patient continued to have low tolerance to functional mobility , dyspnea with minimal exertion with poor gait mechanics and increased risk of fall therefore PT continue to recommend STR, CM working placement Quality Stroke Does the patient have a stroke diagnosis?: No VTE Prior VTE?: No VTE Risk Level:: Medical - moderate - high VTE Device Contraindication: Treatment Not Indicated VTE Drug Contraindication: N/A - Med Ordered
[2022-01-08] MEDS: Furosemide 40 MG/4 ML VIAL IVPUSH (14:58)
[2022-01-08] MEDS: Ibuprofen 400 MG TABLET PO (22:44)
[2022-01-09] VITALS (10 sets, daily range): BP systolic 104–141; BP diastolic 55–71; PULSE 66–82; RESP 18–20; TEMP 35.9–36.7; O2SAT 91–98
[2022-01-09 06:47] LABS: Hematocrit 47.7 % (42.0-52.0); Hemoglobin 14.8 g/dl (14.0-18.0); Mean Corpuscular Volume 96.8 fL (80.0-98.0); Mean Platelet Volume 9.2 fL (9.4-12.4); Platelet Count 226 X10*3/uL (160-400); Red Blood Count 4.93 X10*6/uL (4.60-5.80); White Blood Count 11.1 X10*3/uL (4.8-10.8)
[2022-01-09 07:06] LABS: B Type Natriuretic Peptide 64 pg/mL (<100)
[2022-01-09 07:23] LABS: Anion Gap 13 (12-20); Blood Urea Nitrogen 23 mg/dL (9-16); Calcium 8.8 mg/dL (8.4-10.2); Carbon Dioxide 25 mmol/L (22-29); Chloride 109 mmol/L (96-108); Creatinine Clr Calc Pharmacy 152.8; Estimated Glomerular Filt Rate > 60; Glucose Random 95 mg/dL (60-115); Potassium 3.6 mmol/L (3.3-5.1); Sodium 143 mmol/L (135-145)
[2022-01-09] MEDS: guaiFENesin LA 600 MG TAB.ER.12H PO ×2 (08:13→19:50)
[2022-01-09] MEDS: Benzonatate 100 MG CAPSULE PO ×3 (08:13→19:50)
[2022-01-09] MEDS: 0.9 % Sodium Chloride Flush 3 ML SYRINGE IVFLUSH ×3 (08:13→19:51)
[2022-01-09] MEDS: acetaZOLAMIDE 250 MG TABLET 500 MG PO ×2 (08:13→19:50)
[2022-01-09] MEDS: Apixaban 5 MG TABLET PO ×2 (08:13→19:50)
[2022-01-09] MEDS: Furosemide 40 MG TABLET PO (08:13)
[2022-01-09] MEDS: Ibuprofen 400 MG TABLET PO ×2 (12:24→22:56)
--- NOTE | 2022-01-09 12:41 | P.PNIM_ITS ---
Subjective Subjective Date of Service: 01/09/22 Interval History: Seen and evaluated Reports feeling much improvement in yesterday with less coughing and mucus No reported other overnight events Review of Systems No fever, chills or weakness No chest pain, palpitation No shortness of breath No abdominal pain, nausea or vomiting No urinary symptoms No reported rash or wounds Physical Exam Vital Signs: Vital Signs: Last Vital Signs Temp 97.6 F 01/09/22 11:33 Pulse 76 01/09/22 11:33 Resp 20 01/09/22 11:33 BP 117/60 01/09/22 11:33 Pulse Ox 96 01/09/22 11:33 BMI result Body Mass Index 63.3 Const: Other: Gen:? Awake alert, no distress HEENT: sclera anicteric, moist mucus membranes Neck: supple, no JVD Lungs: fair bilateral air decreased mainly at the right base, no wheezes, fine basal crackles on the right lung Heart: irregularly irregular, no murmurs, no edema Abd: soft, non-tender, non-distended, morbidly obese Neuro: alert and oriented x3, no focal?findings Psych: appropriate affect Objective Data Active Medications Acetaminophen (Acetaminophen 325 Mg Tablet) 650 mg PO Q6H PRN PRN Reason: Pain, Mild (Pain Scale 1-3) Last Admin: 12/27/21 20:14 Dose: 650 mg Documented by: CEDRICK Acetazolamide (Acetazolamide 250 Mg Tablet) 500 mg PO BID [facility] Last Admin: 01/09/22 08:13 Dose: 500 mg Documented by: RONALDO Albuterol/Ipratropium (Albuterol/Iprat 2.5/0.5mg 3 Ml Ampul.Neb) 3 ml INHALE RQ4H PRN PRN Reason: Shortness of Breath/Wheezing Last Admin: 01/08/22 13:31 Dose: 3 ml Documented by: KENNY Apixaban (Apixaban 5 Mg Tablet) 5 mg PO BID [facility] Last Admin: 01/09/22 08:13 Dose: 5 mg Documented by: RONALDO Benzonatate (Benzonatate 100 Mg Capsule) 100 mg PO TID [facility] Stop: 01/10/22 21:01 Last Admin: 01/09/22 08:13 Dose: 100 mg Documented by: RONALDO Furosemide (Furosemide 40 Mg Tablet) 40 mg PO DAILY [facility]; Protocol Last Admin: 01/09/22 08:13 Dose: 40 mg Documented by: RONALDO Guaifenesin (Guaifenesin La 600 Mg Tab.Er.12h) 600 mg PO BID [facility] Last Admin: 01/09/22 08:13 Dose: 600 mg Documented by: RONALDO Hydroxyzine HCl (Hydroxyzine Hcl 25 Mg Tablet) 25 mg PO Q6H PRN PRN Reason: anxiety/restlessness Last Admin: 01/07/22 19:52 Dose: 25 mg Documented by: CRISTHIAN Ibuprofen (Ibuprofen 400 Mg Tablet) 400 mg PO Q12H PRN PRN Reason: headache Last Admin: 01/09/22 12:24 Dose: 400 mg Documented by: RONALDO Loperamide HCl (Loperamide Hcl 2 Mg Capsule) 2 mg PO Q4H PRN PRN Reason: Diarrhea Last Admin: 01/07/22 08:30 Dose: 2 mg Documented by: GLORIA Melatonin (Melatonin 3 Mg Tablet) 6 mg PO BEDTIME PRN PRN Reason: Insomnia Last Admin: 11/14/21 23:52 Dose: 6 mg Documented by: HERMELINDA Pharmacy Consult (Consult Rx Perform Med Rec) 1 each MISCELLANE ONCE PRN PRN Reason: Consult order Pharmacy Consult (Consult Rx Perform Med Rec) 1 each MISCELLANE ONCE PRN PRN Reason: Consult order Senna (Sennosides 8.6 Mg Tablet) 17.2 mg PO BEDTIME PRN PRN Reason: Constipation Sodium Chloride (0.9 % Sodium Chloride Flush 3 Ml Syringe) 3 ml IVFLUSH QSHIFT [facility] Last Admin: 01/09/22 08:13 Dose: 3 ml Documented by: RONALDO Labs CBC & Chem 7: 01/09/22 06:26 01/09/22 06:26 Labs: Laboratory Results - last 24 hr 01/09/22 01/09/22 01/09/22 06:26 06:26 06:26 MCV 96.8 MCH 30.0 MCHC 31.0 RDW 15.0 Plt Count 226 D MPV 9.2 L Absolute Nucleated RBC 0.000 Nucleated RBC % (auto) 0.0 Anion Gap 13 Estim Creat Clear Calc 152.8 Estimated GFR > 60 Random Glucose 95 Calcium 8.8 B-Natriuretic Peptide 64 Assessment and Plan (1) Acute on chronic respiratory failure with hypoxia and hypercapnia: Status: Acute (2) Physical deconditioning: Status: Acute (3) Pleural effusion on right: Status: Acute Plan 66yo M with AF, morbid obesity presenting with dyspnea, weight gain, leg edema admitted for CHF exacerbation Acute on chronic hypoxic and hypercapnic respiratory failure, resolved went to ICU between December 24-2021 improved with BiPAP, to continue with BiPAP at nighttime Right-sided Pleural effusion CX on showing right-sided effusion with possible atelectasis , no signs of infection Continue p.o. 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 f/u with his physical therapist center manager, Dr Mason at [facility] Lasix 40 mg daily Continue diamox for metabolic alkalosis physical deconditioning Evaluated by physical therapy team who recommended short-term rehab Pending placement - difficulty finding bariatric placement, patient unable to manage at home sinus pauses/ sinus bradycardia patient asymptomatic during episodes seen by cardiology bradycardia likely due to undiagnosed YANN , since this is reversible not committed to pacemaker outpt polysomnography 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 not on metoprolol due to sinus pauses. Continue apixaban for anticoagulation morbid obesity strongly recommend to follow low-calorie diet outpatient bariatric surgery referral Pulmonary embolism Confirmed by V/Q scan from November 04 continue Eliquis VTE ppx apixaban Dispo Being followed by Physical therapy, patient continued to have low tolerance to functional mobility , dyspnea with minimal exertion with poor gait mechanics and increased risk of fall therefore PT continue to recommend STR, CM working placement Quality Stroke Does the patient have a stroke diagnosis?: No VTE Prior VTE?: No VTE Risk Level:: Medical - moderate - high VTE Device Contraindication: Treatment Not Indicated VTE Drug Contraindication: N/A - Med Ordered
[2022-01-09] MEDS: Albuterol/Iprat 2.5/0.5MG 3 ML AMPUL.NEB INHALE (13:11)
[2022-01-09] MEDS: Acetaminophen 325 MG TABLET 650 MG PO (15:38)
[2022-01-10] VITALS (7 sets, daily range): BP systolic 107–144; BP diastolic 57–69; PULSE 63–96; RESP 18–21; TEMP 36.1–36.4; O2SAT 92–100
[2022-01-10] MEDS: Benzonatate 100 MG CAPSULE PO ×3 (09:59→20:22)
[2022-01-10] MEDS: acetaZOLAMIDE 250 MG TABLET 500 MG PO ×2 (09:59→20:23)
[2022-01-10] MEDS: Furosemide 40 MG TABLET PO (09:59)
[2022-01-10] MEDS: Apixaban 5 MG TABLET PO ×2 (09:59→20:23)
[2022-01-10] MEDS: 0.9 % Sodium Chloride Flush 3 ML SYRINGE IVFLUSH ×3 (09:59→20:23)
[2022-01-10] MEDS: guaiFENesin LA 600 MG TAB.ER.12H PO ×2 (09:59→20:22)
[2022-01-10] MEDS: Loperamide HCl 2 MG CAPSULE PO (10:01)
[2022-01-10] MEDS: Acetaminophen 325 MG TABLET 650 MG PO ×2 (10:02→16:59)
[2022-01-10] MEDS: Albuterol/Iprat 2.5/0.5MG 3 ML AMPUL.NEB INHALE (11:56)
--- NOTE | 2022-01-10 12:36 | HO.PM.IMPN ---
Subjective Subjective Date of Service: 01/10/22 Interval History: Seen and evaluated Reports feeling stable with less coughing and mucus No reported other overnight events Review of Systems No fever, chills or weakness No chest pain, palpitation No shortness of breath No abdominal pain, nausea or vomiting No urinary symptoms No reported rash or wounds Physical Exam Vital Signs: Vital Signs: Last Vital Signs Temp 97.6 F 01/10/22 11:55 Pulse 93 01/10/22 11:57 Resp 20 01/10/22 11:57 BP 116/57 L 01/10/22 11:55 Pulse Ox 93 01/10/22 11:55 BMI result Body Mass Index 63.3 Const: Other: Gen:? Awake alert, no distress HEENT: sclera anicteric, moist mucus membranes Neck: supple, no JVD Lungs: fair bilateral air decreased mainly at the right base, no wheezes, fine basal crackles on the right lung Heart: irregularly irregular, no murmurs, no edema Abd: soft, non-tender, non-distended, morbidly obese Neuro: alert and oriented x3, no focal?findings Psych: appropriate affect Objective Data Active Medications Acetaminophen (Acetaminophen 325 Mg Tablet) 650 mg PO Q6H PRN PRN Reason: Pain, Mild (Pain Scale 1-3) Last Admin: 01/10/22 10:02 Dose: 650 mg Documented by: GLORIA Acetazolamide (Acetazolamide 250 Mg Tablet) 500 mg PO BID [facility] Last Admin: 01/10/22 09:59 Dose: 500 mg Documented by: GLORIA Albuterol/Ipratropium (Albuterol/Iprat 2.5/0.5mg 3 Ml Ampul.Neb) 3 ml INHALE RQ4H PRN PRN Reason: Shortness of Breath/Wheezing Last Admin: 01/10/22 11:56 Dose: 3 ml Documented by: KENNY Apixaban (Apixaban 5 Mg Tablet) 5 mg PO BID [facility] Last Admin: 01/10/22 09:59 Dose: 5 mg Documented by: GLORIA Benzonatate (Benzonatate 100 Mg Capsule) 100 mg PO TID [facility] Stop: 01/10/22 21:01 Last Admin: 01/10/22 09:59 Dose: 100 mg Documented by: GLORIA Furosemide (Furosemide 40 Mg Tablet) 40 mg PO DAILY [facility]; Protocol Last Admin: 01/10/22 09:59 Dose: 40 mg Documented by: GLORIA Guaifenesin (Guaifenesin La 600 Mg Tab.Er.12h) 600 mg PO BID [facility] Last Admin: 01/10/22 09:59 Dose: 600 mg Documented by: GLORIA Hydroxyzine HCl (Hydroxyzine Hcl 25 Mg Tablet) 25 mg PO Q6H PRN PRN Reason: anxiety/restlessness Last Admin: 01/07/22 19:52 Dose: 25 mg Documented by: CRISTHIAN Ibuprofen (Ibuprofen 400 Mg Tablet) 400 mg PO Q12H PRN PRN Reason: headache Last Admin: 01/09/22 22:56 Dose: 400 mg Documented by: JUSTYNA Loperamide HCl (Loperamide Hcl 2 Mg Capsule) 2 mg PO Q4H PRN PRN Reason: Diarrhea Last Admin: 01/10/22 10:01 Dose: 2 mg Documented by: GLORIA Melatonin (Melatonin 3 Mg Tablet) 6 mg PO BEDTIME PRN PRN Reason: Insomnia Last Admin: 11/14/21 23:52 Dose: 6 mg Documented by: HERMELINDA Pharmacy Consult (Consult Rx Perform Med Rec) 1 each MISCELLANE ONCE PRN PRN Reason: Consult order Pharmacy Consult (Consult Rx Perform Med Rec) 1 each MISCELLANE ONCE PRN PRN Reason: Consult order Senna (Sennosides 8.6 Mg Tablet) 17.2 mg PO BEDTIME PRN PRN Reason: Constipation Sodium Chloride (0.9 % Sodium Chloride Flush 3 Ml Syringe) 3 ml IVFLUSH QSHIFT [facility] Last Admin: 01/10/22 09:59 Dose: 3 ml Documented by: GLORIA Labs CBC & Chem 7: 01/09/22 06:26 01/09/22 06:26 Assessment and Plan (1) Acute on chronic respiratory failure with hypoxia and hypercapnia: Status: Acute (2) Pleural effusion on right: Status: Acute (3) Physical deconditioning: Status: Acute Plan 66yo M with AF, morbid obesity presenting with dyspnea, weight gain, leg edema admitted for CHF exacerbation Acute on chronic hypoxic and hypercapnic respiratory failure, resolved went to ICU between December 24-2021 improved with BiPAP, to continue with BiPAP at nighttime Right-sided Pleural effusion CX on showing right-sided effusion with possible atelectasis , no signs of infection Continue p.o. 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 f/u with his furniture packer, Dr Mason at [facility] Lasix 40 mg daily Continue diamox for metabolic alkalosis physical deconditioning Evaluated by physical therapy team who recommended short-term rehab Pending placement - difficulty finding bariatric placement, patient unable to manage at home sinus pauses/ sinus bradycardia patient asymptomatic during episodes seen by cardiology bradycardia likely due to undiagnosed YANN , since this is reversible not committed to pacemaker outpt polysomnography 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 not on metoprolol due to sinus pauses. Continue apixaban for anticoagulation morbid obesity strongly recommend to follow low-calorie diet outpatient bariatric surgery referral Pulmonary embolism Confirmed by V/Q scan from November 04 continue Eliquis VTE ppx apixaban Dispo Being followed by Physical therapy, patient continued to have low tolerance to functional mobility , dyspnea with minimal exertion with poor gait mechanics and increased risk of fall therefore PT continue to recommend STR, CM working placement Quality Stroke Does the patient have a stroke diagnosis?: No VTE Prior VTE?: No VTE Risk Level:: Medical - moderate - high VTE Device Contraindication: Treatment Not Indicated VTE Drug Contraindication: N/A - Med Ordered
[2022-01-10] MEDS: Ibuprofen 400 MG TABLET PO (20:27)
[2022-01-10] MEDS: hydrOXYzine HCL 25 MG TABLET PO (20:27)
[2022-01-11] VITALS (7 sets, daily range): BP systolic 107–143; BP diastolic 62–78; PULSE 66–101; RESP 17–20; TEMP 36.4–36.8; O2SAT 92–98
[2022-01-11] MEDS: Acetaminophen 325 MG TABLET 650 MG PO ×2 (01:53→14:59)
[2022-01-11] MEDS: guaiFENesin LA 600 MG TAB.ER.12H PO ×2 (07:33→19:41)
[2022-01-11] MEDS: acetaZOLAMIDE 250 MG TABLET 500 MG PO ×2 (07:33→19:41)
[2022-01-11] MEDS: Apixaban 5 MG TABLET PO ×2 (07:34→19:41)
[2022-01-11] MEDS: Furosemide 40 MG TABLET PO (07:34)
[2022-01-11] MEDS: 0.9 % Sodium Chloride Flush 3 ML SYRINGE IVFLUSH ×3 (07:34→19:42)
[2022-01-11] MEDS: Ibuprofen 400 MG TABLET PO (07:34)
[2022-01-11] MEDS: Morphine Sulfate 2 MG/ML CARTRIDGE IVPUSH ×3 (09:24→17:04)
[2022-01-11] MEDS: Amoxicillin/Potassium Clav 875 MG TABLET PO ×2 (10:51→22:38)
--- NOTE | 2022-01-11 12:32 | P.PNIM_ITS ---
Subjective Subjective Date of Service: 01/11/22 Interval History: Seen and evaluated complaining of tooth pain from overnight that did not along to sleep denies any fever or chills No reported other overnight events Review of Systems No fever, chills or weakness No chest pain, palpitation No shortness of breath No abdominal pain, nausea or vomiting No urinary symptoms No reported rash or wounds Physical Exam Vital Signs: Vital Signs: Last Vital Signs Temp 98.0 F 01/11/22 12:00 Pulse 78 01/11/22 12:00 Resp 20 01/11/22 12:00 BP 107/62 01/11/22 12:00 Pulse Ox 94 01/11/22 12:00 BMI result Body Mass Index 63.3 Const: Other: Gen:? Awake alert, no distress Mouth: dose numbers 21 with black base and mild erythema, no drainage noted HEENT: sclera anicteric, moist mucus membranes Neck: supple, no JVD Lungs: fair bilateral air decreased mainly at the right base, no wheezes, fine basal crackles on the right lung Heart: irregularly irregular, no murmurs, no edema Abd: soft, non-tender, non-distended, morbidly obese Neuro: alert and oriented x3, no focal?findings Psych: appropriate affect Objective Data Active Medications Acetaminophen (Acetaminophen 325 Mg Tablet) 650 mg PO Q6H PRN PRN Reason: Pain, Mild (Pain Scale 1-3) Last Admin: 01/11/22 01:53 Dose: 650 mg Documented by: CRISTHIAN Acetazolamide (Acetazolamide 250 Mg Tablet) 500 mg PO BID [facility] Last Admin: 01/11/22 07:33 Dose: 500 mg Documented by: DO Albuterol/Ipratropium (Albuterol/Iprat 2.5/0.5mg 3 Ml Ampul.Neb) 3 ml INHALE RQ4H PRN PRN Reason: Shortness of Breath/Wheezing Last Admin: 01/10/22 11:56 Dose: 3 ml Documented by: KENNY Amoxicillin/Clavulanate Potassium (Amoxicillin/Potassium Clav 875 Mg Tablet) 875 mg PO Q12H [facility] Last Admin: 01/11/22 10:51 Dose: 875 mg Documented by: DO Apixaban (Apixaban 5 Mg Tablet) 5 mg PO BID [facility] Last Admin: 01/11/22 07:34 Dose: 5 mg Documented by: DO Furosemide (Furosemide 40 Mg Tablet) 40 mg PO DAILY [facility]; Protocol Last Admin: 01/11/22 07:34 Dose: 40 mg Documented by: DO Guaifenesin (Guaifenesin La 600 Mg Tab.Er.12h) 600 mg PO BID [facility] Last Admin: 01/11/22 07:33 Dose: 600 mg Documented by: DO Hydroxyzine HCl (Hydroxyzine Hcl 25 Mg Tablet) 25 mg PO Q6H PRN PRN Reason: anxiety/restlessness Last Admin: 01/10/22 20:27 Dose: 25 mg Documented by: CRISTHIAN Ibuprofen (Ibuprofen 400 Mg Tablet) 400 mg PO Q12H PRN PRN Reason: headache Last Admin: 01/11/22 07:34 Dose: 400 mg Documented by: DO Loperamide HCl (Loperamide Hcl 2 Mg Capsule) 2 mg PO Q4H PRN PRN Reason: Diarrhea Last Admin: 01/10/22 10:01 Dose: 2 mg Documented by: GLORIA Melatonin (Melatonin 3 Mg Tablet) 6 mg PO BEDTIME PRN PRN Reason: Insomnia Last Admin: 11/14/21 23:52 Dose: 6 mg Documented by: HERMELINDA Morphine Sulfate (Morphine Sulfate 2 Mg/Ml Cartridge) 2 mg IVPUSH Q6H PRN; Protocol PRN Reason: Pain, Severe (Pain Scale 7-10) Stop: 01/13/22 10:04 Pharmacy Consult (Consult Rx Perform Med Rec) 1 each MISCELLANE ONCE PRN PRN Reason: Consult order Pharmacy Consult (Consult Rx Perform Med Rec) 1 each MISCELLANE ONCE PRN PRN Reason: Consult order Senna (Sennosides 8.6 Mg Tablet) 17.2 mg PO BEDTIME PRN PRN Reason: Constipation Sodium Chloride (0.9 % Sodium Chloride Flush 3 Ml Syringe) 3 ml IVFLUSH QSHIFT [facility] Last Admin: 01/11/22 07:34 Dose: 3 ml Documented by: DO Labs CBC & Chem 7: 01/09/22 06:26 01/09/22 06:26 Assessment and Plan (1) Acute on chronic respiratory failure with hypoxia and hypercapnia: Status: Acute (2) Physical deconditioning: Status: Acute (3) Morbidly obese: Status: Acute (4) Tooth pain: Status: Acute Plan 66yo M with AF, morbid obesity presenting with dyspnea, weight gain, leg edema admitted for CHF exacerbation Acute on chronic hypoxic and hypercapnic respiratory failure, resolved went to ICU between December 24-2021 improved with BiPAP, to continue with BiPAP at nighttime Tooth pain Number 21 Start Augmentin for possible infection Use pain medication as needed Spoke with Quality Assurance Supervisor Body to arrange for possible dentist evaluation while inpatient If no improvement Right-sided Pleural effusion CX on showing right-sided effusion with possible atelectasis , no signs of infection Continue p.o. 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 f/u with his yeast maker, Dr Mason at [facility] Lasix 40 mg daily Continue diamox for metabolic alkalosis physical deconditioning Evaluated by physical therapy team who recommended short-term rehab Pending placement - difficulty finding bariatric placement, patient unable to manage at home sinus pauses/ sinus bradycardia patient asymptomatic during episodes seen by cardiology bradycardia likely due to undiagnosed YANN , since this is reversible not committed to pacemaker outpt polysomnography 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 not on metoprolol due to sinus pauses. Continue apixaban for anticoagulation morbid obesity strongly recommend to follow low-calorie diet outpatient bariatric surgery referral Pulmonary embolism Confirmed by V/Q scan from November 04 continue Eliquis VTE ppx apixaban Dispo Being followed by Physical therapy, patient continued to have low tolerance to functional mobility , dyspnea with minimal exertion with poor gait mechanics and increased risk of fall therefore PT continue to recommend STR, CM working placement Quality Stroke Does the patient have a stroke diagnosis?: No VTE Prior VTE?: No VTE Risk Level:: Medical - moderate - high VTE Device Contraindication: Treatment Not Indicated VTE Drug Contraindication: N/A - Med Ordered
--- NOTE | 2022-01-11 14:25 | MHC.CM.PN ---
per rounds pt remains asd a bed search pt has a dental issue at this time
[2022-01-11] MEDS: hydrOXYzine HCL 25 MG TABLET PO (15:00)
[2022-01-11] MEDS: oxyCODONE HCl Immed Release 5 MG TABLET PO ×2 (19:41→23:46)
[2022-01-11] MEDS: Ibuprofen 600 MG TABLET PO (22:52)
[2022-01-12] VITALS (9 sets, daily range): BP systolic 115–145; BP diastolic 67–83; PULSE 80–97; RESP 16–20; TEMP 36.3–37; O2SAT 92–98
[2022-01-12] MEDS: oxyCODONE HCl Immed Release 5 MG TABLET PO ×5 (06:17→23:50)
[2022-01-12] MEDS: guaiFENesin LA 600 MG TAB.ER.12H PO ×2 (10:20→21:41)
[2022-01-12] MEDS: acetaZOLAMIDE 250 MG TABLET 500 MG PO ×2 (10:20→21:42)
[2022-01-12] MEDS: Apixaban 5 MG TABLET PO ×2 (10:21→21:42)
[2022-01-12] MEDS: 0.9 % Sodium Chloride Flush 3 ML SYRINGE IVFLUSH ×3 (10:22→23:51)
[2022-01-12] MEDS: Furosemide 40 MG TABLET PO (10:22)
--- NOTE | 2022-01-12 11:54 | HO.PM.IMPN ---
Subjective Subjective Date of Service: 01/12/22 Interval History: Seen and evaluated Tooth pain better controlled denies any fever or chills No reported other overnight events Review of Systems No fever, chills or weakness No chest pain, palpitation No shortness of breath No abdominal pain, nausea or vomiting No urinary symptoms No reported rash or wounds Physical Exam Vital Signs: Vital Signs: Last Vital Signs Temp 97.9 F 01/12/22 11:20 Pulse 88 01/12/22 11:20 Resp 20 01/12/22 11:20 BP 137/73 01/12/22 11:20 Pulse Ox 92 01/12/22 11:20 BMI result Body Mass Index 63.3 Const: Other: Gen:? Awake alert, no distress Mouth: dose numbers 21 with black base, no drainage noted HEENT: sclera anicteric, moist mucus membranes Neck: supple, no JVD Lungs: fair bilateral air decreased mainly at the right base, no wheezes, fine basal crackles on the right lung Heart: irregularly irregular, no murmurs, no edema Abd: soft, non-tender, non-distended, morbidly obese Neuro: alert and oriented x3, no focal?findings Psych: appropriate affect Objective Data Active Medications Acetaminophen (Acetaminophen 325 Mg Tablet) 650 mg PO Q6H PRN PRN Reason: Pain, Mild (Pain Scale 1-3) Last Admin: 01/11/22 14:59 Dose: 650 mg Documented by: DO Acetazolamide (Acetazolamide 250 Mg Tablet) 500 mg PO BID [facility] Last Admin: 01/12/22 10:20 Dose: 500 mg Documented by: ZIGGY Albuterol/Ipratropium (Albuterol/Iprat 2.5/0.5mg 3 Ml Ampul.Neb) 3 ml INHALE RQ4H PRN PRN Reason: Shortness of Breath/Wheezing Last Admin: 01/10/22 11:56 Dose: 3 ml Documented by: KENNY Apixaban (Apixaban 5 Mg Tablet) 5 mg PO BID [facility] Last Admin: 01/12/22 10:21 Dose: 5 mg Documented by: ZIGGY Furosemide (Furosemide 40 Mg Tablet) 40 mg PO DAILY [facility]; Protocol Last Admin: 01/12/22 10:22 Dose: 40 mg Documented by: ZIGGY Guaifenesin (Guaifenesin La 600 Mg Tab.Er.12h) 600 mg PO BID [facility] Last Admin: 01/12/22 10:20 Dose: 600 mg Documented by: ZIGGY Hydroxyzine HCl (Hydroxyzine Hcl 25 Mg Tablet) 25 mg PO Q6H PRN PRN Reason: anxiety/restlessness Last Admin: 01/11/22 15:00 Dose: 25 mg Documented by: DO Ibuprofen (Ibuprofen 600 Mg Tablet) 600 mg PO Q8H PRN PRN Reason: headache Last Admin: 01/11/22 22:52 Dose: 600 mg Documented by: CRISTHIAN Loperamide HCl (Loperamide Hcl 2 Mg Capsule) 2 mg PO Q4H PRN PRN Reason: Diarrhea Last Admin: 01/10/22 10:01 Dose: 2 mg Documented by: GLORIA Melatonin (Melatonin 3 Mg Tablet) 6 mg PO BEDTIME PRN PRN Reason: Insomnia Last Admin: 11/14/21 23:52 Dose: 6 mg Documented by: HERMELINDA Morphine Sulfate (Morphine Sulfate 2 Mg/Ml Cartridge) 2 mg IVPUSH Q4H PRN; Protocol PRN Reason: Pain, Severe (Pain Scale 7-10) Stop: 01/13/22 10:04 Last Admin: 01/11/22 17:04 Dose: 2 mg Documented by: DO Oxycodone HCl (Oxycodone Hcl Immed Release 5 Mg Tablet) 5 mg PO Q4H PRN PRN Reason: Pain, Moderate (Pain Scale 4-6 Last Admin: 01/12/22 10:20 Dose: 5 mg Documented by: ZIGGY Pharmacy Consult (Consult Rx Perform Med Rec) 1 each MISCELLANE ONCE PRN PRN Reason: Consult order Pharmacy Consult (Consult Rx Perform Med Rec) 1 each MISCELLANE ONCE PRN PRN Reason: Consult order Senna (Sennosides 8.6 Mg Tablet) 17.2 mg PO BEDTIME PRN PRN Reason: Constipation Sodium Chloride (0.9 % Sodium Chloride Flush 3 Ml Syringe) 3 ml IVFLUSH QSHIFT [facility] Last Admin: 01/12/22 10:22 Dose: 3 ml Documented by: ZIGGY Labs CBC & Chem 7: 01/09/22 06:26 01/09/22 06:26 Assessment and Plan (1) Tooth pain: Status: Acute (2) Acute on chronic respiratory failure with hypoxia and hypercapnia: Status: Acute (3) Physical deconditioning: Status: Acute (4) Morbidly obese: Status: Acute Plan 66yo M with AF, morbid obesity presenting with dyspnea, weight gain, leg edema admitted for CHF exacerbation Acute on chronic hypoxic and hypercapnic respiratory failure, resolved went to ICU between December 24-2021 improved with BiPAP, to continue with BiPAP at nighttime Tooth pain Number 21&22 with basal dental caries Dentist recommended no need for Augmentin, DC Use pain medication as needed With will need outpatient root canal Right-sided Pleural effusion CX on showed right-sided effusion with possible atelectasis , no signs of infection Continue p.o. 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 f/u with his hogshead weigher, Dr Mason at [facility] Lasix 40 mg daily Continue diamox for metabolic alkalosis physical deconditioning Evaluated by physical therapy team who recommended short-term rehab Pending placement - difficulty finding bariatric placement, patient unable to manage at home sinus pauses/ sinus bradycardia patient asymptomatic during episodes seen by cardiology bradycardia likely due to undiagnosed YANN , since this is reversible not committed to pacemaker outpt polysomnography 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 not on metoprolol due to sinus pauses. Continue apixaban for anticoagulation morbid obesity strongly recommend to follow low-calorie diet outpatient bariatric surgery referral Pulmonary embolism Confirmed by V/Q scan from November 04 continue Eliquis VTE ppx apixaban Dispo Being followed by Physical therapy, patient continued to have low tolerance to functional mobility , dyspnea with minimal exertion with poor gait mechanics and increased risk of fall therefore PT continue to recommend STR, CM working placement Quality Stroke Does the patient have a stroke diagnosis?: No VTE Prior VTE?: No VTE Risk Level:: Medical - moderate - high VTE Device Contraindication: Treatment Not Indicated VTE Drug Contraindication: N/A - Med Ordered
[2022-01-12] MEDS: Albuterol/Iprat 2.5/0.5MG 3 ML AMPUL.NEB INHALE (16:51)
[2022-01-13] VITALS (10 sets, daily range): BP systolic 115–131; BP diastolic 57–81; PULSE 75–113; RESP 14–22; TEMP 35.7–37.1; O2SAT 90–94
[2022-01-13] MEDS: oxyCODONE HCl Immed Release 5 MG TABLET PO ×4 (05:57→21:45)
[2022-01-13 06:48] LABS: Anion Gap 12 (12-20); Blood Urea Nitrogen 23 mg/dL (9-16); Calcium 9.3 mg/dL (8.4-10.2); Carbon Dioxide 28 mmol/L (22-29); Chloride 107 mmol/L (96-108); Creatinine Clr Calc Pharmacy 126.8; Estimated Glomerular Filt Rate > 60; Glucose Random 109 mg/dL (60-115); Sodium 143 mmol/L (135-145)
[2022-01-13 06:51] LABS: B Type Natriuretic Peptide 59 pg/mL (<100)
--- NOTE | 2022-01-13 10:30 | P.PNIM_ITS ---
Subjective Subjective Date of Service: 01/13/22 Interval History: cc: sob interval history: dental pain imprved with oxycodone Cardiovascular Cardiovascular: Reports no additional cardiovascular complaints Respiratory Respiratory: Reports no additional respiratory complaints Physical Exam Vital Signs: Vital Signs: Last Vital Signs Temp 97.4 F 01/13/22 07:07 Pulse 98 01/13/22 07:56 Resp 19 01/13/22 07:07 BP 115/76 01/13/22 07:56 Pulse Ox 92 01/13/22 07:56 BMI result Body Mass Index 63.3 Gen:? Awake alert, no distress HEENT: sclera anicteric, moist mucus membranes Neck: supple, no JVD Lungs:? fair bilateral air decreased mainly at the right base, ? no wheezes,? fine basal crackles on the right lung Heart: irregularly irregular, no murmurs, no edema Abd: soft, non-tender, non-distended, morbidly obese Neuro: alert and oriented x3, no focal?findings Psych: appropriate affect Objective Data Active Medications Acetaminophen (Acetaminophen 325 Mg Tablet) 650 mg PO Q6H PRN PRN Reason: Pain, Mild (Pain Scale 1-3) Last Admin: 01/11/22 14:59 Dose: 650 mg Documented by: DO Acetazolamide (Acetazolamide 250 Mg Tablet) 500 mg PO BID [facility] Last Admin: 01/12/22 21:42 Dose: 500 mg Documented by: ZIGGY Albuterol/Ipratropium (Albuterol/Iprat 2.5/0.5mg 3 Ml Ampul.Neb) 3 ml INHALE RQ4H PRN PRN Reason: Shortness of Breath/Wheezing Last Admin: 01/12/22 16:51 Dose: 3 ml Documented by: NED Apixaban (Apixaban 5 Mg Tablet) 5 mg PO BID [facility] Last Admin: 01/12/22 21:42 Dose: 5 mg Documented by: ZIGGY Furosemide (Furosemide 40 Mg Tablet) 40 mg PO DAILY [facility]; Protocol Last Admin: 01/12/22 10:22 Dose: 40 mg Documented by: ZIGGY Guaifenesin (Guaifenesin La 600 Mg Tab.Er.12h) 600 mg PO BID [facility] Last Admin: 01/12/22 21:41 Dose: 600 mg Documented by: ZIGGY Hydroxyzine HCl (Hydroxyzine Hcl 25 Mg Tablet) 25 mg PO Q6H PRN PRN Reason: anxiety/restlessness Last Admin: 01/11/22 15:00 Dose: 25 mg Documented by: DO Ibuprofen (Ibuprofen 600 Mg Tablet) 600 mg PO Q8H PRN PRN Reason: headache Last Admin: 01/11/22 22:52 Dose: 600 mg Documented by: CRISTHIAN Loperamide HCl (Loperamide Hcl 2 Mg Capsule) 2 mg PO Q4H PRN PRN Reason: Diarrhea Last Admin: 01/10/22 10:01 Dose: 2 mg Documented by: GLORIA Melatonin (Melatonin 3 Mg Tablet) 6 mg PO BEDTIME PRN PRN Reason: Insomnia Last Admin: 11/14/21 23:52 Dose: 6 mg Documented by: HERMELINDA Oxycodone HCl (Oxycodone Hcl Immed Release 5 Mg Tablet) 5 mg PO Q4H PRN PRN Reason: Pain, Moderate (Pain Scale 4-6 Last Admin: 01/13/22 05:57 Dose: 5 mg Documented by: JERARDO Pharmacy Consult (Consult Rx Perform Med Rec) 1 each MISCELLANE ONCE PRN PRN Reason: Consult order Pharmacy Consult (Consult Rx Perform Med Rec) 1 each MISCELLANE ONCE PRN PRN Reason: Consult order Senna (Sennosides 8.6 Mg Tablet) 17.2 mg PO BEDTIME PRN PRN Reason: Constipation Sodium Chloride (0.9 % Sodium Chloride Flush 3 Ml Syringe) 3 ml IVFLUSH QSHIFT [facility] Last Admin: 01/12/22 23:51 Dose: 3 ml Documented by: JERARDO Labs CBC & Chem 7: 01/09/22 06:26 01/13/22 06:14 Labs: Laboratory Results - last 24 hr 01/13/22 01/13/22 06:14 06:14 Anion Gap 12 Estim Creat Clear Calc 126.8 Estimated GFR > 60 Random Glucose 109 Calcium 9.3 B-Natriuretic Peptide 59 Assessment and Plan (1) Tooth pain: Status: Acute (2) Acute on chronic respiratory failure with hypoxia and hypercapnia: Status: Acute (3) Physical deconditioning: Status: Acute (4) Morbidly obese: Status: Acute Plan 66yo M with AF, morbid obesity presenting with dyspnea, weight gain, leg edema admitted for CHF exacerbation Acute on chronic hypoxic and hypercapnic respiratory failure, resolved went to ICU between December 24-2021 improved with BiPAP, to continue with BiPAP at nighttime Tooth pain Number 21&22 with basal dental caries Dentist recommended no need for Augmentin Use pain medication as needed With will need outpatient root canal Right-sided Pleural effusion CX on showed right-sided effusion with possible atelectasis , no signs of infection Continue p.o. 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, Dr Mason at [facility] Lasix 40 mg daily Continue diamox for metabolic alkalosis physical deconditioning Evaluated by physical therapy team who recommended short-term rehab Pending placement - difficulty finding bariatric placement, patient unable to manage at home sinus pauses/ sinus bradycardia patient asymptomatic during episodes seen by cardiology bradycardia likely due to undiagnosed YANN , since this is reversible not committed to pacemaker outpt polysomnography 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 not on metoprolol due to sinus pauses. Continue apixaban for anticoagulation morbid obesity strongly recommend to follow low-calorie diet outpatient bariatric surgery referral Pulmonary embolism Confirmed by V/Q scan from November 04 continue Eliquis VTE ppx apixaban Dispo Being followed by Physical therapy, patient continued to have low tolerance to functional mobility , dyspnea with minimal exertion with poor gait mechanics and increased risk of fall therefore PT continue to recommend STR, CM working placement Quality Stroke Does the patient have a stroke diagnosis?: No VTE Prior VTE?: No VTE Risk Level:: Medical - moderate - high VTE Device Contraindication: Treatment Not Indicated VTE Drug Contraindication: N/A - Med Ordered
[2022-01-13] MEDS: Furosemide 40 MG TABLET PO (10:38)
[2022-01-13] MEDS: Apixaban 5 MG TABLET PO ×2 (10:38→21:44)
[2022-01-13] MEDS: guaiFENesin LA 600 MG TAB.ER.12H PO ×2 (10:38→21:44)
[2022-01-13] MEDS: acetaZOLAMIDE 250 MG TABLET 500 MG PO ×2 (10:38→21:56)
[2022-01-13] MEDS: 0.9 % Sodium Chloride Flush 3 ML SYRINGE IVFLUSH ×3 (10:39→21:53)
[2022-01-13] MEDS: Albuterol/Iprat 2.5/0.5MG 3 ML AMPUL.NEB INHALE (11:24)
--- NOTE | 2022-01-13 13:41 | MHC.CM.PN ---
per rounds pt dc ready no appropriate avaliable bed
[2022-01-14] VITALS (9 sets, daily range): BP systolic 110–121; BP diastolic 58–71; PULSE 71–100; RESP 16–20; TEMP 36.2–36.7; O2SAT 91–98
[2022-01-14] MEDS: oxyCODONE HCl Immed Release 5 MG TABLET PO ×6 (01:37→23:54)
[2022-01-14] MEDS: guaiFENesin LA 600 MG TAB.ER.12H PO ×2 (09:58→20:46)
[2022-01-14] MEDS: 0.9 % Sodium Chloride Flush 3 ML SYRINGE IVFLUSH ×2 (09:58→15:46)
[2022-01-14] MEDS: Furosemide 40 MG TABLET PO (09:58)
[2022-01-14] MEDS: acetaZOLAMIDE 250 MG TABLET 500 MG PO ×2 (09:58→20:46)
[2022-01-14] MEDS: Sennosides 8.6 MG TABLET 17.2 MG PO (09:58)
[2022-01-14] MEDS: Apixaban 5 MG TABLET PO ×2 (09:58→20:46)
--- NOTE | 2022-01-14 10:19 | HO.PM.IMPN ---
Subjective Subjective Date of Service: 01/14/22 Interval History: cc: sob interval history:dental pain, but okay with oxy Cardiovascular Cardiovascular: Reports no additional cardiovascular complaints Respiratory Respiratory: Reports no additional respiratory complaints Physical Exam Vital Signs: Vital Signs: Last Vital Signs Temp 98.1 F 01/14/22 07:20 Pulse 71 01/14/22 09:58 Resp 18 01/14/22 07:20 BP 121/71 01/14/22 09:58 Pulse Ox 94 01/14/22 09:58 BMI result Body Mass Index 63.3 Gen:? Awake alert, no distress HEENT: sclera anicteric, moist mucus membranes Neck: supple, no JVD Lungs:? fair bilateral air decreased mainly at the right base, ? no wheezes,? fine basal crackles on the right lung Heart: irregularly irregular, no murmurs, no edema Abd: soft, non-tender, non-distended, morbidly obese Neuro: alert and oriented x3, no focal?findings Psych: appropriate affect Objective Data Active Medications Acetaminophen (Acetaminophen 325 Mg Tablet) 650 mg PO Q6H PRN PRN Reason: Pain, Mild (Pain Scale 1-3) Last Admin: 01/11/22 14:59 Dose: 650 mg Documented by: DO Acetazolamide (Acetazolamide 250 Mg Tablet) 500 mg PO BID [facility] Last Admin: 01/14/22 09:58 Dose: 500 mg Documented by: YOAN Albuterol/Ipratropium (Albuterol/Iprat 2.5/0.5mg 3 Ml Ampul.Neb) 3 ml INHALE RQ4H PRN PRN Reason: Shortness of Breath/Wheezing Last Admin: 01/13/22 11:24 Dose: 3 ml Documented by: KENNY Apixaban (Apixaban 5 Mg Tablet) 5 mg PO BID [facility] Last Admin: 01/14/22 09:58 Dose: 5 mg Documented by: YOAN Furosemide (Furosemide 40 Mg Tablet) 40 mg PO DAILY [facility]; Protocol Last Admin: 01/14/22 09:58 Dose: 40 mg Documented by: YOAN Guaifenesin (Guaifenesin La 600 Mg Tab.Er.12h) 600 mg PO BID [facility] Last Admin: 01/14/22 09:58 Dose: 600 mg Documented by: YOAN Hydroxyzine HCl (Hydroxyzine Hcl 25 Mg Tablet) 25 mg PO Q6H PRN PRN Reason: anxiety/restlessness Last Admin: 01/11/22 15:00 Dose: 25 mg Documented by: DO Ibuprofen (Ibuprofen 600 Mg Tablet) 600 mg PO Q8H PRN PRN Reason: headache Last Admin: 01/11/22 22:52 Dose: 600 mg Documented by: CRISTHIAN Loperamide HCl (Loperamide Hcl 2 Mg Capsule) 2 mg PO Q4H PRN PRN Reason: Diarrhea Last Admin: 01/10/22 10:01 Dose: 2 mg Documented by: GLORIA Melatonin (Melatonin 3 Mg Tablet) 6 mg PO BEDTIME PRN PRN Reason: Insomnia Last Admin: 11/14/21 23:52 Dose: 6 mg Documented by: HERMELINDA Oxycodone HCl (Oxycodone Hcl Immed Release 5 Mg Tablet) 5 mg PO Q4H PRN PRN Reason: Pain, Moderate (Pain Scale 4-6 Last Admin: 01/14/22 06:47 Dose: 5 mg Documented by: SCARLET Pharmacy Consult (Consult Rx Perform Med Rec) 1 each MISCELLANE ONCE PRN PRN Reason: Consult order Pharmacy Consult (Consult Rx Perform Med Rec) 1 each MISCELLANE ONCE PRN PRN Reason: Consult order Senna (Sennosides 8.6 Mg Tablet) 17.2 mg PO BEDTIME PRN PRN Reason: Constipation Last Admin: 01/14/22 09:58 Dose: 17.2 mg Documented by: YOAN Sodium Chloride (0.9 % Sodium Chloride Flush 3 Ml Syringe) [facility] Last Admin: 01/14/22 09:58 Dose: 3 ml Documented by: YOAN Labs CBC & Chem 7: 01/09/22 06:26 01/13/22 06:14 Assessment and Plan (1) Tooth pain: Status: Acute (2) Acute on chronic respiratory failure with hypoxia and hypercapnia: Status: Acute (3) Physical deconditioning: Status: Acute (4) Morbidly obese: Status: Acute Plan 66yo M with AF, morbid obesity presenting with dyspnea, weight gain, leg edema admitted for CHF exacerbation Acute on chronic hypoxic and hypercapnic respiratory failure, resolved went to ICU between December 24-2021 improved with BiPAP, to continue with BiPAP at nighttime Tooth pain Number 21&22 with basal dental caries Dentist recommended no need for Augmentin Use pain medication as needed With will need outpatient root canal Right-sided Pleural effusion CX on showed right-sided effusion with possible atelectasis , no signs of infection Continue p.o. 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, Dr Mason at [facility] Lasix 40 mg daily Continue diamox for metabolic alkalosis physical deconditioning Evaluated by physical therapy team who recommended short-term rehab Pending placement - difficulty finding bariatric placement, patient unable to manage at home sinus pauses/ sinus bradycardia patient asymptomatic during episodes seen by cardiology bradycardia likely due to undiagnosed YANN , since this is reversible not committed to pacemaker outpt polysomnography 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 not on metoprolol due to sinus pauses. Continue apixaban for anticoagulation morbid obesity strongly recommend to follow low-calorie diet outpatient bariatric surgery referral Pulmonary embolism Confirmed by V/Q scan from November 04 continue Eliquis VTE ppx apixaban Dispo Being followed by Physical therapy, patient continued to have low tolerance to functional mobility , dyspnea with minimal exertion with poor gait mechanics and increased risk of fall therefore PT continue to recommend STR, CM working placement Quality Stroke Does the patient have a stroke diagnosis?: No VTE Prior VTE?: No VTE Risk Level:: Medical - moderate - high VTE Device Contraindication: Treatment Not Indicated VTE Drug Contraindication: N/A - Med Ordered
[2022-01-14] MEDS: Albuterol/Iprat 2.5/0.5MG 3 ML AMPUL.NEB INHALE (19:46)
[2022-01-15] VITALS (8 sets, daily range): BP systolic 109–123; BP diastolic 54–75; PULSE 72–91; RESP 16–18; TEMP 36.2–36.5; O2SAT 91–97; BMI 63.1
[2022-01-15] MEDS: oxyCODONE HCl Immed Release 5 MG TABLET PO ×5 (04:13→21:33)
[2022-01-15] MEDS: Furosemide 40 MG TABLET PO (07:54)
[2022-01-15] MEDS: acetaZOLAMIDE 250 MG TABLET 500 MG PO ×2 (07:54→19:36)
[2022-01-15] MEDS: guaiFENesin LA 600 MG TAB.ER.12H PO ×2 (07:54→19:36)
[2022-01-15] MEDS: Apixaban 5 MG TABLET PO ×2 (07:55→19:36)
--- NOTE | 2022-01-15 09:16 | P.PNIM_ITS ---
Subjective Subjective Date of Service: 01/15/22 Interval History: cc: sob interval history: comfortable today Respiratory Respiratory: Reports no additional respiratory complaints Gastrointestinal Gastrointestinal: Reports no additional gastrointestinal complaints Physical Exam Vital Signs: Vital Signs: Last Vital Signs Temp 97.4 F 01/15/22 07:13 Pulse 76 01/15/22 07:13 Resp 18 01/15/22 07:13 BP 123/59 L 01/15/22 07:13 Pulse Ox 95 01/15/22 07:13 BMI result Body Mass Index 63.3 Gen:? Awake alert, no distress HEENT: sclera anicteric, moist mucus membranes Neck: supple, no JVD Lungs:? fair bilateral air decreased mainly at the right base, ? no wheezes,? fine basal crackles on the right lung Heart: irregularly irregular, no murmurs, no edema Abd: soft, non-tender, non-distended, morbidly obese Neuro: alert and oriented x3, no focal?findings Psych: appropriate affect Objective Data Active Medications Acetaminophen (Acetaminophen 325 Mg Tablet) 650 mg PO Q6H PRN PRN Reason: Pain, Mild (Pain Scale 1-3) Last Admin: 01/11/22 14:59 Dose: 650 mg Documented by: DO Acetazolamide (Acetazolamide 250 Mg Tablet) 500 mg PO BID [facility] Last Admin: 01/15/22 07:54 Dose: 500 mg Documented by: GLORIA Albuterol/Ipratropium (Albuterol/Iprat 2.5/0.5mg 3 Ml Ampul.Neb) 3 ml INHALE RQ4H PRN PRN Reason: Shortness of Breath/Wheezing Last Admin: 01/14/22 19:46 Dose: 3 ml Documented by: NANCI Apixaban (Apixaban 5 Mg Tablet) 5 mg PO BID [facility] Last Admin: 01/15/22 07:55 Dose: 5 mg Documented by: GLORIA Furosemide (Furosemide 40 Mg Tablet) 40 mg PO DAILY [facility]; Protocol Last Admin: 01/15/22 07:54 Dose: 40 mg Documented by: GLORIA Guaifenesin (Guaifenesin La 600 Mg Tab.Er.12h) 600 mg PO BID [facility] Last Admin: 01/15/22 07:54 Dose: 600 mg Documented by: GLORIA Hydroxyzine HCl (Hydroxyzine Hcl 25 Mg Tablet) 25 mg PO Q6H PRN PRN Reason: anxiety/restlessness Last Admin: 01/11/22 15:00 Dose: 25 mg Documented by: DO Ibuprofen (Ibuprofen 600 Mg Tablet) 600 mg PO Q8H PRN PRN Reason: headache Last Admin: 01/11/22 22:52 Dose: 600 mg Documented by: CRISTHIAN Loperamide HCl (Loperamide Hcl 2 Mg Capsule) 2 mg PO Q4H PRN PRN Reason: Diarrhea Last Admin: 01/10/22 10:01 Dose: 2 mg Documented by: GLORIA Melatonin (Melatonin 3 Mg Tablet) 6 mg PO BEDTIME PRN PRN Reason: Insomnia Last Admin: 11/14/21 23:52 Dose: 6 mg Documented by: HERMELINDA Oxycodone HCl (Oxycodone Hcl Immed Release 5 Mg Tablet) 5 mg PO Q4H PRN PRN Reason: Pain, Moderate (Pain Scale 4-6 Last Admin: 01/15/22 08:27 Dose: 5 mg Documented by: GLORIA Pharmacy Consult (Consult Rx Perform Med Rec) 1 each MISCELLANE ONCE PRN PRN Reason: Consult order Pharmacy Consult (Consult Rx Perform Med Rec) 1 each MISCELLANE ONCE PRN PRN Reason: Consult order Senna (Sennosides 8.6 Mg Tablet) 17.2 mg PO BEDTIME PRN PRN Reason: Constipation Last Admin: 01/14/22 09:58 Dose: 17.2 mg Documented by: YOAN Sodium Chloride (0.9 % Sodium Chloride Flush 3 Ml Syringe) 3 ml [facility] Last Admin: 01/15/22 07:55 Dose: Not Given Documented by: GLORIA Non-Admin Reason: No Access Labs CBC & Chem 7: 01/09/22 06:26 01/13/22 06:14 Assessment and Plan (1) Tooth pain: Status: Acute (2) Acute on chronic respiratory failure with hypoxia and hypercapnia: Status: Acute (3) Physical deconditioning: Status: Acute (4) Morbidly obese: Status: Acute Plan 66yo M with AF, morbid obesity presenting with dyspnea, weight gain, leg edema admitted for CHF exacerbation Acute on chronic hypoxic and hypercapnic respiratory failure, resolved went to ICU between December 242021 improved with BiPAP, to continue with BiPAP at nighttime Tooth pain Number 21&22 with basal dental caries Dentist recommended no need for Augmentin Use pain medication as needed With will need outpatient root canal Right-sided Pleural effusion CX on showed right-sided effusion with possible atelectasis , no signs of infection Continue p.o. 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 not on metoprolol due to sinus pauses. Continue apixaban for anticoagulation morbid obesity strongly recommend to follow low-calorie diet outpatient bariatric surgery referral Pulmonary embolism Confirmed by V/Q scan from November 04 continue Eliquis VTE ppx apixaban Dispo Being followed by Physical therapy, patient continued to have low tolerance to functional mobility , dyspnea with minimal exertion with poor gait mechanics and increased risk of fall therefore PT continue to recommend STR, CM working placement Quality Stroke Does the patient have a stroke diagnosis?: No VTE Prior VTE?: No VTE Risk Level:: Medical - moderate - high VTE Device Contraindication: Treatment Not Indicated VTE Drug Contraindication: N/A - Med Ordered
--- NOTE | 2022-01-15 11:42 | MHC.CM.PN ---
Broad SNF search is ongoing;Per , he will request that RN re-weigh Patient. CM will follow.
[2022-01-15] MEDS: 0.9 % Sodium Chloride Flush 3 ML SYRINGE IVFLUSH ×2 (17:19→19:36)
[2022-01-15] MEDS: hydrOXYzine HCL 25 MG TABLET PO (20:33)
[2022-01-16] VITALS (8 sets, daily range): BP systolic 86–113; BP diastolic 51–59; PULSE 65–89; RESP 16–22; TEMP 36.4–36.9; O2SAT 93–98
[2022-01-16] MEDS: oxyCODONE HCl Immed Release 5 MG TABLET PO ×5 (01:56→20:44)
[2022-01-16] MEDS: acetaZOLAMIDE 250 MG TABLET 500 MG PO ×2 (08:28→20:44)
[2022-01-16] MEDS: Furosemide 40 MG TABLET PO (08:29)
[2022-01-16] MEDS: Apixaban 5 MG TABLET PO ×2 (08:29→20:44)
[2022-01-16] MEDS: 0.9 % Sodium Chloride Flush 3 ML SYRINGE IVFLUSH ×3 (08:30→20:45)
[2022-01-16] MEDS: guaiFENesin LA 600 MG TAB.ER.12H PO ×2 (08:32→20:44)
--- NOTE | 2022-01-16 08:49 | HO.PM.IMPN ---
Subjective Subjective Date of Service: 01/16/22 Interval History: cc: sob interval history: tooth pain controlled with oxy Cardiovascular Cardiovascular: Reports no additional cardiovascular complaints Respiratory Respiratory: Reports no additional respiratory complaints Physical Exam Vital Signs: Vital Signs: Last Vital Signs Temp 98.4 F 01/16/22 08:00 Pulse 80 01/16/22 08:00 Resp 19 01/16/22 08:00 BP 107/58 L 01/16/22 08:00 Pulse Ox 95 01/16/22 08:00 BMI result Body Mass Index 63.1 Gen:? Awake alert, no distress HEENT: sclera anicteric, moist mucus membranes Neck: supple, no JVD Lungs:? fair bilateral air decreased mainly at the right base, ? no wheezes,? fine basal crackles on the right lung Heart: irregularly irregular, no murmurs, no edema Abd: soft, non-tender, non-distended, morbidly obese Neuro: alert and oriented x3, no focal?findings Psych: appropriate affect Objective Data Active Medications Acetaminophen (Acetaminophen 325 Mg Tablet) 650 mg PO Q6H PRN PRN Reason: Pain, Mild (Pain Scale 1-3) Last Admin: 01/11/22 14:59 Dose: 650 mg Documented by: DO Acetazolamide (Acetazolamide 250 Mg Tablet) 500 mg PO BID [facility] Last Admin: 01/16/22 08:28 Dose: 500 mg Documented by: ZIGGY Apixaban (Apixaban 5 Mg Tablet) 5 mg PO BID [facility] Last Admin: 01/16/22 08:29 Dose: 5 mg Documented by: ZIGGY Furosemide (Furosemide 40 Mg Tablet) 40 mg PO DAILY [facility]; Protocol Last Admin: 01/16/22 08:29 Dose: 40 mg Documented by: ZIGGY Guaifenesin (Guaifenesin La 600 Mg Tab.Er.12h) 600 mg PO BID [facility] Last Admin: 01/16/22 08:32 Dose: 600 mg Documented by: ZIGGY Hydroxyzine HCl (Hydroxyzine Hcl 25 Mg Tablet) 25 mg PO Q6H PRN PRN Reason: anxiety/restlessness Last Admin: 01/15/22 20:33 Dose: 25 mg Documented by: CRISTHIAN Ibuprofen (Ibuprofen 600 Mg Tablet) 600 mg PO Q8H PRN PRN Reason: headache Last Admin: 01/11/22 22:52 Dose: 600 mg Documented by: CRISTHIAN Loperamide HCl (Loperamide Hcl 2 Mg Capsule) 2 mg PO Q4H PRN PRN Reason: Diarrhea Last Admin: 01/10/22 10:01 Dose: 2 mg Documented by: GLORIA Melatonin (Melatonin 3 Mg Tablet) 6 mg PO BEDTIME PRN PRN Reason: Insomnia Last Admin: 11/14/21 23:52 Dose: 6 mg Documented by: HERMELINDA Oxycodone HCl (Oxycodone Hcl Immed Release 5 Mg Tablet) 5 mg PO Q4H PRN PRN Reason: Pain, Moderate (Pain Scale 4-6 Last Admin: 01/16/22 08:29 Dose: 5 mg Documented by: ZIGGY Pharmacy Consult (Consult Rx Perform Med Rec) 1 each MISCELLANE ONCE PRN PRN Reason: Consult order Pharmacy Consult (Consult Rx Perform Med Rec) 1 each MISCELLANE ONCE PRN PRN Reason: Consult order Senna (Sennosides 8.6 Mg Tablet) 17.2 mg PO BEDTIME PRN PRN Reason: Constipation Last Admin: 01/14/22 09:58 Dose: 17.2 mg Documented by: YOAN Sodium Chloride (0.9 % Sodium Chloride Flush 3 Ml Syringe) 3 ml IVFLUSH QSHIFT [facility] Last Admin: 01/16/22 08:30 Dose: 3 ml Documented by: ZIGGY Labs CBC & Chem 7: 01/09/22 06:26 01/13/22 06:14 Assessment and Plan (1) Tooth pain: Status: Acute (2) Acute on chronic respiratory failure with hypoxia and hypercapnia: Status: Acute (3) Physical deconditioning: Status: Acute (4) Morbidly obese: Status: Acute Plan 66yo M with AF, morbid obesity presenting with dyspnea, weight gain, leg edema admitted for CHF exacerbation Acute on chronic hypoxic and hypercapnic respiratory failure, resolved went to ICU between December 24-2021 improved with BiPAP, to continue with BiPAP at nighttime Tooth pain Number 21&22 with basal dental caries Dentist recommended no need for Augmentin Use pain medication as needed With will need outpatient root canal Right-sided Pleural effusion CX on showed right-sided effusion with possible atelectasis , no signs of infection Continue p.o. 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 f/u with his foreign broadcast specialist, Dr Mason at [facility] Lasix 40 mg daily Continue diamox for metabolic alkalosis physical deconditioning Evaluated by physical therapy team who recommended short-term rehab Pending placement - difficulty finding bariatric placement, patient unable to manage at home sinus pauses/ sinus bradycardia patient asymptomatic during episodes seen by cardiology bradycardia likely due to undiagnosed YANN , since this is reversible not committed to pacemaker outpt polysomnography 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 not on metoprolol due to sinus pauses. Continue apixaban for anticoagulation morbid obesity strongly recommend to follow low-calorie diet outpatient bariatric surgery referral Pulmonary embolism Confirmed by V/Q scan from November 04 continue Eliquis VTE ppx apixaban Dispo Being followed by Physical therapy, patient continued to have low tolerance to functional mobility , dyspnea with minimal exertion with poor gait mechanics and increased risk of fall therefore PT continue to recommend STR, CM working placement Quality Stroke Does the patient have a stroke diagnosis?: No VTE Prior VTE?: No VTE Risk Level:: Medical - moderate - high VTE Device Contraindication: Treatment Not Indicated VTE Drug Contraindication: N/A - Med Ordered
[2022-01-17] VITALS (8 sets, daily range): BP systolic 89–118; BP diastolic 55–61; PULSE 67–93; RESP 17–22; TEMP 36–36.8; O2SAT 93–95
[2022-01-17] MEDS: oxyCODONE HCl Immed Release 5 MG TABLET PO ×4 (04:41→23:32)
[2022-01-17] MEDS: acetaZOLAMIDE 250 MG TABLET 500 MG PO ×2 (08:16→21:34)
[2022-01-17] MEDS: guaiFENesin LA 600 MG TAB.ER.12H PO ×2 (08:17→21:34)
[2022-01-17] MEDS: Furosemide 40 MG TABLET PO (08:17)
[2022-01-17] MEDS: Apixaban 5 MG TABLET PO ×2 (08:17→21:34)
[2022-01-17] MEDS: 0.9 % Sodium Chloride Flush 3 ML SYRINGE IVFLUSH ×3 (08:17→23:33)
--- NOTE | 2022-01-17 11:58 | HO.PM.IMPN ---
Subjective Subjective Date of Service: 01/17/22 Interval History: cc: sob interval history: tooth pain controlled with oxy Cardiovascular Cardiovascular: Reports no additional cardiovascular complaints Respiratory Respiratory: Reports no additional respiratory complaints Physical Exam Vital Signs: Vital Signs: Last Vital Signs Temp 97.8 F 01/17/22 11:24 Pulse 80 01/17/22 11:24 Resp 19 01/17/22 11:24 BP 99/61 01/17/22 11:24 Pulse Ox 95 01/17/22 11:24 BMI result Body Mass Index 63.1 Gen:? Awake alert, no distress HEENT: sclera anicteric, moist mucus membranes Neck: supple, no JVD Lungs:? fair bilateral air decreased mainly at the right base, ? no wheezes,? fine basal crackles on the right lung Heart: irregularly irregular, no murmurs, no edema Abd: soft, non-tender, non-distended, morbidly obese Neuro: alert and oriented x3, no focal?findings Psych: appropriate affect Objective Data Active Medications Acetaminophen (Acetaminophen 325 Mg Tablet) 650 mg PO Q6H PRN PRN Reason: Pain, Mild (Pain Scale 1-3) Last Admin: 01/11/22 14:59 Dose: 650 mg Documented by: DO Acetazolamide (Acetazolamide 250 Mg Tablet) 500 mg PO BID [facility] Last Admin: 01/17/22 08:16 Dose: 500 mg Documented by: ZIGGY Apixaban (Apixaban 5 Mg Tablet) 5 mg PO BID [facility] Last Admin: 01/17/22 08:17 Dose: 5 mg Documented by: ZIGGY Furosemide (Furosemide 40 Mg Tablet) 40 mg PO DAILY [facility]; Protocol Last Admin: 01/17/22 08:17 Dose: 40 mg Documented by: ZIGGY Guaifenesin (Guaifenesin La 600 Mg Tab.Er.12h) 600 mg PO BID [facility] Last Admin: 01/17/22 08:17 Dose: 600 mg Documented by: ZIGGY Hydroxyzine HCl (Hydroxyzine Hcl 25 Mg Tablet) 25 mg PO Q6H PRN PRN Reason: anxiety/restlessness Last Admin: 01/15/22 20:33 Dose: 25 mg Documented by: CRISTHIAN Ibuprofen (Ibuprofen 600 Mg Tablet) 600 mg PO Q8H PRN PRN Reason: headache Last Admin: 01/11/22 22:52 Dose: 600 mg Documented by: CRISTHIAN Loperamide HCl (Loperamide Hcl 2 Mg Capsule) 2 mg PO Q4H PRN PRN Reason: Diarrhea Last Admin: 01/10/22 10:01 Dose: 2 mg Documented by: GLORIA Melatonin (Melatonin 3 Mg Tablet) 6 mg PO BEDTIME PRN PRN Reason: Insomnia Last Admin: 11/14/21 23:52 Dose: 6 mg Documented by: HERMELINDA Oxycodone HCl (Oxycodone Hcl Immed Release 5 Mg Tablet) 5 mg PO Q6H PRN PRN Reason: Breakthrough Pain Last Admin: 01/17/22 11:32 Dose: 5 mg Documented by: ZIGGY Pharmacy Consult (Consult Rx Perform Med Rec) 1 each MISCELLANE ONCE PRN PRN Reason: Consult order Pharmacy Consult (Consult Rx Perform Med Rec) 1 each MISCELLANE ONCE PRN PRN Reason: Consult order Senna (Sennosides 8.6 Mg Tablet) 17.2 mg PO BEDTIME PRN PRN Reason: Constipation Last Admin: 01/14/22 09:58 Dose: 17.2 mg Documented by: YOAN Sodium Chloride (0.9 % Sodium Chloride Flush 3 Ml Syringe) [facility] Last Admin: 01/17/22 08:17 Dose: 3 ml Documented by: ZIGGY Labs CBC & Chem 7: 01/09/22 06:26 01/13/22 06:14 Assessment and Plan (1) Tooth pain: Status: Acute (2) Acute on chronic respiratory failure with hypoxia and hypercapnia: Status: Acute (3) Physical deconditioning: Status: Acute (4) Morbidly obese: Status: Acute Plan 66yo M with AF, morbid obesity presenting with dyspnea, weight gain, leg edema admitted for CHF exacerbation Acute on chronic hypoxic and hypercapnic respiratory failure, resolved went to ICU between December 24-2021 improved with BiPAP, to continue with BiPAP at nighttime Tooth pain Number 21&22 with basal dental caries Dentist recommended no need for Augmentin Use pain medication as needed With will need outpatient root canal Right-sided Pleural effusion CX on showed right-sided effusion with possible atelectasis , no signs of infection Continue p.o. 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 f/u with his business information manager, Dr Mason at [facility] Lasix 40 mg daily Continue diamox for metabolic alkalosis physical deconditioning Evaluated by physical therapy team who recommended short-term rehab Pending placement - difficulty finding bariatric placement, patient unable to manage at home sinus pauses/ sinus bradycardia patient asymptomatic during episodes seen by cardiology bradycardia likely due to undiagnosed YANN , since this is reversible not committed to pacemaker outpt polysomnography 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 not on metoprolol due to sinus pauses. Continue apixaban for anticoagulation morbid obesity strongly recommend to follow low-calorie diet outpatient bariatric surgery referral Pulmonary embolism Confirmed by V/Q scan from November 04 continue Eliquis VTE ppx apixaban Dispo Being followed by Physical therapy, patient continued to have low tolerance to functional mobility , dyspnea with minimal exertion with poor gait mechanics and increased risk of fall therefore PT continue to recommend STR, CM working placement Quality Stroke Does the patient have a stroke diagnosis?: No VTE Prior VTE?: No VTE Risk Level:: Medical - moderate - high VTE Device Contraindication: Treatment Not Indicated VTE Drug Contraindication: N/A - Med Ordered
[2022-01-18] VITALS (8 sets, daily range): BP systolic 99–123; BP diastolic 52–64; PULSE 60–89; RESP 15–20; TEMP 36–36.7; O2SAT 91–95
[2022-01-18] MEDS: 0.9 % Sodium Chloride Flush 3 ML SYRINGE IVFLUSH ×3 (08:38→21:34)
[2022-01-18] MEDS: Apixaban 5 MG TABLET PO ×2 (08:38→21:31)
[2022-01-18] MEDS: guaiFENesin LA 600 MG TAB.ER.12H PO ×2 (08:39→21:31)
[2022-01-18] MEDS: oxyCODONE HCl Immed Release 5 MG TABLET PO ×3 (08:39→21:31)
[2022-01-18] MEDS: acetaZOLAMIDE 250 MG TABLET 500 MG PO ×2 (08:39→21:31)
[2022-01-18] MEDS: Furosemide 40 MG TABLET PO (08:39)
--- NOTE | 2022-01-18 09:39 | HO.PM.IMPN ---
Subjective Subjective Date of Service: 01/18/22 Interval History: cc: sob interval history:stable Cardiovascular Cardiovascular: Reports no additional cardiovascular complaints Respiratory Respiratory: Reports no additional respiratory complaints Physical Exam Vital Signs: Vital Signs: Last Vital Signs Temp 98.1 F 01/18/22 07:44 Pulse 60 01/18/22 07:44 Resp 18 01/18/22 07:44 BP 104/59 L 01/18/22 07:44 Pulse Ox 94 01/18/22 07:44 BMI result Body Mass Index 63.1 Gen:? Awake alert, no distress HEENT: sclera anicteric, moist mucus membranes Neck: supple, no JVD Lungs:? fair bilateral air decreased mainly at the right base, ? no wheezes,? fine basal crackles on the right lung Heart: irregularly irregular, no murmurs, no edema Abd: soft, non-tender, non-distended, morbidly obese Neuro: alert and oriented x3, no focal?findings Psych: appropriate affect Objective Data Active Medications Acetaminophen (Acetaminophen 325 Mg Tablet) 650 mg PO Q6H PRN PRN Reason: Pain, Mild (Pain Scale 1-3) Last Admin: 01/11/22 14:59 Dose: 650 mg Documented by: DO Acetazolamide (Acetazolamide 250 Mg Tablet) 500 mg PO BID [facility] Last Admin: 01/18/22 08:39 Dose: 500 mg Documented by: GLORIA Apixaban (Apixaban 5 Mg Tablet) 5 mg PO BID [facility] Last Admin: 01/18/22 08:38 Dose: 5 mg Documented by: GLORIA Furosemide (Furosemide 40 Mg Tablet) 40 mg PO DAILY [facility]; Protocol Last Admin: 01/18/22 08:39 Dose: 40 mg Documented by: GLORIA Guaifenesin (Guaifenesin La 600 Mg Tab.Er.12h) 600 mg PO BID [facility] Last Admin: 01/18/22 08:39 Dose: 600 mg Documented by: GLORIA Hydroxyzine HCl (Hydroxyzine Hcl 25 Mg Tablet) 25 mg PO Q6H PRN PRN Reason: anxiety/restlessness Last Admin: 01/15/22 20:33 Dose: 25 mg Documented by: CRISTHIAN Ibuprofen (Ibuprofen 600 Mg Tablet) 600 mg PO Q8H PRN PRN Reason: headache Last Admin: 01/11/22 22:52 Dose: 600 mg Documented by: CRISTHIAN Loperamide HCl (Loperamide Hcl 2 Mg Capsule) 2 mg PO Q4H PRN PRN Reason: Diarrhea Last Admin: 01/10/22 10:01 Dose: 2 mg Documented by: GLORIA Melatonin (Melatonin 3 Mg Tablet) 6 mg PO BEDTIME PRN PRN Reason: Insomnia Last Admin: 11/14/21 23:52 Dose: 6 mg Documented by: HERMELINDA Oxycodone HCl (Oxycodone Hcl Immed Release 5 Mg Tablet) 5 mg PO Q6H PRN PRN Reason: Breakthrough Pain Last Admin: 01/18/22 08:39 Dose: 5 mg Documented by: GLORIA Pharmacy Consult (Consult Rx Perform Med Rec) 1 each MISCELLANE ONCE PRN PRN Reason: Consult order Pharmacy Consult (Consult Rx Perform Med Rec) 1 each MISCELLANE ONCE PRN PRN Reason: Consult order Senna (Sennosides 8.6 Mg Tablet) 17.2 mg PO BEDTIME PRN PRN Reason: Constipation Last Admin: 01/14/22 09:58 Dose: 17.2 mg Documented by: YOAN Sodium Chloride (0.9 % Sodium Chloride Flush 3 Ml Syringe) [facility] Last Admin: 01/18/22 08:38 Dose: 3 ml Documented by: GLORIA Labs CBC & Chem 7: 01/09/22 06:26 01/13/22 06:14 Assessment and Plan (1) Tooth pain: Status: Acute (2) Acute on chronic respiratory failure with hypoxia and hypercapnia: Status: Acute (3) Physical deconditioning: Status: Acute (4) Morbidly obese: Status: Acute Plan 66yo M with AF, morbid obesity presenting with dyspnea, weight gain, leg edema admitted for CHF exacerbation Acute on chronic hypoxic and hypercapnic respiratory failure, resolved went to ICU between December 24-2021 improved with BiPAP, to continue with BiPAP at nighttime Tooth pain Number 21&22 with basal dental caries Dentist recommended no need for Augmentin Use pain medication as needed With will need outpatient root canal Right-sided Pleural effusion CX on showed right-sided effusion with possible atelectasis , no signs of infection Continue p.o. 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 f/u with his boat repairer, Dr Mason at [facility] Lasix 40 mg daily Continue diamox for metabolic alkalosis physical deconditioning Evaluated by physical therapy team who recommended short-term rehab Pending placement - difficulty finding bariatric placement, patient unable to manage at home sinus pauses/ sinus bradycardia patient asymptomatic during episodes seen by cardiology bradycardia likely due to undiagnosed YANN , since this is reversible not committed to pacemaker outpt polysomnography 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 not on metoprolol due to sinus pauses. Continue apixaban for anticoagulation morbid obesity strongly recommend to follow low-calorie diet outpatient bariatric surgery referral Pulmonary embolism Confirmed by V/Q scan from November 04 continue Eliquis VTE ppx apixaban Dispo Being followed by Physical therapy, patient continued to have low tolerance to functional mobility , dyspnea with minimal exertion with poor gait mechanics and increased risk of fall therefore PT continue to recommend STR, CM working placement Quality Stroke Does the patient have a stroke diagnosis?: No VTE Prior VTE?: No VTE Risk Level:: Medical - moderate - high VTE Device Contraindication: Treatment Not Indicated VTE Drug Contraindication: N/A - Med Ordered
--- NOTE | 2022-01-18 12:43 | MHC.CM.PN ---
Broad SNF search is ongoing;there are no bed offers yet. CM will follow.
[2022-01-19] VITALS (8 sets, daily range): BP systolic 107–131; BP diastolic 56–69; PULSE 65–81; RESP 16–20; TEMP 36.3–37.1; O2SAT 93–97
[2022-01-19] MEDS: oxyCODONE HCl Immed Release 5 MG TABLET PO ×3 (06:17→19:40)
[2022-01-19] MEDS: Furosemide 40 MG TABLET PO (08:03)
[2022-01-19] MEDS: 0.9 % Sodium Chloride Flush 3 ML SYRINGE IVFLUSH ×3 (08:03→19:41)
[2022-01-19] MEDS: acetaZOLAMIDE 250 MG TABLET 500 MG PO ×2 (08:03→19:40)
[2022-01-19] MEDS: guaiFENesin LA 600 MG TAB.ER.12H PO ×2 (08:03→19:40)
[2022-01-19] MEDS: Apixaban 5 MG TABLET PO ×2 (08:03→19:40)
--- NOTE | 2022-01-19 09:18 | HO.PM.IMPN ---
Subjective Subjective Date of Service: 01/19/22 Interval History: cc: sob interval history:stable Cardiovascular Cardiovascular: Reports no additional cardiovascular complaints Gastrointestinal Gastrointestinal: Reports no additional gastrointestinal complaints Physical Exam Vital Signs: Vital Signs: Last Vital Signs Temp 98.0 F 01/19/22 07:15 Pulse 65 01/19/22 07:15 Resp 18 01/19/22 07:15 BP 111/56 L 01/19/22 07:15 Pulse Ox 94 01/19/22 07:15 BMI result Body Mass Index 63.1 Gen:? Awake alert, no distress HEENT: sclera anicteric, moist mucus membranes Neck: supple, no JVD Lungs:? fair bilateral air decreased mainly at the right base, ? no wheezes,? fine basal crackles on the right lung Heart: irregularly irregular, no murmurs, no edema Abd: soft, non-tender, non-distended, morbidly obese Neuro: alert and oriented x3, no focal?findings Psych: appropriate affect Objective Data Active Medications Acetaminophen (Acetaminophen 325 Mg Tablet) 650 mg PO Q6H PRN PRN Reason: Pain, Mild (Pain Scale 1-3) Last Admin: 01/11/22 14:59 Dose: 650 mg Documented by: DO Acetazolamide (Acetazolamide 250 Mg Tablet) 500 mg PO BID [facility] Last Admin: 01/19/22 08:03 Dose: 500 mg Documented by: GLORIA Apixaban (Apixaban 5 Mg Tablet) 5 mg PO BID [facility] Last Admin: 01/19/22 08:03 Dose: 5 mg Documented by: GLORIA Furosemide (Furosemide 40 Mg Tablet) 40 mg PO DAILY [facility]; Protocol Last Admin: 01/19/22 08:03 Dose: 40 mg Documented by: GLORIA Guaifenesin (Guaifenesin La 600 Mg Tab.Er.12h) 600 mg PO BID [facility] Last Admin: 01/19/22 08:03 Dose: 600 mg Documented by: GLORIA Hydroxyzine HCl (Hydroxyzine Hcl 25 Mg Tablet) 25 mg PO Q6H PRN PRN Reason: anxiety/restlessness Last Admin: 01/15/22 20:33 Dose: 25 mg Documented by: CRISTHIAN Ibuprofen (Ibuprofen 600 Mg Tablet) 600 mg PO Q8H PRN PRN Reason: headache Last Admin: 01/11/22 22:52 Dose: 600 mg Documented by: CRISTHIAN Loperamide HCl (Loperamide Hcl 2 Mg Capsule) 2 mg PO Q4H PRN PRN Reason: Diarrhea Last Admin: 01/10/22 10:01 Dose: 2 mg Documented by: GLORIA Melatonin (Melatonin 3 Mg Tablet) 6 mg PO BEDTIME PRN PRN Reason: Insomnia Last Admin: 11/14/21 23:52 Dose: 6 mg Documented by: HERMELINDA Oxycodone HCl (Oxycodone Hcl Immed Release 5 Mg Tablet) 5 mg PO Q6H PRN PRN Reason: Breakthrough Pain Last Admin: 01/19/22 06:17 Dose: 5 mg Documented by: TENISHA Pharmacy Consult (Consult Rx Perform Med Rec) 1 each MISCELLANE ONCE PRN PRN Reason: Consult order Pharmacy Consult (Consult Rx Perform Med Rec) 1 each MISCELLANE ONCE PRN PRN Reason: Consult order Senna (Sennosides 8.6 Mg Tablet) 17.2 mg PO BEDTIME PRN PRN Reason: Constipation Last Admin: 01/14/22 09:58 Dose: 17.2 mg Documented by: YOAN Sodium Chloride (0.9 % Sodium Chloride Flush 3 Ml Syringe) 3 ml IVFLUSH [facility] Last Admin: 01/19/22 08:03 Dose: 3 ml Documented by: GLORIA Labs CBC & Chem 7: 01/09/22 06:26 01/13/22 06:14 Assessment and Plan (1) Tooth pain: Status: Acute (2) Acute on chronic respiratory failure with hypoxia and hypercapnia: Status: Acute (3) Physical deconditioning: Status: Acute (4) Morbidly obese: Status: Acute Plan 66yo M with AF, morbid obesity presenting with dyspnea, weight gain, leg edema admitted for CHF exacerbation Acute on chronic hypoxic and hypercapnic respiratory failure, resolved went to ICU between December 24-2021 improved with BiPAP, to continue with BiPAP at nighttime Tooth pain Number 21&22 with basal dental caries Dentist recommended no need for Augmentin Use pain medication as needed With will need outpatient root canal Right-sided Pleural effusion CX on showed right-sided effusion with possible atelectasis , no signs of infection Continue p.o. 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 f/u with his landscaping manager, Dr aMson at [facility] Lasix 40 mg daily Continue diamox for metabolic alkalosis physical deconditioning Evaluated by physical therapy team who recommended short-term rehab Pending placement - difficulty finding bariatric placement, patient unable to manage at home sinus pauses/ sinus bradycardia patient asymptomatic during episodes seen by cardiology bradycardia likely due to undiagnosed YANN , since this is reversible not committed to pacemaker outpt polysomnography 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 not on metoprolol due to sinus pauses. Continue apixaban for anticoagulation morbid obesity strongly recommend to follow low-calorie diet outpatient bariatric surgery referral Pulmonary embolism Confirmed by V/Q scan from November 04 continue Eliquis VTE ppx apixaban Dispo Being followed by Physical therapy, patient continued to have low tolerance to functional mobility , dyspnea with minimal exertion with poor gait mechanics and increased risk of fall therefore PT continue to recommend STR, CM working placement Quality Stroke Does the patient have a stroke diagnosis?: No VTE Prior VTE?: No VTE Risk Level:: Medical - moderate - high VTE Device Contraindication: Treatment Not Indicated VTE Drug Contraindication: N/A - Med Ordered
[2022-01-19] MEDS: Ibuprofen 600 MG TABLET PO (22:44)
[2022-01-20] VITALS (7 sets, daily range): BP systolic 114–130; BP diastolic 59–69; PULSE 58–79; RESP 17–21; TEMP 36.5–37.2; O2SAT 93–95
[2022-01-20] MEDS: oxyCODONE HCl Immed Release 5 MG TABLET PO ×4 (03:44→22:07)
[2022-01-20 06:36] LABS: Hematocrit 46.9 % (42.0-52.0); Hemoglobin 15.1 g/dl (14.0-18.0); Mean Corpuscular HGB Conc 32.2 g/dl (31.0-36.0); Mean Corpuscular Volume 93.1 fL (80.0-98.0); Mean Platelet Volume 9.2 fL (9.4-12.4); Platelet Count 202 X10*3/uL (160-400); Red Blood Count 5.04 X10*6/uL (4.60-5.80); Red Cell Distribution Width 14.2 % (11.0-16.0); White Blood Count 6.7 X10*3/uL (4.8-10.8)
[2022-01-20 06:54] LABS: Anion Gap 13 (12-20); Blood Urea Nitrogen 22 mg/dL (9-16); Calcium 9.3 mg/dL (8.4-10.2); Carbon Dioxide 27 mmol/L (22-29); Chloride 105 mmol/L (96-108); Creatinine Clr Calc Pharmacy 154.6; Estimated Glomerular Filt Rate > 60; Glucose Fasting 104 mg/dL (60-99); Potassium 3.6 mmol/L (3.3-5.1); Sodium 141 mmol/L (135-145)
[2022-01-20] MEDS: Apixaban 5 MG TABLET PO ×2 (10:02→21:12)
[2022-01-20] MEDS: guaiFENesin LA 600 MG TAB.ER.12H PO ×2 (10:02→21:13)
[2022-01-20] MEDS: Furosemide 40 MG TABLET PO (10:02)
[2022-01-20] MEDS: acetaZOLAMIDE 250 MG TABLET 500 MG PO ×2 (10:02→21:12)
[2022-01-20] MEDS: 0.9 % Sodium Chloride Flush 3 ML SYRINGE IVFLUSH ×2 (10:03→15:27)
--- NOTE | 2022-01-20 12:54 | MHC.CM.PN ---
met with pt who says when dcd he cannot go live with his brother even if he is independent he again says his dganderson;e is looking for a place to hime tyo go post rehab i called and spoke with michael garnett after pt gave me permisision to do so she confirm s that she has applocation but does not know what he will need sufggestion was made for hanciapped /housoing and assited livivng we talked about payment and that pt has mnot been paying rent while he has been in hospitiual for 4 months and that those funds should be used
--- NOTE | 2022-01-20 14:02 | HO.PM.IMPN ---
Subjective Subjective Date of Service: 01/20/22 Interval History: Seen and evaluated Nauseous with breathing, doing physical therapy Tooth pain better controlled denies any fever or chills Review of Systems No fever, chills or weakness No chest pain, palpitation No shortness of breath No abdominal pain, nausea or vomiting No urinary symptoms No reported rash or wounds Physical Exam Vital Signs: Vital Signs: Last Vital Signs Temp 98.5 F 01/20/22 11:16 Pulse 77 01/20/22 11:16 Resp 18 01/20/22 11:16 BP 129/61 01/20/22 11:16 Pulse Ox 93 01/20/22 11:16 BMI result Body Mass Index 63.1 Const: Other: Gen:? Awake alert, no distress HEENT: sclera anicteric, moist mucus membranes Neck: supple, no JVD Lungs: Chest wall moving bilaterally, not in respiratory distress Heart: irregularly irregular, no murmurs, no edema Abd: soft, non-tender, non-distended, morbidly obese Neuro: alert and oriented x3, no focal?findings Psych: appropriate affect Objective Data Active Medications Acetaminophen (Acetaminophen 325 Mg Tablet) 650 mg PO Q6H PRN PRN Reason: Pain, Mild (Pain Scale 1-3) Last Admin: 01/11/22 14:59 Dose: 650 mg Documented by: DO Acetazolamide (Acetazolamide 250 Mg Tablet) 500 mg PO BID [facility] Last Admin: 01/20/22 10:02 Dose: 500 mg Documented by: JACQUI Apixaban (Apixaban 5 Mg Tablet) 5 mg PO BID [facility] Last Admin: 01/20/22 10:02 Dose: 5 mg Documented by: JACQUI Furosemide (Furosemide 40 Mg Tablet) 40 mg PO DAILY [facility]; Protocol Last Admin: 01/20/22 10:02 Dose: 40 mg Documented by: JACQUI Guaifenesin (Guaifenesin La 600 Mg Tab.Er.12h) 600 mg PO BID [facility] Last Admin: 01/20/22 10:02 Dose: 600 mg Documented by: JACQUI Hydroxyzine HCl (Hydroxyzine Hcl 25 Mg Tablet) 25 mg PO Q6H PRN PRN Reason: anxiety/restlessness Last Admin: 01/15/22 20:33 Dose: 25 mg Documented by: CRISTHIAN Ibuprofen (Ibuprofen 600 Mg Tablet) 600 mg PO Q8H PRN PRN Reason: headache Last Admin: 01/19/22 22:44 Dose: 600 mg Documented by: HERMELINDA Loperamide HCl (Loperamide Hcl 2 Mg Capsule) 2 mg PO Q4H PRN PRN Reason: Diarrhea Last Admin: 01/10/22 10:01 Dose: 2 mg Documented by: GLORIA Melatonin (Melatonin 3 Mg Tablet) 6 mg PO BEDTIME PRN PRN Reason: Insomnia Last Admin: 11/14/21 23:52 Dose: 6 mg Documented by: HERMELINDA Oxycodone HCl (Oxycodone Hcl Immed Release 5 Mg Tablet) 5 mg PO Q6H PRN PRN Reason: Breakthrough Pain Last Admin: 01/20/22 10:06 Dose: 5 mg Documented by: JACQUI Pharmacy Consult (Consult Rx Perform Med Rec) 1 each MISCELLANE ONCE PRN PRN Reason: Consult order Pharmacy Consult (Consult Rx Perform Med Rec) 1 each MISCELLANE ONCE PRN PRN Reason: Consult order Senna (Sennosides 8.6 Mg Tablet) 17.2 mg PO BEDTIME PRN PRN Reason: Constipation Last Admin: 01/14/22 09:58 Dose: 17.2 mg Documented by: YOAN Sodium Chloride (0.9 % Sodium Chloride Flush 3 Ml Syringe) [facility] Last Admin: 01/20/22 10:03 Dose: 3 ml Documented by: JACQUI Labs CBC & Chem 7: 01/20/22 06:23 01/20/22 06:23 Labs: Laboratory Results - last 24 hr 01/20/22 01/20/22 06:23 06:23 MCV 93.1 MCH 30.0 MCHC 32.2 RDW 14.2 Plt Count 202 MPV 9.2 L Absolute Nucleated RBC 0.000 Nucleated RBC % (auto) 0.0 Anion Gap 13 Estim Creat Clear Calc 154.6 Estimated GFR > 60 Fasting Glucose 104 H Calcium 9.3 Assessment and Plan (1) Acute on chronic respiratory failure with hypoxia and hypercapnia: Status: Acute (2) Physical deconditioning: Status: Acute (3) Morbidly obese: Status: Acute Plan 66yo M with AF, morbid obesity presenting with dyspnea, weight gain, leg edema admitted for CHF exacerbation Acute on chronic hypoxic and hypercapnic respiratory failure, resolved went to ICU between December 24-2021 improved with BiPAP, to continue with BiPAP at nighttime Tooth pain Number 21&22 with basal dental caries Dentist recommended outpatient root canal Use pain medication as needed Right-sided Pleural effusion CX on showed right-sided effusion with possible atelectasis , no signs of infection Continue p.o. 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 f/u with his spanish translator, Dr Mason at [facility] Lasix 40 mg daily Continue diamox for metabolic alkalosis physical deconditioning Evaluated by physical therapy team who recommended short-term rehab Pending placement - difficulty finding bariatric placement, patient unable to manage at home sinus pauses/ sinus bradycardia patient asymptomatic during episodes seen by cardiology bradycardia likely due to undiagnosed YANN , since this is reversible not committed to pacemaker outpt polysomnography 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 not on metoprolol due to sinus pauses. Continue apixaban for anticoagulation morbid obesity strongly recommend to follow low-calorie diet outpatient bariatric surgery referral Pulmonary embolism Confirmed by V/Q scan from November 04 continue Eliquis VTE ppx apixaban Dispo Being followed by Physical therapy, patient continued to have low tolerance to functional mobility , dyspnea with minimal exertion with poor gait mechanics and increased risk of fall therefore PT continue to recommend STR, CM working placement Quality Stroke Does the patient have a stroke diagnosis?: No VTE Prior VTE?: No VTE Risk Level:: Medical - moderate - high VTE Device Contraindication: Treatment Not Indicated VTE Drug Contraindication: N/A - Med Ordered
--- NOTE | 2022-01-20 15:14 | MHC.CM.PN ---
bed located for pt at [facility] in [facility] pt refuses to go to [place] t/w explained medicare appeal process pt refused to sign imm i documented same and delivered appeal process verbally explained daily cost of a hospital stay and the benefits of going to a rehab i asked whether he wanted me to come back and let him think about this or not and he told me to go [facility]
--- NOTE | 2022-01-20 15:44 | MHC.CM.PN ---
Informed patient he has been accepted at [facility] in [place], [place] a five star Medicare facility. Patient expressed that he would like to stay closer to home. Explained difficulty in finding a facility locally. Discussed with patient discharge plan and potential for Tuesday discharge. Patient agreed to review facility. CM to follow-up in morning.
[2022-01-21] VITALS (8 sets, daily range): BP systolic 107–133; BP diastolic 57–75; PULSE 50–86; RESP 17–21; TEMP 36.3–37.1; O2SAT 93–96
[2022-01-21] MEDS: 0.9 % Sodium Chloride Flush 3 ML SYRINGE IVFLUSH ×4 (00:27→20:23)
[2022-01-21] MEDS: oxyCODONE HCl Immed Release 5 MG TABLET PO ×3 (05:13→19:40)
[2022-01-21 07:03] LABS: Anion Gap 10 (12-20); Blood Urea Nitrogen 21 mg/dL (9-16); Carbon Dioxide 30 mmol/L (22-29); Chloride 106 mmol/L (96-108); Creatinine Clr Calc Pharmacy 145.2; Estimated Glomerular Filt Rate > 60; Glucose Random 97 mg/dL (60-115); Potassium 3.7 mmol/L (3.3-5.1); Sodium 142 mmol/L (135-145)
[2022-01-21] MEDS: Furosemide 40 MG TABLET PO (09:28)
[2022-01-21] MEDS: acetaZOLAMIDE 250 MG TABLET 500 MG PO ×2 (09:28→20:23)
[2022-01-21] MEDS: Apixaban 5 MG TABLET PO ×2 (09:29→20:24)
[2022-01-21] MEDS: guaiFENesin LA 600 MG TAB.ER.12H PO ×2 (09:29→20:23)
--- NOTE | 2022-01-21 11:30 | P.PNIM_ITS ---
Subjective Subjective Date of Service: 01/21/22 Interval History: Seen and evaluated Upset today about placement issues Refused to wear the BiPAP overnight Breathing is okay, doing physical therapy denies any fever or chills Review of Systems No fever, chills or weakness No chest pain, palpitation No shortness of breath No abdominal pain, nausea or vomiting No urinary symptoms No reported rash or wounds Physical Exam Vital Signs: Vital Signs: Last Vital Signs Temp 97.4 F 01/21/22 11:24 Pulse 81 01/21/22 11:24 Resp 18 01/21/22 11:24 BP 107/69 01/21/22 11:24 Pulse Ox 94 01/21/22 11:24 BMI result Body Mass Index 63.1 Const: Other: Gen:? Awake alert, no distress HEENT: sclera anicteric, moist mucus membranes Neck: supple, no JVD Lungs: Chest wall moving bilaterally, not in respiratory distress Heart: irregularly irregular, no murmurs, no edema Abd: soft, non-tender, non-distended, morbidly obese Neuro: alert and oriented x3, no focal?findings Psych: appropriate affect Objective Data Active Medications Acetaminophen (Acetaminophen 325 Mg Tablet) 650 mg PO Q6H PRN PRN Reason: Pain, Mild (Pain Scale 1-3) Last Admin: 01/11/22 14:59 Dose: 650 mg Documented by: DO Acetazolamide (Acetazolamide 250 Mg Tablet) 500 mg PO BID [facility] Last Admin: 01/21/22 09:28 Dose: 500 mg Documented by: AJ Apixaban (Apixaban 5 Mg Tablet) 5 mg PO BID [facility] Last Admin: 01/21/22 09:29 Dose: 5 mg Documented by: AJ Furosemide (Furosemide 40 Mg Tablet) 40 mg PO DAILY [facility]; Protocol Last Admin: 01/21/22 09:28 Dose: 40 mg Documented by: AJ Guaifenesin (Guaifenesin La 600 Mg Tab.Er.12h) 600 mg PO BID [facility] Last Admin: 01/21/22 09:29 Dose: 600 mg Documented by: AJ Hydroxyzine HCl (Hydroxyzine Hcl 25 Mg Tablet) 25 mg PO Q6H PRN PRN Reason: anxiety/restlessness Last Admin: 01/15/22 20:33 Dose: 25 mg Documented by: CRISTHIAN Ibuprofen (Ibuprofen 600 Mg Tablet) 600 mg PO Q8H PRN PRN Reason: headache Last Admin: 01/19/22 22:44 Dose: 600 mg Documented by: HERMELINDA Loperamide HCl (Loperamide Hcl 2 Mg Capsule) 2 mg PO Q4H PRN PRN Reason: Diarrhea Last Admin: 01/10/22 10:01 Dose: 2 mg Documented by: GLORIA Melatonin (Melatonin 3 Mg Tablet) 6 mg PO BEDTIME PRN PRN Reason: Insomnia Last Admin: 11/14/21 23:52 Dose: 6 mg Documented by: HERMELINDA Oxycodone HCl (Oxycodone Hcl Immed Release 5 Mg Tablet) 5 mg PO Q6H PRN PRN Reason: Breakthrough Pain Last Admin: 01/21/22 11:19 Dose: 5 mg Documented by: AJ Pharmacy Consult (Consult Rx Perform Med Rec) 1 each MISCELLANE ONCE PRN PRN Reason: Consult order Pharmacy Consult (Consult Rx Perform Med Rec) 1 each MISCELLANE ONCE PRN PRN Reason: Consult order Senna (Sennosides 8.6 Mg Tablet) 17.2 mg PO BEDTIME PRN PRN Reason: Constipation Last Admin: 01/14/22 09:58 Dose: 17.2 mg Documented by: YOAN Sodium Chloride (0.9 % Sodium Chloride Flush 3 Ml Syringe) 3 ml IVFLUSH QSHIFT [facility] Last Admin: 01/21/22 09:29 Dose: 3 ml Documented by: AJ Labs CBC & Chem 7: 01/20/22 06:23 01/21/22 06:17 Labs: Laboratory Results - last 24 hr 01/21/22 06:17 Anion Gap 10 L Estim Creat Clear Calc 145.2 Estimated GFR > 60 Random Glucose 97 Calcium 9.0 Assessment and Plan (1) Acute on chronic respiratory failure with hypoxia and hypercapnia: Status: Acute (2) Morbidly obese: Status: Acute Plan 66yo M with AF, morbid obesity presenting with dyspnea, weight gain, leg edema admitted for CHF exacerbation Acute on chronic hypoxic and hypercapnic respiratory failure, resolved went to ICU between December 24-2021 improved with BiPAP, to continue with BiPAP at nighttime Tooth pain Number 21&22 with basal dental caries Dentist recommended outpatient root canal Use pain medication as needed Right-sided Pleural effusion CX on showed right-sided effusion with possible atelectasis , no signs of infection Continue p.o. 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 f/u with his end maker, Dr Mason at [facility] Lasix 40 mg daily Continue diamox for metabolic alkalosis physical deconditioning Evaluated by physical therapy team who recommended short-term rehab Pending placement - difficulty finding bariatric placement, patient unable to manage at home sinus pauses/ sinus bradycardia patient asymptomatic during episodes seen by cardiology bradycardia likely due to undiagnosed YANN , since this is reversible not committed to pacemaker outpt polysomnography 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 not on metoprolol due to sinus pauses. Continue apixaban for anticoagulation morbid obesity strongly recommend to follow low-calorie diet outpatient bariatric surgery referral Pulmonary embolism Confirmed by V/Q scan from November 04 continue Eliquis VTE ppx apixaban Dispo Being followed by Physical therapy, patient continued to have low tolerance to functional mobility , dyspnea with minimal exertion with poor gait mechanics and increased risk of fall therefore PT continue to recommend STR, CM working placement Quality Stroke Does the patient have a stroke diagnosis?: No VTE Prior VTE?: No VTE Risk Level:: Medical - moderate - high VTE Device Contraindication: Treatment Not Indicated VTE Drug Contraindication: N/A - Med Ordered
--- NOTE | 2022-01-21 13:10 | MHC.CM.PN ---
Addendum entered by Juanis Sharpe 01/22/22 08:24: PTS DISCHARGE APPEAL IS CURRENTLY IN CLINICAL REVIEW. PLAN REMAINS DC TO [facility] [place] PT WILL BE TRANSPORTED VIA [facility] THEY WILL NEED 24 HOUR NOTICE TO ARRANGE THIS TRANSPORT Original Note: CM MET WITH PT MULTIPLE TIMES SINCE THIS MORNING. PT REPORTING HE DOES NOT WANT TO GO TO [id number] IN [place] UNTIL TUESDAY SO THAT HIS DAUGHTER CAN VISIT TUESDAY CM EXPLAINED THIS WOULD NOT BE A REASON TO STAY INPATIENT AND THAT THE REHAB BED MAY BE LOST IF HE DOES NOT GO TOMORROW PLANNED. PT REPORTED HE WOULD BE APPEALING THE DC. DC APPEALED AND RECORDS SENT CM GAVE PT THE DETAILED NOTICE OF DC IMM DELIVERED 01/20/22
[2022-01-22] VITALS (7 sets, daily range): BP systolic 121–134; BP diastolic 66–74; PULSE 66–98; RESP 18; TEMP 36.4–36.9; O2SAT 94–96
[2022-01-22] MEDS: Ibuprofen 600 MG TABLET PO ×2 (06:20→16:18)
[2022-01-22] MEDS: acetaZOLAMIDE 250 MG TABLET 500 MG PO ×2 (09:00→20:48)
[2022-01-22] MEDS: Furosemide 40 MG TABLET PO (09:00)
[2022-01-22] MEDS: guaiFENesin LA 600 MG TAB.ER.12H PO ×2 (09:00→20:48)
[2022-01-22] MEDS: 0.9 % Sodium Chloride Flush 3 ML SYRINGE IVFLUSH ×3 (09:00→20:49)
[2022-01-22] MEDS: Apixaban 5 MG TABLET PO ×2 (09:00→20:48)
--- NOTE | 2022-01-22 13:30 | MHC.CM.PN ---
jai atkinson remans pending spoke with care one john spoke with dedra [phone] ext [phone] who will hopld bed till mon kevin [facility] has in place crew for dc mon pending medicare decision
--- NOTE | 2022-01-22 13:44 | P.PNIM_ITS ---
Subjective Subjective Date of Service: 01/22/22 Interval History: Seen and evaluated used BiPAP overnight Breathing is okay, doing physical therapy denies any fever or chills Review of Systems No fever, chills or weakness No chest pain, palpitation No shortness of breath No abdominal pain, nausea or vomiting No urinary symptoms No reported rash or wounds Physical Exam Vital Signs: Vital Signs: Last Vital Signs Temp 97.5 F 01/22/22 11:11 Pulse 91 01/22/22 11:11 Resp 18 01/22/22 11:11 BP 134/66 01/22/22 11:11 Pulse Ox 95 01/22/22 11:11 BMI result Body Mass Index 63.1 Const: Other: Gen:? Awake alert, no distress HEENT: sclera anicteric, moist mucus membranes Neck: supple, no JVD Lungs: Chest wall moving bilaterally, not in respiratory distress Heart: irregularly irregular, no murmurs, no edema Abd: soft, non-tender, non-distended, morbidly obese Neuro: alert and oriented x3, no focal?findings Psych: appropriate affect Objective Data Active Medications Acetaminophen (Acetaminophen 325 Mg Tablet) 650 mg PO Q6H PRN PRN Reason: Pain, Mild (Pain Scale 1-3) Last Admin: 01/11/22 14:59 Dose: 650 mg Documented by: DO Acetazolamide (Acetazolamide 250 Mg Tablet) 500 mg PO BID [facility] Last Admin: 01/22/22 09:00 Dose: 500 mg Documented by: DO Apixaban (Apixaban 5 Mg Tablet) 5 mg PO BID [facility] Last Admin: 01/22/22 09:00 Dose: 5 mg Documented by: DO Furosemide (Furosemide 40 Mg Tablet) 40 mg PO DAILY [facility]; Protocol Last Admin: 01/22/22 09:00 Dose: 40 mg Documented by: DO Guaifenesin (Guaifenesin La 600 Mg Tab.Er.12h) 600 mg PO BID [facility] Last Admin: 01/22/22 09:00 Dose: 600 mg Documented by: DO Hydroxyzine HCl (Hydroxyzine Hcl 25 Mg Tablet) 25 mg PO Q6H PRN PRN Reason: anxiety/restlessness Last Admin: 01/15/22 20:33 Dose: 25 mg Documented by: CRISTHIAN Ibuprofen (Ibuprofen 600 Mg Tablet) 600 mg PO Q8H PRN PRN Reason: headache Last Admin: 01/22/22 06:20 Dose: 600 mg Documented by: DULCE MARIARISSonia Loperamide HCl (Loperamide Hcl 2 Mg Capsule) 2 mg PO Q4H PRN PRN Reason: Diarrhea Last Admin: 01/10/22 10:01 Dose: 2 mg Documented by: GLORIA Melatonin (Melatonin 3 Mg Tablet) 6 mg PO BEDTIME PRN PRN Reason: Insomnia Last Admin: 11/14/21 23:52 Dose: 6 mg Documented by: HERMELINDA Pharmacy Consult (Consult Rx Perform Med Rec) 1 each MISCELLANE ONCE PRN PRN Reason: Consult order Pharmacy Consult (Consult Rx Perform Med Rec) 1 each MISCELLANE ONCE PRN PRN Reason: Consult order Senna (Sennosides 8.6 Mg Tablet) 17.2 mg PO BEDTIME PRN PRN Reason: Constipation Last Admin: 01/14/22 09:58 Dose: 17.2 mg Documented by: YOAN Sodium Chloride (0.9 % Sodium Chloride Flush 3 Ml Syringe) 3 ml IVFLUSH QSHIFT [facility] Last Admin: 01/22/22 09:00 Dose: 3 ml Documented by: DO Labs CBC & Chem 7: 01/20/22 06:23 01/21/22 06:17 Assessment and Plan (1) Acute on chronic respiratory failure with hypoxia and hypercapnia: Status: Acute (2) Physical deconditioning: Status: Acute (3) Congestive heart failure: Status: Acute Plan 66yo M with AF, morbid obesity presenting with dyspnea, weight gain, leg edema admitted for CHF exacerbation Acute on chronic hypoxic and hypercapnic respiratory failure, resolved went to ICU between December 24-2021 improved with BiPAP, to continue with BiPAP at nighttime Tooth pain Number 21&22 with basal dental caries Dentist recommended outpatient root canal Use pain medication as needed Right-sided Pleural effusion CX on showed right-sided effusion with possible atelectasis , no signs of i nfection Continue p.o. 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 f/u with his screw down, Dr Mason at [facility] Lasix 40 mg daily Continue diamox for metabolic alkalosis physical deconditioning Evaluated by physical therapy team who recommended short-term rehab Pending placement - difficulty finding bariatric placement, patient unable to manage at home sinus pauses/ sinus bradycardia patient asymptomatic during episodes seen by cardiology bradycardia likely due to undiagnosed YANN , since this is reversible not committed to pacemaker outpt polysomnography 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 not on metoprolol due to sinus pauses. Continue apixaban for anticoagulation morbid obesity strongly recommend to follow low-calorie diet outpatient bariatric surgery referral Pulmonary embolism Confirmed by V/Q scan from November 04 continue Eliquis VTE ppx apixaban Dispo Being followed by Physical therapy, patient continued to have low tolerance to functional mobility , dyspnea with minimal exertion with poor gait mechanics and increased risk of fall therefore PT continue to recommend STR, CM working placement Quality Stroke Does the patient have a stroke diagnosis?: No VTE Prior VTE?: No VTE Risk Level:: Medical - moderate - high VTE Device Contraindication: Treatment Not Indicated VTE Drug Contraindication: N/A - Med Ordered
[2022-01-22] MEDS: oxyCODONE HCl Immed Release 5 MG TABLET PO (20:48)
[2022-01-23] VITALS (7 sets, daily range): BP systolic 110–126; BP diastolic 59–86; PULSE 64–98; RESP 18–20; TEMP 36.2–36.7; O2SAT 94–97
[2022-01-23] MEDS: acetaZOLAMIDE 250 MG TABLET 500 MG PO ×2 (10:28→23:13)
[2022-01-23] MEDS: Apixaban 5 MG TABLET PO ×2 (10:29→23:13)
[2022-01-23] MEDS: guaiFENesin LA 600 MG TAB.ER.12H PO ×2 (10:29→23:13)
[2022-01-23] MEDS: 0.9 % Sodium Chloride Flush 3 ML SYRINGE IVFLUSH ×3 (10:29→23:13)
[2022-01-23] MEDS: oxyCODONE HCl Immed Release 5 MG TABLET PO ×3 (10:29→23:13)
[2022-01-23] MEDS: Furosemide 40 MG TABLET PO (10:29)
--- NOTE | 2022-01-23 11:16 | HO.PM.IMPN ---
Subjective Subjective Date of Service: 01/23/22 Interval History: Seen and evaluated used BiPAP overnight Breathing is okay, doing physical therapy denies any fever or chills Review of Systems No fever, chills or weakness No chest pain, palpitation No shortness of breath No abdominal pain, nausea or vomiting No urinary symptoms No reported rash or wounds Physical Exam Vital Signs: Vital Signs: Last Vital Signs Temp 97.2 F 01/23/22 07:30 Pulse 64 01/23/22 07:30 Resp 20 01/23/22 07:30 BP 124/63 01/23/22 07:30 Pulse Ox 96 01/23/22 07:30 BMI result Body Mass Index 63.1 Const: Other: Gen:? Awake alert, no distress HEENT: sclera anicteric, moist mucus membranes Neck: supple, no JVD Lungs: Chest wall moving bilaterally, not in respiratory distress Heart: irregularly irregular, no murmurs, no edema Abd: soft, non-tender, non-distended, morbidly obese Neuro: alert and oriented x3, no focal?findings Psych: appropriate affect Objective Data Active Medications Acetaminophen (Acetaminophen 325 Mg Tablet) 650 mg PO Q6H PRN PRN Reason: Pain, Mild (Pain Scale 1-3) Last Admin: 01/11/22 14:59 Dose: 650 mg Documented by: DO Acetazolamide (Acetazolamide 250 Mg Tablet) 500 mg PO BID [facility] Last Admin: 01/23/22 10:28 Dose: 500 mg Documented by: GLORIA Apixaban (Apixaban 5 Mg Tablet) 5 mg PO BID [facility] Last Admin: 01/23/22 10:29 Dose: 5 mg Documented by: GLORIA Furosemide (Furosemide 40 Mg Tablet) 40 mg PO DAILY [facility]; Protocol Last Admin: 01/23/22 10:29 Dose: 40 mg Documented by: GLORIA Guaifenesin (Guaifenesin La 600 Mg Tab.Er.12h) 600 mg PO BID [facility] Last Admin: 01/23/22 10:29 Dose: 600 mg Documented by: GLORIA Hydroxyzine HCl (Hydroxyzine Hcl 25 Mg Tablet) 25 mg PO Q6H PRN PRN Reason: anxiety/restlessness Last Admin: 01/15/22 20:33 Dose: 25 mg Documented by: CRISTHIAN Ibuprofen (Ibuprofen 600 Mg Tablet) 600 mg PO Q8H PRN PRN Reason: headache Last Admin: 01/22/22 16:18 Dose: 600 mg Documented by: DO Loperamide HCl (Loperamide Hcl 2 Mg Capsule) 2 mg PO Q4H PRN PRN Reason: Diarrhea Last Admin: 01/10/22 10:01 Dose: 2 mg Documented by: GLORIA Melatonin (Melatonin 3 Mg Tablet) 6 mg PO BEDTIME PRN PRN Reason: Insomnia Last Admin: 11/14/21 23:52 Dose: 6 mg Documented by: HERMELINDA Oxycodone HCl (Oxycodone Hcl Immed Release 5 Mg Tablet) 5 mg PO Q6H PRN PRN Reason: Pain, Severe (Pain Scale 7-10) Last Admin: 01/23/22 10:29 Dose: 5 mg Documented by: GLORIA Pharmacy Consult (Consult Rx Perform Med Rec) 1 each MISCELLANE ONCE PRN PRN Reason: Consult order Pharmacy Consult (Consult Rx Perform Med Rec) 1 each MISCELLANE ONCE PRN PRN Reason: Consult order Senna (Sennosides 8.6 Mg Tablet) 17.2 mg PO BEDTIME PRN PRN Reason: Constipation Last Admin: 01/14/22 09:58 Dose: 17.2 mg Documented by: YOAN Sodium Chloride (0.9 % Sodium Chloride Flush 3 Ml Syringe) 3 ml IVFLUSH QSHIFT [facility] Last Admin: 01/23/22 10:29 Dose: 3 ml Documented by: GLORIA Labs CBC & Chem 7: 01/20/22 06:23 01/21/22 06:17 Assessment and Plan (1) Acute on chronic respiratory failure with hypoxia and hypercapnia: Status: Acute (2) Physical deconditioning: Status: Acute (3) Morbidly obese: Status: Acute Plan 66yo M with AF, morbid obesity presenting with dyspnea, weight gain, leg edema admitted for CHF exacerbation Acute on chronic hypoxic and hypercapnic respiratory failure, resolved went to ICU between December 24-2021 improved with BiPAP, to continue with BiPAP at nighttime Tooth pain Number 21&[id number] with basal dental caries Dentist recommended outpatient root canal Use pain medication as needed Right-sided Pleural effusion CX on showed right-sided effusion with possible atelectasis , no signs of infection Continue p.o. 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, Dr Mason at [facility] Lasix 40 mg daily Continue diamox for metabolic alkalosis physical deconditioning Evaluated by physical therapy team who recommended short-term rehab Pending placement - difficulty finding bariatric placement, patient unable to manage at home sinus pauses/ sinus bradycardia patient asymptomatic during episodes seen by cardiology bradycardia likely due to undiagnosed YANN , since this is reversible not committed to pacemaker outpt polysomnography 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 not on metoprolol due to sinus pauses. Continue apixaban for anticoagulation morbid obesity strongly recommend to follow low-calorie diet outpatient bariatric surgery referral Pulmonary embolism Confirmed by V/Q scan from November 04 continue Eliquis VTE ppx apixaban Dispo Being followed by Physical therapy, patient continued to have low tolerance to functional mobility , dyspnea with minimal exertion with poor gait mechanics and increased risk of fall therefore PT continue to recommend STR, CM working placement Quality Stroke Does the patient have a stroke diagnosis?: No VTE Prior VTE?: No VTE Risk Level:: Medical - moderate - high VTE Device Contraindication: Treatment Not Indicated VTE Drug Contraindication: N/A - Med Ordered
[2022-01-24 03:40] VITALS: BP 136/69; PULSE 68; RESP 18; TEMP 36.4; O2SAT 94
[2022-01-24 08:00] VITALS: BP 135/60; PULSE 77; RESP 20; TEMP 36.2; O2SAT 96
[2022-01-24] MEDS: 0.9 % Sodium Chloride Flush 3 ML SYRINGE IVFLUSH ×3 (09:49→22:10)
[2022-01-24] MEDS: acetaZOLAMIDE 250 MG TABLET 500 MG PO ×2 (09:49→22:10)
[2022-01-24] MEDS: guaiFENesin LA 600 MG TAB.ER.12H PO ×2 (09:49→22:10)
[2022-01-24] MEDS: Furosemide 40 MG TABLET PO (09:49)
[2022-01-24] MEDS: Apixaban 5 MG TABLET PO ×2 (09:49→22:09)
[2022-01-24] MEDS: oxyCODONE HCl Immed Release 5 MG TABLET PO ×3 (09:49→22:16)
[2022-01-24 11:10] VITALS: BP 124/64; PULSE 67; RESP 20; TEMP 36.3; O2SAT 95
--- NOTE | 2022-01-24 12:27 | P.PNIM_ITS ---
Subjective Subjective Date of Service: 01/24/22 Interval History: Seen and evaluated used BiPAP overnight Breathing is okay, doing physical therapy denies any fever or chills Review of Systems No fever, chills or weakness No chest pain, palpitation No shortness of breath No abdominal pain, nausea or vomiting No urinary symptoms No reported rash or wounds Physical Exam Vital Signs: Vital Signs: Last Vital Signs Temp 97.4 F 01/24/22 11:10 Pulse 67 01/24/22 11:10 Resp 20 01/24/22 11:10 BP 124/64 01/24/22 11:10 Pulse Ox 95 01/24/22 11:10 BMI result Body Mass Index 63.1 Const: Other: Gen:? Awake alert, no distress HEENT: sclera anicteric, moist mucus membranes Neck: supple, no JVD Lungs: Chest wall moving bilaterally, not in respiratory distress Heart: irregularly irregular, no murmurs, no edema Abd: soft, non-tender, non-distended, morbidly obese Neuro: alert and oriented x3, no focal?findings Psych: appropriate affect Objective Data Active Medications Acetaminophen (Acetaminophen 325 Mg Tablet) 650 mg PO Q6H PRN PRN Reason: Pain, Mild (Pain Scale 1-3) Last Admin: 01/11/22 14:59 Dose: 650 mg Documented by: DO Acetazolamide (Acetazolamide 250 Mg Tablet) 500 mg PO BID [facility] Last Admin: 01/24/22 09:49 Dose: 500 mg Documented by: GLORIA Apixaban (Apixaban 5 Mg Tablet) 5 mg PO BID [facility] Last Admin: 01/24/22 09:49 Dose: 5 mg Documented by: GLORIA Furosemide (Furosemide 40 Mg Tablet) 40 mg PO DAILY [facility]; Protocol Last Admin: 01/24/22 09:49 Dose: 40 mg Documented by: GLORIA Guaifenesin (Guaifenesin La 600 Mg Tab.Er.12h) 600 mg PO BID [facility] Last Admin: 01/24/22 09:49 Dose: 600 mg Documented by: GLORIA Hydroxyzine HCl (Hydroxyzine Hcl 25 Mg Tablet) 25 mg PO Q6H PRN PRN Reason: anxiety/restlessness Last Admin: 01/15/22 20:33 Dose: 25 mg Documented by: CRISTHIAN Ibuprofen (Ibuprofen 600 Mg Tablet) 600 mg PO Q8H PRN PRN Reason: headache Last Admin: 01/22/22 16:18 Dose: 600 mg Documented by: DO Loperamide HCl (Loperamide Hcl 2 Mg Capsule) 2 mg PO Q4H PRN PRN Reason: Diarrhea Last Admin: 01/10/22 10:01 Dose: 2 mg Documented by: GLORIA Melatonin (Melatonin 3 Mg Tablet) 6 mg PO BEDTIME PRN PRN Reason: Insomnia Last Admin: 11/14/21 23:52 Dose: 6 mg Documented by: HERMELINDA Oxycodone HCl (Oxycodone Hcl Immed Release 5 Mg Tablet) 5 mg PO Q6H PRN PRN Reason: Pain, Severe (Pain Scale 7-10) Last Admin: 01/24/22 09:49 Dose: 5 mg Documented by: GLORIA Pharmacy Consult (Consult Rx Perform Med Rec) 1 each MISCELLANE ONCE PRN PRN Reason: Consult order Pharmacy Consult (Consult Rx Perform Med Rec) 1 each MISCELLANE ONCE PRN PRN Reason: Consult order Senna (Sennosides 8.6 Mg Tablet) 17.2 mg PO BEDTIME PRN PRN Reason: Constipation Last Admin: 01/14/22 09:58 Dose: 17.2 mg Documented by: YOAN Sodium Chloride (0.9 % Sodium Chloride Flush 3 Ml Syringe) [facility] Last Admin: 01/24/22 09:49 Dose: 3 ml Documented by: GLORIA Labs CBC & Chem 7: 01/20/22 06:23 01/21/22 06:17 Assessment and Plan (1) Acute on chronic respiratory failure with hypoxia and hypercapnia: Status: Acute (2) Physical deconditioning: Status: Acute (3) Congestive heart failure: Status: Acute (4) Morbidly obese: Status: Acute Plan 66yo M with AF, morbid obesity presenting with dyspnea, weight gain, leg edema admitted for CHF exacerbation Acute on chronic hypoxic and hypercapnic respiratory failure, resolved went to ICU between December 24-2021 improved with BiPAP, to continue with BiPAP at nighttime Tooth pain Number 21&[id number] with basal dental caries Dentist recommended outpatient root canal Use pain medication as needed Right-sided Pleural effusion CX on showed right-sided effusion with possible atelectasis , no signs of infection Continue p.o. 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, Dr Mason at [facility] Lasix 40 mg daily Continue diamox for metabolic alkalosis physical deconditioning Evaluated by physical therapy team who recommended short-term rehab Pending placement - difficulty finding bariatric placement, patient unable to manage at home sinus pauses/ sinus bradycardia patient asymptomatic during episodes seen by cardiology bradycardia likely due to undiagnosed YANN , since this is reversible not committed to pacemaker outpt polysomnography 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 not on metoprolol due to sinus pauses. Continue apixaban for anticoagulation morbid obesity strongly recommend to follow low-calorie diet outpatient bariatric surgery referral Pulmonary embolism Confirmed by V/Q scan from November 04 continue Eliquis VTE ppx apixaban Dispo Being followed by Physical therapy, patient continued to have low tolerance to functional mobility , dyspnea with minimal exertion with poor gait mechanics and increased risk of fall therefore PT continue to recommend STR, CM working placement Quality Stroke Does the patient have a stroke diagnosis?: No VTE Prior VTE?: No VTE Risk Level:: Medical - moderate - high VTE Device Contraindication: Treatment Not Indicated VTE Drug Contraindication: N/A - Med Ordered
[2022-01-24 15:05] VITALS: BP 110/56; PULSE 72; RESP 20; TEMP 36.6; O2SAT 95
[2022-01-24 20:00] VITALS: BP 128/63; PULSE 70; RESP 18; RESP 20; TEMP 36.5; O2SAT 96
[2022-01-24 23:35] VITALS: BP 131/62; PULSE 90; RESP 16; TEMP 36.4; O2SAT 96
[2022-01-25 03:23] VITALS: BP 119/65; PULSE 78; RESP 15; TEMP 36.2; O2SAT 96
[2022-01-25] MEDS: oxyCODONE HCl Immed Release 5 MG TABLET PO (04:52)
[2022-01-25 07:37] VITALS: BP 127/73; PULSE 68; RESP 20; TEMP 36.2; O2SAT 95
--- NOTE | 2022-01-25 08:34 | MHC.CM.PN ---
pts medicare appeal denied pt booked to leave at 10 am to [facility] to transport
[2022-01-25] MEDS: Apixaban 5 MG TABLET PO (08:36)
[2022-01-25] MEDS: 0.9 % Sodium Chloride Flush 3 ML SYRINGE IVFLUSH (08:36)
[2022-01-25] MEDS: Furosemide 40 MG TABLET PO (08:37)
[2022-01-25] MEDS: acetaZOLAMIDE 250 MG TABLET 500 MG PO (08:37)
[2022-01-25] MEDS: guaiFENesin LA 600 MG TAB.ER.12H PO (08:37)
--- NOTE | 2022-01-25 09:03 | P.DS_ITS ---
DS: Providers Provider Date of Service: 01/25/22 Date of admission: 11/04/21 00:59 Primary care physician: Kindra Eller MD Consults: 11/04/21 00:59 Consult to Cardiology Routine Consulting Provider: Tyrell Corey Reason for consultation: new onset CHF; Abran; Sinus pause DS: Diagnosis Discharge Diagnosis (1) Acute on chronic respiratory failure with hypoxia and hypercapnia: Status: Acute (2) Physical deconditioning: Status: Acute (3) Congestive heart failure: Status: Acute (4) Morbidly obese: Status: Acute (5) Tooth pain: Status: Acute (6) NSVT (nonsustained ventricular tachycardia): Status: Acute (7) Bradycardia: Status: Acute (8) Pulmonary embolism: Status: Acute (9) Atrial fibrillation: Status: Acute (10) Pleural effusion on right: Status: Acute DS: Summary Hospital Course Hospital Course: The patient had prolonged hospital stay. For full details please returned to full EMR. Admission note HPI ?66-year-old male with a past medical history of obesity, atrial fibrillation - not on any medications; presented to the hospital with a chief complaint of shortness of breath.? Patient reports that over the past 3 days she has been having shortness of breath which has been gradually worsening also complains of dyspnea on exertion.? Denies any chest pain.?Patient reports that he also feels like weight gain, leg swelling.? denies any fall or trauma.? Denies any fever chills cough.? Denies any GI symptoms.?Patient does complain of orthopnea.?Per ER team patient noted to be obese; noted to have pitting edema; chest x-ray showed congestion/ cardiomegaly/small pleural effusion; consult in CHF.? Given Lasix.?Patient's proBNP was elevated.? Unable to do CT scan given overweight.? Given empiric anticoagulation.? V/Q scan ordered.? Admitted to the hospital for further management.? EKG was nonischemic -atrial fibrillation -rate controlled. Hospital course The patient was primarily admitted to the hospital for treatment of CHF exacerbation. Found to have Pulmonary embolism Confirmed by V/Q scan from November 04 and started on Eliquis. He was evaluated by Cardiology team doing that. And started on Lasix therapy with improvement of his fluid balance. Noted to have sinus pauses/ sinus bradycardia which patient asymptomatic during episodes. seen by cardiology bradycardia likely due to undiagnosed YANN , since this is reversible not committed to pacemaker and recommended outpt polysomnography Developed toxic metabolic encephalopathy and was found to be in Acute on chronic hypoxic and hypercapnic respiratory failure from CO2 narcosis as he refused to wear the BiPAP. He went to ICU between December 24-2021. improved with BiPAP, and agreed to continue with BiPAP at nighttime with no recurrent encephalopathy or narcosis. Complained of Tooth pain by the beginning of January.?Number 21&[id number] with basal dental caries. Dentist recommended? outpatient root canal. Use pain medication as needed. Found to of Right-sided Pleural effusion from his position as he keeps laying on his right side. CX on showed right-sided effusion. Continue p.o. Lasix. Encourage incentive spirometry. Advise patient to reposition and increased activity. Diarrhea. Likely secretory as cdif negative. To use Imodium as needed diastolic R-sided? heart failure. Stable disease. Will need to follow-up with his rehab assistant, Dr Mason at [facility]. To continue with Lasix 40 mg daily and to use diamox for metabolic alkalosis. He will need repeat chemistry in 1 week. physical deconditioning Evaluated by physical therapy team who recommended short-term rehab. Noted on telemetry to have NSVTs which were asymptomatic. Related to untreated underlying YANN. Evaluated by Cardiology who said cannot use beta-anastacio for recurrent episodes of bradycardia. Improved after starting using BiPAP. chronic AF rate-controlled. not on? metoprolol due to sinus pauses.? Continue apixaban for anticoagulation morbid obesity strongly recommend to follow low-calorie diet outpatient bariatric surgery referral Time Spent with Patient Time attestation: Total time spent providing and/or coordinating discharge services: Discharge coordination time: Greater than 30 minutes Quality: Safe Use of Opioids Does Pt have an Active Cancer Diagnosis on the Problem List?: No Quality: Stroke Does the patient have a stroke diagnosis?: No Physical Exam Vital Signs: Vital Signs: Last Vital Signs Temp 97.2 F 01/25/22 07:37 Pulse 68 01/25/22 07:37 Resp 20 01/25/22 07:37 BP 127/73 01/25/22 07:37 Pulse Ox 95 01/25/22 07:37 BMI result Body Mass Index 63.1 Const: Other: Gen:? Awake alert, no distress HEENT: sclera anicteric, moist mucus membranes Neck: supple, no JVD Lungs: Chest wall moving bilaterally, not in respiratory distress Heart: irregularly irregular, no murmurs, no edema Abd: soft, non-tender, non-distended, morbidly obese Neuro: alert and oriented x3, no focal?findings Psych: appropriate affect Discharge Plan Discharge Patient Disposition: er [facility] Discharge Diagnosis: Respiratory failure with hypoxia and hypercapnia Physical deconditioning Pulmonary embolisms Referrals: [facility] [Other] - 1 Week Kindra Squires MD [Primary Care Provider] - 1 Week Discharge Medications: New Eliquis 5 mg Tablet 5 mg PO BID 99 Days Qty: 198 0RF furosemide 40 mg Tablet 40 mg PO DAILY 30 Days Qty: 30 0RF Protocol: Hold for SBP< HOLD for SBP < : 90 loperamide 2 mg Capsule 2 mg PO Q4H PRN (Reason: Diarrhea) Qty: 30 0RF acetazolamide 250 mg Tablet 500 mg PO BID 30 Days Qty: 120 0RF Continued albuterol sulfate 90 mcg/actuation HFA aerosol inhaler 2 puff inhalation Q4H PRN (Reason: Wheezing) 0RF Discharge Orders: Discharge Order (Routine); Ordered 01/25/22 Ordered By: Diana Bryant Diet: advance to usual diet and low salt diet Activity on Discharge: As tolerated Stand Alone Forms: Patient Portal Discharge page Care Plan Goals: Read below Health Concerns: Read below Plan of Treatment: Read below Assessment: You were admitted to the hospital for respiratory failure treated with BiPAP and required ICU admission with fair response as you will continue to need to were your BiPAP machine at nighttime and with naps. Continue treatment with Eliquis for pulmonary embolism and for new onset atrial fibrillation Continue Lasix 40 mg daily with Diamox as prescribed to control heart failure
[2022-01-25 09:54] LABS: COVID-19 Test Negative (Negative); IDNOW Serial# 16C4AD1C
== END 2022-01-25 10:11 | disposition skilled nursing facility (03) | DRG 291 ==
LOC: HO.ED 22:04 → HO.EDOVER 11-04 01:28 → HO.S3 11-04 02:05 → HO.IMC 11-08 12:37 → HO.ICU 12-25 00:07 → HO.IMC 12-27 21:59
PROVIDERS: Anesthesiology; Hospitalist; Internal Medicine; Nurse Practitioner Acute Care; Physician Assistant Medical; Admitting Provider Hospitalist; Emergency Provider Emergency Medicine; PCP Internal Medicine; Visit Provider Student in an Organized Health Care Education/Training Program
DX: I50.31 Acute diastolic (congestive) heart failure (principal); J96.21 Acute and chronic respiratory failure with hypoxia; G92.8 Other toxic encephalopathy; J96.22 Acute and chronic respiratory failure with hypercapnia; I26.99 Other pulmonary embolism without acute cor pulmonale; Z68.44 Body mass index [BMI] 60.0-69.9, adult; I48.20 Chronic atrial fibrillation, unspecified; I47.1 Supraventricular tachycardia; E87.4 Mixed disorder of acid-base balance; J44.1 Chronic obstructive pulmonary disease with (acute) exacerbation; E66.2 Morbid (severe) obesity with alveolar hypoventilation; N17.9 Acute kidney failure, unspecified; J98.11 Atelectasis; I49.5 Sick sinus syndrome; K02.9 Dental caries, unspecified; I27.20 Pulmonary hypertension, unspecified; R19.7 Diarrhea, unspecified; I50.811 Acute right heart failure; Z20.822 Contact with and (suspected) exposure to COVID-19; Z86.711 Personal history of pulmonary embolism; Z91.19 Patient's noncompliance with other medical treatment and regimen; Z79.899 Other long term (current) drug therapy
CPT/HCPCS: 36415; 36600; 70450; 71045; 71046; 71260; 78580; 80048; 80053; 80061; 81001; 82803; 82947; 83605; 83735; 83880; 84100; 84145; 84484; 85025; 85027; 85379; 85610; 85730; 87040; 87493; 87635; 93005; 93306; 93970; 94640; 94660; 94762; 96374; 96376; 97110; 97116; 97162; 97166; 97530; 99284; 99291; A9540; C1758; J1940; J2270; J2920; Q9957; Q9967